=== PATIENT | female | born 1955 | race Caucasian/White ===

== ENCOUNTER 2024-08-12 15:11 | Inpatient (IN) | payer MEDICARE, SELFPAY ==
--- NOTE | ~2024-08-12 | CT_ITS ---
EXAMINATION: CT HEAD WITHOUT CONTRAST CLINICAL INFORMATION: confusion, low sodium COMPARISON: None available. TECHNIQUE: Contiguous axial imaging was performed from the skull base to vertex without intravenous administration of contrast. This CT examination was performed using dose optimization techniques as appropriate, variously including the following: *Automated exposure control *Adjustment of mA and/or kV according to patient size (this includes techniques or standardized protocols for targeted exams where dose is matched to indication/reason for exam; i.e. extremities or head) *Use of iterative reconstruction technique DLP: 700 mGy-cm FINDINGS: No acute intracranial hemorrhage, mass effect, midline shift, hydrocephalus or herniation. Ocampo-white matter differentiation is normal. Posterior cranial fossa contents demonstrated calcified plaque through the V4 segments of the vertebral arteries and to the distal basilar artery. Calcified plaques in the cavernous supraclinoid segments both ICA. Prominence of the extra-axial CSF spaces along the frontal convexities. Bony calvarium is intact. Skull base is intact. Tympanic cavities and mastoid air cells are aerated. No air-fluid levels, included paranasal sinuses. CT/CT head/brain wo IV con IMPRESSION: No acute intracranial hemorrhage. If patient's symptoms persist recommend non-IV contrast MRI brain. Electronically signed by: Sudhir Hicks MD 08/14/2024 02:38 PM EDT
--- NOTE | 2024-08-12 15:39 | MHC.RECOVRN ---
Met with pt in ED waiting room after receiving call from pts PCP at [facility] that pt was experiencing withdrawal from prescribed medications. Per PCP, pt had been prescribed lorazepam, Percocet, and most recently clonazepam and pt abruptly stopped all medications 6-8 days ago. Pt was encouraged to present to the ED due to risks involved with benzodiazepine withdrawal. Pt sitting in wheelchair, appears comfortable, does not appear restless, not tremulous. Upon introducing self, pt becomes tearful and states I'm in a bad way. Pt reports she had been taking lorazepam, 1 mg, 5 tabs daily, PO, x 15 years. Pt also reports Percocet, 10 mg TID, PO, x 15 years. Pt reports she last took medications 8 days ago. Pt states I just don't want to be on them anymore. Pt states I feel like I have the flu. Reports upset stomach, anxiety, diarrhea. Discussed possibility of inpatient treatment/ATS, pt states I don't want to go anywhere. Discussed risks involved with abruptly stopping medications, including risk of seizure. Pt verbalizes understanding. Discussed tapering medications under supervision of PCP. Pt verbalizes understanding. Pt encouraged to continue discussing with PCP and develop a plan to stop medications. Denies questions or concerns at this time.
[2024-08-12 15:53] VITALS: BP 131/83; PULSE 95; RESP 16; TEMP 36.1; O2SAT 94; BMI 43.5
--- NOTE | 2024-08-12 15:57 | ED.GENADULT ---
HPI - General Adult General Chief complaint: ETOH/Substance Use Stated complaint: Med withdrawals Time Seen by Provider: 08/12/24 19:33 History of Present Illness ED Provider: Alie LEE narrative: The patient is a 68-year-old female. She says that she has been on Percocet and lorazepam for approximately 15 years. She says that in recent months she started increasing her use of lorazepam. She says that she has been prescribed lorazepam to take it 3 times a day. However she started to experience a lot of palpitations during the night as well and she would take 2 additional lorazepam at night. She therefore ran out of her lorazepam ahead of schedule. I believe she spoke to her primary care doctor who told her that she was misusing her medications and therefore the PCP was going to stop prescribing the medication. According to the state website she last received a prescription for oxycodone on July 16. On that day she picked up 90 tablets of 10 mg oxycodone Percocet tablets. On July 17 she picked up a prescription for 45 tablets of 0.5 mg clonazepam (in previous months she has been prescribed 90 tablets of lorazepam per month). The patient says that she has not taken any Percocet or benzodiazepines in approximately 10 days. She has been feeling quite unwell in apparently went to [facility] last week twice because of symptoms related to stopping these medications. Today the patient came to this hospital because she has been feeling so uncomfortable with the what she believes her withdrawal symptoms. She feels restless and uncomfortable. No fevers. She says she feels terrible. Related Data Home Medications ?Medication ?Instructions ?Recorded ?Confirmed amlodipine 10 mg tablet 10 mg PO DAILY 08/13/24 08/13/24 aspirin 81 mg tablet,delayed 81 mg PO DAILY 08/13/24 08/13/24 release carvedilol 12.5 mg tablet 12.5 mg PO BID 08/13/24 08/13/24 clonazepam 0.5 mg tablet 0.5 mg PO TID 08/13/24 08/13/24 clotrimazole-betamethasone 1 1 appl topical BID 08/13/24 08/13/24 %-0.05 % topical cream escitalopram oxalate 5 mg tablet 5 mg PO DAILY 08/13/24 08/13/24 fluticasone furoate 100 1 inh inhalation DAILY 08/13/24 08/13/24 mcg/actuation blister powder for inhalation (Arnuity Ellipta) lorazepam 1 mg tablet 1 mg PO TID 08/13/24 08/13/24 rosuvastatin 10 mg tablet 10 mg PO BEDTIME 08/13/24 08/13/24 Allergies Allergy/AdvReac Type Severity Reaction Status Date / Time No Known Allergies Allergy Verified 08/12/24 15:58 Review of Systems Review of Systems: Yes all other systems are reviewed and are negative [facility] Social History Social History Smoked in Last 30 Days: No Substance Use Type: Prescription Drugs Advance Directives: No Advance Directives Information Provided: Yes Do you have a plan to hurt others: No Plan Physical Exam ED Vital Signs: Vital Signs - 24 hr 08/13/24 20:11 08/13/24 20:14 08/14/24 07:50 Temperature 98.7 F 97.4 F Pulse Rate 91 91 86 Respiratory Rate 18 15 Blood Pressure 167/97 H 167/97 H 144/87 H Pulse Oximetry 97 95 Oxygen Delivery Method Room Air Room Air 08/14/24 13:25 Temperature 98.5 F Pulse Rate 75 Respiratory Rate 13 Blood Pressure 134/82 Pulse Oximetry 94 Oxygen Delivery Method Room Air BMI result Body Mass Index 43.5 Const Other: The patient is a chronically ill-appearing 68-year-old female who seemed extremely anxious and uncomfortable. HENMT Other: Face is symmetrical. Mucous membranes moist. Eyes General: appearance normal, both eyes and all related structures Neck Neck: Yes supple Resp Effort & Inspection: normal respiratory effort Auscultation: clear to auscultation bilaterally Cardio Rate: regular rate Rhythm: regular rhythm Heart sounds: S1 normal heart sound present and S2 normal heart sound present GI Other: Abdomen is soft and nontender Skin Other: Skin is dry and unremarkable Neuro Other: The patient is awake and alert. She does not seem disoriented. She seems very anxious. Cranial nerves are grossly intact. She moves her extremities symmetrically and appropriately. She has a nonfocal exam. Extrem Other: No peripheral edema Course Course Course Narrative: This is a rapid medical exam performed by Ashtyn Lopez PA-C. The patient is a 68-year-old female, who is on chronic lorazepam and Percocet, who states she is experiencing withdrawal symptoms. Patient states she has not had either her lorazepam or her Percocet when asked if she has been taking too much of her medication, she initially indicates that she has, then retracts the statement. The patient states that her ?entire body hurts?. On exam, the patient is tearful, however when she began speaking about her medications, she is no longer upset. She is alert and oriented x3, there was no active tremor, she has no active GI symptoms. We will screen basic labs serum ethanol and a drug screen. She has never been to our facility, I sadly feel that she is exhibiting medication seeking behavior. She is stable and will return to the waiting room pending her full assessment. Reevaluation(s) Reevaluation #1: Physician observation continued. VS stable, no acute events overnight, re-eval this AM per notes magnesium ordered level 1.5 08/13 Reevaluation #2: 1506 08/13/24 -- Spoke with Carolyn Villalobos from addiction med. Plan for ad care in the morning. patient agreeable with plan. Reevaluation #3: Physician observation continued. VS stable, no acute events overnight, will discuss with addiction medicine about dispo today NAY 08/14/24 Additional Reevaluation(s): UA + today after stating she couldn't urinate started on ceftin 250mg BID PVF 71 patient seems more confused this AM, discussed with PA to re-evaulate patient 11am and PA felt patient was more confused, BMP ordered by sports psychologist [address] head/osm, urine studies, move to main. battery charger conveyor line aware she has repeatedly asked for anxiety medications. waiting to discuss with RN if this is SIADH. Na 132 on 08/12. per RN patient has been drinking water but unclear how much they do not think that she has been drinking from the sink in the bathroom. overnight the RN did tell oncoming day team that she seems to drink a lot of water overnight and drank a lot to make herself go pee. we have removed all water from her room at this time. 1pm 08/14/24 NAY plan to admit to ICU given low Na she is able to answer questions appropriately no seizures at this time will star on oral Na tabs and admit Dr. Roldan aware I do not see ICH on CT head Medications Administered Generic Name Dose Route Start Last Admin Trade Name Freq PRN Reason Stop Dose Admin Amlodipine Besylate 10 mg 08/13/24 09:00 08/14/24 08:45 Amlodipine Besylate 10 Mg Tablet PO 10 mg DAILY CECILE Administration Protocol Aspirin 81 mg 08/13/24 10:10 08/14/24 08:45 Aspirin 81 Mg Tab.Chew PO 81 mg DAILY CECILE Administration Atorvastatin Calcium 40 mg 08/13/24 21:00 08/13/24 20:14 Atorvastatin Calcium 40 Mg Tablet PO 40 mg BEDTIME CECILE Administration Buprenorphine/Naloxone 1 film 08/13/24 09:00 08/14/24 08:45 Buprenorphine/Naloxone 4/1 Mg Film SUBLINGUAL 1 film BID CECILE Administration Carvedilol 12.5 mg 08/13/24 09:00 08/14/24 08:45 Carvedilol 12.5 Mg Tablet PO 12.5 mg BID CECILE Administration Protocol Cefuroxime Axetil 250 mg 08/14/24 10:35 08/14/24 11:06 Cefuroxime Axetil 250 Mg Tablet PO 08/21/24 10:34 250 mg BID CECILE Administration Escitalopram Oxalate 5 mg 08/13/24 09:00 08/14/24 08:48 Escitalopram Oxalate 5 Mg Tablet PO Not Given DAILY CECILE Lorazepam 1 mg 08/13/24 09:00 08/14/24 08:45 Lorazepam 1 Mg Tablet PO 1 mg TID CECILE Administration Nystatin/Triamcinolone Acetonide 1 appl 08/13/24 09:00 08/14/24 10:03 Nystatin/Triamcinolone Cream 15 Gm Tube TOPICAL Not Given BID CECILE Discontinued Medications Generic Name Dose Route Start Last Admin Trade Name Macario PRN Reason Stop Dose Admin Acetaminophen 650 mg 08/13/24 12:54 08/13/24 12:57 Acetaminophen 325 Mg Tablet PO 08/13/24 12:55 650 mg ONCE ONE Administration Acetaminophen 650 mg 08/13/24 21:32 08/13/24 21:38 Acetaminophen 325 Mg Tablet PO 08/13/24 21:33 650 mg ONCE ONE Administration Acetaminophen 650 mg 08/14/24 10:03 08/14/24 10:06 Acetaminophen 325 Mg Tablet PO 08/14/24 10:04 650 mg ONCE ONE Administration Al Hydroxide/Mg Hydroxide 30 ml 08/14/24 02:43 08/14/24 02:47 Magnesium Hydrox/Alum Hydrox 30 Ml Oral.Susp PO 08/14/24 02:44 30 ml ONCE ONE Administration Buprenorphine/Naloxone 1 film 08/12/24 21:30 08/12/24 22:25 Buprenorphine/Naloxone 4/1 Mg Film SUBLINGUAL 08/12/24 21:31 1 film ONCE ONE Administration Diphenhydramine HCl 50 mg 08/13/24 03:28 08/13/24 03:35 Diphenhydramine Hcl 25 Mg Capsule PO 08/13/24 03:29 50 mg ONCE ONE Administration Diphenhydramine HCl 50 mg 08/14/24 02:20 08/14/24 05:35 Diphenhydramine Hcl 25 Mg Capsule PO 08/14/24 02:21 Not Given ONCE ONE Lorazepam 1 mg 08/12/24 19:49 08/12/24 19:54 Lorazepam 1 Mg Tablet PO 08/12/24 19:50 1 mg ONCE ONE Administration Lorazepam 1 mg 08/13/24 09:00 08/13/24 20:21 Lorazepam 1 Mg Tablet PO Not Given BID CECILE Lorazepam 2 mg 08/14/24 10:46 08/14/24 10:54 Lorazepam 1 Mg Tablet PO 08/14/24 10:47 2 mg ONCE ONE Administration Magnesium Oxide 800 mg 08/13/24 09:40 08/13/24 10:44 Magnesium Oxide 400 Mg Tablet PO 08/13/24 09:41 800 mg ONCE ONE Administration Ondansetron HCl 4 mg 08/14/24 09:00 08/14/24 09:08 Ondansetron Odt 4 Mg Tab.Rapdis TRANSLINGU 08/14/24 09:01 4 mg ONCE ONE Administration Medical Decision Making Medical Decision Making [facility] Narrative: The patient is a 68-year-old female who presents apparently in withdrawal from benzodiazepines and oxycodone. The patient's symptoms seem consistent with withdrawal symptoms. The patient has been seen by the addiction Medicine team in the waiting room with a plan for probable outpatient management with the patient's PCP involved in a tapering of medications, particularly the benzodiazepines. The patient was given 1 mg of oral lorazepam in the emergency department with miraculous improvement in her symptoms. It has been my intention to discharge the patient with a prescription for a small number of lorazepam and possibly also on Suboxone. Patient had implied that the patient's PCP would be willing to participate in prescribing a tapering course of benzodiazepines. However prior to being discharged the patient contacted a family member who was going to be her ride home. The family member was extremely upset of the prospect of the patient being discharged. I spoke to the family member with the patient's permission and with the the patient also involved in the call. The patient's family member says that the patient's house is a shambles and that the patient has not demonstrated anything to suggest that she will be capable of participating in an outpatient tapering. Additionally the family member implied that the patient's PCP would not be agreeable to prescribing any medications for a slower taper of benzodiazepines. Based on the input from the family member I think it might be reasonable to keep the patient in the emergency department for a re-evaluation by the addiction Medicine team in the morning. At that point the addiction Medicine team could also contact the patient's family to get a possibly better sense of how disorganized the patient's life has been recently and whether there really is any reasonable outpatient approach that could be determined. Additionally it would have to be known if the patient's PCP was willing to participate in any outpatient tapering of benzodiazepines. The patient ultimately relented to stay in the emergency department voluntarily. In addition to the 1 mg of lorazepam that she received I have also ordered a 4 mg dose of Suboxone given her significant oxycodone use recently. I have put in orders for ongoing lorazepam 1 mg b.i.d. and Suboxone 4 mg b.i.d.. The patient will be moved into the psychiatric pod for the night. A consult for addiction Medicine has been placed. The patient will be placed in physician observation. Lab Data 08/12/24 17:05 08/14/24 13:15 Labs: Lab Results 08/12/24 08/14/24 08/14/24 Range/Units 17:05 08:29 12:18 WBC 8.3 (4.8-10.8) X10*3/uL RBC 4.69 (4.20-5.50) X10*6/uL Hgb 15.7 (12.0-16.0) g/dl Hct 42.0 (37.0-47.0) % MCV 89.6 (80.0-98.0) fL MCH 33.5 H (27.0-33.0) pg MCHC 37.4 H (31.0-35.0) g/dl RDW 13.2 (11.0-16.0) % Plt Count 182 (160-400) X10*3/uL MPV 11.2 (9.4-12.3) fL Immature Gran % (Auto) 0.2 (0.0-0.4) % Neut % (Auto) 63.7 (45-73) % Lymph % (Auto) 26.7 (20-40) % Mckinley % (Auto) 8.1 (2-11) % Eos % (Auto) 1.2 (0-4) % Baso % (Auto) 0.1 (0-2) % Lymph # (Auto) 2.2 (1.2-4.9) X10*3/uL Mckinley # (Auto) 0.7 (0.1-1.2) X10*3/uL Eos # (Auto) 0.1 (0.0-0.4) X10*3/uL Baso # (Auto) 0.0 (0.0-0.2) X10*3/uL Abs Immat Gran (auto) 0.02 (0.00-0.03) X10*3/uL Absolute Neuts (auto) 5.3 (2.0-8.3) x10*3/uL Absolute Nucleated RBC 0.000 (0.0-0.012) X10*3/uL Nucleated RBC % (auto) 0.0 (0.0-0.2) /100WBC Sodium 132 L 117 L* (135-145) mmol/L Potassium 3.6 4.3 (3.3-5.1) mmol/L Chloride 98 85 L (96-108) mmol/L Carbon Dioxide 23 26 (22-29) mmol/L Anion Gap 15 10 L (12-20) BUN 8 L 11 (9-16) mg/dL Creatinine 0.72 0.69 (0.5-1.4) mg/dL Estim Creat Clear Calc 85.4 89.1 Estimated GFR > 60 > 60 Random Glucose 122 H 154 H (60-115) mg/dL Osmolality (281-305) mosm/kg Calcium 10.3 H 9.0 D (8.4-10.2) mg/dL Magnesium 1.5 L (1.6-2.6) mg/dL Total Bilirubin 0.7 0.7 (0.0-1.0) mg/dL AST 73 H 78 H (5-31) U/L ALT 113 H 129 H (0-31) U/L Alkaline Phosphatase 71 67 (39-117) U/L Total Protein 7.7 7.1 (6.5-8.0) g/dL Albumin 4.6 4.3 (3.5-5.0) g/dL Urine Color Yellow Yellow Urine Appearance Clear Clear Urine pH 6.0 6.5 (5.0-9.0) Ur Specific [place] <= 1.005 <= 1.005 (1.005-1.025) Urine Protein Negative Negative (Neg-Trace) mg/dL Urine Glucose (UA) Negative Negative (Negative) mg/dL Urine Ketones 15 Negative (Negative) mg/dL Urine Blood Large (3+) H Moderate (2+) H (Negative) Urine Nitrite Negative Negative (Negative) Ur Leukocyte Esterase Moderate (2+) H Large (3+) H (Negative) Urine RBC 3-5 H 3-5 H (0-2) /HPF Urine WBC 0-5 21-50 H (0-5) /HPF Ur Squamous Epith Cells 0-2 0-2 (0-2) /HPF Urine Bacteria Trace None Seen (None Seen) Hyaline Casts 0-2 0-2 (0-2) /LPF Urine Opiates Screen Not Detected (Not Detect) Ur Buprenorphine Scrn Not Detected (Not Detect) ng/mL Ur Oxycodone Screen Not Detected (Not Detect) ng/mL Urine Methadone Screen Not Detected (Not Detect) ng/mL Urine Fentanyl Screen Not Detected (Not Detect) Ur Barbiturates Screen Not Detected (Not Detect) Ur Phencyclidine Scrn Not Detected (Not Detect) Ur Amphetamines Screen Not Detected (Not Detect) U Benzodiazepines Scrn Not Detected (Not Detect) Urine Cocaine Screen Not Detected (Not Detect) U Marijuana (THC) Screen Not Detected (Not Detect) Ethyl Alcohol < 10 mg/dL 08/14/24 Range/Units 13:15 WBC (4.8-10.8) X10*3/uL RBC (4.20-5.50) X10*6/uL Hgb (12.0-16.0) g/dl Hct (37.0-47.0) % MCV (80.0-98.0) fL MCH (27.0-33.0) pg MCHC (31.0-35.0) g/dl RDW (11.0-16.0) % Plt Count (160-400) X10*3/uL MPV (9.4-12.3) fL Immature Gran % (Auto) (0.0-0.4) % Neut % (Auto) (45-73) % Lymph % (Auto) (20-40) % Mckinley % (Auto) (2-11) % Eos % (Auto) (0-4) % Baso % (Auto) (0-2) % Lymph # (Auto) (1.2-4.9) X10*3/uL Mckinley # (Auto) (0.1-1.2) X10*3/uL Eos # (Auto) (0.0-0.4) X10*3/uL Baso # (Auto) (0.0-0.2) X10*3/uL Abs Immat Gran (auto) (0.00-0.03) X10*3/uL Absolute Neuts (auto) (2.0-8.3) x10*3/uL Absolute Nucleated RBC (0.0-0.012) X10*3/uL Nucleated RBC % (auto) (0.0-0.2) /100WBC Sodium 117 L* (135-145) mmol/L Potassium 4.1 (3.3-5.1) mmol/L Chloride 85 L (96-108) mmol/L Carbon Dioxide 25 (22-29) mmol/L Anion Gap 11 L (12-20) BUN 11 (9-16) mg/dL Creatinine 0.66 (0.5-1.4) mg/dL Estim Creat Clear Calc 93.2 Estimated GFR > 60 Random Glucose 160 H (60-115) mg/dL Osmolality 252 L (281-305) mosm/kg Calcium 9.1 (8.4-10.2) mg/dL Magnesium (1.6-2.6) mg/dL Total Bilirubin (0.0-1.0) mg/dL AST (5-31) U/L ALT (0-31) U/L Alkaline Phosphatase (39-117) U/L Total Protein (6.5-8.0) g/dL Albumin (3.5-5.0) g/dL Urine Color Urine Appearance Urine pH (5.0-9.0) Ur Specific Nine[place] (1.005-1.025) Urine Protein (Neg-Trace) mg/dL Urine Glucose (UA) (Negative) mg/dL Urine Ketones (Negative) mg/dL Urine Blood (Negative) Urine Nitrite (Negative) Ur Leukocyte Esterase (Negative) Urine RBC (0-2) /HPF Urine WBC (0-5) /HPF Ur Squamous Epith Cells (0-2) /HPF Urine Bacteria (None Seen) Hyaline Casts (0-2) /LPF Urine Opiates Screen (Not Detect) Ur Buprenorphine Scrn (Not Detect) ng/mL Ur Oxycodone Screen (Not Detect) ng/mL Urine Methadone Screen (Not Detect) ng/mL Urine Fentanyl Screen (Not Detect) Ur Barbiturates Screen (Not Detect) Ur Phencyclidine Scrn (Not Detect) Ur Amphetamines Screen (Not Detect) U Benzodiazepines Scrn (Not Detect) Urine Cocaine Screen (Not Detect) U Marijuana (THC) Screen (Not Detect) Ethyl Alcohol mg/dL Critical Care Time Critical Care Time Critical Care Time: Yes Total Critical Care Time: 35 Attestation: repeat labs, CT scan, consult, admission I attest to this time spent taking care of the patient Discharge Plan Discharge Clinical Impression: Benzodiazepine withdrawal, Opioid withdrawal, Acute hyponatremia Patient Disposition: Admitted As Inpatient Prescriptions: No Action carvedilol 12.5 mg tablet 12.5 mg PO BID clonazepam 0.5 mg tablet 0.5 mg PO TID amlodipine 10 mg tablet 10 mg PO DAILY lorazepam 1 mg tablet 1 mg PO TID rosuvastatin 10 mg tablet 10 mg PO BEDTIME escitalopram oxalate 5 mg tablet 5 mg PO DAILY Arnuity Ellipta 100 mcg/actuation blister with device 1 inh inhalation DAILY clotrimazole-betamethasone 1-0.05 % cream 1 appl topical BID aspirin [Aspir-81] 81 mg Tablet,Delayed Release (Dr/Ec) 81 mg PO DAILY Print Language: Samoan
[2024-08-12 17:14] LABS: MANUAL DIFF FLAG NO
[2024-08-12 17:17] LABS: Appearance Urine Clear; Basophils Percent Auto 0.1 % (0-2); Color Urine Yellow; Eosinophils Absolute Auto 0.1 X10*3/uL (0.0-0.4); Eosinophils Percent Auto 1.2 % (0-4); Glucose Urine UA Negative (Negative); Hemoglobin 15.7 g/dl (12.0-16.0); Imm Gran Abs Auto 0.02 X10*3/uL (0.00-0.03); Imm Gran Pct Auto 0.2 % (0.0-0.4); Leukocyte Esterase Urine Moderate (2+) (Negative); Lymphocytes Absolute Auto 2.2 X10*3/uL (1.2-4.9); Lymphocytes Percent Auto 26.7 % (20-40); Mean Corpuscular HGB Conc 37.4 g/dl (31.0-35.0); Mean Corpuscular Hemoglobin 33.5 pg (27.0-33.0); Mean Corpuscular Volume 89.6 fL (80.0-98.0); Mean Platelet Volume 11.2 fL (9.4-12.3); Monocytes Absolute Auto 0.7 X10*3/uL (0.1-1.2); Monocytes Percent Auto 8.1 % (2-11); Neutrophils Absolute Auto 5.3 x10*3/uL (2.0-8.3); Neutrophils Percent Auto 63.7 % (45-73); Nitrite Urine Negative (Negative); Platelet Count 182 X10*3/uL (160-400); Red Blood Count 4.69 X10*6/uL (4.20-5.50); Red Cell Distribution Width 13.2 % (11.0-16.0); Specific Gravity - Urine <= 1.005 (1.005-1.025); UMIC TRIGGER UACC YES; Urine Blood Large (3+) (Negative); Urine Ketones 15 mg/dL (Negative); Urine Protein Negative (Neg-Trace); White Blood Count 8.3 X10*3/uL (4.8-10.8)
[2024-08-12 17:37] LABS: Alanine Aminotransferase 113 U/L (0-31); Albumin Level 4.6 g/dL (3.5-5.0); Alkaline Phosphatase 71 U/L (39-117); Anion Gap 15 (12-20); Aspartate Amino Transferase 73 U/L (5-31); Bilirubin Total 0.7 mg/dL (0.0-1.0); Blood Urea Nitrogen 8 mg/dL (9-16); Calcium 10.3 mg/dL (8.4-10.2); Carbon Dioxide 23 mmol/L (22-29); Chloride 98 mmol/L (96-108); Creatinine Clr Calc Pharmacy 85.4; Estimated Glomerular Filt Rate > 60; Ethanol < 10 mg/dL; Glucose Random 122 mg/dL (60-115); Magnesium 1.5 mg/dL (1.6-2.6); Potassium 3.6 mmol/L (3.3-5.1); Sodium 132 mmol/L (135-145); Total Protein 7.7 g/dL (6.5-8.0)
[2024-08-12 17:43] LABS: WBC Urine 0-5 /HPF (0-5)
[2024-08-12 17:44] LABS: Bacteria Urine Trace (None Seen); Hyaline Casts Urine 0-2 /LPF (0-2); Squamous Epithelial Cell Urine 0-2 /HPF (0-2)
[2024-08-12 18:42] LABS: Amphetamine Screen Urine Not Detected (Not Detect); Barbiturates, Urine Not Detected (Not Detect); Benzodiazepines Screen Urine Not Detected (Not Detect); Buprenorphine Scr Not Detected (Not Detect); Cannabinoid Screen Urine Not Detected (Not Detect); Cocaine Screen Urine Not Detected (Not Detect); Fentanyl, urine Not Detected (Not Detect); Methadone Screen, Urine Not Detected (Not Detect); Opiate Screen Urine Not Detected (Not Detect); Oxycodone Screen Urine Not Detected (Not Detect); Phencyclidine Screen Urine Not Detected (Not Detect)
[2024-08-12 19:16] VITALS: BP 161/86; PULSE 89; RESP 16; TEMP 36.7; O2SAT 96
[2024-08-12] MEDS: LORazepam 1 MG TABLET PO (19:54)
--- NOTE | 2024-08-12 20:16 | PC.NURSE ---
pt changed to hospital gown and placed on heart monitor. pt is axox4, calm/cooperative but becoming anxious at times. MD Alie martinez pt, pt medicated per dec. will reassess sx. pt denies si/hi. listening to music on phone as pt states that helps her anxiety. call albert within reach.
--- NOTE | 2024-08-12 21:43 | PC.NURSE ---
per MD pt to stay in ed overnight to re eval with recovery medication. per charger operator pt to pod, report given to singh rn. pt escorted by forepart reducer and security to be changed over in pod. pt aware of belongings needing to be secured and in agreement.
--- NOTE | 2024-08-12 21:55 | PC.NURSE ---
patient was changd over by this policy writer upon arrival to unit presents with no evidence of injury, ekg stickers removed, patient fully cooperative and no presence of cantrAband
[2024-08-12] MEDS: Buprenorphine/Naloxone 4/1 mg FILM 1 FILM SUBLINGUAL (22:25)
[2024-08-13] MEDS: diphenhydrAMINE HCL 25 MG CAPSULE 50 MG PO (03:35)
[2024-08-13 08:08] VITALS: BP 149/90; PULSE 98; RESP 16; TEMP 36.6; O2SAT 95
--- NOTE | 2024-08-13 08:30 | PHA.MEDREC ---
Pharmacy Consult ? Medication Reconciliation Pharmacy has reviewed the medication reconciliation.
[2024-08-13 08:45] VITALS: BP 140/90
[2024-08-13] MEDS: amLODIPine Besylate 10 MG TABLET PO (08:45)
[2024-08-13] MEDS: LORazepam 1 MG TABLET PO ×3 (08:46→20:16)
[2024-08-13 09:12] VITALS: BP 140/90; PULSE 98
[2024-08-13] MEDS: carvediloL 12.5 MG TABLET PO ×2 (09:12→20:14)
[2024-08-13] MEDS: Buprenorphine/Naloxone 4/1 mg FILM 1 FILM SUBLINGUAL ×2 (09:12→20:13)
[2024-08-13] MEDS: Nystatin/Triamcinolone Cream 15 GM TUBE 1 APPL TOPICAL ×2 (09:12→20:22)
[2024-08-13] MEDS: Escitalopram Oxalate 5 MG TABLET PO (09:12)
--- NOTE | 2024-08-13 10:15 | MHC.RECOVRN ---
Met with pt in [facility] to follow up after meeting pt yesterday. Pt awake, alert, easily engages in conversation. Pt tearful, scoring on CIWA and COWS. Pt had been initiated on Suboxone overnight, states it helped me relax. Discussed options with pt, including continuing Suboxone and outpatient taper of benzodiazepines (t/w confirmed PCP would prescribe) vs inpatient treatment. Pt reports if she does not complete inpatient treatment her family will no longer help her. Pt also reports she would like to take the safest route in order to no longer be on these medications. Upon further discussion, pt is interested in ATS. Pt denies other questions or concerns at this time. [facility] accepts pts insurance, pts referral will be completed.
[2024-08-13] MEDS: Magnesium Oxide 400 MG TABLET 800 MG PO (10:44)
[2024-08-13] MEDS: Aspirin 81 MG TAB.CHEW PO (10:44)
--- NOTE | 2024-08-13 12:11 | MHC.RECOVRN ---
Upon further investigation, pts insurance is NOT accepted at [facility], or [facility]. Awaiting to hear from [facility].
[2024-08-13] MEDS: Acetaminophen 325 MG TABLET 650 MG PO ×2 (12:57→21:38)
--- NOTE | 2024-08-13 12:57 | MHC.RECOVRN ---
[facility]. Awaiting phone call for intake.
--- NOTE | 2024-08-13 15:17 | MHC.RECOVRN ---
Pt accepted to [facility]. No available female beds at the moment, pt will get next available. There are discharges scheduled for tomorrow. Discussed with ED provider. Plan for pt to stay in ED overnight. Pts RN aware.
--- NOTE | 2024-08-13 16:16 | PC.NURSE ---
Addendum entered by Coco Mcduffie RN 08/13/24 16:22: Bladdered scanned for 54cc's. Original Note: Patient states she can't void will bladder scan to assess amount in bladder.
[2024-08-13 20:11] VITALS: BP 167/97; PULSE 91; RESP 18; TEMP 37.1; O2SAT 97
[2024-08-13 20:14] VITALS: BP 167/97; PULSE 91
[2024-08-13] MEDS: Atorvastatin Calcium 40 MG TABLET PO (20:14)
[2024-08-14] VITALS (10 sets, daily range): BP systolic 134–162; BP diastolic 76–87; PULSE 64–86; RESP 10–20; TEMP 36.2–36.9; O2SAT 93–96
--- NOTE | 2024-08-14 01:24 | PC.NURSE ---
patient mentions periodic urinary hesitancy which t/w had informed provider dt pt concerns. the symptoms had abated.
[2024-08-14] MEDS: Magnesium Hydrox/Alum Hydrox 30 ML ORAL.SUSP PO (02:47)
--- NOTE | 2024-08-14 07:46 | PC.NURSE ---
pt is reporting trouble urinating. she says she has had this problem before. She says I have to lift my belly and push . Bladder scan post void 71ml.
[2024-08-14] MEDS: Buprenorphine/Naloxone 4/1 mg FILM 1 FILM SUBLINGUAL ×2 (08:45→19:59)
[2024-08-14] MEDS: amLODIPine Besylate 10 MG TABLET PO (08:45)
[2024-08-14] MEDS: carvediloL 12.5 MG TABLET PO ×2 (08:45→19:58)
[2024-08-14] MEDS: Aspirin 81 MG TAB.CHEW PO (08:45)
[2024-08-14] MEDS: LORazepam 1 MG TABLET PO ×3 (08:45→20:00)
[2024-08-14 08:48] LABS: Appearance Urine Clear; Color Urine Yellow; Glucose Urine UA Negative (Negative); Leukocyte Esterase Urine Large (3+) (Negative); Nitrite Urine Negative (Negative); PH 6.5 (5.0-9.0); Specific Gravity - Urine <= 1.005 (1.005-1.025); UMIC TRIGGER UACC YES; Urine Blood Moderate (2+) (Negative); Urine Ketones Negative (Negative); Urine Protein Negative (Neg-Trace)
[2024-08-14 09:00] LABS: Bacteria Urine None Seen (None Seen); Hyaline Casts Urine 0-2 /LPF (0-2); Squamous Epithelial Cell Urine 0-2 /HPF (0-2); UACC Culture Trigger YES; WBC Urine 21-50 /HPF (0-5)
[2024-08-14] MEDS: Ondansetron ODT 4 MG TAB.RAPDIS TRANSLINGU (09:08)
[2024-08-14] MEDS: Acetaminophen 325 MG TABLET 650 MG PO (10:06)
--- NOTE | 2024-08-14 10:19 | MHC.RECOVRN ---
Spoke with Dameon RN, Meng, who reported he has discussed this case with medical team and case management. It was decided by the teams that pts insurance would not cover admission due to pt not having been on her meds for 8 days prior to presentation to [facility] [place]. Meng stated She already got through the dangerous part of detox on her own and even though she is in the hospital, this would be considered only a 1 day relapse. Meng reports [facility] is looking for 10-14 days of use. Informed Meng that pt had scored on COWS and CIWA upon presentation and has been medicated since being in the hospital, which has resulted in CIWA scores of 0. Meng reports that even though she had been scoring, simply the length of time that had passed since last use made her ineligible for ATS. Discussed with Kyung Hensley APRN.
--- NOTE | 2024-08-14 10:31 | ECG_ITS ---
Test Reason : CHEST PAIN Blood Pressure : / mmHG Vent. Rate : 076 BPM Atrial Rate : 076 BPM P-R Int : 180 ms QRS Dur : 084 ms QT Int : 382 ms P-R-T Axes : 036 019 025 degrees QTc Int : 429 ms Sinus rhythm with marked sinus arrhythmia Septal infarct , age undetermined Abnormal ECG No previous ECGs available Referred By: Henna Jean Electronically Signed By:Jimenez Connolly
--- NOTE | 2024-08-14 10:45 | PC.NURSE ---
pt is c/o of chest pain, nausea, headache, neck pain. She says this is the worst it has ever been, the anxiety is consuming me. She is moaning. EKG done. Pt says she is withdrawing. She had ativan 1mg per TID order this morning at 0845. Dr. Jean notified.
[2024-08-14] MEDS: LORazepam 1 MG TABLET 2 MG PO (10:54)
[2024-08-14] MEDS: cefuroxime axetiL 250 MG TABLET PO ×2 (11:06→20:00)
--- NOTE | 2024-08-14 11:26 | MHC.RECOVRN ---
Met with pt to follow up regarding conversation with [facility]. Pt awake, alert, crying, moaning. Informed pt of new information and option of outpatient plan- continue Suboxone and PCP prescribe bzo taper. Pt crying, moaning, states I can't go home. I can't take care of myself. Pt reporting chest pain, palpitations, I feel like my stomach has been ripped out. Discussed with Kyung Hensley APRN.
[2024-08-14 12:49] LABS: Alanine Aminotransferase 129 U/L (0-31); Albumin Level 4.3 g/dL (3.5-5.0); Alkaline Phosphatase 67 U/L (39-117); Anion Gap 10 (12-20); Aspartate Amino Transferase 78 U/L (5-31); Bilirubin Total 0.7 mg/dL (0.0-1.0); Blood Urea Nitrogen 11 mg/dL (9-16); Carbon Dioxide 26 mmol/L (22-29); Chloride 85 mmol/L (96-108); Creatinine Clr Calc Pharmacy 89.1; Estimated Glomerular Filt Rate > 60; Glucose Random 154 mg/dL (60-115); Potassium 4.3 mmol/L (3.3-5.1); Sodium 117 mmol/L (135-145); Total Protein 7.1 g/dL (6.5-8.0)
--- NOTE | 2024-08-14 13:37 | PC.NURSE ---
pt a&ox3, iv inserted, labs previously redrawn, alarm security or surveillance monitor applied nsr on monitor, vitals currently stable, pt aware she is not to have water at this time. 1:1 sitter at bedside, ekg previously performed, call albert within reach, will continue to monitor
[2024-08-14 13:53] LABS: Anion Gap 11 (12-20); Blood Urea Nitrogen 11 mg/dL (9-16); Calcium 9.1 mg/dL (8.4-10.2); Carbon Dioxide 25 mmol/L (22-29); Chloride 85 mmol/L (96-108); Creatinine Clr Calc Pharmacy 93.2; Estimated Glomerular Filt Rate > 60; Glucose Random 160 mg/dL (60-115); Potassium 4.1 mmol/L (3.3-5.1); Sodium 117 mmol/L (135-145)
[2024-08-14 13:55] LABS: Osmolality, Serum 252 mosm/kg (281-305)
--- NOTE | 2024-08-14 15:13 | P.HPCC_ITS ---
History of Present Illness Date of Service: 08/14/24 Chief Complaint: Acute hyponatremia, polydipsia 68-year-old lady with underlying history of hypertension, anxiety, depression, ?opioid dependence on Suboxone being observed in emergency department a several day secondary to withdrawal symptoms who developed acute hyponatremia overnight secondary to polydipsia with sodium level down to 117, but with no acute neurologic symptoms. Patient is alert and oriented in following all commands being admitted to intensive care unit for close monitoring. Review of Systems 2 Constitutional: Constitutional: Denies daytime sleepiness, Denies excessive sweating, Denies fatigue, Denies fever(s), Denies lethargy, Denies malaise, Denies night sweats, Denies snoring and Denies weight loss Eyes: Eyes: Denies blurry vision and Denies itchy eyes ENT: Denies nasal congestion, Denies post nasal drip, Denies sinus pain, Denies sinus pressure and Denies other ( Thrush) Cardiovascular: Cardiovascular: Denies chest pain, Denies pedal edema, Denies dyspnea, Denies orthopnea and Denies paroxysmal nocturnal dyspnea Respiratory: Respiratory: Denies cough, Denies hemoptysis, Denies excessive phlegm production, Denies dyspnea, Denies snoring and Denies wheezing Gastrointestinal: Gastrointestinal: Denies abdominal pain and Denies heartburn Musculoskeletal: Musculoskeletal: Denies myalgias, Denies arthralgias and Denies joint swelling Integumentary/Breasts: Skin/Breast: Denies rash Neurologic: Denies seizure-like activity Endocrine: Endocrine: Denies excessive sweating, Denies fatigue and Denies heat intolerance Hematologic/Lymphatic: Hematologic/Lymphatic: Denies easy bruising Allergic/Immunologic: Allergic/Immunologic: Denies itchy eyes, Denies seasonal rhinorrhea and Denies wheezing PMFSH Social History Social History Smoked in Last 30 Days: No Substance Use Type: Prescription Drugs Advance Directives: No Advance Directives Information Provided: Yes Do you have a plan to hurt others: No Plan Meds Allergies Allergy/AdvReac Type Severity Reaction Status Date / Time No Known Allergies Allergy Verified 08/12/24 15:58 Active Medications: Current Medications Amlodipine Besylate (Amlodipine Besylate 10 Mg Tablet) 10 mg PO DAILY [facility]; Protocol Last Admin: 08/14/24 08:45 Dose: 10 mg Aspirin (Aspirin 81 Mg Tab.Chew) 81 mg PO DAILY [facility] Last Admin: 08/14/24 08:45 Dose: 81 mg Atorvastatin Calcium (Atorvastatin Calcium 40 Mg Tablet) 40 mg PO BEDTIME [facility] Last Admin: 08/13/24 20:14 Dose: 40 mg Buprenorphine/Naloxone (Buprenorphine/Naloxone 4/1 Mg Film) 1 film SUBLINGUAL BID [facility] Last Admin: 08/14/24 08:45 Dose: 1 film Carvedilol (Carvedilol 12.5 Mg Tablet) 12.5 mg PO BID [facility]; Protocol Last Admin: 08/14/24 08:45 Dose: 12.5 mg Cefuroxime Axetil (Cefuroxime Axetil 250 Mg Tablet) 250 mg PO BID [facility] Stop: 08/21/24 10:34 Last Admin: 08/14/24 11:06 Dose: 250 mg Heparin Sodium (Porcine) (Heparin Sodium,Porcine 5,000 Unit/Ml Vial) 5,000 unit SUBCUT Q8H [facility] Lorazepam (Lorazepam 1 Mg Tablet) 1 mg PO TID PRN PRN Reason: anxiety Nystatin/Triamcinolone Acetonide (Nystatin/Triamcinolone Cream 15 Gm Tube) 1 appl TOPICAL BID [facility] Last Admin: 08/14/24 10:03 Dose: Not Given Sodium Chloride (Sodium Chloride Tab 1 Gm Tablet) 2 gm PO TID [facility] Home Medications ?Medication ?Instructions ?Recorded ?Confirmed ?Last Taken ?Type amlodipine 10 mg tablet 10 mg PO DAILY 08/13/24 08/13/24 Unknown History aspirin 81 mg tablet,delayed 81 mg PO DAILY 08/13/24 08/13/24 Unknown History release carvedilol 12.5 mg tablet 12.5 mg PO BID 08/13/24 08/13/24 Unknown History clonazepam 0.5 mg tablet 0.5 mg PO TID 08/13/24 08/13/24 Unknown History clotrimazole-betamethasone 1 1 appl topical BID 08/13/24 08/13/24 Unknown History %-0.05 % topical cream escitalopram oxalate 5 mg tablet 5 mg PO DAILY 08/13/24 08/13/24 Unknown History fluticasone furoate 100 1 inh inhalation DAILY 08/13/24 08/13/24 Unknown History mcg/actuation blister powder for inhalation (Arnuity Ellipta) lorazepam 1 mg tablet 1 mg PO TID 08/13/24 08/13/24 Unknown History rosuvastatin 10 mg tablet 10 mg PO BEDTIME 08/13/24 08/13/24 Unknown History Physical Exam 2 Vital Signs: Vital Signs: Last Vital Signs Temp 98.5 F 08/14/24 13:25 Pulse 75 08/14/24 13:25 Resp 13 08/14/24 13:25 BP 134/82 08/14/24 13:25 Pulse Ox 94 08/14/24 13:25 O2 Del Method Room Air 08/14/24 13:25 BMI result Body Mass Index 43.5 Const: General: no acute distress and alert Nutritional Appearance: obese Orientation/consciousness: Other orientation findings ( oriented) HEENT: Head: Yes atraumatic Eyes: General: appearance normal, both eyes and all related structures S clerae: sclerae normal EOM: EOMs intact bilaterally Neck: Neck: Yes supple Lymphatic: no lymphadenopathy noted Resp: Effort & Inspection: normal respiratory effort and no use of accessory muscles Auscultation: clear to auscultation bilaterally Cardio: Rate: regular rate Rhythm: regular rhythm Heart sounds: no gallops, no murmurs and no rubs Skin: General skin exam: other ( warm) Extrem: General: No clubbing, No cyanosis and No edema Results Labs 08/12/24 17:05 08/14/24 13:15 Labs: Laboratory Results - last 24 hr 08/14/24 08/14/24 08/14/24 08:29 12:18 13:15 Anion Gap 10 L 11 L Estim Creat Clear Calc 89.1 93.2 Estimated GFR > 60 > 60 Random Glucose 154 H 160 H Osmolality 252 L Calcium 9.0 D 9.1 Total Bilirubin 0.7 AST 78 H ALT 129 H Alkaline Phosphatase 67 Total Protein 7.1 Albumin 4.3 Urine Color Yellow Urine Appearance Clear Urine pH 6.5 Ur Specific [place] <= 1.005 Urine Protein Negative Urine Glucose (UA) Negative Urine Ketones Negative Urine Blood Moderate (2+) H Urine Nitrite Negative Ur Leukocyte Esterase Large (3+) H Urine RBC 3-5 H Urine WBC 21-50 H Ur Squamous Epith Cells 0-2 Urine Bacteria None Seen Hyaline Casts 0-2 Imaging Radiologist's Impressions: Impressions Head CT 08/14/24 12:57 IMPRESSION: No acute intracranial hemorrhage. If patient's symptoms persist recommend non-IV contrast MRI brain. Electronically signed by: Sudhir Hicks MD 08/14/2024 02:38 PM EDT RP Assessment and Plan (1) Psychogenic polydipsia: Status: Acute (2) Acute hyponatremia: Status: Acute (3) Opioid withdrawal: Status: Acute (4) Benzodiazepine withdrawal: Status: Acute (5) UTI (urinary tract infection): Status: Acute Plan Assessment: 68-year-old lady with acute hyponatremia likely secondary to psychogenic polydipsia being admitted for close monitoring Plan: Neuro: No acute issues. No neurologic symptoms. Cardiac: No acute issues. Pulmonary: No acute issues. Renal: Acute hyponatremia, likely secondary to psychogenic polydipsia. Osmolality studies are pending. Continue with fluid restriction and sodium tabs. Monitor urine output, renal indices, and electrolytes. Endo: No acute issues. GI: No acute issues. ID: UTI present on admission, continue with cefuroxime. Heme/Onc: No acute issues. Psych: No acute issues. Miscellaneous: No acute issues. Prophylaxis: Heparin Diet: Regular
[2024-08-14 15:18] LABS: Creatinine Urine 60.11 mg/dL; Sodium Urine Random < 20.0 mmol/L
[2024-08-14] MEDS: Heparin Sodium,Porcine 5,000 UNIT/ML VIAL 5000 UNIT SUBCUT (15:26)
--- NOTE | 2024-08-14 15:32 | PC.NURSE ---
called pharmacy for missing sodium chloride
[2024-08-14] MEDS: Sodium Chloride Tab 1 GM TABLET 2 GM PO ×2 (16:00→19:57)
--- NOTE | 2024-08-14 16:03 | PC.NURSE ---
pt a&ox3, vss, hotel office manager intact nsr with inverted twaves, pt currently denying pain/discomfort, medicated per order, report was called to ICU- they will call back when they have the sitter situation for the patient sorted out.
--- NOTE | 2024-08-14 16:23 | PC.NURSE ---
sitter is now available in ICU, pt can go to floor
--- NOTE | 2024-08-14 16:55 | PC.NURSE ---
unable to document the updated vitals as the pt was rolled to ICU and they no longer show. vitals upon dc to icu were as follows 97.8, p 82, 95% R/A, 18RR, 145/71 BP
[2024-08-14] MEDS: Atorvastatin Calcium 40 MG TABLET PO (19:57)
[2024-08-14 20:29] LABS: Anion Gap 12 (12-20); Blood Urea Nitrogen 9 mg/dL (9-16); Carbon Dioxide 25 mmol/L (22-29); Chloride 88 mmol/L (96-108); Creatinine Clr Calc Pharmacy 97.6; Estimated Glomerular Filt Rate > 60; Glucose Random 132 mg/dL (60-115); Potassium 3.7 mmol/L (3.3-5.1); Sodium 121 mmol/L (135-145)
[2024-08-15] VITALS (8 sets, daily range): BP systolic 118–157; BP diastolic 57–98; PULSE 62–82; RESP 12–16; TEMP 36.1–37.1; O2SAT 93–97; BMI 42.8
[2024-08-15 01:01] LABS: Anion Gap 11 (12-20); Blood Urea Nitrogen 9 mg/dL (9-16); Calcium 8.9 mg/dL (8.4-10.2); Carbon Dioxide 28 mmol/L (22-29); Chloride 88 mmol/L (96-108); Creatinine Clr Calc Pharmacy 90.4; Estimated Glomerular Filt Rate > 60; Glucose Random 143 mg/dL (60-115); Potassium 4.2 mmol/L (3.3-5.1); Sodium 123 mmol/L (135-145)
--- NOTE | 2024-08-15 02:22 | PC.NURSE ---
Addendum entered by Dannie Bueno RN 08/15/24 06:12: ALERT...ORIENTED THIS AM...SODIUM LEVEL 126 THIS AM...STARTED D5W 100 CC/HR PER ICU RADIATION / CHEMISTRY TECHNICIAN..RESTFUL..CALM AND CO-OPERATIVE Original Note: CARE ASSUMED 7PM..ALERT..ORIENTED X3...OOB AD JESSICA TO COMMODE WITH STEADY GAIT..REFUSED BED ALARM AND/OR OBSERVATION CAMERA...REFUSED HOURLY BP CUFF MAINTENANCE...VSS..PER ICU RADIATION / CHEMISTRY TECHNICIAN TO ASSESS VITAL SIGNS [id number]...PATIENT TEARFUL..STATED I DON'T FEEL GOOD..I'M IN WITHDRAWL AND I'M NAUSEOUS.. ...SCHEDULED SUBOXONE GIVEN AND PRN ATIVAN PO GIVEN EARLY PER RADIATION / CHEMISTRY TECHNICIAN...AFTER RECEIPT PATIENT REQUESTED AND ATE DINNER WITHOUT ISSUES....SERIAL SODIUM LEVELS INCREASED FROM 117 TO 121 TO 123...ICU RADIATION / CHEMISTRY TECHNICIAN ARTI PRYOR AWARE...NaCl PO TABLETS PLACED ON HOLD FOR OVERNIGHT...1200ml FLUID RESTRICTION MAINTAINED BUT PROVIDER STATED MAY HAVE XTRA GLASS OF H20 OVERNIGHT IF REQUESTED....PATIENT VAGUE AT 12AM AFTER RECEIPT OF ATIVAN..NAPPING...BED ALARMS PLACED FOR SAFETY..CURRENTLY DOZING AFTER OOB WITH STEADY GAIT TO COMMODENSR..NO ECTOPY
[2024-08-15 05:22] LABS: MANUAL DIFF FLAG NO
[2024-08-15 05:24] LABS: Basophils Percent Auto 0.2 % (0-2); Eosinophils Absolute Auto 0.2 X10*3/uL (0.0-0.4); Eosinophils Percent Auto 3.5 % (0-4); Hematocrit 35.7 % (37.0-47.0); Hemoglobin 13.2 g/dl (12.0-16.0); Imm Gran Abs Auto 0.01 X10*3/uL (0.00-0.03); Imm Gran Pct Auto 0.2 % (0.0-0.4); Lymphocytes Absolute Auto 1.9 X10*3/uL (1.2-4.9); Lymphocytes Percent Auto 36.6 % (20-40); Mean Corpuscular Hemoglobin 32.9 pg (27.0-33.0); Mean Platelet Volume 11.6 fL (9.4-12.3); Monocytes Absolute Auto 0.6 X10*3/uL (0.1-1.2); Neutrophils Absolute Auto 2.5 x10*3/uL (2.0-8.3); Neutrophils Percent Auto 48.5 % (45-73); Platelet Count 124 X10*3/uL (160-400); Red Blood Count 4.01 X10*6/uL (4.20-5.50); Red Cell Distribution Width 12.5 % (11.0-16.0); White Blood Count 5.1 X10*3/uL (4.8-10.8)
[2024-08-15 05:38] LABS: Albumin Level 4.1 g/dL (3.5-5.0); Anion Gap 12 (12-20); Blood Urea Nitrogen 10 mg/dL (9-16); Calcium 9.4 mg/dL (8.4-10.2); Carbon Dioxide 28 mmol/L (22-29); Chloride 91 mmol/L (96-108); Creatinine Clr Calc Pharmacy 79.1; Estimated Glomerular Filt Rate > 60; Glucose Random 169 mg/dL (60-115); Phosphorus 3.7 mg/dL (2.7-4.5); Potassium 4.9 mmol/L (3.3-5.1); Sodium 126 mmol/L (135-145)
[2024-08-15] MEDS: Dextrose 5 % 1,000 ML 100 ML IVCONT (06:10)
[2024-08-15] MEDS: Buprenorphine/Naloxone 4/1 mg FILM 1 FILM SUBLINGUAL ×2 (08:27→20:50)
[2024-08-15] MEDS: cefuroxime axetiL 250 MG TABLET PO ×2 (08:27→20:49)
[2024-08-15] MEDS: carvediloL 12.5 MG TABLET PO ×2 (08:27→20:50)
[2024-08-15] MEDS: Sodium Chloride Tab 1 GM TABLET PO ×2 (08:27→20:49)
[2024-08-15] MEDS: Aspirin 81 MG TAB.CHEW PO (08:27)
[2024-08-15] MEDS: amLODIPine Besylate 10 MG TABLET PO (08:27)
[2024-08-15] MEDS: LORazepam 1 MG TABLET PO ×3 (09:28→23:58)
[2024-08-15] MEDS: ondansetron HCL 4 MG/2 ML VIAL IVPUSH (10:34)
--- NOTE | 2024-08-15 10:47 | PM.CCPN ---
Subjective Subjective Date of Service: 08/15/24 Interval History: 68-year-old lady with underlying history of hypertension, anxiety, depression, ?opioid dependence on Suboxone being observed in emergency department a several day secondary to withdrawal symptoms who developed acute hyponatremia overnight secondary to polydipsia with sodium level down to 117, but with no acute neurologic symptoms. Admitted to the intensive care unit for close monitoring. No events overnight. Sodium improved to 126. Critical Care Time (minutes): 0 Physical Exam Vital Signs: Vital Signs: Last Vital Signs Temp 98.7 F 08/15/24 09:34 Pulse 69 08/15/24 09:34 Resp 12 08/15/24 09:34 BP 120/57 L 08/15/24 09:34 Pulse Ox 96 08/15/24 09:34 O2 Del Method Room Air 08/15/24 09:34 BMI result Body Mass Index 42.8 Const: General: no acute distress, alert and awake Eyes: Sclerae: sclerae normal EOM: EOMs intact bilaterally Neck: Neck: Yes no lymphadenopathy, Yes trachea midline and Yes supple Resp: Effort & Inspection: normal respiratory effort and no respiratory distress Auscultation: clear to auscultation bilaterally Cardio: Rate: regular rate Rhythm: regular rhythm Heart sounds: no gallops, no murmurs and no rubs GI: Palpation (GI): Soft to palpation and Other GI palpation findings present ( Nontender) Auscultation: normal bowel sounds Extrem: General: Yes no pedal edema, No clubbing and No cyanosis Objective Data Labs 08/15/24 05:08 08/15/24 05:08 Labs: Laboratory Results - last 24 hr 08/14/24 08/14/24 08/14/24 12:18 13:15 14:50 WBC RBC Hgb Hct MCV MCH MCHC RDW Plt Count MPV Immature Gran % (Auto) Neut % (Auto) Lymph % (Auto) [place] % (Auto) Eos % (Auto) Baso % (Auto) Lymph # (Auto) [place] # (Auto) Eos # (Auto) Baso # (Auto) Abs Immat Gran (auto) Absolute Neuts (auto) Absolute Nucleated RBC Nucleated RBC % (auto) Hold Purple Top Sodium 117 L* 117 L* Potassium 4.3 4.1 Chloride 85 L 85 L Carbon Dioxide 26 25 Anion Gap 10 L 11 L BUN 11 11 Creatinine 0.69 0.66 Estim Creat Clear Calc 89.1 93.2 Estimated GFR > 60 > 60 Random Glucose 154 H 160 H Osmolality 252 L Calcium 9.0 D 9.1 Phosphorus Magnesium Total Bilirubin 0.7 AST 78 H ALT 129 H Alkaline Phosphatase 67 Total Protein 7.1 Albumin 4.3 Ur Random Sodium < 20.0 Urine Creatinine 60.11 08/14/24 08/15/24 08/15/24 20:00 00:37 05:08 WBC 5.1 RBC 4.01 L Hgb 13.2 Hct 35.7 L MCV 89.0 MCH 32.9 MCHC 37.0 H RDW 12.5 Plt Count 124 L D MPV 11.6 Immature Gran % (Auto) 0.2 Neut % (Auto) 48.5 Lymph % (Auto) 36.6 [place] % (Auto) 11.0 Eos % (Auto) 3.5 Baso % (Auto) 0.2 Lymph # (Auto) 1.9 [place] # (Auto) 0.6 Eos # (Auto) 0.2 Baso # (Auto) 0.0 Abs Immat Gran (auto) 0.01 Absolute Neuts (auto) 2.5 Absolute Nucleated RBC 0.000 Nucleated RBC % (auto) 0.0 Hold Purple Top SEE NOTE Sodium 121 L 123 L 126 L Potassium 3.7 4.2 4.9 Chloride 88 L 88 L 91 L Carbon Dioxide 25 28 28 Anion Gap 12 11 L 12 BUN 9 9 10 Creatinine 0.63 0.68 0.77 Estim Creat Clear Calc 97.6 90.4 79.1 Estimated GFR > 60 > 60 > 60 Random Glucose 132 H 143 H 169 H Osmolality Calcium 9.0 8.9 9.4 Phosphorus 3.7 Magnesium 2.0 Total Bilirubin AST ALT Alkaline Phosphatase Total Protein Albumin 4.1 Ur Random Sodium Urine Creatinine Microbiology Microbiology Results: Microbiology 08/14/24 Unknown Urine clean catch - Clean Catch Midstream Urine Culture - Final Progress Note: A&P Assessment and plan (1) UTI (urinary tract infection): Status: Acute (2) Psychogenic polydipsia: Status: Acute (3) Acute hyponatremia: Status: Acute (4) Opioid withdrawal: Status: Acute (5) Benzodiazepine withdrawal: Status: Acute Plan Assessment: 68-year-old lady with acute hyponatremia likely secondary to psychogenic polydipsia being admitted for close monitoring Plan: Neuro: No acute issues. No neurologic symptoms. Cardiac: No acute issues. Pulmonary: No acute issues. Renal: Acute hyponatremia, likely secondary to psychogenic polydipsia. Improved. Continue with fluid restriction and sodium tabs. Monitor urine output, renal indices, and electrolytes. Endo: No acute issues. GI: No acute issues. ID: UTI present on admission, continue with cefuroxime. Heme/Onc: No acute issues. Psych: No acute issues. Miscellaneous: No acute issues. Prophylaxis: Heparin Diet: Regular Quality Stroke Does the patient have a stroke diagnosis?: No VTE Prior VTE?: No VTE Risk Level:: Medical - moderate - high VTE Device Contraindication: Treatment Not Indicated VTE Drug Contraindication: N/A - Med Ordered
--- NOTE | 2024-08-15 10:50 | MHC.CM.PN ---
Met with pt to review d/c planning needs - pt states she resides alone, has no services and uses a walker on occasion. Her sister in law assists w/transportation and house keeping. Pt interested in hiring her Sister in law as her [employer] T[employer]ING ENGINEER: explained process and instructed pt to contact her PCP. Pt states she will call Demi POLO) for transportation home. HCP copy requested, IMM in chart, Referred to [facility] for assistance w/med management as pt is weaning off of Ativan. No accepting agency at this time.
[2024-08-15 13:02] LABS: Anion Gap 10 (12-20); Blood Urea Nitrogen 8 mg/dL (9-16); Calcium 8.9 mg/dL (8.4-10.2); Carbon Dioxide 26 mmol/L (22-29); Chloride 96 mmol/L (96-108); Estimated Glomerular Filt Rate > 60; Glucose Random 155 mg/dL (60-115); Potassium 4.3 mmol/L (3.3-5.1); Sodium 128 mmol/L (135-145)
--- NOTE | 2024-08-15 14:00 | MHC.CM.PN ---
EMR REVIEWED, CM MET W/PT TO COMPLETE A HCP, PT NAMMED HER COUSIN JIM (PRIMARY CONTACT) HER [facility]CA AND NO ALTERNATE AT THIS TIME, PER RECOVERY NURSE PT WILL NEED CARE TEAM AND LIKELY A IPLOC STAY, [facility] WILL ACCEPT PT FOR MED MANAGEMENT, [facility] WILL ALSO FOLLOW PT., CM WILL CONT TO FOLLOW DC NEEDS.
[2024-08-15] MEDS: Heparin Sodium,Porcine 5,000 UNIT/ML VIAL 5000 UNIT SUBCUT ×2 (14:19→23:59)
[2024-08-15] MEDS: Atorvastatin Calcium 40 MG TABLET PO (20:50)
[2024-08-15] MEDS: Nystatin/Triamcinolone Cream 15 GM TUBE 1 APPL TOPICAL (23:59)
[2024-08-16] MEDS: Acetaminophen 325 MG TABLET 650 MG PO ×4 (00:26→20:48)
[2024-08-16 04:00] VITALS: BP 128/60; PULSE 66; RESP 16; TEMP 36.6; O2SAT 94
[2024-08-16 05:45] VITALS: BMI 43.2
[2024-08-16] MEDS: Heparin Sodium,Porcine 5,000 UNIT/ML VIAL 5000 UNIT SUBCUT ×3 (05:55→22:58)
[2024-08-16 06:30] LABS: Alanine Aminotransferase 88 U/L (0-31); Albumin Level 3.4 g/dL (3.5-5.0); Alkaline Phosphatase 64 U/L (39-117); Anion Gap 12 (12-20); Aspartate Amino Transferase 50 U/L (5-31); Bilirubin Total 0.3 mg/dL (0.0-1.0); Blood Urea Nitrogen 12 mg/dL (9-16); Calcium 8.7 mg/dL (8.4-10.2); Carbon Dioxide 24 mmol/L (22-29); Chloride 100 mmol/L (96-108); Creatinine Clr Calc Pharmacy 91.4; Estimated Glomerular Filt Rate > 60; Glucose Random 124 mg/dL (60-115); Potassium 4.2 mmol/L (3.3-5.1); Sodium 132 mmol/L (135-145); Total Protein 5.9 g/dL (6.5-8.0)
[2024-08-16 07:23] VITALS: BP 134/71; PULSE 69; RESP 18; TEMP 36.3; O2SAT 97
[2024-08-16] MEDS: amLODIPine Besylate 10 MG TABLET PO (08:17)
[2024-08-16] MEDS: carvediloL 12.5 MG TABLET PO ×2 (08:17→20:43)
[2024-08-16] MEDS: LORazepam 1 MG TABLET PO ×3 (08:17→22:58)
[2024-08-16] MEDS: Sodium Chloride Tab 1 GM TABLET PO ×2 (08:17→20:43)
[2024-08-16] MEDS: cefuroxime axetiL 250 MG TABLET PO ×2 (08:19→20:43)
[2024-08-16] MEDS: Aspirin 81 MG TAB.CHEW PO (08:54)
[2024-08-16] MEDS: Buprenorphine/Naloxone 4/1 mg FILM 1 FILM SUBLINGUAL ×2 (08:54→20:43)
--- NOTE | 2024-08-16 09:22 | P.PNIM_ITS ---
Subjective Subjective Date of Service: 08/16/24 Interval History: Follow up benzo withdrawal Feeling better but still labile emotions Physical Exam 2 Vital Signs: Vital Signs: Last Vital Signs Temp 97.4 F 08/16/24 07:23 Pulse 69 08/16/24 07:23 Resp 18 08/16/24 07:23 BP 134/71 08/16/24 07:23 Pulse Ox 97 08/16/24 07:23 O2 Del Method Room Air 08/16/24 07:23 BMI result Body Mass Index 43.2 Appearing in no acute distress lung sounds are clear to auscultation heart regular rate rhythm, clear S1, S2 positive bowel sounds, abdomen is soft, nontender neuro patient is alert x3, no focal deficits Objective Data Active Medications Acetaminophen (Acetaminophen 325 Mg Tablet) 650 mg PO Q4H PRN PRN Reason: Pain, Mild (Pain Scale 1-3) Last Admin: 08/16/24 05:54 Dose: 650 mg Documented By: KIESHA Amlodipine Besylate (Amlodipine Besylate 10 Mg Tablet) 10 mg PO DAILY [facility]; Protocol Last Admin: 08/16/24 08:17 Dose: 10 mg Documented By: DEANA Aspirin (Aspirin 81 Mg Tab.Chew) 81 mg PO DAILY [facility] Last Admin: 08/16/24 08:54 Dose: 81 mg Documented By: DEANA Atorvastatin Calcium (Atorvastatin Calcium 40 Mg Tablet) 40 mg PO BEDTIME [facility] Last Admin: 08/15/24 20:50 Dose: 40 mg Documented By: KIESHA Buprenorphine/Naloxone (Buprenorphine/Naloxone 4/1 Mg Film) 1 film SUBLINGUAL BID [facility] Last Admin: 08/16/24 08:54 Dose: 1 film Documented By: DEANA Carvedilol (Carvedilol 12.5 Mg Tablet) 12.5 mg PO BID [facility]; Protocol Last Admin: 08/16/24 08:17 Dose: 12.5 mg Documented By: DEANA Cefuroxime Axetil (Cefuroxime Axetil 250 Mg Tablet) 250 mg PO BID [facility] Stop: 08/21/24 10:34 Last Admin: 08/16/24 08:19 Dose: 250 mg Documented By: DEANA Heparin Sodium (Porcine) (Heparin Sodium,Porcine 5,000 Unit/Ml Vial) 5,000 unit SUBCUT Q8H [facility] Last Admin: 08/16/24 05:55 Dose: 5,000 unit Documented By: KIESHA Lorazepam (Lorazepam 1 Mg Tablet) 1 mg PO TID PRN PRN Reason: anxiety Last Admin: 08/16/24 08:17 Dose: 1 mg Documented By: DEANA Nystatin/Triamcinolone Acetonide (Nystatin/Triamcinolone Cream 15 Gm Tube) 1 appl TOPICAL BID [facility] Last Admin: 08/16/24 08:55 Dose: Not Given Documented By: DEANA Non-Admin Reason: Patient Refused Ondansetron HCl (Ondansetron Hcl 4 Mg/2 Ml Vial) 4 mg IVPUSH Q8H PRN PRN Reason: Nausea and Vomiting Last Admin: 08/15/24 10:34 Dose: 4 mg Documented By: PATRICA Sodium Chloride (Sodium Chloride Tab 1 Gm Tablet) 1 gm PO BID [facility] Last Admin: 08/16/24 08:17 Dose: 1 gm Documented By: DEANA Labs 08/15/24 05:08 08/16/24 05:52 Labs: Laboratory Results - last 24 hr 08/15/24 08/16/24 12:44 05:52 Anion Gap 10 L 12 Estim Creat Clear Calc 87.0 91.4 Estimated GFR > 60 > 60 Random Glucose 155 H 124 H Calcium 8.9 8.7 Total Bilirubin 0.3 AST 50 H ALT 88 H Alkaline Phosphatase 64 Total Protein 5.9 L Albumin 3.4 L Microbiology Microbiology Results: Microbiology 08/14/24 Unknown Urine Culture - Final Urine clean catch - Clean Catch Midstream Assessment and Plan (1) Psychogenic polydipsia: Status: Acute Plan 68 year old women admitted to ICU for hyponatremia and benzo withdrawal. Patient had been taking more medications that prescribed and ran out of medications before refill. Transferred from ICU today from medical floor Hyponatremia Likely secondary to psychogenic polydipsia Fluid restriction and sodium tabs Medication mismanagement over taking home benzo and percocet started on suboxone Hypertension stable VERITO continue amlodipine and carvedilol Hyperlipidemia Continue aspirin and statin DVT prophylaxis with heparin Full code Attending Dr. Lambert Quality Stroke Does the patient have a stroke diagnosis?: No VTE Prior VTE?: No VTE Risk Level:: Medical - moderate - high VTE Device Contraindication: Treatment Not Indicated VTE Drug Contraindication: N/A - Med Ordered
[2024-08-16 11:45] VITALS: BP 119/64; PULSE 67; RESP 18; TEMP 36.7; O2SAT 95
[2024-08-16 15:30] VITALS: BP 104/62; PULSE 62; RESP 16; TEMP 36.8; O2SAT 94
[2024-08-16 16:17] LABS: Estimated Average Glucose 146 mg/dL; Hemoglobin A1C 173.7372 umol/L; Hemoglobin A1c % 6.7 % (<6.0); Total Hemoglobin (HGBA1C) 3473.7968 umol/L
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
[2024-08-16 18:52] LABS: Osmolality Urine 621 mosm/kg (373-1093)
[2024-08-16] MEDS: clonazePAM 0.5 MG TABLET PO (19:23)
[2024-08-16 20:00] VITALS: BP 133/64; PULSE 73; RESP 20; TEMP 36.2; O2SAT 98
[2024-08-16] MEDS: clonazePAM 1 MG TABLET PO (20:43)
[2024-08-16] MEDS: Atorvastatin Calcium 40 MG TABLET PO (20:43)
[2024-08-17] VITALS: PULSE 75; RESP 18; TEMP 37.6; O2SAT 95
[2024-08-17 03:16] VITALS: BP 132/75; PULSE 69; RESP 18; TEMP 36.8; O2SAT 96
[2024-08-17] MEDS: Heparin Sodium,Porcine 5,000 UNIT/ML VIAL 5000 UNIT SUBCUT (06:00)
[2024-08-17 08:00] VITALS: BP 190/96; PULSE 81; RESP 18; TEMP 36.5; O2SAT 97
[2024-08-17] MEDS: cefuroxime axetiL 250 MG TABLET PO (08:13)
[2024-08-17] MEDS: Sodium Chloride Tab 1 GM TABLET PO (08:13)
[2024-08-17] MEDS: carvediloL 12.5 MG TABLET PO (08:14)
[2024-08-17] MEDS: amLODIPine Besylate 10 MG TABLET PO (08:14)
[2024-08-17] MEDS: Aspirin 81 MG TAB.CHEW PO (08:14)
[2024-08-17] MEDS: clonazePAM 1 MG TABLET PO (08:14)
[2024-08-17] MEDS: hydrOXYzine HCL 25 MG TABLET PO ×2 (08:44→12:36)
[2024-08-17] MEDS: Buprenorphine/Naloxone 4/1 mg FILM 1 FILM SUBLINGUAL (08:44)
[2024-08-17 09:16] VITALS: BP 138/75; PULSE 71; RESP 18
--- NOTE | 2024-08-17 09:53 | P.PNIM_ITS ---
Subjective Subjective Date of Service: 08/17/24 Interval History: Follow up benzo withdrawal Feeling better but still labile emotions Physical Exam 2 Vital Signs: Vital Signs: Last Vital Signs Temp 97.7 F 08/17/24 08:00 Pulse 71 08/17/24 09:16 Resp 18 08/17/24 09:16 BP 138/75 08/17/24 09:16 Pulse Ox 97 08/17/24 08:00 O2 Del Method Room Air 08/17/24 08:00 BMI result Body Mass Index 43.2 Appearing in no acute distress lung sounds are clear to auscultation heart regular rate rhythm, clear S1, S2 positive bowel sounds, abdomen is soft, nontender neuro patient is alert x3, no focal deficits Objective Data Active Medications Acetaminophen (Acetaminophen 325 Mg Tablet) 650 mg PO Q4H PRN PRN Reason: Pain, Mild (Pain Scale 1-3) Last Admin: 08/16/24 20:48 Dose: 650 mg Documented By: KIESHA Amlodipine Besylate (Amlodipine Besylate 10 Mg Tablet) 10 mg PO DAILY [facility]; Protocol Last Admin: 08/17/24 08:14 Dose: 10 mg Documented By: DEANA Aspirin (Aspirin 81 Mg Tab.Chew) 81 mg PO DAILY [facility] Last Admin: 08/17/24 08:14 Dose: 81 mg Documented By: DEANA Atorvastatin Calcium (Atorvastatin Calcium 40 Mg Tablet) 40 mg PO BEDTIME [facility] Last Admin: 08/16/24 20:43 Dose: 40 mg Documented By: KIESHA Buprenorphine/Naloxone (Buprenorphine/Naloxone 4/1 Mg Film) 1 film SUBLINGUAL BID [facility] Last Admin: 08/17/24 08:44 Dose: 1 film Documented By: DEANA Carvedilol (Carvedilol 12.5 Mg Tablet) 12.5 mg PO BID [facility]; Protocol Last Admin: 08/17/24 08:14 Dose: 12.5 mg Documented By: DEANA Cefuroxime Axetil (Cefuroxime Axetil 250 Mg Tablet) 250 mg PO BID [facility] Stop: 08/21/24 10:34 Last Admin: 08/17/24 08:13 Dose: 250 mg Documented By: DEANA Clonazepam (Clonazepam 1 Mg Tablet) 1 mg PO BID [facility] Last Admin: 08/17/24 08:14 Dose: 1 mg Documented By: DEANA Heparin Sodium (Porcine) (Heparin Sodium,Porcine 5,000 Unit/Ml Vial) 5,000 unit SUBCUT Q8H [facility] Last Admin: 08/17/24 06:00 Dose: 5,000 unit Documented By: KIESHA Metformin HCl (Metformin Hcl 500 Mg Tablet) 500 mg PO QAM [facility] Nystatin/Triamcinolone Acetonide (Nystatin/Triamcinolone Cream 15 Gm Tube) 1 appl TOPICAL BID [facility] Last Admin: 08/17/24 08:14 Dose: Not Given Documented By: DEANA Non-Admin Reason: Patient Refused Ondansetron HCl (Ondansetron Hcl 4 Mg/2 Ml Vial) 4 mg IVPUSH Q8H PRN PRN Reason: Nausea and Vomiting Last Admin: 08/15/24 10:34 Dose: 4 mg Documented By: PATRICA Sodium Chloride (Sodium Chloride Tab 1 Gm Tablet) 1 gm PO BID [facility] Last Admin: 08/17/24 08:13 Dose: 1 gm Documented By: DEANA Labs 08/15/24 05:08 08/16/24 05:52 Labs: Laboratory Results - last 24 hr 08/16/24 08/16/24 05:08 18:11 Estimat Average Glucose 146 Hemoglobin A1c % 6.7 H Urine Osmolality 621 Assessment and Plan (1) Psychogenic polydipsia: Status: Acute Plan 68 year old women admitted to ICU for hyponatremia and benzo withdrawal. Patient had been taking more medications that prescribed and ran out of medications before refill. Transferred from ICU today from medical floor Hyponatremia Likely secondary to psychogenic polydipsia Fluid restriction and sodium tabs Medication mismanagement over taking home benzo and percocet started on suboxone Hypertension stable BP continue amlodipine and carvedilol Anxiety Has been on lorazepam for many years prescribed by her PCP, no history of having a psychiatrist prescriber Seen and evaluated by psychiatric team, switch to Klonopin 1 mg b.i.d. Hyperlipidemia Continue aspirin and statin Chronic pain? hx of fibromyalgia, arthritis Has been on Percocet prescribed by her PCP DVT prophylaxis with heparin Full code Attending Dr. Lambert Quality Stroke Does the patient have a stroke diagnosis?: No VTE Prior VTE?: No VTE Risk Level:: Medical - moderate - high VTE Device Contraindication: Treatment Not Indicated VTE Drug Contraindication: N/A - Med Ordered
[2024-08-17] MEDS: metFORMIN HCl 500 MG TABLET PO (10:19)
[2024-08-17 10:35] LABS: Cortisol Random 10.3 ug/dL
[2024-08-17 10:36] LABS: TSH reflex Free T4 1.51 uIU/mL (0.32-4.0)
[2024-08-17 11:38] VITALS: BP 145/68; PULSE 68; RESP 18; TEMP 36.5; O2SAT 97
--- NOTE | 2024-08-17 12:45 | MHC.CM.PN ---
Patient medically cleared for xfer to psych [facility].
--- NOTE | 2024-08-17 12:52 | PM.DS ---
DS: Providers Provider Date of Service: 08/17/24 Date of admission: 08/14/24 14:28 Primary care physician: Sergey Hugo NP Consults: 08/12/24 22:06 Addiction Medicine Stat Consulting Provider: Addiction Covering Reason for consultation: Withdrawal from long-term benzodiazepine and oxycodone use Has provider been notified: No 08/14/24 11:29 Consult to Care Team Stat Comment: Reason for consultation: crisis evaluation please reach out to Kyung Ayden with questions 08/15/24 13:57 Consult to Care Team Routine Comment: Reason for consultation: medically clear for eval. 08/16/24 09:22 Consult to Psychiatry Routine Consulting Provider: Psych Covering Reason for consultation: anxiety, not taking medications as prescribed, benzo taper 08/17/24 10:15 Consult to Care Team Routine Comment: Reason for consultation: medically clear DS: Diagnosis Discharge Diagnosis (1) PTSD (post-traumatic stress disorder): Status: Acute DS: Summary Hospital Course Hospital Course: History and physical as per admitting provider. 68-year-old lady with underlying history of hypertension, anxiety, depression, ?opioid dependence on Suboxone being observed in emergency department a several day secondary to withdrawal symptoms who developed acute hyponatremia overnight secondary to polydipsia with sodium level down to 117, but with no acute neurologic symptoms. Patient is alert and oriented in following all commands being admitted to intensive care unit for close monitoring. 68-year-old woman treated for hyponatremia and medication mismanagement. Patient had initially come in because she ran out of her benzodiazepine and felt withdrawal symptoms. She agreed to stay in the pad overnight for monitoring but after labs were drawn she was noted to have hyponatremia. She was subsequently transferred to the ICU and was started on sodium tabs and fluid restriction. Patient's symptoms seem more like SIADH with urine sodium of less than 20 and urine osmolality of 621. She was currently on a 2 L fluid restriction daily and sodium tabs. Sodium has improved up to 132, no renal failure noted, euvolemic. If any further issues she should be seen by Nephrology. Terms of the medication mismanagement patient has been on lorazepam and Percocet at home for many years, 15 years according to the patient. She was had no psychiatric follow-up for benzodiazepine use and apparently had ran out of some of her medications, she was seen at [facility] and then presented to [facility] for withdrawal symptoms. Patient was seen evaluated by psychiatric team and thought that patient should be admitted to psychiatric unit for medication management and possible benzodiazepine taper. She was started on Suboxone for opiate discontinuation. She should be seen by addiction Medicine as necessary. At this time patient is alert and oriented, labile emotions and agreeable for psychiatric transfer. Hypertension. Continue amlodipine and carvedilol Hyperlipidemia. Continue aspirin and statin Diabetes mellitus type 2. Continue metformin 500 mg daily UTI. Complete treatment with Ceftin, to be completed on 08/20/2024 Time Attestation Discharge Coordination Time (in mins): 40 Quality: Safe Use of Opioids Does Pt have an Active Cancer Diagnosis on the Problem List?: No Quality: Stroke Does the patient have a stroke diagnosis?: No Physical Exam Vital Signs: Vital Signs: Last Vital Signs Temp 97.7 F 08/17/24 11:38 Pulse 68 08/17/24 11:38 Resp 18 08/17/24 11:38 BP 145/68 H 08/17/24 11:38 Pulse Ox 97 08/17/24 11:38 O2 Del Method Room Air 08/17/24 11:38 BMI result Body Mass Index 43.2 Appearing in no acute distress head is normocephalic atraumatic eyes pupils are PERRLA sclera is anicteric mouth throat mucous membranes are intact and moist neck is supple no lymphadenopathy, no JVD noted lung sounds are clear to auscultation heart regular rate rhythm, clear S1, S2 positive bowel sounds, abdomen is soft, nontender neuro patient is alert x3, no focal deficits DS: Data Data Completed and Pending Labs on day of discharge: Laboratory Results - last 24 hr 08/16/24 08/16/24 08/17/24 05:08 18:11 09:11 Estimat Average Glucose 146 Hemoglobin A1c % 6.7 H TSH 1.51 Random Cortisol 10.3 Urine Osmolality 621 Discharge Plan Discharge Anticipated Discharge Date/Time: 08/17/24 12:26 Patient Disposition: Xfer Psychiatric Hosp Discharge Diagnosis: Hyponatremia Anxiety Medication mismanagement Referrals: Sergey Hugo NP [Primary Care Provider] - 1 Week Discharge Medications: New cefuroxime axetil 250 mg Tablet 250 mg PO BID Qty: 6 0RF buprenorphine-naloxone [Suboxone] 4-1 mg Film 1 film sublingual BID Qty: 30 0RF metformin 500 mg Tablet 500 mg PO DAILY Qty: 30 0RF clonazepam 1 mg Tablet 1 mg PO BID Qty: 60 0RF hydroxyzine HCl 25 mg Tablet 25 mg PO Q8H PRN (Reason: Anxiety) Qty: 30 0RF sodium chloride 1,000 mg Tablet,Soluble 1,000 mg PO BID Qty: 10 0RF Continued carvedilol 12.5 mg tablet 12.5 mg PO BID amlodipine 10 mg tablet 10 mg PO DAILY rosuvastatin 10 mg tablet 10 mg PO BEDTIME escitalopram oxalate 5 mg tablet 5 mg PO DAILY Ar[facility] Ellipta 100 mcg/actuation blister with device 1 inh inhalation DAILY clotrimazole-betamethasone 1-0.05 % cream 1 appl topical BID aspirin 81 mg Tablet,Delayed Release (Dr/Ec) 81 mg PO DAILY Discontinued clonazepam 0.5 mg tablet 0.5 mg PO TID lorazepam 1 mg tablet 1 mg PO TID Discharge Orders: Discharge Order (Routine); Ordered 08/17/24 Ordered By: Demi Lopez Diet: Advance to usual diet Activity on Discharge: As tolerated Stand Alone Forms: Patient Portal Discharge page Print Language: Polish Care Plan Goals: Medication adjustments as per psychiatric team Health Concerns: Hyponatremia Anxiety Medication mismanagement Plan of Treatment: Transfer to [facility] for further psychiatric care and medication adjustment Assessment: See discharge summary
[2024-08-23 15:38] LABS: Adrenocorticotropic Hormone 9 pg/mL (6-50)
== END 2024-08-17 14:34 | DRG 641 ==
LOC: HO.ED 08-14 14:25 → HO.EDOVER 08-14 14:40 → HO.ICU 08-14 14:57 → HO.S3 08-15 08:26
PROVIDERS: Physician Assistant Medical; Registered Nurse Community Health; Social Worker; Admitting Provider Internal Medicine Pulmonary Disease; Emergency Provider Emergency Medicine; PCP Nurse Practitioner; Visit Provider Nurse Practitioner Acute Care
DX: E87.1 Hypo-osmolality and hyponatremia (principal); F11.23 Opioid dependence with withdrawal; N39.0 Urinary tract infection, site not specified; F13.939 Sedative, hypnotic or anxiolytic use, unspecified with withdrawal, unspecified; E11.9 Type 2 diabetes mellitus without complications; R63.1 Polydipsia; F43.10 Post-traumatic stress disorder, unspecified; E78.5 Hyperlipidemia, unspecified; F41.9 Anxiety disorder, unspecified; I10 Essential (primary) hypertension; Z79.82 Long term (current) use of aspirin; Z79.84 Long term (current) use of oral hypoglycemic drugs; Z79.899 Other long term (current) drug therapy
CPT/HCPCS: 36415; 70450; 80048; 80053; 80307; 81001; 82024; 82040; 82533; 82570; 83036; 83735; 83930; 83935; 84100; 84300; 84443; 85025; 87086; 93005; 97162; 99285; J1644; J2405; S9485

== ENCOUNTER → 2024-08-14 10:31 | Outpatient (BNV) | payer MEDICARE, SELFPAY | PROVIDERS: Admitting Provider Internal Medicine Pulmonary Disease; Emergency Provider Emergency Medicine; Visit Provider Internal Medicine Cardiovascular Disease | DX: R07.9 Chest pain, unspecified (principal) | CPT/HCPCS: 93010 ==

== ENCOUNTER → 2024-08-14 12:57 | Outpatient (BNV) | payer MEDICARE, SELFPAY | PROVIDERS: Admitting Provider Internal Medicine Pulmonary Disease; Emergency Provider Emergency Medicine; Visit Provider Radiology Diagnostic Radiology | DX: R41.0 Disorientation, unspecified (principal) | CPT/HCPCS: 70450 ==

== ENCOUNTER → 2024-08-14 14:28 | Outpatient (BNV) | payer MEDICARE, SELFPAY | PROVIDERS: Admitting Provider Internal Medicine Pulmonary Disease; Emergency Provider Emergency Medicine; PCP Nurse Practitioner; Visit Provider Nurse Practitioner Acute Care | DX: F43.10 Post-traumatic stress disorder, unspecified (principal); E87.1 Hypo-osmolality and hyponatremia | CPT/HCPCS: 99232; 99239 ==

== ENCOUNTER → 2024-08-14 14:28 | Outpatient (BNV) | payer MEDICARE, SELFPAY | PROVIDERS: Admitting Provider Internal Medicine Pulmonary Disease; Emergency Provider Emergency Medicine; Visit Provider Internal Medicine Pulmonary Disease | DX: N39.0 Urinary tract infection, site not specified (principal); R63.1 Polydipsia; F54 Psychological and behavioral factors associated with disorders or diseases classified elsewhere; E87.1 Hypo-osmolality and hyponatremia; F11.93 Opioid use, unspecified with withdrawal; F13.939 Sedative, hypnotic or anxiolytic use, unspecified with withdrawal, unspecified | CPT/HCPCS: 99223; 99232 ==

== ENCOUNTER → 2024-08-14 14:28 | Outpatient (BNV) | payer MEDICARE, SELFPAY | PROVIDERS: Admitting Provider Internal Medicine Pulmonary Disease; Emergency Provider Emergency Medicine; PCP Nurse Practitioner; Visit Provider Social Worker | DX: F43.11 Post-traumatic stress disorder, acute (principal) | CPT/HCPCS: 99232 ==

== ENCOUNTER 2024-08-17 14:34 | Inpatient (IN) | payer MEDICARE, SELFPAY ==
--- NOTE | ~2024-08-17 | XR_ITS ---
EXAMINATION: XR CHEST CLINICAL INFORMATION: Postsurgical changes COMPARISON: None available. TECHNIQUE: 2 views of the chest were obtained. FINDINGS: Lungs are clear without infiltrates nodules or pleural effusion. Cardiomediastinal silhouette is normal patient is status post aortic stenting. Patient is status post left shoulder arthroplasty. There are mild degenerative changes in lower thoracic spine. XR/XR chest 2V IMPRESSION: No active cardiopulmonary disease Electronically signed by: Brandon Atkins MD 08/21/2024 01:27 PM EDT
[2024-08-17 15:10] VITALS: BP 144/70; PULSE 85; RESP 17; TEMP 36.2; O2SAT 95
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
[2024-08-17 16:01] VITALS: BMI 43.1
[2024-08-17] MEDS: hydrOXYzine HCL 25 MG TABLET PO ×2 (16:23→21:59)
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
[2024-08-17 20:00] VITALS: BP 113/59; PULSE 78; RESP 16; TEMP 37; O2SAT 97
[2024-08-17] MEDS: Sodium Chloride Tab 1 GM TABLET PO (20:45)
[2024-08-17] MEDS: cefuroxime axetiL 250 MG TABLET PO (20:45)
[2024-08-17] MEDS: clonazePAM 1 MG TABLET PO (20:46)
[2024-08-17] MEDS: Buprenorphine/Naloxone 4/1 mg FILM 1 FILM SUBLINGUAL (20:46)
[2024-08-17] MEDS: Magnesium Hydrox/Alum Hydrox 30 ML ORAL.SUSP PO (22:00)
[2024-08-18] MEDS: Acetaminophen 325 MG TABLET 650 MG PO (00:36)
[2024-08-18] MEDS: Magnesium Hydrox/Alum Hydrox 30 ML ORAL.SUSP PO (03:59)
[2024-08-18] MEDS: hydrOXYzine HCL 25 MG TABLET PO ×4 (04:02→23:10)
[2024-08-18 08:15] VITALS: BP 152/68; PULSE 78; RESP 18; TEMP 36.7; O2SAT 96
[2024-08-18] MEDS: Buprenorphine/Naloxone 4/1 mg FILM 1 FILM SUBLINGUAL ×2 (08:22→20:11)
[2024-08-18] MEDS: clonazePAM 1 MG TABLET PO ×2 (08:22→20:13)
[2024-08-18] MEDS: cefuroxime axetiL 250 MG TABLET PO ×2 (08:22→20:11)
[2024-08-18] MEDS: Sodium Chloride Tab 1 GM TABLET PO ×2 (08:22→20:13)
[2024-08-18 08:42] LABS: Alanine Aminotransferase 63 U/L (0-31); Albumin Level 3.7 g/dL (3.5-5.0); Alkaline Phosphatase 80 U/L (39-117); Anion Gap 9 (12-20); Aspartate Amino Transferase 32 U/L (5-31); Bilirubin Total 0.3 mg/dL (0.0-1.0); Blood Urea Nitrogen 13 mg/dL (9-16); Calcium 9.1 mg/dL (8.4-10.2); Carbon Dioxide 31 mmol/L (22-29); Chloride 100 mmol/L (96-108); Cholesterol 132 mg/dL (<200); Creatinine Clr Calc Pharmacy 92.7; Estimated Glomerular Filt Rate > 60; Glucose Fasting 189 mg/dL (60-99); HDL Cholesterol 33 mg/dL (>40); LDL Cholesterol Calculated 45 mg/dL (<100); Potassium 4.5 mmol/L (3.3-5.1); Sodium 135 mmol/L (135-145); Total Protein 6.3 g/dL (6.5-8.0); Triglycerides 273 mg/dL (<150)
[2024-08-18 09:16] LABS: Vitamin B12 362 pg/mL (200-900)
[2024-08-18] MEDS: Milk of Magnesia 30 ML ORAL.SUSP PO (13:17)
[2024-08-18] MEDS: metFORMIN HCl 500 MG TABLET PO (17:18)
[2024-08-18 20:00] VITALS: BP 143/68; PULSE 83; RESP 18; TEMP 36.8; O2SAT 96
[2024-08-18] MEDS: QUEtiapine Fumarate 25 MG TABLET PO ×2 (20:11)
[2024-08-18 20:12] VITALS: BP 143/68; PULSE 83
[2024-08-18] MEDS: carvediloL 12.5 MG TABLET PO (20:12)
[2024-08-18 20:13] VITALS: BP 143/68
[2024-08-18] MEDS: cloNIDine HCL 0.1 MG TABLET 0.05 MG PO (20:13)
--- NOTE | 2024-08-18 20:23 | HO.PSYCHPN ---
Subjective Subjective Date of Service: 08/18/24 Reason For Visit: ptsd / benzo taper Subjective Notes: Conditional Voluntary Interim History: Pt slept about 3 hrs. difficulty sleeping, restless. She presents as dysphoric, not due to benzo withdrawal nor not tolerating current medications but instead due to underlying untreated ptsd, depression. She continues to denied SI/HI. She appears to have difficulty remembering information given to her and people she has seen. She has been visible on the unit. completely onboard to come off benzos, which explained will start once he start other medications for underlying anxious mood, depressed mood. Mental Status Exam Mental Status Exam Narrative: Appearance: wearing hospital gown, fair hygiene, NAD Behavior: cooperative Psychomotor: no agitation or retardation noted Speech: clear, normal rate/rhythm/volume, spontaneous Mood: anxious Affect: dysphoric at times, tearful SI: denies HI: denies VH/AH: none Delusions: none Insight/judgment: fair x 2. Memory/cog: alert, oriented x 4. Diagnostics Vital Signs (24Hr): Vital Signs - 24 hr 08/18/24 08:15 08/18/24 20:12 08/18/24 20:13 Temperature 98.1 F Pulse Rate 78 83 Respiratory Rate 18 Blood Pressure 152/68 H 143/68 H 143/68 H Pulse Oximetry 96 Oxygen Delivery Method Room Air BMI result Body Mass Index 43.1 Labs 08/19/24 07:56 Labs: Laboratory Results - last 48 hr 08/18/24 08/18/24 08:21 08:22 Sodium 135 Potassium 4.5 Chloride 100 Carbon Dioxide 31 H Anion Gap 9 L BUN 13 Creatinine 0.66 Estim Creat Clear Calc 92.7 Estimated GFR > 60 Fasting Glucose 189 H Calcium 9.1 Total Bilirubin 0.3 AST 32 H ALT 63 H Alkaline Phosphatase 80 Total Protein 6.3 L Albumin 3.7 Triglycerides 273 H Cholesterol 132 LDL Cholesterol, Calc 45 HDL Cholesterol 33 L Vitamin B12 362 Medications Medications Current Medications Acetaminophen (Acetaminophen 325 Mg Tablet) 650 mg PO Q6H PRN PRN Reason: Headache/Pain Mild Scale (1-3) Last Admin: 08/18/24 00:36 Dose: 650 mg Al Hydroxide/Mg Hydroxide (Magnesium Hydrox/Alum Hydrox 30 Ml Oral.Susp) 30 ml PO Q6H PRN PRN Reason: Heartburn/Nausea Last Admin: 08/18/24 03:59 Dose: 30 ml Amlodipine Besylate (Amlodipine Besylate 10 Mg Tablet) 10 mg PO DAILY [facility]; Protocol Aspirin (Aspirin Enteric Coated 81 Mg Tablet.Dr) 81 mg PO DAILY [facility] Buprenorphine/Naloxone (Buprenorphine/Naloxone 4/1 Mg Film) 1 film SUBLINGUAL BID [facility] Last Admin: 08/18/24 20:11 Dose: 1 film Carvedilol (Carvedilol 12.5 Mg Tablet) 12.5 mg PO BID [facility]; Protocol Last Admin: 08/18/24 20:12 Dose: 12.5 mg Cefuroxime Axetil (Cefuroxime Axetil 250 Mg Tablet) 250 mg PO BID [facility] Stop: 08/20/24 09:01 Last Admin: 08/18/24 20:11 Dose: 250 mg Clonazepam (Clonazepam 1 Mg Tablet) 1 mg PO BID [facility] Last Admin: 08/18/24 20:13 Dose: 1 mg Clonidine HCl (Clonidine Hcl 0.1 Mg Tablet) 0.05 mg PO TID [facility]; Protocol Last Admin: 08/18/24 20:13 Dose: 0.05 mg Fluticasone/Vilanterol (Fluticasone/Vilanterol 100/25 Blst.W.Dev) 1 puff INHALE RDAILY [facility] Last Admin: 08/18/24 18:37 Dose: Not Given Hydroxyzine HCl (Hydroxyzine Hcl 25 Mg Tablet) 25 mg PO Q6H PRN PRN Reason: Anxiety Last Admin: 08/18/24 17:17 Dose: 25 mg Magnesium Hydroxide (Milk Of Magnesia 30 Ml Oral.Susp) 30 ml PO DAILY PRN PRN Reason: Constipation Last Admin: 08/18/24 13:17 Dose: 30 ml Metformin HCl (Metformin Hcl 500 Mg Tablet) 500 mg PO DAILY [facility] Last Admin: 08/18/24 17:18 Dose: 500 mg Nicotine Polacrilex (Nicotine Polacrilex 2 Mg Gum) 2 mg BUCCAL Q2H PRN PRN Reason: Nicotine Cravings Quetiapine Fumarate (Quetiapine Fumarate 25 Mg Tablet) 25 mg PO TID [facility] Last Admin: 08/18/24 20:11 Dose: 25 mg Quetiapine Fumarate (Quetiapine Fumarate 25 Mg Tablet) 25 mg PO Q6H PRN PRN Reason: moderate anxiety Last Admin: 08/18/24 20:11 Dose: 25 mg Sodium Chloride (Sodium Chloride Tab 1 Gm Tablet) 1 gm PO BID [facility] Last Admin: 08/18/24 20:13 Dose: 1 gm Trazodone HCl (Trazodone Hcl 50 Mg Tablet) 50 mg PO BEDTIME MRX1 PRN PRN Reason: Insomnia Allergies Allergies Allergy/AdvReac Type Severity Reaction Status Date / Time No Known Allergies Allergy Verified 08/12/24 15:58 Assessment & Plan Assessment & Plan (1) PTSD (post-traumatic stress disorder): Status: Acute Code(s): F43.10 - Post-traumatic stress disorder, unspecified Plan Ms. Bowman is a 68 year-old woman who came initially to the ED with plan to step down to detox and taper off benzos she has been on for several years. She was admitted to the ICU for hyponatremia. euvolimic, hypotonic hyponatremia, urine osmolality is higher than 100. This is not psychogenic polydipsia. 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 May consider other causes of hyponatremia, including checking TSH, adrenal function. Pt was recently started on lexapro, although she does report not taking it for several weeks prior to coming to the ED. restarted while here in the ED. Not sure how much of a role antidepressant may have played in hyponatremia. In terms of psychiatric management- safer benzodiazepine taper will be inpatient. She does present with symptoms hypervigilance, anxious mood, depressed mood which suspect related to hx of trauma which can then be managed inpt given possibility of hypernatrmia with antidpressant and avoiding potential medical complications as she completely comes off benzos. PLAN 1. admit to S1, start clonidine 0.05mg po TID, seroquel 25mg po TID, continue clonazepam 1mg po BID- will start taper soon after less dysphoric mood. will hold starting antidepressant until sodium stable. still on fluid restriction and sodium tabs- will consult nephrology as to how to proceed assisted. will order sleep study to concern for TRICIA (waking up out of breath). will check with cardiology outpatient pt has echo scheduled his week, not sure if it can wait or not. Reason for continued inpatient stay Substantial Risk for: inability to function Time Spent With Patient Time: Total time managing care of this patient today ____ minutes.
[2024-08-19] MEDS: Magnesium Hydrox/Alum Hydrox 30 ML ORAL.SUSP PO ×2 (01:34→14:58)
[2024-08-19] MEDS: Acetaminophen 325 MG TABLET 650 MG PO (02:34)
[2024-08-19] MEDS: QUEtiapine Fumarate 25 MG TABLET PO ×4 (02:35→20:25)
[2024-08-19] MEDS: hydrOXYzine HCL 25 MG TABLET PO ×3 (05:40→23:59)
[2024-08-19 07:56] VITALS: BP 151/76; PULSE 89; RESP 18; TEMP 36.6; O2SAT 95
[2024-08-19] MEDS: Fluticasone/Vilanterol 100/25 BLST.W.DEV 1 PUFF INHALE (07:59)
[2024-08-19] MEDS: cloNIDine HCL 0.1 MG TABLET 0.05 MG PO ×3 (08:01→20:24)
[2024-08-19] MEDS: Sodium Chloride Tab 1 GM TABLET PO ×2 (08:02→20:25)
[2024-08-19] MEDS: metFORMIN HCl 500 MG TABLET PO (08:02)
[2024-08-19] MEDS: carvediloL 12.5 MG TABLET PO ×2 (08:02→20:25)
[2024-08-19] MEDS: cefuroxime axetiL 250 MG TABLET PO ×2 (08:03→20:24)
[2024-08-19] MEDS: clonazePAM 1 MG TABLET PO ×2 (08:04→20:25)
[2024-08-19] MEDS: amLODIPine Besylate 10 MG TABLET PO (08:04)
[2024-08-19] MEDS: Buprenorphine/Naloxone 4/1 mg FILM 1 FILM SUBLINGUAL ×2 (08:06→20:24)
[2024-08-19] MEDS: Aspirin Enteric Coated 81 MG TABLET.DR PO (08:18)
[2024-08-19 09:16] LABS: Alanine Aminotransferase 55 U/L (0-31); Albumin Level 3.6 g/dL (3.5-5.0); Alkaline Phosphatase 86 U/L (39-117); Anion Gap 13 (12-20); Aspartate Amino Transferase 33 U/L (5-31); Bilirubin Total 0.2 mg/dL (0.0-1.0); Blood Urea Nitrogen 14 mg/dL (9-16); Calcium 9.4 mg/dL (8.4-10.2); Carbon Dioxide 29 mmol/L (22-29); Chloride 102 mmol/L (96-108); Creatinine Clr Calc Pharmacy 87.4; Estimated Glomerular Filt Rate > 60; Glucose Random 137 mg/dL (60-115); Potassium 4.7 mmol/L (3.3-5.1); Sodium 139 mmol/L (135-145); Total Protein 6.4 g/dL (6.5-8.0)
[2024-08-19 14:30] VITALS: BP 138/59
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
[2024-08-19 18:28] LABS: Iron 49 mcg/dL (30-160); Percent Iron Saturation 24 % (15-50); Total Iron Binding Capacity 203 mcg/dL (228-428); Unsaturated Iron Binding 154 ug/dL
[2024-08-19 20:00] VITALS: BP 148/73; PULSE 88; RESP 18; TEMP 36.6; O2SAT 95
[2024-08-20] MEDS: hydrOXYzine HCL 25 MG TABLET PO ×3 (06:17→23:18)
[2024-08-20 08:00] VITALS: BP 129/84; PULSE 58; RESP 18; TEMP 36.6; O2SAT 96
[2024-08-20] MEDS: Fluticasone/Vilanterol 100/25 BLST.W.DEV 1 PUFF INHALE (09:00)
[2024-08-20] MEDS: carvediloL 12.5 MG TABLET PO ×2 (09:06→20:07)
[2024-08-20] MEDS: cefuroxime axetiL 250 MG TABLET PO (09:06)
[2024-08-20] MEDS: cloNIDine HCL 0.1 MG TABLET 0.05 MG PO ×3 (09:06→20:07)
[2024-08-20] MEDS: Buprenorphine/Naloxone 4/1 mg FILM 1 FILM SUBLINGUAL ×2 (09:06→20:06)
[2024-08-20] MEDS: Sodium Chloride Tab 1 GM TABLET PO (09:06)
[2024-08-20] MEDS: clonazePAM 1 MG TABLET PO (09:06)
[2024-08-20] MEDS: amLODIPine Besylate 10 MG TABLET PO (09:09)
[2024-08-20] MEDS: QUEtiapine Fumarate 25 MG TABLET PO ×4 (09:10→23:18)
[2024-08-20] MEDS: Aspirin Enteric Coated 81 MG TABLET.DR PO (09:10)
[2024-08-20] MEDS: metFORMIN HCl 500 MG TABLET PO (09:10)
[2024-08-20 14:19] VITALS: BP 118/64
--- NOTE | 2024-08-20 14:46 | P.EN_ITS ---
Event Note Date of Service: 08/20/24 Event Note: Patient is a 68-year-old female admitted to [facility] with hospitalist consult for bilateral lower leg edema. Prior to [facility] transfer, was admitted to the hospital to the medical floor on 08/14-08/17 for hyponatremia that was attributed to psychogenic polydipsia. 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 Was initially in the ICU then transferred to the medical floor where patient has been on fluid restriction and receiving Patient reports she has been drinking ?a lot? of [employer] 1L bottles lately, ?going through 24-pack through 24-pack for the past few months. When asked patient denies feeling more thirsty than normal, but reports ?someone on the phone? told her to drink more fluid. After further inquiry it appears patient was listening to a doctor on the radio or a podcast who was providing advice endorsing drinking more water. The patient complains of lower leg pain secondary to increasing swelling. States lower leg edema has occurred since she has been here. Patient is emotionally labile during interview and exam. Plan: Discontinue sodium cholride tabs Continue fluid restriction Will check labs in 2 days Encourage ambulation Will hold off on nephrology consultation for now Time Spent With Patient Time: Total time managing care of this patient today ____ minutes.
--- NOTE | 2024-08-20 15:04 | P.PNNP_ITS ---
Subjective Subjective Date of Service: 08/20/24 Interval history: 68 y/o female with a medical history of HTN, DMII, anxiety, depression, PTSD, opioid dependence on suboxone. Pt states today she also has a history of TAVR procedure, she states she is not aware of any other cardiac history and states she does not see a raw juice weigher. Denies other known medical history. Patient was initially admitted to the ICU for management of hyponatremia (Na 117), she came to the hospital as she ran out of her ativan per notes. She was then transferred to hospital medicine and now inpatient psychiatry. Nephrology consult placed for hyponatremia: resolved/unclear if 2/2 fluid restriction/sodium tabs 08/14 serum osmolality 252 08/17 cortisol normal 10.3 08/17 TSH 1.51 08/14 3-5RBCs in urine with 21-50 WBCs, urine culture contaminated. No protein on urine dip. 08/14 Urine Osmolality 621, Ur sodium <20, urine creatinine 60 Sodium has been trending up since 08/14, most recent sodium 139 on 08/19 Creatinine 0.70, GFR >60 Patient reports breathing is comfortable denies dizziness, chest pain reports LE swelling is new she states she drank 4-5 regular 16 ounce [employer] bottles for a few weeks prior to her admission after hearing on a talk show she should be drinking this much water states she is urinating regularly/comfortably, estimates x5 voids thus far today Physical Exam 2 Vital Signs: Vital Signs: Last Vital Signs Temp 97.9 F 08/20/24 08:00 Pulse 58 08/20/24 08:00 Resp 18 08/20/24 08:00 BP 118/64 08/20/24 14:19 Pulse Ox 96 08/20/24 08:00 O2 Del Method Room Air 08/20/24 08:00 BMI result Body Mass Index 43.1 Objective Data Labs 08/19/24 07:56 Labs: Laboratory Results - last 24 hr 08/19/24 17:57 Hold Purple Top SEE NOTE Iron 49 TIBC 203 L % Saturation 24 Unsat Iron Binding 154 Procedures Date of Service Date of Service: 08/20/24 Assessment & Plan Time Spent With Patient Time: Total time managing care of this patient today ____ minutes.
--- NOTE | 2024-08-20 15:24 | PM.CNNEP ---
History of Present Illness Reason for Consult Consult date: 08/20/24 Chief Complaint Chief complaint: ptsd / benzo taper History of Present Illness Narrative: 68 y/o female with a medical history of HTN, DMII, anxiety, depression, PTSD, opioid dependence on suboxone. Pt states today she also has a history of TAVR procedure, she states she is not aware of any other cardiac history and states she does not see a cell changer. Denies other known medical history. Patient was initially admitted to the ICU for management of hyponatremia (Na 117), she came to the hospital as she ran out of her ativan per notes. She was then transferred to hospital medicine and now inpatient psychiatry. Nephrology consult placed for hyponatremia: resolved/unclear if 2/2 fluid restriction/sodium tabs 08/14 serum osmolality 252 08/17 cortisol normal 10.3 08/17 TSH 1.51 08/14 3-5RBCs in urine with 21-50 WBCs, urine culture contaminated. No protein on urine dip. 08/14 Urine Osmolality 621, Ur sodium <20, urine creatinine 60 Sodium has been trending up since 08/14, most recent sodium 139 on 08/19 Creatinine 0.70, GFR >60 pt reports no SSRIs prior to hospitalization (was prescribed lexapro but reports stopped taking weeks ago) Patient reports breathing is comfortable denies dizziness, chest pain reports LE swelling is new she states she drank 4-5 regular 16 ounce [employer] bottles for a few weeks prior to her admission after hearing on a talk show she should be drinking this much water states she is urinating regularly/comfortably, estimates x5 voids thus far today Review of Systems Constitutional: Reports daytime sleepiness and Reports fatigue Denies dizziness Cardiovascular: Denies chest pain, Reports leg edema, Denies lightheadedness, Denies dyspnea and Denies orthopnea Respiratory: Denies cough and Denies dyspnea Gastrointestinal: Denies abdominal pain and Denies bloating Genitourinary: Denies hematuria, Denies difficulty voiding, Denies dysuria, Denies flank pain, Denies urinary hesitancy and Denies urinary urgency Musculoskeletal: Denies arthralgias and Denies muscle cramps Skin/Breast: Denies rash Denies dizziness Comments: reports nodding off easily during the day Psychiatric: Reports depression and Reports difficulty concentrating Endocrine: Reports fatigue PMFSH Social History Social History Household Members: None Household Members Other:: 2 dogs Housing: House Do you presently have visiting nurse or other home services: No Comment: ambulates with steady gait Patient Tobacco Use Status: Never used Tobacco Smoked in Last 30 Days: No e-Cigarette/Vaping Use: Never Used Patient Interested in Nicotine Replacement: No Patient Given Instructions on How to Stop Smoking: No Second Hand Smoke Exposure: No Use of substances other than those prescribed or required for medical reasons: No Substance Use Type: Prescription Drugs Currently Displaying Signs/Symptoms of Drug Intoxication Withdrawal: No Any prior treatment program specific to substance use: No Have you been hit, kicked, punched, or otherwise hurt by someone within the past year? If so, by whom?: No Do you feel safe in your current relationship?: Yes Is there a partner from a previous relationship who is making you feel unsafe now?: No Are you made to feel afraid or neglected: No [facility]: [facility] Advance Directives: No Advance Directives Information Provided: No Do you have thoughts of harming others: None Do you have a plan to hurt others: No Plan Recently lost weight without trying: Yes How much weight loss: 2-13 pounds Eating poorly because of decreased appetite: Yes Nutrition screen score: 4 Nutrition Risks: No Nutritional Risk Patient : No : No Poor oral hygiene: Yes service: No Sexual orientation: Straight/Heterosexual Meds Allergies Allergy/AdvReac Type Severity Reaction Status Date / Time No Known Allergies Allergy Verified 08/12/24 15:58 Active Medications: Current Medications Acetaminophen (Acetaminophen 325 Mg Tablet) 650 mg PO Q6H PRN PRN Reason: Headache/Pain Mild Scale (1-3) Last Admin: 08/19/24 02:34 Dose: 650 mg Al Hydroxide/Mg Hydroxide (Magnesium Hydrox/Alum Hydrox 30 Ml Oral.Susp) 30 ml PO Q6H PRN PRN Reason: Heartburn/Nausea Last Admin: 08/19/24 14:58 Dose: 30 ml Amlodipine Besylate (Amlodipine Besylate 10 Mg Tablet) 10 mg PO DAILY [facility]; Protocol Last Admin: 08/20/24 09:09 Dose: 10 mg Aspirin (Aspirin Enteric Coated 81 Mg Tablet.Dr) 81 mg PO DAILY [facility] Last Admin: 08/20/24 09:10 Dose: 81 mg Buprenorphine/Naloxone (Buprenorphine/Naloxone 4/1 Mg Film) 1 film SUBLINGUAL BID [facility] Last Admin: 08/20/24 09:06 Dose: 1 film Carvedilol (Carvedilol 12.5 Mg Tablet) 12.5 mg PO BID [facility]; Protocol Last Admin: 08/20/24 09:06 Dose: 12.5 mg Clonazepam (Clonazepam 0.5 Mg Tablet) 0.5 mg PO BID [facility] Clonidine HCl (Clonidine Hcl 0.1 Mg Tablet) 0.05 mg PO TID [facility]; Protocol Last Admin: 08/20/24 14:19 Dose: 0.05 mg Fluticasone/Vilanterol (Fluticasone/Vilanterol 100/25 Blst.W.Dev) 1 puff INHALE RDAILY [facility] Last Admin: 08/20/24 09:00 Dose: 1 puff Hydroxyzine HCl (Hydroxyzine Hcl 25 Mg Tablet) 25 mg PO Q6H PRN PRN Reason: Anxiety Last Admin: 08/20/24 14:19 Dose: 25 mg Magnesium Hydroxide (Milk Of Magnesia 30 Ml Oral.Susp) 30 ml PO DAILY PRN PRN Reason: Constipation Last Admin: 08/18/24 13:17 Dose: 30 ml Metformin HCl (Metformin Hcl 500 Mg Tablet) 500 mg PO DAILY [facility] Last Admin: 08/20/24 09:10 Dose: 500 mg Nicotine Polacrilex (Nicotine Polacrilex 2 Mg Gum) 2 mg BUCCAL Q2H PRN PRN Reason: Nicotine Cravings Quetiapine Fumarate (Quetiapine Fumarate 25 Mg Tablet) 25 mg PO TID [facility] Last Admin: 08/20/24 14:19 Dose: 25 mg Quetiapine Fumarate (Quetiapine Fumarate 25 Mg Tablet) 25 mg PO Q6H PRN PRN Reason: moderate anxiety Last Admin: 08/19/24 02:35 Dose: 25 mg Trazodone HCl (Trazodone Hcl 50 Mg Tablet) 50 mg PO BEDTIME MRX1 PRN PRN Reason: Insomnia Venlafaxine HCl (Venlafaxine Hcl Er 37.5 Mg Cap.Er.24h) 37.5 mg PO DAILY [facility] Home Medications ?Medication ?Instructions ?Recorded ?Confirmed ?Last Taken ?Type amlodipine 10 mg tablet 10 mg PO DAILY 08/13/24 08/13/24 Unknown History aspirin 81 mg tablet,delayed 81 mg PO DAILY 08/13/24 08/13/24 Unknown History release carvedilol 12.5 mg tablet 12.5 mg PO BID 08/13/24 08/13/24 Unknown History clotrimazole-betamethasone 1 1 appl topical BID 08/13/24 08/13/24 Unknown History %-0.05 % topical cream escitalopram oxalate 5 mg tablet 5 mg PO DAILY 08/13/24 08/13/24 Unknown History fluticasone furoate 100 1 inh inhalation DAILY 08/13/24 08/13/24 Unknown History mcg/actuation blister powder for inhalation (Arnuity Ellipta) rosuvastatin 10 mg tablet 10 mg PO BEDTIME 08/13/24 08/13/24 Unknown History Physical Exam Vital Signs: Last Vital Signs Temp 97.9 F 08/20/24 08:00 Pulse 58 08/20/24 08:00 Resp 18 08/20/24 08:00 BP 118/64 08/20/24 14:19 Pulse Ox 96 08/20/24 08:00 O2 Del Method Room Air 08/20/24 08:00 BMI result Body Mass Index 43.1 Const General: no acute distress, awake and lethargic Orientation/consciousness: lethargic Neck Neck: Yes no JVD Resp Effort & Inspection: normal respiratory effort and able to speak in complete sentences Auscultation: clear to auscultation bilaterally Cardio Jugular venous distension: no JVD Rate: regular rate Rhythm: regular rhythm Heart sounds: S1 normal heart sound present, S2 normal heart sound present and Murmur heart sound present (systolic) GI Palpation (GI): Soft to palpation and nontender General: Yes no CVA tenderness Back/Spine/Pelvis Back: no CVA tenderness Skin Rashes: no rashes Neuro Other: lethargic, conversant but nodding off during conversation periodically Extrem General: Yes edema (+2 BLE pitting edema) Results Lab Results 08/19/24 07:56 Lab results: Chemistry 08/18/24 08/19/24 08:21 07:56 Sodium 135 139 Potassium 4.5 4.7 Carbon Dioxide 31 H 29 BUN 13 14 Creatinine 0.66 0.70 Calcium 9.1 9.4 Assessment and Plan (1) Acute hyponatremia: Status: Acute Plan Euvolemic, hypotonic hyponatremia; most likely SIADH urine sodium 621 rules out prsychogenic polydyspsia recommend chest xray to rule out pulmonary causes of SAIDH; should also consider PTSD, anxiety and depression as possible trigger for SIADH amlodipine may be contributing to BLE swelling; would recommend 1x dose of furosemide 40mg PO, if swelling persists after diuretic would recommend trial of discontinuing amlodipine to see if swelling improves recommend continuing fluid restriction- recommend 1.5L daily Discussed with Dr Liu Procedures Date of Service Date of Service: 08/20/24
[2024-08-20] MEDS: Venlafaxine HCl ER 37.5 MG CAP.ER.24H PO (16:08)
[2024-08-20 20:00] VITALS: BP 131/64; PULSE 87; RESP 15; TEMP 35.9; O2SAT 93
[2024-08-20] MEDS: Magnesium Hydrox/Alum Hydrox 30 ML ORAL.SUSP PO (20:06)
[2024-08-20] MEDS: clonazePAM 0.5 MG TABLET PO (20:07)
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
[2024-08-20] MEDS: Acetaminophen 325 MG TABLET 650 MG PO (21:46)
[2024-08-21 07:00] VITALS: BMI 45.6
[2024-08-21 08:35] VITALS: BP 129/58; PULSE 83; RESP 16; TEMP 37.1; O2SAT 93
[2024-08-21] MEDS: Aspirin Enteric Coated 81 MG TABLET.DR PO (08:36)
[2024-08-21] MEDS: QUEtiapine Fumarate 25 MG TABLET PO ×3 (08:37→20:39)
[2024-08-21] MEDS: Furosemide 40 MG TABLET PO (08:37)
[2024-08-21] MEDS: carvediloL 12.5 MG TABLET PO ×2 (08:37→20:39)
[2024-08-21] MEDS: metFORMIN HCl 500 MG TABLET PO (08:37)
[2024-08-21] MEDS: Buprenorphine/Naloxone 4/1 mg FILM 1 FILM SUBLINGUAL ×2 (08:37→20:40)
[2024-08-21] MEDS: Venlafaxine HCl ER 37.5 MG CAP.ER.24H PO (08:37)
[2024-08-21] MEDS: clonazePAM 0.5 MG TABLET PO ×2 (08:37→20:40)
[2024-08-21] MEDS: cloNIDine HCL 0.1 MG TABLET 0.05 MG PO ×2 (08:37→20:39)
[2024-08-21] MEDS: Fluticasone/Vilanterol 100/25 BLST.W.DEV 1 PUFF INHALE (08:38)
[2024-08-21 09:31] LABS: Anion Gap 11 (12-20); Blood Urea Nitrogen 14 mg/dL (9-16); Calcium 9.4 mg/dL (8.4-10.2); Carbon Dioxide 30 mmol/L (22-29); Chloride 100 mmol/L (96-108); Creatinine Clr Calc Pharmacy 86.2; Estimated Glomerular Filt Rate > 60; Glucose Random 188 mg/dL (60-115); Sodium 136 mmol/L (135-145)
[2024-08-21] MEDS: Acetaminophen 325 MG TABLET 650 MG PO (10:53)
[2024-08-21] MEDS: Lidocaine 4 % Patch ADH..PATCH 1 PATCH TRANSDERMA (11:33)
[2024-08-21] MEDS: Magnesium Hydrox/Alum Hydrox 30 ML ORAL.SUSP PO (13:29)
[2024-08-21] MEDS: Milk of Magnesia 30 ML ORAL.SUSP PO (13:39)
--- NOTE | 2024-08-21 14:51 | P.PNPSI_ITS ---
Subjective Subjective Date of Service: 08/21/24 Reason For Visit: ptsd / benzo taper Interim History: The nursing staff reported the patient has been on fluid restriction 2000 cc a day. She had been crying labile at times guarded withdrawn. The patient was seen by Nephrology and we are following their advice. On interview the patient reports that she wants to continue treatment as an outpatient at this moment able to contract for safety. Mental Status Exam Mental Status Exam Patient Appearance: Well Grooomed and Appropriate Patient Orientation: Person and Situation Level of Consciousness: Awake and Appropriate Patient Behavior: Guarded and Passive Mood Description: Withdrawn Affect Description: Constricted Patient Cognition Impaired: Yes Ability to Follow Directions: Good Speech Pattern: Clear Hallucinations: None Delusions: Not Present Thought Process: Distracted and Slowed Thinking Thought Content: positive for [place] and positive for Poverty of Content Judgement: Fair Diagnostics Vital Signs (24Hr): Vital Signs - 24 hr 08/20/24 20:00 08/20/24 20:00 08/21/24 08:35 Temperature 96.7 F L 96.7 F L 98.7 F Pulse Rate 87 87 83 Respiratory Rate 15 15 16 Blood Pressure 131/64 131/64 129/58 L Pulse Oximetry 93 93 93 Oxygen Delivery Method Room Air Room Air Room Air BMI result Body Mass Index 43.1 Labs 08/21/24 08:45 Labs: Laboratory Results - last 48 hr 08/19/24 08/21/24 17:57 08:45 Hold Purple Top SEE NOTE Sodium 136 Potassium 5.0 Chloride 100 Carbon Dioxide 30 H Anion Gap 11 L BUN 14 Creatinine 0.71 Estim Creat Clear Calc 86.2 Estimated GFR > 60 Random Glucose 188 H Calcium 9.4 Iron 49 TIBC 203 L % Saturation 24 Unsat Iron Binding 154 Imaging Radiology Impressions: ITS Impressions Chest X-Ray 08/20/24 20:50 IMPRESSION: No active cardiopulmonary disease Electronically signed by: Brandon Atkins MD 08/21/2024 01:27 PM EDT Medications Medications Current Medications Acetaminophen (Acetaminophen 325 Mg Tablet) 650 mg PO Q6H PRN PRN Reason: Headache/Pain Mild Scale (1-3) Last Admin: 08/21/24 10:53 Dose: 650 mg Al Hydroxide/Mg Hydroxide (Magnesium Hydrox/Alum Hydrox 30 Ml Oral.Susp) 30 ml PO Q6H PRN PRN Reason: Heartburn/Nausea Last Admin: 08/21/24 13:29 Dose: 30 ml Aspirin (Aspirin Enteric Coated 81 Mg Tablet.Dr) 81 mg PO DAILY [facility] Last Admin: 08/21/24 08:36 Dose: 81 mg Buprenorphine/Naloxone (Buprenorphine/Naloxone 4/1 Mg Film) 1 film SUBLINGUAL BID [facility] Last Admin: 08/21/24 08:37 Dose: 1 film Carvedilol (Carvedilol 12.5 Mg Tablet) 12.5 mg PO BID [facility]; Protocol Last Admin: 08/21/24 08:37 Dose: 12.5 mg Clonazepam (Clonazepam 0.5 Mg Tablet) 0.5 mg PO BID [facility] Last Admin: 08/21/24 08:37 Dose: 0.5 mg Clonidine HCl (Clonidine Hcl 0.1 Mg Tablet) 0.05 mg PO TID [facility]; Protocol Last Admin: 08/21/24 08:37 Dose: 0.05 mg Fluticasone/Vilanterol (Fluticasone/Vilanterol 100/25 Blst.W.Dev) 1 puff INHALE RDAILY [facility] Last Admin: 08/21/24 08:38 Dose: 1 puff Hydroxyzine HCl (Hydroxyzine Hcl 25 Mg Tablet) 25 mg PO Q6H PRN PRN Reason: Anxiety Last Admin: 08/20/24 23:18 Dose: 25 mg Lidocaine (Lidocaine 4 % Patch Adh..Patch) 1 patch TRANSDERMA DAILY [facility]; Protocol Magnesium Hydroxide (Milk Of Magnesia 30 Ml Oral.Susp) 30 ml PO DAILY PRN PRN Reason: Constipation Last Admin: 08/21/24 13:39 Dose: 30 ml Metformin HCl (Metformin Hcl 500 Mg Tablet) 500 mg PO DAILY [facility] Last Admin: 08/21/24 08:37 Dose: 500 mg Nicotine Polacrilex (Nicotine Polacrilex 2 Mg Gum) 2 mg BUCCAL Q2H PRN PRN Reason: Nicotine Cravings Quetiapine Fumarate (Quetiapine Fumarate 25 Mg Tablet) 25 mg PO TID [facility] Last Admin: 08/21/24 08:37 Dose: 25 mg Quetiapine Fumarate (Quetiapine Fumarate 25 Mg Tablet) 25 mg PO Q6H PRN PRN Reason: moderate anxiety Last Admin: 08/20/24 23:18 Dose: 25 mg Trazodone HCl (Trazodone Hcl 50 Mg Tablet) 50 mg PO BEDTIME MRX1 PRN PRN Reason: Insomnia Venlafaxine HCl (Venlafaxine Hcl Er 37.5 Mg Cap.Er.24h) 37.5 mg PO DAILY [facility] Last Admin: 08/21/24 08:37 Dose: 37.5 mg Allergies Allergies Allergy/AdvReac Type Severity Reaction Status Date / Time No Known Allergies Allergy Verified 08/12/24 15:58 Assessment & Plan Assessment & Plan (1) PTSD (post-traumatic stress disorder): Status: Acute Code(s): F43.10 - Post-traumatic stress disorder, unspecified (2) Benzodiazepine dependence: Status: Acute Code(s): F13.20 - Sedative, hypnotic or anxiolytic dependence, uncomplicated Plan Ms. Bowman is a 68 year-old woman who came initially to the ED with plan to step down to detox and taper off benzos she has been on for several years. She was admitted to the ICU for hyponatremia. euvolimic, hypotonic hyponatremia, urine osmolality is higher than 100. This is not psychogenic polydipsia. 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 May consider other causes of hyponatremia, including checking TSH, adrenal function. Pt was recently started on lexapro, although she does report not taking it for several weeks prior to coming to the ED. restarted while here in the ED. Not sure how much of a role antidepressant may have played in hyponatremia. In terms of psychiatric management- safer benzodiazepine taper will be inpatient. She does present with symptoms hypervigilance, anxious mood, depressed mood which suspect related to hx of trauma which can then be managed inpt given possibility of hypernatrmia with antidpressant and avoiding potential medical complications as she completely comes off benzos. PLAN 1. admit to S1, CV, 15 minutes checks for safety 2. continue clonazepam 1mg po BID, will add clonidine for anxiety. given recent antidepressant use and hyponatremia, will hold now to start antidepressant, will do so once sodium normalized so we can monitor on the unit. 3. aftercare planning. Reason for continued inpatient stay Substantial Risk for: inability to function, rapid decompensation and med/psych decompensation Time Spent With Patient Time: Total time managing care of this patient today __20__ minutes.
[2024-08-21] MEDS: hydrOXYzine HCL 25 MG TABLET PO (18:50)
[2024-08-21 20:37] VITALS: BP 143/63; PULSE 72; RESP 19; TEMP 36.6; O2SAT 94
[2024-08-21 20:39] VITALS: BP 143/63; PULSE 72
[2024-08-21] MEDS: Albuterol Sulfate 90 MCG 8 GM INHALER 2 PUFF INHALE (20:40)
[2024-08-22] MEDS: Acetaminophen 325 MG TABLET 650 MG PO (03:36)
[2024-08-22 08:00] VITALS: BP 114/56; PULSE 75; RESP 17; TEMP 36.6; O2SAT 94
[2024-08-22 08:20] LABS: Anion Gap 14 (12-20); Blood Urea Nitrogen 13 mg/dL (9-16); Calcium 9.3 mg/dL (8.4-10.2); Carbon Dioxide 29 mmol/L (22-29); Chloride 99 mmol/L (96-108); Creatinine Clr Calc Pharmacy 97.4; Estimated Glomerular Filt Rate > 60; Glucose Random 136 mg/dL (60-115); Potassium 4.7 mmol/L (3.3-5.1); Sodium 137 mmol/L (135-145)
[2024-08-22 08:25] VITALS: BP 106/56; PULSE 72
[2024-08-22] MEDS: QUEtiapine Fumarate 25 MG TABLET PO ×4 (08:30→20:07)
[2024-08-22] MEDS: Aspirin Enteric Coated 81 MG TABLET.DR PO (08:30)
[2024-08-22] MEDS: Buprenorphine/Naloxone 4/1 mg FILM 1 FILM SUBLINGUAL ×2 (08:30→20:08)
[2024-08-22] MEDS: metFORMIN HCl 500 MG TABLET PO (08:30)
[2024-08-22] MEDS: Venlafaxine HCl ER 37.5 MG CAP.ER.24H PO (08:31)
[2024-08-22] MEDS: clonazePAM 0.5 MG TABLET PO ×2 (08:32→20:07)
[2024-08-22] MEDS: Lidocaine 4 % Patch ADH..PATCH 1 PATCH TRANSDERMA (08:36)
[2024-08-22] MEDS: Fluticasone/Vilanterol 100/25 BLST.W.DEV 1 PUFF INHALE (08:38)
[2024-08-22 09:26] VITALS: BP 106/56; PULSE 75
--- NOTE | 2024-08-22 10:20 | P.PNNP_ITS ---
Subjective Subjective Date of Service: 08/22/24 Interval history: 68 y/o female with a medical history of HTN, DMII, anxiety, depression, PTSD, opioid dependence on suboxone. Pt states today she also has a history of TAVR procedure, she states she is not aware of any other cardiac history and states she does not see a art glass setter (per psych, she is followed by [facility]). Denies other known medical history. Patient was initially admitted to the ICU for management of hyponatremia (Na 117), she came to the hospital as she ran out of her ativan per notes. She was then transferred to hospital medicine and now inpatient psychiatry. Nephrology consult placed for hyponatremia: resolved/unclear if 2/2 fluid restriction/sodium tabs 08/14 serum osmolality 252 08/17 cortisol normal 10.3 08/17 TSH 1.51 08/14 3-5RBCs in urine with 21-50 WBCs, urine culture contaminated. No protein on urine dip. 08/14 Urine Osmolality 621, Ur sodium <20, urine creatinine 60 Sodium has been trending up since 08/14, most recent sodium 137 on 08/22 Creatinine 0.70, GFR >60 pt reports no SSRIs prior to hospitalization (was prescribed lexapro but reports stopped taking weeks ago) Patient reports breathing is comfortable denies dizziness, chest pain reports LE swelling is new she states she drank 4-5 regular 16 ounce [employer] bottles for a few weeks prior to her admission after hearing on a talk show she should be drinking this much water states she is urinating regularly/comfortably, estimates x5 voids thus far today Physical Exam 2 Vital Signs: Vital Signs: Last Vital Signs Temp 98 F 08/22/24 08:00 Pulse 75 08/22/24 09:26 Resp 17 08/22/24 08:00 BP 106/56 L 08/22/24 09:26 Pulse Ox 94 08/22/24 08:00 O2 Del Method Room Air 08/22/24 08:00 BMI result Body Mass Index 45.6 Const: General: no acute distress, awake and lethargic O rientation/consciousness: lethargic Neck: Neck: Yes no JVD Resp: Effort & Inspection: normal respiratory effort and able to speak in complete sentences Auscultation: clear to auscultation bilaterally Cardio: Jugular venous distension: no JVD Rate: regular rate Rhythm: r egular rhythm Heart sounds: S1 normal heart sound present, S2 normal heart sound present and Murmur heart sound present (systolic) GI: Palpation (GI): Soft to palpation and nontender : General: Yes no CVA tenderness Back/Spine/Pelvis: Back: no CVA tenderness Skin: Rashes: no rashes Neuro: Other: lethargic, conversant but nodding off during conversation periodically Extrem: General: Yes edema (+1 BLE pitting edema) Objective Data Labs 08/22/24 07:46 Labs: Laboratory Results - last 24 hr 08/22/24 08/22/24 07:46 08:45 Hold Purple Top SEE NOTE Sodium 137 Potassium 4.7 Chloride 99 Carbon Dioxide 29 Anion Gap 14 BUN 13 Creatinine 0.65 Estim Creat Clear Calc 97.4 Estimated GFR > 60 Random Glucose 136 H Calcium 9.3 Procedures Date of Service Date of Service: 08/22/24 Assessment & Plan Assessment and plan (1) Acute hyponatremia: Status: Acute Plan Euvolemic, hypotonic hyponatremia; most likely SIADH urine sodium 621, prsychogenic polydyspsia unlikely in this context chest xray done to rule out pulmonary etiology of SAIDH was unremarkable PTSD, anxiety and depression are likely triggers for SIADH amlodipine may be contributing to BLE swelling pt given 1x dose of furosemide yesterday; swelling has improved though some mild LE swelling remains pt reportedly still getting 1gm sodium tablets daily; if still taking daily would recommend continuing until seen as outpatient with nephrology for follow up (per orders sodium tabs are discontinued- if not taking may continue without sodium tablets). recommend continuing fluid restriction- recommend 1.5L daily Will arrange for outpatient nephrology follow up. Will see as needed if concerns or new issues arise. Will sign off. Discussed with Dr Liu Time Spent With Patient Time: Total time managing care of this patient today ____ minutes.
--- NOTE | 2024-08-22 11:55 | HO.PSYCHPN ---
Subjective Subjective Date of Service: 08/22/24 Reason For Visit: ptsd / benzo taper Subjective Notes: Conditional Voluntary Interim History: The nursing staff reported the patient had been crying she slept 7 hours. She stated that she is missing her dogs. On interview the patient denies new symptoms she looks anxious. She asked about discharge planning. She is fully aware that she was dependent on benzodiazepines currently on Klonopin 0.5 p.o. b.i.d. with no withdrawal symptoms. Mental Status Exam Mental Status Exam Patient Appearance: Well Grooomed and Appropriate Patient Orientation: Person and Situation Level of Consciousness: Awake and Appropriate Patient Behavior: Guarded and Passive Mood Description: Calm Affect Description: Constricted Patient Cognition Impaired: Yes Ability to Follow Directions: Good Speech Pattern: Clear Hallucinations: None Delusions: Not Present Thought Process: Distracted and Slowed Thinking Thought Content: positive for [place] and positive for Poverty of Content Judgement: Fair Diagnostics Vital Signs (24Hr): Vital Signs - 24 hr 08/21/24 20:37 08/21/24 20:39 08/21/24 20:39 Temperature 97.9 F Pulse Rate 72 72 Respiratory Rate 19 Blood Pressure 143/63 H 143/63 H 143/63 H Pulse Oximetry 94 Oxygen Delivery Method Room Air 08/22/24 08:00 08/22/24 08:25 08/22/24 09:26 Temperature 98 F Pulse Rate 75 72 75 Respiratory Rate 17 Blood Pressure 114/56 L 106/56 L 106/56 L Pulse Oximetry 94 Oxygen Delivery Method Room Air 08/22/24 09:26 Temperature Pulse Rate Respiratory Rate Blood Pressure 106/56 L Pulse Oximetry Oxygen Delivery Method BMI result Body Mass Index 45.6 Labs 08/22/24 07:46 Labs: Laboratory Results - last 48 hr 08/21/24 08/22/24 08/22/24 08:45 07:46 08:45 Hold Purple Top SEE NOTE Sodium 136 137 Potassium 5.0 4.7 Chloride 100 99 Carbon Dioxide 30 H 29 Anion Gap 11 L 14 BUN 14 13 Creatinine 0.71 0.65 Estim Creat Clear Calc 86.2 97.4 Estimated GFR > 60 > 60 Random Glucose 188 H 136 H Calcium 9.4 9.3 Imaging Radiology Impressions: ITS Impressions Chest X-Ray 08/20/24 20:50 IMPRESSION: No active cardiopulmonary disease Electronically signed by: Brandon Atkins MD 08/21/2024 01:27 PM EDT RP Medications Medications Current Medications Acetaminophen (Acetaminophen 325 Mg Tablet) 650 mg PO Q6H PRN PRN Reason: Headache/Pain Mild Scale (1-3) Last Admin: 08/22/24 03:36 Dose: 650 mg Al Hydroxide/Mg Hydroxide (Magnesium Hydrox/Alum Hydrox 30 Ml Oral.Susp) 30 ml PO Q6H PRN PRN Reason: Heartburn/Nausea Last Admin: 08/21/24 13:29 Dose: 30 ml Albuterol Sulfate (Albuterol Sulfate 90 Mcg 8 Gm Inhaler) 2 puff INHALE RQ4H PRN PRN Reason: Wheezing Last Admin: 08/21/24 20:40 Dose: 2 puff Aspirin (Aspirin Enteric Coated 81 Mg Tablet.Dr) 81 mg PO DAILY [facility] Last Admin: 08/22/24 08:30 Dose: 81 mg Buprenorphine/Naloxone (Buprenorphine/Naloxone 4/1 Mg Film) 1 film SUBLINGUAL BID [facility] Last Admin: 08/22/24 08:30 Dose: 1 film Carvedilol (Carvedilol 12.5 Mg Tablet) 12.5 mg PO BID [facility]; Protocol Last Admin: 08/22/24 09:26 Dose: Not Given Clonazepam (Clonazepam 0.5 Mg Tablet) 0.5 mg PO BID [facility] Last Admin: 08/22/24 08:32 Dose: 0.5 mg Clonidine HCl (Clonidine Hcl 0.1 Mg Tablet) 0.05 mg PO TID [facility]; Protocol Last Admin: 08/22/24 09:26 Dose: Not Given Fluticasone/Vilanterol (Fluticasone/Vilanterol 100/25 Blst.W.Dev) 1 puff INHALE RDAILY [facility] Last Admin: 08/22/24 08:38 Dose: 1 puff Hydroxyzine HCl (Hydroxyzine Hcl 25 Mg Tablet) 25 mg PO Q6H PRN PRN Reason: Anxiety Last Admin: 08/21/24 18:50 Dose: 25 mg Lidocaine (Lidocaine 4 % Patch Adh..Patch) 1 patch TRANSDERMA DAILY [facility]; Protocol Last Admin: 08/22/24 08:36 Dose: 1 patch Magnesium Hydroxide (Milk Of Magnesia 30 Ml Oral.Susp) 30 ml PO DAILY PRN PRN Reason: Constipation Last Admin: 08/21/24 13:39 Dose: 30 ml Metformin HCl (Metformin Hcl 500 Mg Tablet) 500 mg PO DAILY [facility] Last Admin: 08/22/24 08:30 Dose: 500 mg Nicotine Polacrilex (Nicotine Polacrilex 2 Mg Gum) 2 mg BUCCAL Q2H PRN PRN Reason: Nicotine Cravings Quetiapine Fumarate (Quetiapine Fumarate 25 Mg Tablet) 25 mg PO TID [facility] Last Admin: 08/22/24 08:30 Dose: 25 mg Quetiapine Fumarate (Quetiapine Fumarate 25 Mg Tablet) 25 mg PO Q6H PRN PRN Reason: moderate anxiety Last Admin: 08/20/24 23:18 Dose: 25 mg Trazodone HCl (Trazodone Hcl 50 Mg Tablet) 50 mg PO BEDTIME MRX1 PRN PRN Reason: Insomnia Venlafaxine HCl (Venlafaxine Hcl Er 37.5 Mg Cap.Er.24h) 37.5 mg PO DAILY [facility] Last Admin: 08/22/24 08:31 Dose: 37.5 mg Allergies Allergies Allergy/AdvReac Type Severity Reaction Status Date / Time No Known Allergies Allergy Verified 08/12/24 15:58 Assessment & Plan Assessment & Plan (1) Acute hyponatremia: Status: Acute Code(s): E87.1 - Hypo-osmolality and hyponatremia (2) PTSD (post-traumatic stress disorder): Status: Acute Code(s): F43.10 - Post-traumatic stress disorder, unspecified (3) UTI (urinary tract infection): Status: Acute Code(s): N39.0 - Urinary tract infection, site not specified Plan Neprhology consult. Euvolemic, hypotonic hyponatremia; most likely SIADH urine sodium 621, prsychogenic polydyspsia unlikely in this context chest xray done to rule out pulmonary etiology of SAIDH was unremarkable PTSD, anxiety and depression are likely triggers for SIADH amlodipine may be contributing to BLE swelling pt given 1x dose of furosemide yesterday; swelling has improved though some mild LE swelling remains pt reportedly still getting 1gm sodium tablets daily; if still taking daily would recommend continuing until seen as outpatient with nephrology for follow up (per orders sodium tabs are discontinued- if not taking may continue without sodium tablets). recommend continuing fluid restriction- recommend 1.5L daily Will arrange for outpatient nephrology follow up. Will see as needed if concerns or new issues arise. Will sign off. Discussed with Dr Liu Plan 1. Continue Klonopin 0.5 p.o. b.i.d.. 2. Continue with antidepressants. 3. Start working on discharge planning. Reason for continued inpatient stay Substantial Risk for: inability to function, rapid decompensation and med/psych decompensation Time Spent With Patient Time: Total time managing care of this patient today __20__ minutes.
[2024-08-22] MEDS: hydrOXYzine HCL 25 MG TABLET PO (14:43)
[2024-08-22 15:12] VITALS: BP 139/65
[2024-08-22] MEDS: cloNIDine HCL 0.1 MG TABLET 0.05 MG PO ×2 (15:12→20:07)
[2024-08-22 20:06] VITALS: BP 141/67; PULSE 92; RESP 16; TEMP 36.3; O2SAT 95
[2024-08-22 20:07] VITALS: BP 141/67; PULSE 92
[2024-08-22] MEDS: carvediloL 12.5 MG TABLET PO (20:07)
[2024-08-23 08:00] VITALS: BP 130/68; PULSE 80; RESP 18; TEMP 37.2; O2SAT 92
--- NOTE | 2024-08-23 08:31 | HO.PSYCHPN ---
Subjective Subjective Date of Service: 08/23/24 Reason For Visit: ptsd / benzo taper Interim History: Anxious. Using coping skills and some groups. Leg swelling- noted nephrology. Lasix in the past. Fluid restrcition in place- current 2000ml per day. On suboxone 4mg bid and klonopin 0.5mg bid. Sleep ok. No SI. Anxious ref dispo and med planning. Medication Compliance: Yes Side effects from medications: No Attending Groups: Intermittent Review of Systems Acute medical concerns: No Review of Systems: Nephrology Note 08/22/24: Euvolemic, hypotonic hyponatremia; most likely SIADH urine sodium 621, prsychogenic polydyspsia unlikely in this context chest xray done to rule out pulmonary etiology of SAIDH was unremarkable PTSD, anxiety and depression are likely triggers for SIADH amlodipine may be contributing to BLE swelling pt given 1x dose of furosemide yesterday; swelling has improved though some mild LE swelling remains pt reportedly still getting 1gm sodium tablets daily; if still taking daily would recommend continuing until seen as outpatient with nephrology for follow up (per orders sodium tabs are discontinued- if not taking may continue without sodium tablets). recommend continuing fluid restriction- recommend 1.5L daily Will arrange for outpatient nephrology follow up. Will see as needed if concerns or new issues arise. Will sign off. Mental Status Exam Mental Status Exam Patient Appearance: Well Grooomed and Appropriate Patient Orientation: Person and Situation Level of Consciousness: Awake and Appropriate Patient Behavior: Appropriate and Passive Mood Description: Anxious Affect Description: Constricted and Anxious Patient Cognition Impaired: Yes Ability to Follow Directions: Good Speech Pattern: Clear Hallucinations: None Delusions: Not Present Thought Process: Distracted and Slowed Thinking Thought Content: positive for Lane and positive for Poverty of Content Judgement: Fair Diagnostics Vital Signs (24Hr): Vital Signs - 24 hr 08/22/24 09:26 08/22/24 09:26 08/22/24 15:12 Temperature Pulse Rate 75 Respiratory Rate Blood Pressure 106/56 L 106/56 L 139/65 Pulse Oximetry Oxygen Delivery Method 08/22/24 20:06 08/22/24 20:07 08/22/24 20:07 Temperature 97.3 F Pulse Rate 92 92 Respiratory Rate 16 Blood Pressure 141/67 H 141/67 H 141/67 H Pulse Oximetry 95 Oxygen Delivery Method Nasal Cannula BMI result Body Mass Index 45.6 Labs 08/22/24 07:46 Labs: Laboratory Results - last 48 hr 08/21/24 08/22/24 08/22/24 08:45 07:46 08:45 Hold Purple Top SEE NOTE Sodium 136 137 Potassium 5.0 4.7 Chloride 100 99 Carbon Dioxide 30 H 29 Anion Gap 11 L 14 BUN 14 13 Creatinine 0.71 0.65 Estim Creat Clear Calc 86.2 97.4 Estimated GFR > 60 > 60 Random Glucose 188 H 136 H Calcium 9.4 9.3 Imaging Radiology Impressions: ITS Impressions Chest X-Ray 08/20/24 20:50 IMPRESSION: No active cardiopulmonary disease Electronically signed by: Brandon Atkins MD 08/21/2024 01:27 PM EDT RP Medications Medications Current Medications Acetaminophen (Acetaminophen 325 Mg Tablet) 650 mg PO Q6H PRN PRN Reason: Headache/Pain Mild Scale (1-3) Last Admin: 08/22/24 03:36 Dose: 650 mg Al Hydroxide/Mg Hydroxide (Magnesium Hydrox/Alum Hydrox 30 Ml Oral.Susp) 30 ml PO Q6H PRN PRN Reason: Heartburn/Nausea Last Admin: 08/21/24 13:29 Dose: 30 ml Albuterol Sulfate (Albuterol Sulfate 90 Mcg 8 Gm Inhaler) 2 puff INHALE RQ4H PRN PRN Reason: Wheezing Last Admin: 08/21/24 20:40 Dose: 2 puff Aspirin (Aspirin Enteric Coated 81 Mg Tablet.Dr) 81 mg PO DAILY [facility] Last Admin: 08/22/24 08:30 Dose: 81 mg Buprenorphine/Naloxone (Buprenorphine/Naloxone 4/1 Mg Film) 1 film SUBLINGUAL BID [facility] Last Admin: 08/22/24 20:08 Dose: 1 film Carvedilol (Carvedilol 12.5 Mg Tablet) 12.5 mg PO BID [facility]; Protocol Last Admin: 08/22/24 20:07 Dose: 12.5 mg Clonazepam (Clonazepam 0.5 Mg Tablet) 0.5 mg PO BID [facility] Last Admin: 08/22/24 20:07 Dose: 0.5 mg Clonidine HCl (Clonidine Hcl 0.1 Mg Tablet) 0.05 mg PO TID [facility]; Protocol Last Admin: 08/22/24 20:07 Dose: 0.05 mg Fluticasone/Vilanterol (Fluticasone/Vilanterol 100/25 Blst.W.Dev) 1 puff INHALE RDAILY [facility] Last Admin: 08/22/24 08:38 Dose: 1 puff Hydroxyzine HCl (Hydroxyzine Hcl 25 Mg Tablet) 25 mg PO Q6H PRN PRN Reason: Anxiety Last Admin: 08/22/24 14:43 Dose: 25 mg Lidocaine (Lidocaine 4 % Patch Adh..Patch) 1 patch TRANSDERMA DAILY [facility]; Protocol Last Admin: 08/22/24 08:36 Dose: 1 patch Magnesium Hydroxide (Milk Of Magnesia 30 Ml Oral.Susp) 30 ml PO DAILY PRN PRN Reason: Constipation Last Admin: 08/21/24 13:39 Dose: 30 ml Metformin HCl (Metformin Hcl 500 Mg Tablet) 500 mg PO DAILY [facility] Last Admin: 08/22/24 08:30 Dose: 500 mg Nicotine Polacrilex (Nicotine Polacrilex 2 Mg Gum) 2 mg BUCCAL Q2H PRN PRN Reason: Nicotine Cravings Nystatin (Nystatin Powder 15 Gm Bottle) 1 appl TOPICAL BID [facility]; Protocol Last Admin: 08/22/24 20:11 Dose: Not Given Quetiapine Fumarate (Quetiapine Fumarate 25 Mg Tablet) 25 mg PO TID [facility] Last Admin: 08/22/24 20:07 Dose: 25 mg Quetiapine Fumarate (Quetiapine Fumarate 25 Mg Tablet) 25 mg PO Q6H PRN PRN Reason: moderate anxiety Last Admin: 08/22/24 16:05 Dose: 25 mg Trazodone HCl (Trazodone Hcl 50 Mg Tablet) 50 mg PO BEDTIME MRX1 PRN PRN Reason: Insomnia Venlafaxine HCl (Venlafaxine Hcl Er 37.5 Mg Cap.Er.24h) 37.5 mg PO DAILY [facility] Last Admin: 08/22/24 08:31 Dose: 37.5 mg Allergies Allergies Allergy/AdvReac Type Severity Reaction Status Date / Time No Known Allergies Allergy Verified 08/12/24 15:58 Assessment & Plan Assessment & Plan (1) Acute hyponatremia: Status: Acute Code(s): E87.1 - Hypo-osmolality and hyponatremia Assessment and Plan: Nephrology Note 08/22/24: Euvolemic, hypotonic hyponatremia; most likely SIADH urine sodium 621, prsychogenic polydyspsia unlikely in this context chest xray done to rule out pulmonary etiology of SAIDH was unremarkable PTSD, anxiety and depression are likely triggers for SIADH amlodipine may be contributing to BLE swelling pt given 1x dose of furosemide yesterday; swelling has improved though some mild LE swelling remains pt reportedly still getting 1gm sodium tablets daily; if still taking daily would recommend continuing until seen as outpatient with nephrology for follow up (per orders sodium tabs are discontinued- if not taking may continue without sodium tablets). recommend continuing fluid restriction- recommend 1.5L daily Will arrange for outpatient nephrology follow up. Will see as needed if concerns or new issues arise. Will sign off. (2) PTSD (post-traumatic stress disorder): Status: Acute Code(s): F43.10 - Post-traumatic stress disorder, unspecified (3) UTI (urinary tract infection): Status: Acute Code(s): N39.0 - Urinary tract infection, site not specified Plan Neprhology consult. Euvolemic, hypotonic hyponatremia; most likely SIADH urine sodium 621, prsychogenic polydyspsia unlikely in this context chest xray done to rule out pulmonary etiology of SAIDH was unremarkable PTSD, anxiety and depression are likely triggers for SIADH amlodipine may be contributing to BLE swelling pt given 1x dose of furosemide yesterday; swelling has improved though some mild LE swelling remains pt reportedly still getting 1gm sodium tablets daily; if still taking daily would recommend continuing until seen as outpatient with nephrology for follow up (per orders sodium tabs are discontinued- if not taking may continue without sodium tablets). recommend continuing fluid restriction- recommend 1.5L daily Will arrange for outpatient nephrology follow up. Will see as needed if concerns or new issues arise. Will sign off. Discussed with Dr Liu 08/23/24: 1. Continue Klonopin 0.5 p.o. b.i.d.. 2. Continue with antidepressants. 3. Start working on discharge planning. - frusemide 40mg one time dose. Lower norvasc. - fluid restrict 1500 as per nephrology Reason for continued inpatient stay Substantial Risk for: rapid decompensation Time Spent With Patient Time: Total time managing care of this patient today ____ minutes.
[2024-08-23] MEDS: clonazePAM 0.5 MG TABLET PO ×2 (08:37→19:43)
[2024-08-23] MEDS: cloNIDine HCL 0.1 MG TABLET 0.05 MG PO ×3 (08:37→19:43)
[2024-08-23] MEDS: Venlafaxine HCl ER 37.5 MG CAP.ER.24H PO (08:37)
[2024-08-23] MEDS: carvediloL 12.5 MG TABLET PO ×2 (08:37→19:42)
[2024-08-23] MEDS: Fluticasone/Vilanterol 100/25 BLST.W.DEV 1 PUFF INHALE (08:42)
[2024-08-23] MEDS: metFORMIN HCl 500 MG TABLET PO (08:43)
[2024-08-23] MEDS: Buprenorphine/Naloxone 4/1 mg FILM 1 FILM SUBLINGUAL ×2 (08:43→19:42)
[2024-08-23] MEDS: Aspirin Enteric Coated 81 MG TABLET.DR PO (08:43)
[2024-08-23] MEDS: QUEtiapine Fumarate 25 MG TABLET PO ×3 (08:43→19:43)
[2024-08-23] MEDS: hydrOXYzine HCL 25 MG TABLET PO (12:07)
[2024-08-23] MEDS: Nystatin Powder 15 GM BOTTLE 1 APPL TOPICAL (13:33)
[2024-08-23] MEDS: Acetaminophen 325 MG TABLET 650 MG PO ×2 (14:07→20:44)
[2024-08-23 14:13] VITALS: BP 132/71
[2024-08-23] MEDS: Furosemide 40 MG TABLET PO (14:14)
[2024-08-23 16:38] LABS: Vitamin D 25-OH, D2 5 ng/mL; Vitamin D 25-OH, D3 26 ng/mL; Vitamin D 25-OH, Total 31 ng/mL (30-100)
[2024-08-23 19:38] VITALS: BP 109/60; PULSE 78; RESP 18; TEMP 37.2; O2SAT 94
[2024-08-23 19:42] VITALS: BP 109/60; PULSE 78
[2024-08-23 19:43] VITALS: BP 109/60
[2024-08-24] MEDS: hydrOXYzine HCL 25 MG TABLET PO (03:00)
[2024-08-24] MEDS: QUEtiapine Fumarate 25 MG TABLET PO ×4 (03:00→20:45)
[2024-08-24] MEDS: Acetaminophen 325 MG TABLET 650 MG PO (03:00)
[2024-08-24] MEDS: Albuterol Sulfate 90 MCG 8 GM INHALER 2 PUFF INHALE (03:44)
[2024-08-24 08:47] VITALS: BP 133/60; PULSE 74; RESP 18; TEMP 36.8; O2SAT 96
[2024-08-24] MEDS: Venlafaxine HCl ER 37.5 MG CAP.ER.24H PO (08:50)
[2024-08-24] MEDS: metFORMIN HCl 500 MG TABLET PO (08:50)
[2024-08-24] MEDS: Aspirin Enteric Coated 81 MG TABLET.DR PO (08:50)
[2024-08-24] MEDS: cloNIDine HCL 0.1 MG TABLET 0.05 MG PO ×3 (08:50→20:47)
[2024-08-24] MEDS: clonazePAM 0.5 MG TABLET PO ×2 (08:51→20:46)
[2024-08-24] MEDS: carvediloL 12.5 MG TABLET PO ×2 (08:52→20:46)
[2024-08-24] MEDS: Buprenorphine/Naloxone 4/1 mg FILM 1 FILM SUBLINGUAL ×2 (08:52→20:45)
--- NOTE | 2024-08-24 10:22 | HO.PSYCHPN ---
Subjective Subjective Date of Service: 08/24/24 Reason For Visit: ptsd / benzo taper Interim History: Less anxious today. Wants meds lowered so less tired/sedate- agreed to DC AM klonopin dose. Sleep fair. Anxious ref dispo planning but eager for discharge soon. Still concerned ref leg swelling- noted nephrology. Lasix in the past. Ordered one time dose and BMP in AM +/- scheduled dosing. Medication Compliance: Yes Side effects from medications: No Attending Groups: Yes Review of Systems Acute medical concerns: No Review of Systems Review of Systems unremarkable- chronic leg oedema Mental Status Exam Mental Status Exam Patient Appearance: Well Grooomed and Appropriate Patient Orientation: Person and Situation Level of Consciousness: Awake and Appropriate Patient Behavior: Appropriate and Passive Mood Description: Anxious Affect Description: Anxious Patient Cognition Impaired: Yes Ability to Follow Directions: Good Speech Pattern: Clear Diagnostics Vital Signs (24Hr): Vital Signs - 24 hr 08/23/24 14:13 08/23/24 19:38 08/23/24 19:42 Temperature 98.9 F Pulse Rate 78 78 Respiratory Rate 18 Blood Pressure 132/71 109/60 109/60 Pulse Oximetry 94 Oxygen Delivery Method Room Air 08/23/24 19:43 08/24/24 08:47 Temperature 98.2 F Pulse Rate 74 Respiratory Rate 18 Blood Pressure 109/60 133/60 Pulse Oximetry 96 Oxygen Delivery Method Room Air BMI result Body Mass Index 45.6 Labs 08/22/24 07:46 Labs: Laboratory Results - last 48 hr 08/19/24 17:57 25-OH Vitamin D Total 31 25-Hydroxy Vitamin D2 5 25-Hydroxy Vitamin D3 26 Imaging Radiology Impressions: ITS Impressions Chest X-Ray 08/20/24 20:50 IMPRESSION: No active cardiopulmonary disease Electronically signed by: Brandon Atkins MD 08/21/2024 01:27 PM EDT RP Medications Medications Current Medications Acetaminophen (Acetaminophen 325 Mg Tablet) 650 mg PO Q6H PRN PRN Reason: Headache/Pain Mild Scale (1-3) Last Admin: 08/24/24 03:00 Dose: 650 mg Al Hydroxide/Mg Hydroxide (Magnesium Hydrox/Alum Hydrox 30 Ml Oral.Susp) 30 ml PO Q6H PRN PRN Reason: Heartburn/Nausea Last Admin: 08/21/24 13:29 Dose: 30 ml Albuterol Sulfate (Albuterol Sulfate 90 Mcg 8 Gm Inhaler) 2 puff INHALE RQ4H PRN PRN Reason: Wheezing Last Admin: 08/24/24 03:44 Dose: 2 puff Aspirin (Aspirin Enteric Coated 81 Mg Tablet.Dr) 81 mg PO DAILY [facility] Last Admin: 08/24/24 08:50 Dose: 81 mg Buprenorphine/Naloxone (Buprenorphine/Naloxone 4/1 Mg Film) 1 film SUBLINGUAL BID [facility] Last Admin: 08/24/24 08:52 Dose: 1 film Carvedilol (Carvedilol 12.5 Mg Tablet) 12.5 mg PO BID [facility]; Protocol Last Admin: 08/24/24 08:52 Dose: 12.5 mg Clonazepam (Clonazepam 0.5 Mg Tablet) 0.5 mg PO BID [facility] Last Admin: 08/24/24 08:51 Dose: 0.5 mg Clonidine HCl (Clonidine Hcl 0.1 Mg Tablet) 0.05 mg PO TID [facility]; Protocol Last Admin: 08/24/24 08:50 Dose: 0.05 mg Fluticasone/Vilanterol (Fluticasone/Vilanterol 100/25 Blst.W.Dev) 1 puff INHALE RDAILY [facility] Last Admin: 08/23/24 08:42 Dose: 1 puff Hydroxyzine HCl (Hydroxyzine Hcl 25 Mg Tablet) 25 mg PO Q6H PRN PRN Reason: Anxiety Last Admin: 08/24/24 03:00 Dose: 25 mg Lidocaine (Lidocaine 4 % Patch Adh..Patch) 1 patch TRANSDERMA DAILY [facility]; Protocol Last Admin: 08/24/24 08:53 Dose: Not Given Magnesium Hydroxide (Milk Of Magnesia 30 Ml Oral.Susp) 30 ml PO DAILY PRN PRN Reason: Constipation Last Admin: 08/21/24 13:39 Dose: 30 ml Metformin HCl (Metformin Hcl 500 Mg Tablet) 500 mg PO DAILY [facility] Last Admin: 08/24/24 08:50 Dose: 500 mg Nicotine Polacrilex (Nicotine Polacrilex 2 Mg Gum) 2 mg BUCCAL Q2H PRN PRN Reason: Nicotine Cravings Nystatin (Nystatin Powder 15 Gm Bottle) 1 appl TOPICAL BID [facility]; Protocol Last Admin: 08/23/24 19:47 Dose: Not Given Quetiapine Fumarate (Quetiapine Fumarate 25 Mg Tablet) 25 mg PO TID [facility] Last Admin: 08/24/24 08:52 Dose: 25 mg Quetiapine Fumarate (Quetiapine Fumarate 25 Mg Tablet) 25 mg PO Q6H PRN PRN Reason: moderate anxiety Last Admin: 08/22/24 16:05 Dose: 25 mg Trazodone HCl (Trazodone Hcl 50 Mg Tablet) 50 mg PO BEDTIME MRX1 PRN PRN Reason: Insomnia Venlafaxine HCl (Venlafaxine Hcl Er 37.5 Mg Cap.Er.24h) 37.5 mg PO DAILY [facility] Last Admin: 08/24/24 08:50 Dose: 37.5 mg Allergies Allergies Allergy/AdvReac Type Severity Reaction Status Date / Time No Known Allergies Allergy Verified 08/12/24 15:58 Assessment & Plan Assessment & Plan (1) Acute hyponatremia: Status: Acute Code(s): E87.1 - Hypo-osmolality and hyponatremia Assessment and Plan: Nephrology Note 08/22/24: Euvolemic, hypotonic hyponatremia; most likely SIADH urine sodium 621, prsychogenic polydyspsia unlikely in this context chest xray done to rule out pulmonary etiology of SAIDH was unremarkable PTSD, anxiety and depression are likely triggers for SIADH amlodipine may be contributing to BLE swelling pt given 1x dose of furosemide yesterday; swelling has improved though some mild LE swelling remains pt reportedly still getting 1gm sodium tablets daily; if still taking daily would recommend continuing until seen as outpatient with nephrology for follow up (per orders sodium tabs are discontinued- if not taking may continue without sodium tablets). recommend continuing fluid restriction- recommend 1.5L daily Will arrange for outpatient nephrology follow up. Will see as needed if concerns or new issues arise. Will sign off. (2) PTSD (post-traumatic stress disorder): Status: Acute Code(s): F43.10 - Post-traumatic stress disorder, unspecified (3) UTI (urinary tract infection): Status: Acute Code(s): N39.0 - Urinary tract infection, site not specified Plan Neprhology consult. Euvolemic, hypotonic hyponatremia; most likely SIADH urine sodium 621, prsychogenic polydyspsia unlikely in this context chest xray done to rule out pulmonary etiology of SAIDH was unremarkable PTSD, anxiety and depression are likely triggers for SIADH amlodipine may be contributing to BLE swelling pt given 1x dose of furosemide yesterday; swelling has improved though some mild LE swelling remains pt reportedly still getting 1gm sodium tablets daily; if still taking daily would recommend continuing until seen as outpatient with nephrology for follow up (per orders sodium tabs are discontinued- if not taking may continue without sodium tablets). recommend continuing fluid restriction- recommend 1.5L daily Will arrange for outpatient nephrology follow up. Will see as needed if concerns or new issues arise. Will sign off. Discussed with Dr Liu 08/23/24: 1. Continue Klonopin 0.5 p.o. b.i.d.. 2. Continue with antidepressants. 3. Start working on discharge planning. - frusemide 40mg one time dose. Lower norvasc. - fluid restrict 1500 as per nephrology 08/24/24: Wants meds lowered so less tired/sedate- agreed to DC AM klonopin dose. Reason for continued inpatient stay Substantial Risk for: rapid decompensation Time Spent With Patient Time: Total time managing care of this patient today ____ minutes.
[2024-08-24] MEDS: Fluticasone/Vilanterol 100/25 BLST.W.DEV 1 PUFF INHALE (12:27)
[2024-08-24] MEDS: Nystatin Powder 15 GM BOTTLE 1 APPL TOPICAL ×2 (12:27→20:49)
[2024-08-24 13:42] VITALS: BP 119/57
[2024-08-24] MEDS: Furosemide 40 MG TABLET PO (13:42)
[2024-08-24 20:00] VITALS: BP 156/74; PULSE 88; RESP 20; TEMP 36.2; O2SAT 96
[2024-08-24 20:46] VITALS: BP 156/74; PULSE 88
[2024-08-24 20:47] VITALS: BP 156/74
[2024-08-25] VITALS (7 sets, daily range): BP systolic 100–137; BP diastolic 56–75; PULSE 67–87; RESP 17–18; TEMP 36.5–36.6; O2SAT 94–97
[2024-08-25] MEDS: Aspirin Enteric Coated 81 MG TABLET.DR PO (08:47)
[2024-08-25] MEDS: metFORMIN HCl 500 MG TABLET PO (08:47)
[2024-08-25] MEDS: QUEtiapine Fumarate 25 MG TABLET PO ×3 (08:48→21:06)
[2024-08-25] MEDS: Venlafaxine HCl ER 37.5 MG CAP.ER.24H PO (08:48)
[2024-08-25] MEDS: carvediloL 12.5 MG TABLET PO ×2 (08:48→21:03)
[2024-08-25] MEDS: cloNIDine HCL 0.1 MG TABLET 0.05 MG PO ×3 (08:49→21:05)
[2024-08-25] MEDS: Buprenorphine/Naloxone 4/1 mg FILM 1 FILM SUBLINGUAL ×2 (08:51→21:03)
[2024-08-25 08:53] LABS: Anion Gap 14 (12-20); Blood Urea Nitrogen 14 mg/dL (9-16); Carbon Dioxide 27 mmol/L (22-29); Chloride 101 mmol/L (96-108); Estimated Glomerular Filt Rate > 60; Glucose Random 159 mg/dL (60-115); Potassium 4.1 mmol/L (3.3-5.1); Sodium 138 mmol/L (135-145)
[2024-08-25] MEDS: hydrOXYzine HCL 25 MG TABLET PO ×2 (10:00→21:04)
[2024-08-25] MEDS: Fluticasone/Vilanterol 100/25 BLST.W.DEV 1 PUFF INHALE (10:04)
[2024-08-25] MEDS: Lidocaine 4 % Patch ADH..PATCH 1 PATCH TRANSDERMA (10:05)
--- NOTE | 2024-08-25 10:21 | P.EN_ITS ---
Event Note Date of Service: 08/25/24 Event Note: pt is a 68 yo female on [employer] with hospitalist consult again for bilateral LE edema. 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 Consult on 08/20/2024 bilateral extremity edema. Labs consistent with SIADH and Nephrology was consulted, dx: euvolemic hypotonic hyponatremia, most likely SIADH. They felt PTSD, anxiety and depression are likely triggers or SIADH. They also suggested amlodipine may be contributing to bilateral lower extremity edema. She did have improvement with furosemide at that time however yesterday she received 40 mg of furosemide and reports minimal urine output and persistent edema. She is also receiving 1 g of sodium tablets daily, sodium today 138. They recommended fluid restriction of 1.5 L daily. PE: const: A+Ox3, NAD, anxious cardio: RRR, +murmur s/p valve replacement resp: CTA bilaterally extremities: bilateral 1+pitting edema, no erythema or warmth plan: Spoke with Nephrology, Samra George NP, regarding patient's case as they were previously involved. She discussed case with Dr. Liu. It is reassuring that her renal function was normal this morning and she has not had any proteinuria. Suggested to monitor I's and O's. Start furosemide 20 mg daily. Push fluids with salt and avoid free water. Lack of urination not concerning given normal renal function studies. bilateral LE edema - bladder scan now - received lasix 40mg yesterday, minimal urine output - start furosemide 20mg QD - monitor Is and Os - push fluids with salt and avoid free water Thank you for allowing me to participate in the pt's care. Please contact the medical team if any questions or concerns. Time Spent With Patient Time: Total time managing care of this patient today 15 minutes.
[2024-08-25] MEDS: Acetaminophen 325 MG TABLET 650 MG PO (10:55)
[2024-08-25] MEDS: Furosemide 20 MG TABLET PO (11:36)
--- NOTE | 2024-08-25 15:27 | P.PNPSI_ITS ---
Subjective Subjective Date of Service: 08/25/24 Reason For Visit: ptsd / benzo taper Subjective Notes: Conditional Voluntary Interim History: The nursing staff reported that the patient had been visible in the unit med compliant slept 6 hours. Today in the morning she was labile very anxious. Today I explained her about her diagnosis and I asked for a hospitalist consult. She complains of edema. Very anxious and attention seeking. Mental Status Exam Mental Status Exam Patient Appearance: Appropriate Patient Orientation: Person and Situation Level of Consciousness: Awake and Appropriate Patient Behavior: Guarded and Passive Mood Description: Anxious Affect Description: Constricted Patient Cognition Impaired: Yes Ability to Follow Directions: Good Speech Pattern: Clear Hallucinations: None Delusions: Not Present Thought Process: Distracted and Slowed Thinking Thought Content: positive for [place] and positive for Poverty of Content Judgement: Fair Diagnostics Vital Signs (24Hr): Vital Signs - 24 hr 08/24/24 20:00 08/24/24 20:46 08/24/24 20:47 Temperature 97.2 F Pulse Rate 88 88 Respiratory Rate 20 Blood Pressure 156/74 H 156/74 H 156/74 H Pulse Oximetry 96 Oxygen Delivery Method Room Air 08/25/24 08:00 08/25/24 08:48 08/25/24 11:36 Temperature 98 F Pulse Rate 87 87 Respiratory Rate 17 Blood Pressure 137/75 137/75 100/59 L Pulse Oximetry 94 Oxygen Delivery Method Room Air BMI result Body Mass Index 45.6 Labs 08/25/24 08:21 Labs: Laboratory Results - last 48 hr 08/19/24 08/25/24 17:57 08:21 Sodium 138 Potassium 4.1 Chloride 101 Carbon Dioxide 27 Anion Gap 14 BUN 14 Creatinine 0.72 Estim Creat Clear Calc 88.0 Estimated GFR > 60 Random Glucose 159 H Calcium 9.0 25-OH Vitamin D Total 31 25-Hydroxy Vitamin D2 5 25-Hydroxy Vitamin D3 26 Imaging Radiology Impressions: ITS Impressions Chest X-Ray 08/20/24 20:50 IMPRESSION: No active cardiopulmonary disease Electronically signed by: Brandon Atkins MD 08/21/2024 01:27 PM EDT RP Medications Medications Current Medications Acetaminophen (Acetaminophen 325 Mg Tablet) 650 mg PO Q6H PRN PRN Reason: Headache/Pain Mild Scale (1-3) Last Admin: 08/25/24 10:55 Dose: 650 mg Al Hydroxide/Mg Hydroxide (Magnesium Hydrox/Alum Hydrox 30 Ml Oral.Susp) 30 ml PO Q6H PRN PRN Reason: Heartburn/Nausea Last Admin: 08/21/24 13:29 Dose: 30 ml Albuterol Sulfate (Albuterol Sulfate 90 Mcg 8 Gm Inhaler) 2 puff INHALE RQ4H PRN PRN Reason: Wheezing Last Admin: 08/24/24 03:44 Dose: 2 puff Aspirin (Aspirin Enteric Coated 81 Mg Tablet.Dr) 81 mg PO DAILY [facility] Last Admin: 08/25/24 08:47 Dose: 81 mg Buprenorphine/Naloxone (Buprenorphine/Naloxone 4/1 Mg Film) 1 film SUBLINGUAL BID [facility] Last Admin: 08/25/24 08:51 Dose: 1 film Carvedilol (Carvedilol 12.5 Mg Tablet) 12.5 mg PO BID [facility]; Protocol Last Admin: 08/25/24 08:48 Dose: 12.5 mg Clonazepam (Clonazepam 0.5 Mg Tablet) 0.5 mg PO BEDTIME [facility] Last Admin: 08/24/24 20:46 Dose: 0.5 mg Clonidine HCl (Clonidine Hcl 0.1 Mg Tablet) 0.05 mg PO TID [facility]; Protocol Last Admin: 08/25/24 08:49 Dose: 0.05 mg Fluticasone/Vilanterol (Fluticasone/Vilanterol 100/25 Blst.W.Dev) 1 puff INHALE RDAILY [facility] Last Admin: 08/25/24 10:04 Dose: 1 puff Furosemide (Furosemide 20 Mg Tablet) 20 mg PO DAILY [facility]; Protocol Last Admin: 08/25/24 11:36 Dose: 20 mg Hydroxyzine HCl (Hydroxyzine Hcl 25 Mg Tablet) 25 mg PO Q6H PRN PRN Reason: Anxiety Last Admin: 08/25/24 10:00 Dose: 25 mg Lidocaine (Lidocaine 4 % Patch Adh..Patch) 1 patch TRANSDERMA DAILY [facility]; Protocol Last Admin: 08/25/24 10:05 Dose: 1 patch Magnesium Hydroxide (Milk Of Magnesia 30 Ml Oral.Susp) 30 ml PO DAILY PRN PRN Reason: Constipation Last Admin: 08/21/24 13:39 Dose: 30 ml Metformin HCl (Metformin Hcl 500 Mg Tablet) 500 mg PO DAILY [facility] Last Admin: 08/25/24 08:47 Dose: 500 mg Nicotine Polacrilex (Nicotine Polacrilex 2 Mg Gum) 2 mg BUCCAL Q2H PRN PRN Reason: Nicotine Cravings Nystatin (Nystatin Powder 15 Gm Bottle) 1 appl TOPICAL BID [facility]; Protocol Last Admin: 08/25/24 11:47 Dose: Not Given Quetiapine Fumarate (Quetiapine Fumarate 25 Mg Tablet) 25 mg PO TID [facility] Last Admin: 08/25/24 08:48 Dose: 25 mg Quetiapine Fumarate (Quetiapine Fumarate 25 Mg Tablet) 25 mg PO Q6H PRN PRN Reason: moderate anxiety Last Admin: 08/22/24 16:05 Dose: 25 mg Trazodone HCl (Trazodone Hcl 50 Mg Tablet) 50 mg PO BEDTIME MRX1 PRN PRN Reason: Insomnia Venlafaxine HCl (Venlafaxine Hcl Er 37.5 Mg Cap.Er.24h) 37.5 mg PO DAILY [facility] Last Admin: 08/25/24 08:48 Dose: 37.5 mg Allergies Allergies Allergy/AdvReac Type Severity Reaction Status Date / Time No Known Allergies Allergy Verified 08/12/24 15:58 Assessment & Plan Assessment & Plan (1) Acute hyponatremia: Status: Inactive Code(s): E87.1 - Hypo-osmolality and hyponatremia Assessment and Plan: Nephrology Note 08/22/24: Euvolemic, hypotonic hyponatremia; most likely SIADH urine sodium 621, prsychogenic polydyspsia unlikely in this context chest xray done to rule out pulmonary etiology of SAIDH was unremarkable PTSD, anxiety and depression are likely triggers for SIADH amlodipine may be contributing to BLE swelling pt given 1x dose of furosemide yesterday; swelling has improved though some mild LE swelling remains pt reportedly still getting 1gm sodium tablets daily; if still taking daily would recommend continuing until seen as outpatient with nephrology for follow up (per orders sodium tabs are discontinued- if not taking may continue without sodium tablets). recommend continuing fluid restriction- recommend 1.5L daily Will arrange for outpatient nephrology follow up. Will see as needed if concerns or new issues arise. Will sign off. (2) PTSD (post-traumatic stress disorder): Status: Inactive Code(s): F43.10 - Post-traumatic stress disorder, unspecified (3) UTI (urinary tract infection): Status: Acute Code(s): N39.0 - Urinary tract infection, site not specified Plan Neprhology consult. Euvolemic, hypotonic hyponatremia; most likely SIADH urine sodium 621, prsychogenic polydyspsia unlikely in this context chest xray done to rule out pulmonary etiology of SAIDH was unremarkable PTSD, anxiety and depression are likely triggers for SIADH amlodipine may be contributing to BLE swelling pt given 1x dose of furosemide yesterday; swelling has improved though some mild LE swelling remains pt reportedly still getting 1gm sodium tablets daily; if still taking daily would recommend continuing until seen as outpatient with nephrology for follow up (per orders sodium tabs are discontinued- if not taking may continue without sodium tablets). recommend continuing fluid restriction- recommend 1.5L daily Will arrange for outpatient nephrology follow up. Will see as needed if concerns or new issues arise. Will sign off. Discussed with Dr Liu 08/23/24: 1. Continue Klonopin 0.5 p.o. b.i.d.. 2. Continue with antidepressants. 3. Start working on discharge planning. 4. Working on discharge planning Reason for continued inpatient stay Substantial Risk for: inability to function, rapid decompensation and med/psych decompensation Time Spent With Patient Time: Total time managing care of this patient today __20__ minutes.
[2024-08-25] MEDS: clonazePAM 0.5 MG TABLET PO (21:05)
[2024-08-25] MEDS: Nystatin Powder 15 GM BOTTLE 1 APPL TOPICAL (21:06)
[2024-08-26] MEDS: QUEtiapine Fumarate 25 MG TABLET PO ×4 (02:54→16:32)
[2024-08-26] MEDS: Acetaminophen 325 MG TABLET 650 MG PO ×2 (02:55→22:38)
[2024-08-26] MEDS: hydrOXYzine HCL 25 MG TABLET PO ×2 (02:55→13:18)
[2024-08-26] MEDS: traZODone HCL 50 MG TABLET PO (02:55)
[2024-08-26 08:22] VITALS: BP 132/60; PULSE 88; RESP 15; TEMP 38.1; O2SAT 95
[2024-08-26] MEDS: Aspirin Enteric Coated 81 MG TABLET.DR PO (08:25)
[2024-08-26] MEDS: Furosemide 20 MG TABLET PO (08:25)
[2024-08-26] MEDS: Buprenorphine/Naloxone 4/1 mg FILM 1 FILM SUBLINGUAL ×2 (08:25→20:32)
[2024-08-26] MEDS: carvediloL 12.5 MG TABLET PO ×2 (08:26→20:35)
[2024-08-26] MEDS: metFORMIN HCl 500 MG TABLET PO (08:26)
[2024-08-26] MEDS: Venlafaxine HCl ER 37.5 MG CAP.ER.24H PO (08:26)
[2024-08-26] MEDS: cloNIDine HCL 0.1 MG TABLET 0.05 MG PO ×3 (08:26→20:33)
[2024-08-26] MEDS: Fluticasone/Vilanterol 100/25 BLST.W.DEV 1 PUFF INHALE (08:27)
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
[2024-08-26] MEDS: QUEtiapine Fumarate 50 MG TABLET PO ×2 (14:55→20:34)
[2024-08-26 14:56] VITALS: BP 115/60
[2024-08-26 20:00] VITALS: BP 126/60; PULSE 81; RESP 18; TEMP 36.9; O2SAT 94
[2024-08-26] MEDS: Nystatin Powder 15 GM BOTTLE 1 APPL TOPICAL (20:32)
[2024-08-26 20:33] VITALS: BP 112/58
[2024-08-26] MEDS: clonazePAM 0.5 MG TABLET PO (20:33)
[2024-08-26 20:35] VITALS: BP 126/60; PULSE 81
[2024-08-27] MEDS: hydrOXYzine HCL 25 MG TABLET PO ×3 (03:51→20:44)
[2024-08-27] MEDS: QUEtiapine Fumarate 25 MG TABLET PO (03:51)
[2024-08-27 07:55] VITALS: BP 132/68; PULSE 75; RESP 18; TEMP 36.8; O2SAT 95
[2024-08-27] MEDS: QUEtiapine Fumarate 50 MG TABLET PO ×3 (08:04→20:34)
[2024-08-27] MEDS: cloNIDine HCL 0.1 MG TABLET 0.05 MG PO ×3 (08:04→20:33)
[2024-08-27] MEDS: Aspirin Enteric Coated 81 MG TABLET.DR PO (08:04)
[2024-08-27] MEDS: carvediloL 12.5 MG TABLET PO ×2 (08:05→20:32)
[2024-08-27] MEDS: metFORMIN HCl 500 MG TABLET PO (08:05)
[2024-08-27] MEDS: Venlafaxine HCl ER 37.5 MG CAP.ER.24H PO (08:05)
[2024-08-27] MEDS: Furosemide 20 MG TABLET PO (08:05)
[2024-08-27] MEDS: Buprenorphine/Naloxone 4/1 mg FILM 1 FILM SUBLINGUAL ×2 (08:05→20:32)
[2024-08-27] MEDS: Fluticasone/Vilanterol 100/25 BLST.W.DEV 1 PUFF INHALE (08:10)
[2024-08-27] MEDS: Acetaminophen 325 MG TABLET 650 MG PO ×2 (12:08→20:38)
--- NOTE | 2024-08-27 13:09 | P.PNPSI_ITS ---
Subjective Subjective Date of Service: 08/27/24 Reason For Visit: ptsd / benzo taper Subjective Notes: Conditional Voluntary Interim History: The nursing staff reported the patient had been superficially, somatically preoccupied but compliant with treatment. She had been compliant with the fluid restriction she slept 4 hours. The social work program coordinator reported that her home recently floated and her family is working to fix it. Most likely we will be able to discharge her early next week or at the end of this week. On interview the patient denies over-sedation with increase of Seroquel to 50 p.o. b.i.d. we will wait 24 hours and probably challenge on Sunday to increase it up to 100 t.i.d. to target anxiety and mood lability. Mental Status Exam Mental Status Exam Patient Appearance: Appropriate Patient Orientation: Person and Situation Level of Consciousness: Awake and Appropriate Patient Behavior: Guarded and Passive Mood Description: Withdrawn Affect Description: Constricted Patient Cognition Impaired: Yes Ability to Follow Directions: Good Speech Pattern: Clear Hallucinations: None Delusions: Not Present Thought Process: Distracted Thought Content: positive for [place] and positive for Poverty of Content Judgement: Fair Diagnostics Vital Signs (24Hr): Vital Signs - 24 hr 08/26/24 14:56 08/26/24 20:00 08/26/24 20:33 Temperature 98.5 F Pulse Rate 81 Respiratory Rate 18 Blood Pressure 115/60 126/60 112/58 L Pulse Oximetry 94 Oxygen Delivery Method Room Air 08/26/24 20:35 08/27/24 07:55 Temperature 98.2 F Pulse Rate 81 75 Respiratory Rate 18 Blood Pressure 126/60 132/68 Pulse Oximetry 95 Oxygen Delivery Method Room Air BMI result Body Mass Index 45.6 Labs 08/25/24 08:21 Imaging Radiology Impressions: ITS Impressions Chest X-Ray 08/20/24 20:50 IMPRESSION: No active cardiopulmonary disease Electronically signed by: Brandon Atkins MD 08/21/2024 01:27 PM EDT Medications Medications Current Medications Acetaminophen (Acetaminophen 325 Mg Tablet) 650 mg PO Q6H PRN PRN Reason: Headache/Pain Mild Scale (1-3) Last Admin: 08/27/24 12:08 Dose: 650 mg Al Hydroxide/Mg Hydroxide (Magnesium Hydrox/Alum Hydrox 30 Ml Oral.Susp) 30 ml PO Q6H PRN PRN Reason: Heartburn/Nausea Last Admin: 08/21/24 13:29 Dose: 30 ml Albuterol Sulfate (Albuterol Sulfate 90 Mcg 8 Gm Inhaler) 2 puff INHALE RQ4H PRN PRN Reason: Wheezing Last Admin: 08/24/24 03:44 Dose: 2 puff Aspirin (Aspirin Enteric Coated 81 Mg Tablet.Dr) 81 mg PO DAILY [facility] Last Admin: 08/27/24 08:04 Dose: 81 mg Buprenorphine/Naloxone (Buprenorphine/Naloxone 4/1 Mg Film) 1 film SUBLINGUAL BID [facility] Last Admin: 08/27/24 08:05 Dose: 1 film Carvedilol (Carvedilol 12.5 Mg Tablet) 12.5 mg PO BID [facility]; Protocol Last Admin: 08/27/24 08:05 Dose: 12.5 mg Clonazepam (Clonazepam 0.5 Mg Tablet) 0.5 mg PO BEDTIME [facility] Last Admin: 08/26/24 20:33 Dose: 0.5 mg Clonidine HCl (Clonidine Hcl 0.1 Mg Tablet) 0.05 mg PO TID [facility]; Protocol Last Admin: 08/27/24 08:04 Dose: 0.05 mg Fluticasone/Vilanterol (Fluticasone/Vilanterol 100/25 Blst.W.Dev) 1 puff INHALE RDAILY [facility] Last Admin: 08/27/24 08:10 Dose: 1 puff Furosemide (Furosemide 20 Mg Tablet) 20 mg PO DAILY [facility]; Protocol Last Admin: 08/27/24 08:05 Dose: 20 mg Hydroxyzine HCl (Hydroxyzine Hcl 25 Mg Tablet) 25 mg PO Q6H PRN PRN Reason: Anxiety Last Admin: 08/27/24 12:08 Dose: 25 mg Lidocaine (Lidocaine 4 % Patch Adh..Patch) 1 patch TRANSDERMA DAILY [facility]; Protocol Last Admin: 08/27/24 08:06 Dose: Not Given Magnesium Hydroxide (Milk Of Magnesia 30 Ml Oral.Susp) 30 ml PO DAILY PRN PRN Reason: Constipation Last Admin: 08/21/24 13:39 Dose: 30 ml Metformin HCl (Metformin Hcl 500 Mg Tablet) 500 mg PO DAILY [facility] Last Admin: 08/27/24 08:05 Dose: 500 mg Nicotine Polacrilex (Nicotine Polacrilex 2 Mg Gum) 2 mg BUCCAL Q2H PRN PRN Reason: Nicotine Cravings Nystatin (Nystatin Powder 15 Gm Bottle) 1 appl TOPICAL BID [facility]; Protocol Last Admin: 08/27/24 08:11 Dose: Not Given Quetiapine Fumarate (Quetiapine Fumarate 25 Mg Tablet) 25 mg PO Q6H PRN PRN Reason: moderate anxiety Last Admin: 08/27/24 03:51 Dose: 25 mg Quetiapine Fumarate (Quetiapine Fumarate 50 Mg Tablet) 50 mg PO TID [facility] Last Admin: 08/27/24 08:04 Dose: 50 mg Trazodone HCl (Trazodone Hcl 50 Mg Tablet) 50 mg PO BEDTIME MRX1 PRN PRN Reason: Insomnia Last Admin: 08/26/24 02:55 Dose: 50 mg Venlafaxine HCl (Venlafaxine Hcl Er 37.5 Mg Cap.Er.24h) 37.5 mg PO DAILY [facility] Last Admin: 08/27/24 08:05 Dose: 37.5 mg Allergies Allergies Allergy/AdvReac Type Severity Reaction Status Date / Time No Known Allergies Allergy Verified 08/12/24 15:58 Assessment & Plan Assessment & Plan (1) Acute hyponatremia: Status: Inactive Code(s): E87.1 - Hypo-osmolality and hyponatremia Assessment and Plan: Nephrology Note 08/22/24: Euvolemic, hypotonic hyponatremia; most likely SIADH urine sodium 621, prsychogenic polydyspsia unlikely in this context chest xray done to rule out pulmonary etiology of SAIDH was unremarkable PTSD, anxiety and depression are likely triggers for SIADH amlodipine may be contributing to BLE swelling pt given 1x dose of furosemide yesterday; swelling has improved though some mild LE swelling remains pt reportedly still getting 1gm sodium tablets daily; if still taking daily would recommend continuing until seen as outpatient with nephrology for follow up (per orders sodium tabs are discontinued- if not taking may continue without sodium tablets). recommend continuing fluid restriction- recommend 1.5L daily Will arrange for outpatient nephrology follow up. Will see as needed if concerns or new issues arise. Will sign off. (2) PTSD (post-traumatic stress disorder): Status: Inactive Code(s): F43.10 - Post-traumatic stress disorder, unspecified (3) UTI (urinary tract infection): Status: Acute Code(s): N39.0 - Urinary tract infection, site not specified Plan Neprhology consult. Euvolemic, hypotonic hyponatremia; most likely SIADH urine sodium 621, prsychogenic polydyspsia unlikely in this context chest xray done to rule out pulmonary etiology of SAIDH was unremarkable PTSD, anxiety and depression are likely triggers for SIADH amlodipine may be contributing to BLE swelling pt given 1x dose of furosemide yesterday; swelling has improved though some mild LE swelling remains pt reportedly still getting 1gm sodium tablets daily; if still taking daily would recommend continuing until seen as outpatient with nephrology for follow up (per orders sodium tabs are discontinued- if not taking may continue without sodium tablets). recommend continuing fluid restriction- recommend 1.5L daily Will arrange for outpatient nephrology follow up. Will see as needed if concerns or new issues arise. Will sign off. Discussed with Dr Liu Plan 1. Continue Klonopin 0.5 p.o. b.i.d.. It has been tapered only 2 Klonopin 0.5 p.o. q.h.s. over last weekend. 2. Continue with antidepressants. She is on Effexor 37.5 with some improvement 3. Start working on discharge planning. 4. Increase Seroquel up to 50 mg p.o. b.i.d. on August 26. Reason for continued inpatient stay Substantial Risk for: inability to function, rapid decompensation and med/psych decompensation Time Spent With Patient Time: Total time managing care of this patient today __20__ minutes.
[2024-08-27 15:31] VITALS: BP 152/65
[2024-08-27 20:00] VITALS: BP 146/66; PULSE 76; RESP 18; TEMP 36.5; O2SAT 93
[2024-08-27] MEDS: Nystatin Powder 15 GM BOTTLE 1 APPL TOPICAL (20:34)
[2024-08-27] MEDS: clonazePAM 0.5 MG TABLET PO (20:35)
[2024-08-28] MEDS: Acetaminophen 325 MG TABLET 650 MG PO ×2 (03:00→20:17)
[2024-08-28] MEDS: QUEtiapine Fumarate 25 MG TABLET PO ×2 (03:06→17:46)
[2024-08-28 07:55] VITALS: BP 118/65; PULSE 72; RESP 18; TEMP 36.6; O2SAT 95
[2024-08-28] MEDS: metFORMIN HCl 500 MG TABLET PO (08:02)
[2024-08-28] MEDS: Aspirin Enteric Coated 81 MG TABLET.DR PO (08:02)
[2024-08-28] MEDS: QUEtiapine Fumarate 50 MG TABLET PO (08:02)
[2024-08-28] MEDS: Furosemide 20 MG TABLET PO (08:02)
[2024-08-28] MEDS: carvediloL 12.5 MG TABLET PO ×2 (08:02→20:17)
[2024-08-28] MEDS: cloNIDine HCL 0.1 MG TABLET 0.05 MG PO ×3 (08:02→20:19)
[2024-08-28] MEDS: Venlafaxine HCl ER 37.5 MG CAP.ER.24H PO (08:02)
[2024-08-28] MEDS: Buprenorphine/Naloxone 4/1 mg FILM 1 FILM SUBLINGUAL ×2 (08:03→20:20)
[2024-08-28] MEDS: Nystatin Powder 15 GM BOTTLE 1 APPL TOPICAL (08:03)
[2024-08-28] MEDS: Fluticasone/Vilanterol 100/25 BLST.W.DEV 1 PUFF INHALE (08:03)
[2024-08-28] MEDS: QUEtiapine Fumarate 100 MG TABLET PO ×3 (09:39→20:18)
--- NOTE | 2024-08-28 12:26 | HO.PSYCHPN ---
Subjective Subjective Date of Service: 08/28/24 Reason For Visit: ptsd / benzo taper Subjective Notes: Conditional Voluntary Interim History: The nursing staff reported the patient remains anxious at times but redirectable. On interview the patient denies over-sedation with Seroquel so we are increasing up to 100 mg p.o. b.i.d.. On interview she was pleasant and cooperative but very needy as usual. Mental Status Exam Mental Status Exam Patient Appearance: Appropriate Patient Orientation: Person and Situation Level of Consciousness: Awake and Appropriate Patient Behavior: Guarded and Passive Mood Description: Withdrawn Affect Description: Constricted Patient Cognition Impaired: Yes Ability to Follow Directions: Good Speech Pattern: Clear Hallucinations: None Delusions: Not Present Thought Process: Distracted and Slowed Thinking Thought Content: positive for [place] and positive for Poverty of Content Judgement: Fair Diagnostics Vital Signs (24Hr): Vital Signs - 24 hr 08/27/24 15:31 08/27/24 20:00 08/28/24 07:55 Temperature 97.7 F 97.9 F Pulse Rate 76 72 Respiratory Rate 18 18 Blood Pressure 152/65 H 146/66 H 118/65 Pulse Oximetry 93 95 Oxygen Delivery Method Room Air Room Air BMI result Body Mass Index 45.6 Labs 08/25/24 08:21 Imaging Radiology Impressions: ITS Impressions Chest X-Ray 08/20/24 20:50 IMPRESSION: No active cardiopulmonary disease Electronically signed by: Brandon Atkins MD 08/21/2024 01:27 PM EDT RP Medications Medications Current Medications Acetaminophen (Acetaminophen 325 Mg Tablet) 650 mg PO Q6H PRN PRN Reason: Headache/Pain Mild Scale (1-3) Last Admin: 08/28/24 03:00 Dose: 650 mg Al Hydroxide/Mg Hydroxide (Magnesium Hydrox/Alum Hydrox 30 Ml Oral.Susp) 30 ml PO Q6H PRN PRN Reason: Heartburn/Nausea Last Admin: 08/21/24 13:29 Dose: 30 ml Albuterol Sulfate (Albuterol Sulfate 90 Mcg 8 Gm Inhaler) 2 puff INHALE RQ4H PRN PRN Reason: Wheezing Last Admin: 08/24/24 03:44 Dose: 2 puff Aspirin (Aspirin Enteric Coated 81 Mg Tablet.) 81 mg PO DAILY [facility] Last Admin: 08/28/24 08:02 Dose: 81 mg Buprenorphine/Naloxone (Buprenorphine/Naloxone 4/1 Mg Film) 1 film SUBLINGUAL BID [facility] Last Admin: 08/28/24 08:03 Dose: 1 film Carvedilol (Carvedilol 12.5 Mg Tablet) 12.5 mg PO BID [facility]; Protocol Last Admin: 08/28/24 08:02 Dose: 12.5 mg Clonazepam (Clonazepam 0.5 Mg Tablet) 0.5 mg PO BEDTIME [facility] Last Admin: 08/27/24 20:35 Dose: 0.5 mg Clonidine HCl (Clonidine Hcl 0.1 Mg Tablet) 0.05 mg PO TID [facility]; Protocol Last Admin: 08/28/24 08:02 Dose: 0.05 mg Fluticasone/Vilanterol (Fluticasone/Vilanterol 100/25 Blst.W.Dev) 1 puff INHALE RDAILY [facility] Last Admin: 08/28/24 08:03 Dose: 1 puff Furosemide (Furosemide 20 Mg Tablet) 20 mg PO DAILY [facility]; Protocol Last Admin: 08/28/24 08:02 Dose: 20 mg Hydroxyzine HCl (Hydroxyzine Hcl 25 Mg Tablet) 25 mg PO Q6H PRN PRN Reason: Anxiety Last Admin: 08/27/24 20:44 Dose: 25 mg Lidocaine (Lidocaine 4 % Patch Adh..Patch) 1 patch TRANSDERMA DAILY [facility]; Protocol Last Admin: 08/28/24 08:03 Dose: Not Given Magnesium Hydroxide (Milk Of Magnesia 30 Ml Oral.Susp) 30 ml PO DAILY PRN PRN Reason: Constipation Last Admin: 08/21/24 13:39 Dose: 30 ml Metformin HCl (Metformin Hcl 500 Mg Tablet) 500 mg PO DAILY [facility] Last Admin: 08/28/24 08:02 Dose: 500 mg Nicotine Polacrilex (Nicotine Polacrilex 2 Mg Gum) 2 mg BUCCAL Q2H PRN PRN Reason: Nicotine Cravings Nystatin (Nystatin Powder 15 Gm Bottle) 1 appl TOPICAL BID [facility]; Protocol Last Admin: 08/28/24 08:03 Dose: 1 appl Quetiapine Fumarate (Quetiapine Fumarate 25 Mg Tablet) 25 mg PO Q6H PRN PRN Reason: moderate anxiety Last Admin: 08/28/24 03:06 Dose: 25 mg Quetiapine Fumarate (Quetiapine Fumarate 100 Mg Tablet) 100 mg PO TID [facility] Last Admin: 08/28/24 09:39 Dose: 100 mg Trazodone HCl (Trazodone Hcl 50 Mg Tablet) 50 mg PO BEDTIME MRX1 PRN PRN Reason: Insomnia Last Admin: 08/26/24 02:55 Dose: 50 mg Venlafaxine HCl (Venlafaxine Hcl Er 37.5 Mg Cap.Er.24h) 37.5 mg PO DAILY [facility] Last Admin: 08/28/24 08:02 Dose: 37.5 mg Allergies Allergies Allergy/AdvReac Type Severity Reaction Status Date / Time No Known Allergies Allergy Verified 08/12/24 15:58 Assessment & Plan Assessment & Plan (1) Acute hyponatremia: Status: Inactive Code(s): E87.1 - Hypo-osmolality and hyponatremia Assessment and Plan: Nephrology Note 08/22/24: Euvolemic, hypotonic hyponatremia; most likely SIADH urine sodium 621, prsychogenic polydyspsia unlikely in this context chest xray done to rule out pulmonary etiology of SAIDH was unremarkable PTSD, anxiety and depression are likely triggers for SIADH amlodipine may be contributing to BLE swelling pt given 1x dose of furosemide yesterday; swelling has improved though some mild LE swelling remains pt reportedly still getting 1gm sodium tablets daily; if still taking daily would recommend continuing until seen as outpatient with nephrology for follow up (per orders sodium tabs are discontinued- if not taking may continue without sodium tablets). recommend continuing fluid restriction- recommend 1.5L daily Will arrange for outpatient nephrology follow up. Will see as needed if concerns or new issues arise. Will sign off. (2) PTSD (post-traumatic stress disorder): Status: Inactive Code(s): F43.10 - Post-traumatic stress disorder, unspecified (3) UTI (urinary tract infection): Status: Acute Code(s): N39.0 - Urinary tract infection, site not specified Plan Neprhology consult. Euvolemic, hypotonic hyponatremia; most likely SIADH urine sodium 621, prsychogenic polydyspsia unlikely in this context chest xray done to rule out pulmonary etiology of SAIDH was unremarkable PTSD, anxiety and depression are likely triggers for SIADH amlodipine may be contributing to BLE swelling pt given 1x dose of furosemide yesterday; swelling has improved though some mild LE swelling remains pt reportedly still getting 1gm sodium tablets daily; if still taking daily would recommend continuing until seen as outpatient with nephrology for follow up (per orders sodium tabs are discontinued- if not taking may continue without sodium tablets). recommend continuing fluid restriction- recommend 1.5L daily Will arrange for outpatient nephrology follow up. Will see as needed if concerns or new issues arise. Will sign off. Discussed with Dr Noe Becker 1. Continue Klonopin 0.5 p.o. b.i.d.. It has been tapered only 2 Klonopin 0.5 p.o. q.h.s. over last weekend. 2. Continue with antidepressants. She is on Effexor 37.5 with some improvement 3. Start working on discharge planning. 4. Increase Seroquel up to 50 mg p.o. b.i.d. on August 26. On August 28 we increase it up to 100 mg p.o. t.i.d. Reason for continued inpatient stay Substantial Risk for: inability to function, rapid decompensation and med/psych decompensation Time Spent With Patient Time: Total time managing care of this patient today ___20_ minutes.
[2024-08-28 13:33] VITALS: BMI 45.8
[2024-08-28 14:53] VITALS: BP 120/64
[2024-08-28] MEDS: hydrOXYzine HCL 25 MG TABLET PO (17:46)
[2024-08-28 20:00] VITALS: BP 125/63; PULSE 80; RESP 16; TEMP 36.7; O2SAT 97
[2024-08-28 20:17] VITALS: BP 125/63; PULSE 80
[2024-08-28] MEDS: clonazePAM 0.5 MG TABLET PO (20:18)
[2024-08-28 20:19] VITALS: BP 125/63
[2024-08-29] MEDS: hydrOXYzine HCL 25 MG TABLET PO ×3 (06:40→20:35)
[2024-08-29] MEDS: Acetaminophen 325 MG TABLET 650 MG PO ×2 (06:40→17:47)
[2024-08-29] MEDS: QUEtiapine Fumarate 25 MG TABLET PO ×3 (06:51→17:47)
[2024-08-29 08:00] VITALS: BP 140/64; PULSE 78; RESP 18; TEMP 36.6; O2SAT 95
[2024-08-29] MEDS: Aspirin Enteric Coated 81 MG TABLET.DR PO (09:06)
[2024-08-29] MEDS: carvediloL 12.5 MG TABLET PO ×2 (09:06→20:36)
[2024-08-29] MEDS: cloNIDine HCL 0.1 MG TABLET 0.05 MG PO ×3 (09:07→20:37)
[2024-08-29] MEDS: metFORMIN HCl 500 MG TABLET PO (09:07)
[2024-08-29] MEDS: Furosemide 20 MG TABLET PO (09:07)
[2024-08-29] MEDS: QUEtiapine Fumarate 100 MG TABLET PO ×3 (09:07→20:36)
[2024-08-29] MEDS: Buprenorphine/Naloxone 4/1 mg FILM 1 FILM SUBLINGUAL ×2 (09:08→20:35)
[2024-08-29] MEDS: Venlafaxine HCl ER 37.5 MG CAP.ER.24H PO (09:08)
[2024-08-29] MEDS: Lidocaine 4 % Patch ADH..PATCH 1 PATCH TRANSDERMA (09:17)
[2024-08-29] MEDS: Nystatin Powder 15 GM BOTTLE 1 APPL TOPICAL ×2 (10:06→20:41)
--- NOTE | 2024-08-29 10:37 | P.PNPSI_ITS ---
Subjective Subjective Date of Service: 08/29/24 Reason For Visit: ptsd / benzo taper Subjective Notes: Conditional Voluntary Interim History: The nursing staff reported that she had been edema in her legs, she took Seroquel with no over-sedation. She had a sleep study but there is no evidence of obstructive sleep apnea. Even though she desaturates and she will be followed as an outpatient. On interview the patient denies new symptoms waiting for placement. She complained of edema son calling the hospitalist. Mental Status Exam Mental Status Exam Patient Appearance: Appropriate Patient Orientation: Person and Situation Level of Consciousness: Awake Patient Behavior: Guarded and Passive Mood Description: Calm Affect Description: Constricted Patient Cognition Impaired: Yes Ability to Follow Directions: Good Speech Pattern: Clear Hallucinations: None Delusions: Not Present Thought Process: Distracted and Slowed Thinking Thought Content: positive for [place] and positive for Poverty of Content Judgement: Poor Diagnostics Vital Signs (24Hr): Vital Signs - 24 hr 08/28/24 14:53 08/28/24 20:00 08/28/24 20:17 Temperature 98.1 F Pulse Rate 80 80 Respiratory Rate 16 Blood Pressure 120/64 125/63 125/63 Pulse Oximetry 97 Oxygen Delivery Method Room Air 08/28/24 20:19 08/29/24 08:00 Temperature 97.8 F Pulse Rate 78 Respiratory Rate 18 Blood Pressure 125/63 140/64 H Pulse Oximetry 95 Oxygen Delivery Method Room Air BMI result Body Mass Index 45.8 Labs 08/25/24 08:21 Imaging Radiology Impressions: ITS Impressions Chest X-Ray 08/20/24 20:50 IMPRESSION: No active cardiopulmonary disease Electronically signed by: Brandon Atkins MD 08/21/2024 01:27 PM EDT Medications Medications Current Medications Acetaminophen (Acetaminophen 325 Mg Tablet) 650 mg PO Q6H PRN PRN Reason: Headache/Pain Mild Scale (1-3) Last Admin: 08/29/24 06:40 Dose: 650 mg Al Hydroxide/Mg Hydroxide (Magnesium Hydrox/Alum Hydrox 30 Ml Oral.Susp) 30 ml PO Q6H PRN PRN Reason: Heartburn/Nausea Last Admin: 08/21/24 13:29 Dose: 30 ml Albuterol Sulfate (Albuterol Sulfate 90 Mcg 8 Gm Inhaler) 2 puff INHALE RQ4H PRN PRN Reason: Wheezing Last Admin: 08/24/24 03:44 Dose: 2 puff Aspirin (Aspirin Enteric Coated 81 Mg Tablet.Dr) 81 mg PO DAILY [facility] Last Admin: 08/29/24 09:06 Dose: 81 mg Buprenorphine/Naloxone (Buprenorphine/Naloxone 4/1 Mg Film) 1 film SUBLINGUAL BID [facility] Last Admin: 08/29/24 09:08 Dose: 1 film Carvedilol (Carvedilol 12.5 Mg Tablet) 12.5 mg PO BID [facility]; Protocol Last Admin: 08/29/24 09:06 Dose: 12.5 mg Clonazepam (Clonazepam 0.5 Mg Tablet) 0.5 mg PO BEDTIME [facility] Last Admin: 08/28/24 20:18 Dose: 0.5 mg Clonidine HCl (Clonidine Hcl 0.1 Mg Tablet) 0.05 mg PO TID [facility]; Protocol Last Admin: 08/29/24 09:07 Dose: 0.05 mg Fluticasone/Vilanterol (Fluticasone/Vilanterol 100/25 Blst.W.Dev) 1 puff INHALE RDAILY [facility] Last Admin: 08/28/24 08:03 Dose: 1 puff Furosemide (Furosemide 20 Mg Tablet) 20 mg PO DAILY [facility]; Protocol Last Admin: 08/29/24 09:07 Dose: 20 mg Hydroxyzine HCl (Hydroxyzine Hcl 25 Mg Tablet) 25 mg PO Q6H PRN PRN Reason: Anxiety Last Admin: 08/29/24 06:40 Dose: 25 mg Lidocaine (Lidocaine 4 % Patch Adh..Patch) 1 patch TRANSDERMA DAILY [facility]; Protocol Last Admin: 08/29/24 09:17 Dose: 1 patch Magnesium Hydroxide (Milk Of Magnesia 30 Ml Oral.Susp) 30 ml PO DAILY PRN PRN Reason: Constipation Last Admin: 08/21/24 13:39 Dose: 30 ml Metformin HCl (Metformin Hcl 500 Mg Tablet) 500 mg PO DAILY [facility] Last Admin: 08/29/24 09:07 Dose: 500 mg Nicotine Polacrilex (Nicotine Polacrilex 2 Mg Gum) 2 mg BUCCAL Q2H PRN PRN Reason: Nicotine Cravings Nystatin (Nystatin Powder 15 Gm Bottle) 1 appl TOPICAL BID [facility]; Protocol Last Admin: 08/29/24 10:06 Dose: 1 appl Quetiapine Fumarate (Quetiapine Fumarate 25 Mg Tablet) 25 mg PO Q6H PRN PRN Reason: moderate anxiety Last Admin: 08/29/24 06:51 Dose: 25 mg Quetiapine Fumarate (Quetiapine Fumarate 100 Mg Tablet) 100 mg PO TID [facility] Last Admin: 08/29/24 09:07 Dose: 100 mg Trazodone HCl (Trazodone Hcl 50 Mg Tablet) 50 mg PO BEDTIME MRX1 PRN PRN Reason: Insomnia Last Admin: 08/26/24 02:55 Dose: 50 mg Venlafaxine HCl (Venlafaxine Hcl Er 37.5 Mg Cap.Er.24h) 37.5 mg PO DAILY [facility] Last Admin: 08/29/24 09:08 Dose: 37.5 mg Allergies Allergies Allergy/AdvReac Type Severity Reaction Status Date / Time No Known Allergies Allergy Verified 08/12/24 15:58 Assessment & Plan Assessment & Plan (1) Acute hyponatremia: Status: Inactive Code(s): E87.1 - Hypo-osmolality and hyponatremia Assessment and Plan: Nephrology Note 08/22/24: Euvolemic, hypotonic hyponatremia; most likely SIADH urine sodium 621, prsychogenic polydyspsia unlikely in this context chest xray done to rule out pulmonary etiology of SAIDH was unremarkable PTSD, anxiety and depression are likely triggers for SIADH amlodipine may be contributing to BLE swelling pt given 1x dose of furosemide yesterday; swelling has improved though some mild LE swelling remains pt reportedly still getting 1gm sodium tablets daily; if still taking daily would recommend continuing until seen as outpatient with nephrology for follow up (per orders sodium tabs are discontinued- if not taking may continue without sodium tablets). recommend continuing fluid restriction- recommend 1.5L daily Will arrange for outpatient nephrology follow up. Will see as needed if concerns or new issues arise. Will sign off. (2) PTSD (post-traumatic stress disorder): Status: Inactive Code(s): F43.10 - Post-traumatic stress disorder, unspecified (3) UTI (urinary tract infection): Status: Acute Code(s): N39.0 - Urinary tract infection, site not specified Plan Neprhology consult. Euvolemic, hypotonic hyponatremia; most likely SIADH urine sodium 621, prsychogenic polydyspsia unlikely in this context chest xray done to rule out pulmonary etiology of SAIDH was unremarkable PTSD, anxiety and depression are likely triggers for SIADH amlodipine may be contributing to BLE swelling pt given 1x dose of furosemide yesterday; swelling has improved though some mild LE swelling remains pt reportedly still getting 1gm sodium tablets daily; if still taking daily would recommend continuing until seen as outpatient with nephrology for follow up (per orders sodium tabs are discontinued- if not taking may continue without sodium tablets). recommend continuing fluid restriction- recommend 1.5L daily Will arrange for outpatient nephrology follow up. Will see as needed if concerns or new issues arise. Will sign off. Discussed with Dr Noe Becker 1. Continue Klonopin 0.5 p.o. b.i.d.. It has been tapered only 2 Klonopin 0.5 p.o. q.h.s. over last weekend. 2. Continue with antidepressants. She is on Effexor 37.5 with some improvement 3. Start working on discharge planning. 4. Increase Seroquel up to 50 mg p.o. b.i.d. on August 26. On August 28 we increase it up to 100 mg p.o. t.i.d. Reason for continued inpatient stay Substantial Risk for: inability to function, rapid decompensation and med/psych decompensation Time Spent With Patient Time: Total time managing care of this patient today __20__ minutes.
[2024-08-29] MEDS: Fluticasone/Vilanterol 100/25 BLST.W.DEV 1 PUFF INHALE (12:52)
[2024-08-29 20:00] VITALS: BP 128/66; PULSE 78; RESP 16; TEMP 36.9; O2SAT 95
[2024-08-29 20:36] VITALS: BP 128/66; PULSE 78
[2024-08-29 20:37] VITALS: BP 128/66
[2024-08-29] MEDS: clonazePAM 0.5 MG TABLET PO (20:37)
[2024-08-29] MEDS: Albuterol Sulfate 90 MCG 8 GM INHALER 2 PUFF INHALE (20:39)
[2024-08-30] MEDS: Acetaminophen 325 MG TABLET 650 MG PO ×3 (00:07→20:41)
[2024-08-30] MEDS: QUEtiapine Fumarate 25 MG TABLET PO ×2 (00:07→06:47)
[2024-08-30] MEDS: hydrOXYzine HCL 25 MG TABLET PO ×2 (03:57→14:33)
[2024-08-30 08:05] VITALS: BP 110/60; PULSE 78; RESP 18; TEMP 36.7; O2SAT 98
[2024-08-30] MEDS: Venlafaxine HCl ER 37.5 MG CAP.ER.24H PO (08:43)
[2024-08-30] MEDS: cloNIDine HCL 0.1 MG TABLET 0.05 MG PO ×3 (08:43→20:44)
[2024-08-30] MEDS: Furosemide 20 MG TABLET PO (08:44)
[2024-08-30] MEDS: QUEtiapine Fumarate 100 MG TABLET PO ×3 (08:44→20:48)
[2024-08-30] MEDS: carvediloL 12.5 MG TABLET PO ×2 (08:44→20:50)
[2024-08-30] MEDS: metFORMIN HCl 500 MG TABLET PO (08:44)
[2024-08-30] MEDS: Aspirin Enteric Coated 81 MG TABLET.DR PO (08:44)
[2024-08-30] MEDS: Nystatin Powder 15 GM BOTTLE 1 APPL TOPICAL ×2 (08:45→20:45)
[2024-08-30] MEDS: Lidocaine 4 % Patch ADH..PATCH 1 PATCH TRANSDERMA (08:45)
--- NOTE | 2024-08-30 08:48 | HO.PSYCHPN ---
Subjective Subjective Date of Service: 08/30/24 Reason For Visit: ptsd / benzo taper Subjective Notes: Conditional Voluntary Interim History: Pt slept through the night. Discussed with Dr. Roldan results of sleep study, outpaient work up and follow up with pulmonology but he does recommend pt leaves with o2 2L at bedtime. respiratory therapy consulted and will set it up on Sunday. Ordered for nightly o2 2L Pt slightly less dysphoric, still overly overwhelmed and needs reassurance bu quickly passes. No SI/HI. She is now off clonazepam. Diagnostics Vital Signs (24Hr): Vital Signs - 24 hr 08/29/24 20:00 08/29/24 20:36 08/29/24 20:37 Temperature 98.4 F Pulse Rate 78 78 Respiratory Rate 16 Blood Pressure 128/66 128/66 128/66 Pulse Oximetry 95 Oxygen Delivery Method Room Air BMI result Body Mass Index 45.8 Labs 08/25/24 08:21 Imaging Radiology Impressions: ITS Impressions Chest X-Ray 08/20/24 20:50 IMPRESSION: No active cardiopulmonary disease Electronically signed by: Brandon Atkins MD 08/21/2024 01:27 PM EDT RP Medications Medications Current Medications Acetaminophen (Acetaminophen 325 Mg Tablet) 650 mg PO Q6H PRN PRN Reason: Headache/Pain Mild Scale (1-3) Last Admin: 08/30/24 00:07 Dose: 650 mg Al Hydroxide/Mg Hydroxide (Magnesium Hydrox/Alum Hydrox 30 Ml Oral.Susp) 30 ml PO Q6H PRN PRN Reason: Heartburn/Nausea Last Admin: 08/21/24 13:29 Dose: 30 ml Albuterol Sulfate (Albuterol Sulfate 90 Mcg 8 Gm Inhaler) 2 puff INHALE RQ4H PRN PRN Reason: Wheezing Last Admin: 08/29/24 20:39 Dose: 2 puff Aspirin (Aspirin Enteric Coated 81 Mg Tablet.) 81 mg PO DAILY [facility] Last Admin: 08/30/24 08:44 Dose: 81 mg Buprenorphine/Naloxone (Buprenorphine/Naloxone 4/1 Mg Film) 1 film SUBLINGUAL BID [facility] Last Admin: 08/29/24 20:35 Dose: 1 film Carvedilol (Carvedilol 12.5 Mg Tablet) 12.5 mg PO BID [facility]; Protocol Last Admin: 08/30/24 08:44 Dose: 12.5 mg Clonazepam (Clonazepam 0.5 Mg Tablet) 0.5 mg PO BEDTIME [facility] Last Admin: 08/29/24 20:37 Dose: 0.5 mg Clonidine HCl (Clonidine Hcl 0.1 Mg Tablet) 0.05 mg PO TID [facility]; Protocol Last Admin: 08/30/24 08:43 Dose: 0.05 mg Fluticasone/Vilanterol (Fluticasone/Vilanterol 100/25 Blst.W.Dev) 1 puff INHALE RDAILY [facility] Last Admin: 08/29/24 12:52 Dose: 1 puff Furosemide (Furosemide 20 Mg Tablet) 20 mg PO DAILY [facility]; Protocol Last Admin: 08/30/24 08:44 Dose: 20 mg Hydroxyzine HCl (Hydroxyzine Hcl 25 Mg Tablet) 25 mg PO Q6H PRN PRN Reason: Anxiety Last Admin: 08/30/24 03:57 Dose: 25 mg Lidocaine (Lidocaine 4 % Patch Adh..Patch) 1 patch TRANSDERMA DAILY [facility]; Protocol Last Admin: 08/30/24 08:45 Dose: 1 patch Magnesium Hydroxide (Milk Of Magnesia 30 Ml Oral.Susp) 30 ml PO DAILY PRN PRN Reason: Constipation Last Admin: 08/21/24 13:39 Dose: 30 ml Metformin HCl (Metformin Hcl 500 Mg Tablet) 500 mg PO DAILY [facility] Last Admin: 08/30/24 08:44 Dose: 500 mg Nicotine Polacrilex (Nicotine Polacrilex 2 Mg Gum) 2 mg BUCCAL Q2H PRN PRN Reason: Nicotine Cravings Nystatin (Nystatin Powder 15 Gm Bottle) 1 appl TOPICAL BID [facility]; Protocol Last Admin: 08/30/24 08:45 Dose: 1 appl Quetiapine Fumarate (Quetiapine Fumarate 25 Mg Tablet) 25 mg PO Q6H PRN PRN Reason: moderate anxiety Last Admin: 08/30/24 06:47 Dose: 25 mg Quetiapine Fumarate (Quetiapine Fumarate 100 Mg Tablet) 100 mg PO TID [facility] Last Admin: 08/30/24 08:44 Dose: 100 mg Trazodone HCl (Trazodone Hcl 50 Mg Tablet) 50 mg PO BEDTIME MRX1 PRN PRN Reason: Insomnia Last Admin: 08/26/24 02:55 Dose: 50 mg Venlafaxine HCl (Venlafaxine Hcl Er 37.5 Mg Cap.Er.24h) 37.5 mg PO DAILY [facility] Last Admin: 08/30/24 08:43 Dose: 37.5 mg Allergies Allergies Allergy/AdvReac Type Severity Reaction Status Date / Time No Known Allergies Allergy Verified 08/12/24 15:58 Assessment & Plan Assessment & Plan (1) MDD (major depressive disorder), recurrent episode, moderate: Status: Acute Code(s): F33.1 - Major depressive disorder, recurrent, moderate (2) Acute hyponatremia: Status: Inactive Code(s): E87.1 - Hypo-osmolality and hyponatremia Assessment and Plan: Nephrology Note 08/22/24: Euvolemic, hypotonic hyponatremia; most likely SIADH urine sodium 621, prsychogenic polydyspsia unlikely in this context chest xray done to rule out pulmonary etiology of SAIDH was unremarkable PTSD, anxiety and depression are likely triggers for SIADH amlodipine may be contributing to BLE swelling pt given 1x dose of furosemide yesterday; swelling has improved though some mild LE swelling remains pt reportedly still getting 1gm sodium tablets daily; if still taking daily would recommend continuing until seen as outpatient with nephrology for follow up (per orders sodium tabs are discontinued- if not taking may continue without sodium tablets). recommend continuing fluid restriction- recommend 1.5L daily Will arrange for outpatient nephrology follow up. Will see as needed if concerns or new issues arise. Will sign off. (3) PTSD (post-traumatic stress disorder): Status: Acute Code(s): F43.10 - Post-traumatic stress disorder, unspecified Plan Plan 08/30 d/c clonazepam 0.5mg po qhs. respiratory therapy setting up o2 2L at bedtime. Reason for continued inpatient stay Substantial Risk for: inability to function Time Spent With Patient Time: Total time managing care of this patient today ____ minutes.
[2024-08-30] MEDS: Buprenorphine/Naloxone 4/1 mg FILM 1 FILM SUBLINGUAL ×2 (09:00→20:44)
[2024-08-30] MEDS: Fluticasone/Vilanterol 100/25 BLST.W.DEV 1 PUFF INHALE (09:11)
[2024-08-30 10:29] VITALS: PULSE 102; PULSE 90; O2SAT 93; O2SAT 95
[2024-08-30] MEDS: QUEtiapine Fumarate 50 MG TABLET PO ×2 (10:30→22:30)
[2024-08-30 15:36] VITALS: BP 153/72
[2024-08-30 20:00] VITALS: BP 129/67; PULSE 81; RESP 16; TEMP 37.1; O2SAT 95
[2024-08-30] MEDS: Albuterol Sulfate 90 MCG 8 GM INHALER 2 PUFF INHALE (20:43)
[2024-08-30 20:44] VITALS: BP 129/64
[2024-08-30 20:50] VITALS: BP 129/64; PULSE 81
[2024-08-31] MEDS: hydrOXYzine HCL 25 MG TABLET PO ×2 (04:12→20:58)
[2024-08-31] MEDS: Magnesium Hydrox/Alum Hydrox 30 ML ORAL.SUSP PO (04:12)
[2024-08-31] MEDS: Acetaminophen 325 MG TABLET 650 MG PO ×3 (04:17→20:58)
[2024-08-31 08:00] VITALS: BP 142/69; PULSE 76; RESP 18; TEMP 36.8; O2SAT 98
[2024-08-31] MEDS: Lidocaine 4 % Patch ADH..PATCH 1 PATCH TRANSDERMA (08:17)
[2024-08-31] MEDS: metFORMIN HCl 500 MG TABLET PO (08:19)
[2024-08-31] MEDS: Fluticasone/Vilanterol 100/25 BLST.W.DEV 1 PUFF INHALE (08:19)
[2024-08-31] MEDS: cloNIDine HCL 0.1 MG TABLET 0.05 MG PO ×3 (08:19→19:53)
[2024-08-31] MEDS: Nystatin Powder 15 GM BOTTLE 1 APPL TOPICAL ×2 (08:19→21:00)
[2024-08-31] MEDS: Furosemide 20 MG TABLET PO (08:20)
[2024-08-31] MEDS: Venlafaxine HCl ER 37.5 MG CAP.ER.24H PO (08:20)
[2024-08-31] MEDS: Buprenorphine/Naloxone 4/1 mg FILM 1 FILM SUBLINGUAL ×2 (08:20→19:52)
[2024-08-31] MEDS: Aspirin Enteric Coated 81 MG TABLET.DR PO (08:20)
[2024-08-31] MEDS: QUEtiapine Fumarate 100 MG TABLET PO ×3 (08:21→19:52)
[2024-08-31] MEDS: carvediloL 12.5 MG TABLET PO ×2 (08:21→19:52)
[2024-08-31 14:32] VITALS: BP 134/68
[2024-08-31 19:52] VITALS: BP 134/65; PULSE 71
[2024-08-31 19:53] VITALS: BP 134/65
--- NOTE | 2024-08-31 19:57 | P.PNPSI_ITS ---
Subjective Subjective Date of Service: 08/31/24 Reason For Visit: ptsd / benzo taper Interim History: Pt slept through the night. Discussed with Dr. Roldan results of sleep study, outpaient work up and follow up with pulmonology but he does recommend pt leaves with o2 2L at bedtime. respiratory therapy consulted and will set it up on Sunday. Ordered for nightly o2 2L Pt slightly less dysphoric, still overly overwhelmed and needs reassurance bu quickly passes. No SI/HI. She is now off clonazepam. Review of Systems Review of Systems unremarkable- chronic leg oedema Constitutional: Reports daytime sleepiness and Reports fatigue Denies dizziness Cardiovascular: Denies chest pain, Reports leg edema, Denies lightheadedness, Denies dyspnea and Denies orthopnea Respiratory: Denies cough and Denies dyspnea Gastrointestinal: Denies abdominal pain and Denies bloating Musculoskeletal: Denies arthralgias and Denies muscle cramps Skin/Breast: Denies rash Denies dizziness Psychiatric: Reports depression and Reports difficulty concentrating Endocrine: Reports fatigue Mental Status Exam Mental Status Exam Narrative: Appearance: wearing hospital gown, fair hygiene, NAD Behavior: cooperative Psychomotor: no agitation or retardation noted Speech: clear, normal rate/rhythm/volume, spontaneous Mood: anxious Affect: dysphoric at times, tearful SI: denies HI: denies VH/AH: none Delusions: none Insight/judgment: fair x 2. Memory/cog: alert, oriented x 4. Diagnostics Vital Signs (24Hr): Vital Signs - 24 hr 08/30/24 20:00 08/30/24 20:44 08/30/24 20:50 Temperature 98.8 F Pulse Rate 81 81 Respiratory Rate 16 Blood Pressure 129/67 129/64 129/64 Pulse Oximetry 95 Oxygen Delivery Method Room Air 08/31/24 08:00 08/31/24 14:32 08/31/24 19:52 Temperature 98.2 F Pulse Rate 76 71 Respiratory Rate 18 Blood Pressure 142/69 H 134/68 134/65 Pulse Oximetry 98 Oxygen Delivery Method Room Air 08/31/24 19:53 Temperature Pulse Rate Respiratory Rate Blood Pressure 134/65 Pulse Oximetry Oxygen Delivery Method BMI result Body Mass Index 45.8 Labs 08/25/24 08:21 Imaging Radiology Impressions: ITS Impressions Chest X-Ray 08/20/24 20:50 IMPRESSION: No active cardiopulmonary disease Electronically signed by: Brandon Atkins MD 08/21/2024 01:27 PM EDT RP Medications Medications Current Medications Acetaminophen (Acetaminophen 325 Mg Tablet) 650 mg PO Q6H PRN PRN Reason: Headache/Pain Mild Scale (1-3) Last Admin: 08/31/24 13:13 Dose: 650 mg Al Hydroxide/Mg Hydroxide (Magnesium Hydrox/Alum Hydrox 30 Ml Oral.Susp) 30 ml PO Q6H PRN PRN Reason: Heartburn/Nausea Last Admin: 08/31/24 04:12 Dose: 30 ml Albuterol Sulfate (Albuterol Sulfate 90 Mcg 8 Gm Inhaler) 2 puff INHALE RQ4H PRN PRN Reason: Wheezing Last Admin: 08/30/24 20:43 Dose: 2 puff Aspirin (Aspirin Enteric Coated 81 Mg Tablet.Dr) 81 mg PO DAILY [facility] Last Admin: 08/31/24 08:20 Dose: 81 mg Buprenorphine/Naloxone (Buprenorphine/Naloxone 4/1 Mg Film) 1 film SUBLINGUAL BID [facility] Last Admin: 08/31/24 19:52 Dose: 1 film Carvedilol (Carvedilol 12.5 Mg Tablet) 12.5 mg PO BID [facility]; Protocol Last Admin: 08/31/24 19:52 Dose: 12.5 mg Clonidine HCl (Clonidine Hcl 0.1 Mg Tablet) 0.05 mg PO TID [facility]; Protocol Last Admin: 08/31/24 19:53 Dose: 0.05 mg Fluticasone/Vilanterol (Fluticasone/Vilanterol 100/25 Blst.W.Dev) 1 puff INHALE RDAILY [facility] Last Admin: 08/31/24 08:19 Dose: 1 puff Furosemide (Furosemide 20 Mg Tablet) 20 mg PO DAILY [facility]; Protocol Last Admin: 08/31/24 08:20 Dose: 20 mg Hydroxyzine HCl (Hydroxyzine Hcl 25 Mg Tablet) 25 mg PO Q6H PRN PRN Reason: Anxiety Last Admin: 08/31/24 04:12 Dose: 25 mg Lidocaine (Lidocaine 4 % Patch Adh..Patch) 1 patch TRANSDERMA DAILY [facility]; Protocol Last Admin: 08/31/24 08:17 Dose: 1 patch Magnesium Hydroxide (Milk Of Magnesia 30 Ml Oral.Susp) 30 ml PO DAILY PRN PRN Reason: Constipation Last Admin: 08/21/24 13:39 Dose: 30 ml Metformin HCl (Metformin Hcl 500 Mg Tablet) 500 mg PO DAILY [facility] Last Admin: 08/31/24 08:19 Dose: 500 mg Nicotine Polacrilex (Nicotine Polacrilex 2 Mg Gum) 2 mg BUCCAL Q2H PRN PRN Reason: Nicotine Cravings Nystatin (Nystatin Powder 15 Gm Bottle) 1 appl TOPICAL BID [facility]; Protocol Last Admin: 08/31/24 08:19 Dose: 1 appl Quetiapine Fumarate (Quetiapine Fumarate 100 Mg Tablet) 100 mg PO TID [facility] Last Admin: 08/31/24 19:52 Dose: 100 mg Quetiapine Fumarate (Quetiapine Fumarate 50 Mg Tablet) 50 mg PO Q6H PRN PRN Reason: moderate anxiety Last Admin: 08/30/24 22:30 Dose: 50 mg Trazodone HCl (Trazodone Hcl 50 Mg Tablet) 50 mg PO BEDTIME MRX1 PRN PRN Reason: Insomnia Last Admin: 08/26/24 02:55 Dose: 50 mg Venlafaxine HCl (Venlafaxine Hcl Er 37.5 Mg Cap.Er.24h) 37.5 mg PO DAILY [facility] Last Admin: 08/31/24 08:20 Dose: 37.5 mg Allergies Allergies Allergy/AdvReac Type Severity Reaction Status Date / Time No Known Allergies Allergy Verified 08/12/24 15:58 Assessment & Plan Assessment & Plan (1) PTSD (post-traumatic stress disorder): Status: Acute Code(s): F43.10 - Post-traumatic stress disorder, unspecified (2) UTI (urinary tract infection): Status: Acute Code(s): N39.0 - Urinary tract infection, site not specified Plan Neprhology consult. Euvolemic, hypotonic hyponatremia; most likely SIADH urine sodium 621, prsychogenic polydyspsia unlikely in this context chest xray done to rule out pulmonary etiology of SAIDH was unremarkable PTSD, anxiety and depression are likely triggers for SIADH amlodipine may be contributing to BLE swelling pt given 1x dose of furosemide yesterday; swelling has improved though some mild LE swelling remains pt reportedly still getting 1gm sodium tablets daily; if still taking daily would recommend continuing until seen as outpatient with nephrology for follow up (per orders sodium tabs are discontinued- if not taking may continue without sodium tablets). recommend continuing fluid restriction- recommend 1.5L daily Will arrange for outpatient nephrology follow up. Will see as needed if concerns or new issues arise. Will sign off. Discussed with Dr Noe Becker 08/31 o2 2L at night per recommendation of alley worker, given results of sleep study, OP follow up with pulmonology and nephrology. Reason for continued inpatient stay Substantial Risk for: inability to function Time Spent With Patient Time: Total time managing care of this patient today ____ minutes.
[2024-08-31 21:05] VITALS: BP 134/65; PULSE 78; RESP 18; TEMP 37.1; O2SAT 94
[2024-09-01] MEDS: QUEtiapine Fumarate 50 MG TABLET PO (06:15)
[2024-09-01] MEDS: Acetaminophen 325 MG TABLET 650 MG PO ×2 (06:16→21:26)
[2024-09-01 08:00] VITALS: BP 143/64; PULSE 75; RESP 16; TEMP 37.1; O2SAT 93
[2024-09-01 08:22] VITALS: BP 143/64; PULSE 82
[2024-09-01] MEDS: carvediloL 12.5 MG TABLET PO ×2 (08:22→21:08)
[2024-09-01] MEDS: hydrOXYzine HCL 25 MG TABLET PO (08:24)
[2024-09-01 08:25] VITALS: BP 143/64
[2024-09-01] MEDS: cloNIDine HCL 0.1 MG TABLET 0.05 MG PO ×3 (08:25→21:08)
[2024-09-01] MEDS: Venlafaxine HCl ER 37.5 MG CAP.ER.24H PO (08:27)
[2024-09-01] MEDS: Aspirin Enteric Coated 81 MG TABLET.DR PO (08:27)
[2024-09-01] MEDS: QUEtiapine Fumarate 100 MG TABLET PO ×3 (08:27→21:08)
[2024-09-01 08:28] VITALS: BP 143/64
[2024-09-01] MEDS: metFORMIN HCl 500 MG TABLET PO (08:28)
[2024-09-01] MEDS: Furosemide 20 MG TABLET PO (08:28)
[2024-09-01] MEDS: Buprenorphine/Naloxone 4/1 mg FILM 1 FILM SUBLINGUAL ×2 (08:29→21:08)
[2024-09-01] MEDS: Fluticasone/Vilanterol 100/25 BLST.W.DEV 1 PUFF INHALE (08:38)
[2024-09-01] MEDS: Lidocaine 4 % Patch ADH..PATCH 1 PATCH TRANSDERMA (08:40)
[2024-09-01] MEDS: Nystatin Powder 15 GM BOTTLE 1 APPL TOPICAL ×2 (09:00→21:12)
[2024-09-01 10:27] LABS: Creatinine Clr Calc Pharmacy 89.3; Estimated Glomerular Filt Rate > 60
--- NOTE | 2024-09-01 13:49 | P.PNPSI_ITS ---
Subjective Subjective Date of Service: 09/01/24 Reason For Visit: ptsd / benzo taper Subjective Notes: Conditional Voluntary Interim History: The nursing staff reported the patient had been eating well slept 6 hours. The respiratory therapist recommended 2 L of oxygen at night. On interview the patient remains anxious as usual no changes in her mental status. Discharge will be most likely next Sunday. Mental Status Exam Mental Status Exam Patient Appearance: Appropriate Patient Orientation: Person and Situation Level of Consciousness: Awake and Appropriate Patient Behavior: Guarded and Passive Mood Description: Withdrawn Affect Description: Constricted Patient Cognition Impaired: Yes Ability to Follow Directions: Good Speech Pattern: Clear Hallucinations: None Delusions: Not Present Thought Process: Linear Thought Content: positive for [employer] and positive for Poverty of Content Judgement: Fair Diagnostics Vital Signs (24Hr): Vital Signs - 24 hr 08/31/24 14:32 08/31/24 19:52 08/31/24 19:53 Temperature Pulse Rate 71 Respiratory Rate Blood Pressure 134/68 134/65 134/65 Pulse Oximetry Oxygen Delivery Method 08/31/24 21:05 09/01/24 08:00 09/01/24 08:22 Temperature 98.8 F 98.8 F Pulse Rate 78 75 82 Respiratory Rate 18 16 Blood Pressure 134/65 143/64 H 143/64 H Pulse Oximetry 94 93 Oxygen Delivery Method Room Air Room Air 09/01/24 08:25 09/01/24 08:28 Temperature Pulse Rate Respiratory Rate Blood Pressure 143/64 H 143/64 H Pulse Oximetry Oxygen Delivery Method BMI result Body Mass Index 45.8 Labs 09/01/24 09:16 Labs: Laboratory Results - last 48 hr 09/01/24 09:16 Creatinine 0.71 Estim Creat Clear Calc 89.3 Estimated GFR > 60 Imaging Radiology Impressions: ITS Impressions Chest X-Ray 08/20/24 20:50 IMPRESSION: No active cardiopulmonary disease Electronically signed by: Brandon Atkins MD 08/21/2024 01:27 PM EDT RP Medications Medications Current Medications Acetaminophen (Acetaminophen 325 Mg Tablet) 650 mg PO Q6H PRN PRN Reason: Headache/Pain Mild Scale (1-3) Last Admin: 09/01/24 06:16 Dose: 650 mg Al Hydroxide/Mg Hydroxide (Magnesium Hydrox/Alum Hydrox 30 Ml Oral.Susp) 30 ml PO Q6H PRN PRN Reason: Heartburn/Nausea Last Admin: 08/31/24 04:12 Dose: 30 ml Albuterol Sulfate (Albuterol Sulfate 90 Mcg 8 Gm Inhaler) 2 puff INHALE RQ4H PRN PRN Reason: Wheezing Last Admin: 08/30/24 20:43 Dose: 2 puff Aspirin (Aspirin Enteric Coated 81 Mg Tablet.Dr) 81 mg PO DAILY [facility] Last Admin: 09/01/24 08:27 Dose: 81 mg Buprenorphine/Naloxone (Buprenorphine/Naloxone 4/1 Mg Film) 1 film SUBLINGUAL BID [facility] Last Admin: 09/01/24 08:29 Dose: 1 film Carvedilol (Carvedilol 12.5 Mg Tablet) 12.5 mg PO BID [facility]; Protocol Last Admin: 09/01/24 08:22 Dose: 12.5 mg Clonidine HCl (Clonidine Hcl 0.1 Mg Tablet) 0.05 mg PO TID [facility]; Protocol Last Admin: 09/01/24 08:25 Dose: 0.05 mg Fluticasone/Vilanterol (Fluticasone/Vilanterol 100/25 Blst.W.Dev) 1 puff INHALE RDAILY [facility] Last Admin: 09/01/24 08:38 Dose: 1 puff Furosemide (Furosemide 20 Mg Tablet) 20 mg PO DAILY [facility]; Protocol Last Admin: 09/01/24 08:28 Dose: 20 mg Hydroxyzine HCl (Hydroxyzine Hcl 25 Mg Tablet) 25 mg PO Q6H PRN PRN Reason: Anxiety Last Admin: 09/01/24 08:24 Dose: 25 mg Lidocaine (Lidocaine 4 % Patch Adh..Patch) 1 patch TRANSDERMA DAILY [facility]; Protocol Last Admin: 09/01/24 08:40 Dose: 1 patch Magnesium Hydroxide (Milk Of Magnesia 30 Ml Oral.Susp) 30 ml PO DAILY PRN PRN Reason: Constipation Last Admin: 08/21/24 13:39 Dose: 30 ml Metformin HCl (Metformin Hcl 500 Mg Tablet) 500 mg PO DAILY [facility] Last Admin: 09/01/24 08:28 Dose: 500 mg Nicotine Polacrilex (Nicotine Polacrilex 2 Mg Gum) 2 mg BUCCAL Q2H PRN PRN Reason: Nicotine Cravings Nystatin (Nystatin Powder 15 Gm Bottle) 1 appl TOPICAL BID [facility]; Protocol Last Admin: 08/31/24 21:00 Dose: 1 appl Quetiapine Fumarate (Quetiapine Fumarate 100 Mg Tablet) 100 mg PO TID [facility] Last Admin: 09/01/24 08:27 Dose: 100 mg Quetiapine Fumarate (Quetiapine Fumarate 50 Mg Tablet) 50 mg PO Q6H PRN PRN Reason: moderate anxiety Last Admin: 09/01/24 06:15 Dose: 50 mg Trazodone HCl (Trazodone Hcl 50 Mg Tablet) 50 mg PO BEDTIME MRX1 PRN PRN Reason: Insomnia Last Admin: 08/26/24 02:55 Dose: 50 mg Venlafaxine HCl (Venlafaxine Hcl Er 37.5 Mg Cap.Er.24h) 37.5 mg PO DAILY [facility] Last Admin: 09/01/24 08:27 Dose: 37.5 mg Allergies Allergies Allergy/AdvReac Type Severity Reaction Status Date / Time No Known Allergies Allergy Verified 08/12/24 15:58 Assessment & Plan Assessment & Plan (1) PTSD (post-traumatic stress disorder): Status: Acute Code(s): F43.10 - Post-traumatic stress disorder, unspecified (2) UTI (urinary tract infection): Status: Acute Code(s): N39.0 - Urinary tract infection, site not specified Plan Neprhology consult. Euvolemic, hypotonic hyponatremia; most likely SIADH urine sodium 621, prsychogenic polydyspsia unlikely in this context chest xray done to rule out pulmonary etiology of SAIDH was unremarkable PTSD, anxiety and depression are likely triggers for SIADH amlodipine may be contributing to BLE swelling pt given 1x dose of furosemide yesterday; swelling has improved though some mild LE swelling remains pt reportedly still getting 1gm sodium tablets daily; if still taking daily would recommend continuing until seen as outpatient with nephrology for follow up (per orders sodium tabs are discontinued- if not taking may continue without sodium tablets). recommend continuing fluid restriction- recommend 1.5L daily Will arrange for outpatient nephrology follow up. Will see as needed if concerns or new issues arise. Will sign off. Discussed with Dr Noe Becker 08/31 o2 2L at night per recommendation of clinical project coordinator, given results of sleep study, OP follow up with pulmonology and nephrology. Reason for continued inpatient stay Substantial Risk for: inability to function, rapid decompensation and med/psych decompensation Time Spent With Patient Time: Total time managing care of this patient today __20__ minutes.
[2024-09-01 14:47] VITALS: BP 118/58
--- NOTE | 2024-09-01 16:01 | PC.RT ---
met with patient today. She will be going home and using oxygen at 2 liters when she is sleeping or taking a nap. She is aware what the plan is. The DME company will be [employer]. I am waiting for Tri to tell me which apartment number she is moving to. She said she would get this info tomorrow from her cousin Jami.
[2024-09-01] MEDS: Milk of Magnesia 30 ML ORAL.SUSP PO (18:55)
[2024-09-01] MEDS: Magnesium Hydrox/Alum Hydrox 30 ML ORAL.SUSP PO (18:55)
[2024-09-01 20:00] VITALS: BP 114/60; PULSE 76; RESP 18; TEMP 37.1; O2SAT 95
[2024-09-01] MEDS: traZODone HCL 50 MG TABLET PO (21:08)
[2024-09-01] MEDS: Albuterol Sulfate 90 MCG 8 GM INHALER 2 PUFF INHALE (21:26)
[2024-09-02] MEDS: hydrOXYzine HCL 25 MG TABLET PO ×3 (01:37→20:13)
[2024-09-02] MEDS: QUEtiapine Fumarate 50 MG TABLET PO ×3 (01:37→18:13)
[2024-09-02] MEDS: Magnesium Hydrox/Alum Hydrox 30 ML ORAL.SUSP PO (01:37)
[2024-09-02 08:00] VITALS: BP 143/70; PULSE 77; RESP 18; TEMP 36.7; O2SAT 95
[2024-09-02] MEDS: Venlafaxine HCl ER 37.5 MG CAP.ER.24H PO (08:45)
[2024-09-02] MEDS: Fluticasone/Vilanterol 100/25 BLST.W.DEV 1 PUFF INHALE (08:45)
[2024-09-02] MEDS: cloNIDine HCL 0.1 MG TABLET 0.05 MG PO ×3 (08:45→20:14)
[2024-09-02] MEDS: Buprenorphine/Naloxone 4/1 mg FILM 1 FILM SUBLINGUAL ×2 (08:45→20:13)
[2024-09-02] MEDS: metFORMIN HCl 500 MG TABLET PO (08:45)
[2024-09-02] MEDS: QUEtiapine Fumarate 100 MG TABLET PO ×3 (08:45→20:14)
[2024-09-02] MEDS: carvediloL 12.5 MG TABLET PO ×2 (08:45→20:13)
[2024-09-02] MEDS: Furosemide 20 MG TABLET PO (08:45)
[2024-09-02] MEDS: Aspirin Enteric Coated 81 MG TABLET.DR PO (08:46)
[2024-09-02] MEDS: Lidocaine 4 % Patch ADH..PATCH 1 PATCH TRANSDERMA (08:50)
[2024-09-02] MEDS: Nystatin Powder 15 GM BOTTLE 1 APPL TOPICAL ×2 (08:54→20:14)
--- NOTE | 2024-09-02 13:47 | HO.PSYCHPN ---
Subjective Subjective Date of Service: 09/02/24 Reason For Visit: ptsd / benzo taper Subjective Notes: Conditional Voluntary Interim History: The nursing staff reported the patient had been attention seeking, somatically focused. The social media sr strategy manager reported that she can be discharged tomorrow. On interview the patient denies new symptoms waiting for placement. Mental Status Exam Mental Status Exam Patient Appearance: Appropriate Patient Orientation: Person and Situation Level of Consciousness: Awake and Appropriate Patient Behavior: Guarded and Passive Mood Description: Withdrawn Affect Description: Constricted Patient Cognition Impaired: Yes Ability to Follow Directions: Good Speech Pattern: Clear Hallucinations: None Delusions: Not Present Thought Process: Distracted and Slowed Thinking Thought Content: positive for [place] and positive for Poverty of Content Judgement: Fair Diagnostics Vital Signs (24Hr): Vital Signs - 24 hr 09/01/24 14:47 09/01/24 20:00 09/02/24 08:00 Temperature 98.8 F 98.1 F Pulse Rate 76 77 Respiratory Rate 18 18 Blood Pressure 118/58 L 114/60 143/70 H Pulse Oximetry 95 95 Oxygen Delivery Method Room Air Room Air BMI result Body Mass Index 45.8 Labs 09/01/24 09:16 Labs: Laboratory Results - last 48 hr 09/01/24 09:16 Creatinine 0.71 Estim Creat Clear Calc 89.3 Estimated GFR > 60 Imaging Radiology Impressions: ITS Impressions Chest X-Ray 08/20/24 20:50 IMPRESSION: No active cardiopulmonary disease Electronically signed by: Brandon Atkins MD 08/21/2024 01:27 PM EDT RP Medications Medications Current Medications Acetaminophen (Acetaminophen 325 Mg Tablet) 650 mg PO Q6H PRN PRN Reason: Headache/Pain Mild Scale (1-3) Last Admin: 09/01/24 21:26 Dose: 650 mg Al Hydroxide/Mg Hydroxide (Magnesium Hydrox/Alum Hydrox 30 Ml Oral.Susp) 30 ml PO Q6H PRN PRN Reason: Heartburn/Nausea Last Admin: 09/02/24 01:37 Dose: 30 ml Albuterol Sulfate (Albuterol Sulfate 90 Mcg 8 Gm Inhaler) 2 puff INHALE RQ4H PRN PRN Reason: Wheezing Last Admin: 09/01/24 21:26 Dose: 2 puff Aspirin (Aspirin Enteric Coated 81 Mg Tablet.Dr) 81 mg PO DAILY [facility] Last Admin: 09/02/24 08:46 Dose: 81 mg Buprenorphine/Naloxone (Buprenorphine/Naloxone 4/1 Mg Film) 1 film SUBLINGUAL BID [facility] Last Admin: 09/02/24 08:45 Dose: 1 film Carvedilol (Carvedilol 12.5 Mg Tablet) 12.5 mg PO BID [facility]; Protocol Last Admin: 09/02/24 08:45 Dose: 12.5 mg Clonidine HCl (Clonidine Hcl 0.1 Mg Tablet) 0.05 mg PO TID [facility]; Protocol Last Admin: 09/02/24 08:45 Dose: 0.05 mg Fluticasone/Vilanterol (Fluticasone/Vilanterol 100/25 Blst.W.Dev) 1 puff INHALE RDAILY [facility] Last Admin: 09/02/24 08:45 Dose: 1 puff Furosemide (Furosemide 20 Mg Tablet) 20 mg PO DAILY [facility]; Protocol Last Admin: 09/02/24 08:45 Dose: 20 mg Hydroxyzine HCl (Hydroxyzine Hcl 25 Mg Tablet) 25 mg PO Q6H PRN PRN Reason: Anxiety Last Admin: 09/02/24 08:45 Dose: 25 mg Lidocaine (Lidocaine 4 % Patch Adh..Patch) 1 patch TRANSDERMA DAILY [facility]; Protocol Last Admin: 09/02/24 08:50 Dose: 1 patch Magnesium Hydroxide (Milk Of Magnesia 30 Ml Oral.Susp) 30 ml PO DAILY PRN PRN Reason: Constipation Last Admin: 09/01/24 18:55 Dose: 30 ml Metformin HCl (Metformin Hcl 500 Mg Tablet) 500 mg PO DAILY [facility] Last Admin: 09/02/24 08:45 Dose: 500 mg Nicotine Polacrilex (Nicotine Polacrilex 2 Mg Gum) 2 mg BUCCAL Q2H PRN PRN Reason: Nicotine Cravings Nystatin (Nystatin Powder 15 Gm Bottle) 1 appl TOPICAL BID [facility]; Protocol Last Admin: 09/02/24 08:54 Dose: 1 appl Quetiapine Fumarate (Quetiapine Fumarate 100 Mg Tablet) 100 mg PO TID [facility] Last Admin: 09/02/24 08:45 Dose: 100 mg Quetiapine Fumarate (Quetiapine Fumarate 50 Mg Tablet) 50 mg PO Q6H PRN PRN Reason: moderate anxiety Last Admin: 09/02/24 10:30 Dose: 50 mg Trazodone HCl (Trazodone Hcl 50 Mg Tablet) 50 mg PO BEDTIME MRX1 PRN PRN Reason: Insomnia Last Admin: 09/01/24 21:08 Dose: 50 mg Venlafaxine HCl (Venlafaxine Hcl Er 37.5 Mg Cap.Er.24h) 37.5 mg PO DAILY [facility] Last Admin: 09/02/24 08:45 Dose: 37.5 mg Allergies Allergies Allergy/AdvReac Type Severity Reaction Status Date / Time No Known Allergies Allergy Verified 08/12/24 15:58 Assessment & Plan Assessment & Plan (1) PTSD (post-traumatic stress disorder): Status: Acute Code(s): F43.10 - Post-traumatic stress disorder, unspecified (2) UTI (urinary tract infection): Status: Acute Code(s): N39.0 - Urinary tract infection, site not specified Plan Neprhology consult. Euvolemic, hypotonic hyponatremia; most likely SIADH urine sodium 621, prsychogenic polydyspsia unlikely in this context chest xray done to rule out pulmonary etiology of SAIDH was unremarkable PTSD, anxiety and depression are likely triggers for SIADH amlodipine may be contributing to BLE swelling pt given 1x dose of furosemide yesterday; swelling has improved though some mild LE swelling remains pt reportedly still getting 1gm sodium tablets daily; if still taking daily would recommend continuing until seen as outpatient with nephrology for follow up (per orders sodium tabs are discontinued- if not taking may continue without sodium tablets). recommend continuing fluid restriction- recommend 1.5L daily Will arrange for outpatient nephrology follow up. Will see as needed if concerns or new issues arise. Will sign off. Discussed with Dr Liu Plan 1. Continue with same treatment. 2. Discharge for tomorrow Reason for continued inpatient stay Substantial Risk for: inability to function, rapid decompensation and med/psych decompensation Time Spent With Patient Time: Total time managing care of this patient today __20__ minutes.
[2024-09-02 15:10] VITALS: BP 137/67; PULSE 77; RESP 18
[2024-09-02 20:00] VITALS: BP 130/60; PULSE 80; RESP 18; TEMP 36.1; O2SAT 96
[2024-09-02] MEDS: Acetaminophen 325 MG TABLET 650 MG PO (20:13)
[2024-09-02] MEDS: Albuterol Sulfate 90 MCG 8 GM INHALER 2 PUFF INHALE (20:14)
[2024-09-02] MEDS: traZODone HCL 50 MG TABLET PO (20:14)
[2024-09-03] MEDS: QUEtiapine Fumarate 50 MG TABLET PO ×2 (03:27→09:57)
[2024-09-03] MEDS: hydrOXYzine HCL 25 MG TABLET PO ×2 (03:27→09:57)
[2024-09-03 08:00] VITALS: BP 143/65; PULSE 77; RESP 18; TEMP 36.9; O2SAT 95
[2024-09-03] MEDS: Nystatin Powder 15 GM BOTTLE 1 APPL TOPICAL (08:18)
[2024-09-03] MEDS: Fluticasone/Vilanterol 100/25 BLST.W.DEV 1 PUFF INHALE (08:18)
[2024-09-03] MEDS: Lidocaine 4 % Patch ADH..PATCH 1 PATCH TRANSDERMA (08:18)
[2024-09-03] MEDS: QUEtiapine Fumarate 100 MG TABLET PO (08:19)
[2024-09-03] MEDS: Venlafaxine HCl ER 37.5 MG CAP.ER.24H PO (08:19)
[2024-09-03] MEDS: Aspirin Enteric Coated 81 MG TABLET.DR PO (08:19)
[2024-09-03] MEDS: Furosemide 20 MG TABLET PO (08:19)
[2024-09-03] MEDS: metFORMIN HCl 500 MG TABLET PO (08:19)
[2024-09-03] MEDS: Buprenorphine/Naloxone 4/1 mg FILM 1 FILM SUBLINGUAL (08:19)
[2024-09-03] MEDS: carvediloL 12.5 MG TABLET PO (08:19)
[2024-09-03] MEDS: cloNIDine HCL 0.1 MG TABLET 0.05 MG PO (08:19)
--- NOTE | 2024-09-03 08:30 | PM.PSYDC ---
DS: Providers Provider Date of Service: 09/03/24 Date of admission: 08/17/24 14:34 Date of discharge: 09/03/24 Primary care physician: Unknown Physician Consults: 08/20/24 13:47 Consult to Nephrology Routine Consulting Provider: [facility] Reason for consultation: hypotonic hyponatremia, resolved/unclear if n about fluid restric/sodium ta Has provider been notified: Yes 08/20/24 13:50 Consult to Hospitalist Routine Comment: Consulting Provider: Hospitalist Reason For Exam: bilat LE edema 08/25/24 11:00 Consult to Hospitalist Routine Comment: Consulting Provider: Hospitalist Reason For Exam: worsening edema DS: Diagnosis Discharge Diagnosis (1) PTSD (post-traumatic stress disorder): Status: Acute (2) UTI (urinary tract infection): Status: Acute DS: Medications Discharge Medications Home Medications: Home Medications ?Medication ?Instructions ?Recorded ?Confirmed amlodipine 10 mg tablet 10 mg PO DAILY 08/13/24 08/13/24 aspirin 81 mg tablet,delayed 81 mg PO DAILY 08/13/24 08/13/24 release carvedilol 12.5 mg tablet 12.5 mg PO BID 08/13/24 08/13/24 clotrimazole-betamethasone 1 1 appl topical BID 08/13/24 08/13/24 %-0.05 % topical cream escitalopram oxalate 5 mg tablet 5 mg PO DAILY 08/13/24 08/13/24 Previous Rx's ?Medication ?Instructions ?Recorded buprenorphine 4 mg-naloxone 1 mg 1 film sublingual BID #30 ea 08/17/24 sublingual film (Suboxone) cefuroxime axetil 250 mg tablet 250 mg PO BID #6 tabs 08/17/24 clonazepam 1 mg tablet 1 mg PO BID #60 tabs 08/17/24 hydroxyzine HCl 25 mg tablet 25 mg PO Q8H PRN Anxiety #30 tabs 08/17/24 metformin 500 mg tablet 500 mg PO DAILY #30 tabs 08/17/24 sodium chloride 1,000 mg soluble 1,000 mg PO BID #10 tabs 08/17/24 tablet albuterol sulfate 90 mcg/actuation 2 puff inhalation RQ4H PRN 09/03/24 aerosol inhaler (Ventolin HFA) Wheezing 30 days #1 inhaler aspirin 81 mg tablet,delayed 81 mg PO DAILY #30 tabs 09/03/24 release buprenorphine 4 mg-naloxone 1 mg 1 film sublingual BID #30 ea 09/03/24 sublingual film (Suboxone) carvedilol 12.5 mg tablet 12.5 mg PO BID 30 days #60 tabs 09/03/24 clonidine HCl 0.1 mg tablet 0.05 mg PO TID 30 days #45 tabs 09/03/24 fluticasone furoate 100 1 inh inhalation DAILY #30 ea 09/03/24 mcg/actuation blister powder for inhalation (Arnuity Ellipta) furosemide 20 mg tablet 20 mg PO DAILY 30 days #30 tabs 09/03/24 hydroxyzine HCl 25 mg tablet 25 mg PO Q6H PRN Anxiety 30 days 09/03/24 #90 tabs lidocaine 4 % topical patch 1 patch transdermal DAILY #30 ea 09/03/24 (Lidocaine Pain Relief) metformin 500 mg tablet 500 mg PO DAILY 30 days #30 tabs 09/03/24 nystatin 100,000 unit/gram topical 1 appl topical BID 30 days #5 grams 09/03/24 powder quetiapine 100 mg tablet 100 mg PO TID 30 days #90 tabs 09/03/24 quetiapine 50 mg tablet 50 mg PO Q6H PRN moderate anxiety 09/03/24 30 days #30 tabs rosuvastatin 10 mg tablet 10 mg PO BEDTIME 30 days #30 tabs 09/03/24 trazodone 50 mg tablet 50 mg PO BEDTIME MRX1 PRN Insomnia 09/03/24 30 days #30 tabs venlafaxine 37.5 mg 37.5 mg PO DAILY 30 days #30 caps 09/03/24 capsule,extended release 24 hr Mental Status Exam Mental Status Exam Patient Appearance: Well Grooomed and Appropriate Patient Orientation: Person, Place and Situation Level of Consciousness: Awake and Appropriate Patient Behavior: Guarded and Passive Mood Description: Calm Affect Description: Constricted Patient Cognition Impaired: No Ability to Follow Directions: Good Speech Pattern: Clear Hallucinations: None Delusions: Not Present Thought Process: Distracted and Slowed Thinking Thought Content: positive for Jean and positive for Poverty of Content Judgement: Fair Data Data Completed and Pending Completed studies during hospitalization [Text1]: 09/01/24 09:16 Creatinine 0.71 Estim Creat Clear Calc 89.3 Estimated GFR > 60 Imaging Diagnostic Imaging Impressions Chest X-Ray 08/20/24 20:50 IMPRESSION: No active cardiopulmonary disease Electronically signed by: Brandon Atkins MD 08/21/2024 01:27 PM EDT RP DS: Summary Hospital Course Hospital Course: The patient is a 68-year-old male with a past history of major depressive disorder, PTSD, yet her headache opiate dependence and yet her headache benzodiazepine dependence who was initially admitted into the facility for exacerbation of depression, anxiety and suicidal ideation. The patient was assessed by crisis and transferring to this facility for psychiatric stabilization. On admission the patient was severely anxious, she understood that she had iatrogenic benzodiazepine dependence and she was in agreement of start a slow taper. We review her list of medications and she was initially on Lexapro that was not working so we started on Effexor XR 37.5 with for tolerability. We started slow tapering of Klonopin that finish without any problems or withdrawal symptoms. The patient was very anxious and we decided to start Seroquel titrated up to 100 mg p.o. t.i.d. to target anxiety, dysphoria and augmentation for depression with for tolerability and no evidence of over-sedation. The patient was future oriented, she was seen attending to groups and adamantly denied suicidal ideation. Since there were no safety concerns discharge planning was discussed. Time spent discussing smoking cessation with patient: 3 to 10 minutes Status at Discharge Cognitive/behavioral status at discharge: At baseline Functional status at discharge: independent ambulation Overall status at discharge: patient is back to baseline Time Spent with Patient Time attestation: Total time managing care of this patient today __30__ minutes. 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 Your behavioral health case manager is Natalia.) [facility] [Other] - 09/05/24 10:30 am (You are scheduled for follow up Suboxone management appointment with [facility] for 09/05/24 at 10:30) [facility] [Other] - 09/04/24 (You have been referred for fci with [facility]. Your services will start on 09/04/24. ) Sergey Irvin [facility] [Other] - 09/09/24 12:30 pm (Your next PCP appointment is scheduled for 09/09/24 at 12:30pm.) [facility] [Other] - 1 Week (You have been referred to [facility] for oxygen supplies. Please call when you get home to have them deliver for 2 liters of oxygen at bedtime. ) [facility] [Other] - 09/22/24 3:00 pm (Your first telehealth psychiatrist appointment is scheduled for 09/22/24 at 3pm. They will email you forms prior to appointment to complete.) Discharge Medications: New clonidine HCl 0.1 mg Tablet 0.05 mg PO TID 30 Days Qty: 45 0RF Protocol: Hold for SBP< HOLD for SBP < : 90 carvedilol 12.5 mg Tablet 12.5 mg PO BID 30 Days Qty: 60 0RF Protocol: Hold for SBP/HR < HOLD for SBP < : 90 HOLD for HR < : 60 aspirin 81 mg Tablet,Delayed Release (Dr/Ec) 81 mg PO DAILY Qty: 30 0RF albuterol sulfate [Ventolin HFA] 90 mcg/actuation Hfa Aerosol Inhaler 2 puff inhalation RQ4H PRN (Reason: Wheezing) 30 Days Qty: 1 0RF buprenorphine-naloxone [Suboxone] 4-1 mg Film 1 film sublingual BID Qty: 30 0RF venlafaxine 37.5 mg Capsule,Extended Release 24hr 37.5 mg PO DAILY 30 Days Qty: 30 0RF trazodone 50 mg Tablet 50 mg PO BEDTIME MRX1 PRN (Reason: Insomnia) 30 Days Qty: 30 0RF quetiapine 100 mg Tablet 100 mg PO TID 30 Days Qty: 90 0RF hydroxyzine HCl 25 mg Tablet 25 mg PO Q6H PRN (Reason: Anxiety) 30 Days Qty: 90 0RF furosemide 20 mg Tablet 20 mg PO DAILY 30 Days Qty: 30 0RF Protocol: Hold for SBP< HOLD for SBP < : 90 quetiapine 50 mg Tablet 50 mg PO Q6H PRN (Reason: moderate anxiety) 30 Days Qty: 30 0RF metformin 500 mg Tablet 500 mg PO DAILY 30 Days Qty: 30 0RF lidocaine [Lidocaine Pain Relief] 4 % Adhesive Patch,Medicated 1 patch transdermal DAILY Qty: 30 0RF Protocol: Apply to: Apply to: back nystatin 100,000 unit/gram Powder 1 appl topical BID 30 Days Qty: 5 0RF Protocol: Apply to: Apply to: abdominal fold naloxone 4 mg/actuation spray,non-aerosol 4 mg intranasal Q3M PRN (Reason: opioid overdose) Qty: 2 0RF Rx Instructions: spray 1 dose into ONE nostril; alternate nostrils w each dose until help arrives Continued rosuvastatin 10 mg tablet 10 mg PO BEDTIME 30 Days Qty: 30 0RF Arnuity Ellipta 100 mcg/actuation blister with device 1 inh inhalation DAILY Qty: 30 0RF Discontinued carvedilol 12.5 mg tablet 12.5 mg PO BID amlodipine 10 mg tablet 10 mg PO DAILY escitalopram oxalate 5 mg tablet 5 mg PO DAILY clotrimazole-betamethasone 1-0.05 % cream 1 appl topical BID aspirin 81 mg Tablet,Delayed Release (Dr/Ec) 81 mg PO DAILY cefuroxime axetil 250 mg Tablet 250 mg PO BID Qty: 6 0RF buprenorphine-naloxone [Suboxone] 4-1 mg Film 1 film sublingual BID Qty: 30 0RF metformin 500 mg Tablet 500 mg PO DAILY Qty: 30 0RF clonazepam 1 mg Tablet 1 mg PO BID Qty: 60 0RF hydroxyzine HCl 25 mg Tablet 25 mg PO Q8H PRN (Reason: Anxiety) Qty: 30 0RF sodium chloride 1,000 mg Tablet,Soluble 1,000 mg PO BID Qty: 10 0RF Discharge Orders: Discharge Order (Routine); Ordered 09/03/24 Ordered By: Smooth Price Diet: Advance to usual diet Activity on Discharge: As tolerated Stand Alone Forms: Patient Portal Discharge page Print Language: Japanese Care Plan Goals: Care plan goals achieved in this admission. Health Concerns: Continue treatment with primary care physician and other outpatient providers. Plan of Treatment: Continue treatment as an outpatient. Referral to [facility] Assessment: THE PATIENT IS A MIDDLE-AGED FEMALE WITH A PAST HISTORY OF MAJOR DEPRESSIVE DISORDER, PTSD, OPIATE DEPENDENCE AND BENZODIAZEPINE DEPENDENCE WHO WAS SUCCESSFULLY TAPERED OFF BENZODIAZEPINES WITH THE ADDITION OF SEROQUEL THAT WAS TARGET FOR DEPRESSION AND ANXIETY AND AUGMENTATION OF DEPRESSION WITH FOR TOLERABILITY. AT THIS MOMENT THE PATIENT IS SAFE TO BE DISCHARGED TO THE COMMUNITY.
== END 2024-09-03 10:48 | disposition home or self-care (01) | DRG 885 ==
PROVIDERS: Nurse Practitioner Family; Psychiatry & Neurology Psychiatry; Student in an Organized Health Care Education/Training Program; Admitting Provider Social Worker; Visit Provider Social Worker
DX: F33.2 Major depressive disorder, recurrent severe without psychotic features (principal); F11.20 Opioid dependence, uncomplicated; F13.20 Sedative, hypnotic or anxiolytic dependence, uncomplicated; E22.2 Syndrome of inappropriate secretion of antidiuretic hormone; I10 Essential (primary) hypertension; E11.9 Type 2 diabetes mellitus without complications; F43.10 Post-traumatic stress disorder, unspecified; Z79.51 Long term (current) use of inhaled steroids; Z79.84 Long term (current) use of oral hypoglycemic drugs; Z95.2 Presence of prosthetic heart valve
CPT/HCPCS: 36415; 71046; 80048; 80053; 80061; 82306; 82565; 82607; 83540

== ENCOUNTER → 2024-08-17 14:34 | Outpatient (BNV) | payer MEDICARE, SELFPAY | PROVIDERS: Admitting Provider Social Worker; Visit Provider Social Worker | DX: F43.11 Post-traumatic stress disorder, acute (principal); N39.0 Urinary tract infection, site not specified | CPT/HCPCS: 90792; 99231; 99232; 99238 ==

== ENCOUNTER → 2024-08-17 14:34 | Outpatient (BNV) | payer MEDICARE, SELFPAY | PROVIDERS: Admitting Provider Social Worker; Visit Provider Nurse Practitioner Family | DX: E87.1 Hypo-osmolality and hyponatremia (principal) | CPT/HCPCS: 99222; 99231 ==

== ENCOUNTER 2024-09-05 10:41 | Outpatient (AMB) | payer MEDICARE, SELFPAY ==
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
== END 2024-09-05 11:29 | disposition home or self-care (01) ==
PROVIDERS: Visit Provider Nurse Practitioner Psychiatric/Mental Health
DX: F11.20 Opioid dependence, uncomplicated (principal)
CPT/HCPCS: 99204

== ENCOUNTER → 2024-09-05 10:41 | Outpatient (BNVA) | payer MEDICARE, SELFPAY | PROVIDERS: Visit Provider Nurse Practitioner Psychiatric/Mental Health | DX: F11.20 Opioid dependence, uncomplicated (principal) | CPT/HCPCS: 99202 ==

== ENCOUNTER 2024-09-17 09:25 | Outpatient (AMB) | payer MEDICARE, SELFPAY ==
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
== END 2024-09-17 10:01 | disposition home or self-care (01) ==
PROVIDERS: Visit Provider Nurse Practitioner Psychiatric/Mental Health
DX: F11.20 Opioid dependence, uncomplicated (principal)
CPT/HCPCS: G2252

== ENCOUNTER → 2024-09-17 09:25 | Outpatient (BNVA) | payer MEDICARE, SELFPAY | PROVIDERS: Visit Provider Nurse Practitioner Psychiatric/Mental Health | DX: E87.1 Hypo-osmolality and hyponatremia (principal); F11.20 Opioid dependence, uncomplicated | CPT/HCPCS: 99212 ==

== ENCOUNTER 2024-09-17 14:29 | Outpatient (AMB) | payer MEDICARE, SELFPAY ==
--- NOTE | 2024-09-17 14:32 | HO.NEPHOV ---
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: No Accompanied by: Self / Same As Patient Allergies No Known Allergies Allergy (Verified 09/17/24 14:37) Medication List - Last Reconciled 09/17/24 by Devyn Brunson MD albuterol sulfate 90 mcg/actuation (Ventolin HFA) 2 puffs inhalation RQ4H PRN 30 days aspirin 81 mg PO DAILY buprenorphine-naloxone 4-1 mg (Suboxone) 1 film sublingual BID carvedilol 12.5 mg See Protocol PO BID 30 days clonidine HCl 0.05 mg See Protocol PO TID 30 days docusate sodium 100 mg PO DAILY PRN fluticasone furoate 100 mcg/actuation (Arnuity Ellipta) 1 inh inhalation DAILY furosemide 20 mg See Protocol PO DAILY 30 days hydroxyzine HCl 25 mg PO Q6H PRN 30 days metformin ER 500 mg PO DAILY nystatin 1 appl See Protocol topical BID 30 days quetiapine 50 mg PO TID PRN rosuvastatin 10 mg PO BEDTIME 30 days venlafaxine ER 37.5 mg PO DAILY 30 days HPI Comments Details: 68 y/o female with a medical history of HTN, DMII, anxiety, depression, PTSD, opioid dependence on suboxone. she also has a history of TAVR procedure, Patient was initially admitted to the ICU for management of hyponatremia (Na 117), she came to the hospital as she ran out of her ativan per notes. She was then transferred to hospital medicine and now inpatient psychiatry. Sodium was gradually corrected. Here for follow up On 1500 cc restriction [facility] Medical History (Updated 09/17/24 @ 16:13 by Devyn Brunson MD) Acute hyponatremia PTSD (post-traumatic stress disorder) Psychogenic polydipsia Social History Household Members: None Household Members Other:: 2 dogs Housing: House Do you presently have visiting nurse or other home services: No Comment: ambulates with steady gait Patient Tobacco Use Status: Never used Tobacco e-Cigarette/Vaping Use: Never Used Second Hand Smoke Exposure: No Substance Use Type: Prescription Drugs service: No Sexual orientation: Straight/Heterosexual Physical Exam Vital Signs: Last Vital Signs Pulse 84 09/17/24 14:33 BP 144/80 H 09/17/24 14:33 Pulse Ox 94 09/17/24 14:33 Oxygen Delivery Method Room Air 09/17/24 14:33 BMI result Body Mass Index 41.8 Comfortable Neck supple no JVD. Lungs entry equal no rales. Heart S1-S2 heard no gallop or rub. Abdomen soft nontender. Neuro alert awake oriented. No asterixis. Extremities no edema. Results Reviewed Nephrology Results: Hgb 13.2 g/dl (12.0-16.0) 08/15/24 WBC 5.1 X10*3/uL (4.8-10.8) 08/15/24 Plt Count 124 X10*3/uL (160-400) L 08/15/24 Sodium 138 mmol/L (135-145) 08/25/24 Potassium 4.1 mmol/L (3.3-5.1) 08/25/24 Chloride 101 mmol/L (96-108) 08/25/24 Carbon Dioxide 27 mmol/L (22-29) 08/25/24 BUN 14 mg/dL (9-16) 08/25/24 Creatinine 0.71 mg/dL (0.5-1.4) 09/01/24 Calcium 9.0 mg/dL (8.4-10.2) 08/25/24 Phosphorus 3.7 mg/dL (2.7-4.5) 08/15/24 Urine Protein Negative mg/dL (Neg-Trace) 08/14/24 Urine Creatinine 60.11 mg/dL 08/14/24 Assessment & Plan Assessment & Plan (1) Acute hyponatremia: Code(s): E87.1 - Hypo-osmolality and hyponatremia Category: Medical Plan Hyponatremia due to non osmotic ADH release. Hyponatremia stance corrected. Restrict oral free water intake to 1.2 L per 24 hours. Continue with low-dose of Lasix in view of the edema. Lasix should increase free water clearance and thereby correct hyponatremia. Renal function is normal at this time. No changes were made Orders: Orders Blood Urea Nitrogen 6 Months Devyn Brunson MD N18.4 - Chronic kidney disease, stage 4 (severe) Medications: Changed From quetiapine 50 mg PO Q6H 30 days PRN 30 tabs 0RF moderate anxiety To quetiapine 50 mg PO TID PRN moderate anxiety Smooth Price MD Coding Level of Care Code Est Pt Level 4 (31289) Diagnoses Acute hyponatremia E87.1
[2024-09-17 14:33] VITALS: BP 144/80; PULSE 84; O2SAT 94; BMI 41.8
== END 2024-09-17 15:06 | disposition home or self-care (01) ==
PROVIDERS: Visit Provider Internal Medicine Hypertension Specialist
DX: E87.1 Hypo-osmolality and hyponatremia (principal)
CPT/HCPCS: 99214

== ENCOUNTER 2024-10-08 09:01 | Outpatient (AMB) | payer MEDICARE, SELFPAY ==
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
--- OUTSIDE RECORDS SUMMARY | 2024-10-08 09:09 | XMS_ITS | Continuity of Care Document ---
Author Organization [facility] Address [address] [place] [address] Phone [phone] Social History Type Date Description Comments Sex Unknown Medical Devices Description No Information Available Encounters Description No Information Available Assessments Description No Information Available Plan of Treatment No Information Available Functional Status Description No Information Available Mental Status Description No Information Available Referrals Description No Information Available
--- OUTSIDE RECORDS SUMMARY | 2024-10-08 09:09 | XMS_ITS | Clinical Summary ---
Author Organization Unknown Care Team Providers Care Lab Director Name Role Phone EVELYNE GRULLON, SUBHASH Unavailable Unavailable YUNI CA, VASHTI Unavailable Unavailable Payers Payer Name Policy Type Policy Number Effective Date Expira tion Date [facility] AD[facility] [id number] MEDICARE - [place] - PDGM [id number] Problems Condition Name Condition Details Condition Category Status Onset Date Resolution Date Last Treatment Date Treating Clinician Comments OPIOID DEPENDENCE WITH WITHDRAWAL Active 2023-10 00:00: 00 TYPE 2 DIABETES MELLITUS WITHOUT COMPLICATION S Active 2023-10 00:00: 00 Allergies, Adverse Reactions, Alerts Allergy Name Allergy Type Status Severity Reaction(s) Onset Date Inactive Date Treating Clinician Comments NKA Propensity to adverse reactions Active 2024-08 09:17:2 3 Medications Ordered Medication Name Filled Medication Name Start Date Stop Date Current Medication? Ordering Clinician Indication Dosage Frequency Signature (SIG) Comments Components Arnuity Ellipta 100 mcg/actuati on powder for inhalation 2023-10 00:00: 00 Yes [id number] 1 inhalat ion EVERY AM 1 inhalation EVERY AM (route: inhalation ) Med Classific ation: Respirato ry Therapy Agents rosuvastati n 10 mg tablet 2023-10 0-15 00:00: 00 Yes [id number] 1 tablet BEDTIME 1 tablet BEDTIME (route: oral) Med Classific ation: Cardiovas cular Therapy Agents escitalopra m 5 mg tablet 30 00:00: 00 Yes [id number] 1 tablet EVERY AM 1 tablet EVERY AM (route: oral) Med Classific ation: Central Nervous System Agents albuterol sulfate HFA 90 mcg/actuati on aerosol inhaler 2023-10 00:00: 00 Yes [id number] FOR WHEEZING 2 puff EVERY 4 HOURS 2 puff EVERY 4 HOURS (route: inhalation ) Med Classific ation: Respirato ry Therapy Agents carvedilol 12.5 mg tablet 2023-10 00:00: 00 Yes [id number] HOLD FOR SBP <90 1 tablet 2 TIMES DAILY 1 tablet 2 TIMES DAILY (route: oral) Med Classific ation: Cardiovas cular Therapy Agents cefuroxime axetil 250 mg tablet 2023-10 00:00: 00 Yes [id number] 1 tablet 2 TIMES DAILY 1 tablet 2 TIMES DAILY (route: oral) Med Classific ation: Anti-Infe ctive Agents clonazepam 1 mg tablet 2023-10 00:00: 00 Yes [id number] 1 tablet 2 TIMES DAILY 1 tablet 2 TIMES DAILY (route: oral) Med Classific ation: Central Nervous System Agents Clotrimazol e AF 1 % topical cream 2023-10 00:00: 00 Yes [id number] 1 inch 2 TIMES DAILY 1 inch 2 TIMES DAILY (route: topical) Med Classific ation: Dermatolo gical hydroxyzine HCl 25 mg tablet 2023-10 00:00: 00 Yes [id number] ANXIETY 1 tablet EVERY 6 HOURS 1 tablet EVERY 6 HOURS (route: oral) Med Classific ation: Central Nervous System Agents Lidocaine Pain Relief 4 % topical patch 2023-10 00:00: 00 Yes [id number] APPLY TO BACK 1 adhesiv e patch, medicat ed EVERY AM 1 adhesive patch, medicated EVERY AM (route: topical) Med Classific ation: Dermatolo gical metformin 500 mg tablet 2023-10 00:00: 00 Yes [id number] 1 tablet EVERY AM 1 tablet EVERY AM (route: oral) Med Classific ation: Endocrine naloxone 4 mg/actuatio n nasal spray 2023-10 00:00: 00 Yes [id number] OPIOD OVERDOSE Per instruc tions NEEDED Per instructio ns NEEDED (route: nasal) Med Classific ation: Antidotes and other Reversal Agents nystatin 100,000 unit/gram topical cream 2023-10 00:00: 00 Yes [id number] TO ABDOMINAL FOLD 1 inch 2 TIMES DAILY 1 inch 2 TIMES DAILY (route: topical) Med Classific ation: Dermatolo gical quetiapine 100 mg tablet 2023-10 00:00: 00 09-23 23:59 :00 No [id number] 1 tablet 3 TIMES DAILY 1 tablet 3 TIMES DAILY (route: oral) Med Classific ation: Central Nervous System Agents quetiapine 50 mg tablet 2023-10 00:00: 00 09-23 23:59 :00 No [id number] MODERATE ANXIETY 1 tablet EVERY 6 HOURS 1 tablet EVERY 6 HOURS (route: oral) Med Classific ation: Central Nervous System Agents sodium chloride 1,000 mg soluble tablet 2023-10 00:00: 00 Yes [id number] 1 tablet 2 TIMES DAILY 1 tablet 2 TIMES DAILY (route: miscellane ous) Med Classific ation: Electroly te Balance-N utritiona l Products trazodone 50 mg tablet 2023-10 00:00: 00 09-08 23:59 :00 No [id number] 1 tablet BEDTIME 1 tablet BEDTIME (route: oral) Med Classific ation: Central Nervous System Agents venlafaxine 37.5 mg tablet 2023-10 00:00: 00 Yes [id number] 1 tablet EVERY AM 1 tablet EVERY AM (route: oral) Med Classific ation: Central Nervous System Agents buprenorphi ne 4 mg-naloxone 1 mg sublingual film 2023-10 00:00: 00 Yes [id number] 1 film 2 TIMES DAILY 1 film 2 TIMES DAILY (route: sublingual ) Med Classific ation: Chemical Dependenc y, Agents to Treat furosemide 20 mg tablet 2023-10 00:00: 00 Yes [id number] 1 tablet EVERY AM 1 tablet EVERY AM (route: oral) Med Classific ation: Cardiovas cular Therapy Agents OXYGEN 2023-10 00:00: 00 Yes [id number] 2 Liter BEDTIME 2 Liter BEDTIME (route: Oxygen) Med Classific ation: Medical Oxygen Adult Low Dose Aspirin 81 mg tablet,marisol yed release 2023-10 00:00: 00 Yes [id number] 1 tablet EVERY AM 1 tablet EVERY AM (route: oral) Med Classific ation: Hematolog ical Agents clonidine HCl 0.1 mg tablet 2023-10 00:00: 00 Yes [id number] HOLD FOR SBP <90 .5 tablet 3 TIMES DAILY .5 tablet 3 TIMES DAILY (route: oral) Med Classific ation: Cardiovas cular Therapy Agents Colace 100 mg capsule 2023-10 00:00: 00 Yes [id number] 1 capsule DAILY 1 capsule DAILY (route: oral) Med Classific ation: Gastroint estinal Therapy Agents Vital Signs Vital Name Observation Time Observation Value Commen ts Temperature 2024-09-29 10:16:00.000 98.1 [degF] Temperature 2024-09-29 09:54:00.000 97.8 [degF] Temperature 2024-09-26 09:42:00.000 98.7 [degF] Temperature 2024-09-24 10:50:00.000 97.8 [degF] Temperature 2024-09-22 09:49:00.000 98 [degF] Temperature 2024-09-19 14:38:00.000 98.1 [degF] Temperature 2024-09-17 09:19:00.000 97.3 [degF] Temperature 2024-09-15 09:54:00.000 98.2 [degF] Temperature 2024-09-12 09:44:00.000 98 [degF] Temperature 2024-09-10 10:04:00.000 97.8 [degF] Temperature 2024-09-09 08:52:00.000 97.8 [degF] Temperature 2024-09-06 09:39:00.000 98.6 [degF] BMI (%) 2024-09-06 08:44:06.000 45 kg/m2 Height 2024-09-06 08:43:59.000 61 [in_us] Pulse 2024-09-29 10:16:00.000 66 /min Pulse 2024-09-29 09:54:00.000 78 /min Pulse 2024-09-26 09:42:00.000 61 /min Pulse 2024-09-24 10:50:00.000 71 /min Pulse 2024-09-22 09:49:00.000 78 /min Pulse 2024-09-19 14:40:00.000 73 /min Pulse 2024-09-17 09:19:00.000 70 /min Pulse 2024-09-15 09:54:00.000 75 /min Pulse 2024-09-12 09:44:00.000 74 /min Pulse 2024-09-10 10:04:00.000 88 /min Pulse 2024-09-09 08:52:00.000 70 /min Pulse 2024-09-06 09:39:00.000 71 /min O2 Saturation (%) 2024-09-06 09:40:00.000 98 % Respirations 2024-09-29 10:16:00.000 16 /min Respirations 2024-09-29 09:54:00.000 16 /min Respirations 2024-09-26 09:42:00.000 16 /min Respirations 2024-09-24 10:50:00.000 16 /min Respirations 2024-09-22 09:49:00.000 14 /min Respirations 2024-09-19 14:40:00.000 16 /min Respirations 2024-09-17 09:19:00.000 16 /min Respirations 2024-09-15 09:54:00.000 16 /min Respirations 2024-09-12 09:44:00.000 16 /min Respirations 2024-09-10 10:04:00.000 16 /min Respirations 2024-09-09 08:52:00.000 16 /min Respirations 2024-09-06 09:39:00.000 18 /min Weight (lbs) 2024-09-06 08:44:06.000 240 [lb_av] Systolic Blood Pressure 2024-09-29 10:16:00.000 150 mm [Hg] Systolic Blood Pressure 2024-09-29 09:54:00.000 127 mm [Hg] Systolic Blood Pressure 2024-09-26 09:42:00.000 158 mm [Hg] Systolic Blood Pressure 2024-09-24 10:50:00.000 151 mm [Hg] Systolic Blood Pressure 2024-09-22 09:49:00.000 126 mm [Hg] Systolic Blood Pressure 2024-09-19 14:38:00.000 115 mm [Hg] Systolic Blood Pressure 2024-09-17 09:19:00.000 153 mm [Hg] Systolic Blood Pressure 2024-09-15 09:54:00.000 117 mm [Hg] Systolic Blood Pressure 2024-09-12 09:44:00.000 156 mm [Hg] Systolic Blood Pressure 2024-09-10 10:04:00.000 119 mm [Hg] Systolic Blood Pressure 2024-09-09 08:52:00.000 119 mm [Hg] Systolic Blood Pressure 2024-09-06 09:39:00.000 130 mm [Hg] Diastolic Blood Pressure 2024-09-29 10:16:00.000 82 mm [Hg] Diastolic Blood Pressure 2024-09-29 09:54:00.000 86 mm [Hg] Diastolic Blood Pressure 2024-09-26 09:42:00.000 85 mm [Hg] Diastolic Blood Pressure 2024-09-24 10:50:00.000 79 mm [Hg] Diastolic Blood Pressure 2024-09-22 09:49:00.000 75 mm [Hg] Diastolic Blood Pressure 2024-09-19 14:38:00.000 65 mm [Hg] Diastolic Blood Pressure 2024-09-17 09:19:00.000 80 mm [Hg] Diastolic Blood Pressure 2024-09-15 09:54:00.000 78 mm [Hg] Diastolic Blood Pressure 2024-09-12 09:44:00.000 89 mm [Hg] Diastolic Blood Pressure 2024-09-10 10:04:00.000 79 mm [Hg] Diastolic Blood Pressure 2024-09-09 08:52:00.000 70 mm [Hg] Diastolic Blood Pressure 2024-09-06 09:39:00.000 70 mm [Hg] Plan of Treatment Planned Activity Planned Date Details Comments Future Scheduled Test SKILLED NU RSE TO EVALUATE PATIENT, IDENTIFY PRIMARY AND CO-MORBID CONDITIONS CODED PER CODING GUIDELINES, AND DEVELOP PATIENT SPECIFIC PLAN OF CARE THAT INCLUDES PATIENT GOAL FOR HOME HEALTH. [code = SKILLED NURSE TO EVALUATE PATIENT, IDENTIFY PRIMARY AND CO-MORBID CONDITIONS CODED PER CODING GUIDELINES, AND DEVELOP PATIENT SPECIFIC PLAN OF CARE THAT INCLUDES PATIENT GOAL FOR HOME HEALTH.] Future Scheduled Test SKILLED NU RSE TO PRE-POUR MEDICATION PER MEDICATION LIST [code = SKILLED NURSE TO PRE-POUR MEDICATION PER MEDICATION LIST] Future Scheduled Test PATIENT MA Y HAVE ONE SET OF EMERGENCY MEDICATION NOT TO BE PRE-POURED ANY SOONER THAN 24 HOURS BEFORE SEVERE INCLEMENT WEATHER OR EMERGENT EVENT AND FOLLOWING SKILLED NURSE EVALUATION OF PATIENT SAFETY. [code = PATIENT MAY HAVE ONE SET OF EMERGENCY MEDICATION NOT TO BE PRE-POURED ANY SOONER THAN 24 HOURS BEFORE SEVERE INCLEMENT WEATHER OR EMERGENT EVENT AND FOLLOWING SKILLED NURSE EVALUATION OF PATIENT SAFETY.] Future Scheduled Test SKILLED NU RSE TO O/A OF PATIENTS MENTAL/BEHAVIORAL STATUS, ASSESS VITAL SIGNS 3WK8 ALLOW 2 PRNS FOR MEDICATION MANAGEMENT. [code = SKILLED NURSE TO O/A OF PATIENTS MENTAL/BEHAVIORAL STATUS, ASSESS VITAL SIGNS 3WK8 ALLOW 2 PRNS FOR MEDICATION MANAGEMENT.] Future Scheduled Test SKILLED NU RSE FOR O/A OF PATIENT'S RISK FOR VIOLENCE AND TO PROVIDE INTERVENTION TECHNIQUES TO PROMOTE SAFETY TO PATIENT AND OTHERS [code = SKILLED NURSE FOR O/A OF PATIENT'S RISK FOR VIOLENCE AND TO PROVIDE INTERVENTION TECHNIQUES TO PROMOTE SAFETY TO PATIENT AND OTHERS] Future Scheduled Test SKILLED NU RSE MAY PICKUP AND TRANSPORT MEDICATIONS [code = SKILLED NURSE MAY PICKUP AND TRANSPORT MEDICATIONS] Future Scheduled Test SKILLED NU RSE FOR O/A OF GENERAL HEALTH STATUS OF PAIN, CARDIAC, RESPIRATORY, GASTROINTESTINAL, GENITOURINARY, SKIN, NEUROLOGIC, ENDOCRINE SYSTEMS TO IDENTIFY CHANGES ASSOCIATED WITH EXACERBATION FOR EARLY INTERVENTION OF COMPLICATIONSWEEKLY. [code = SKILLED NURSE FOR O/A OF GENERAL HEALTH STATUS OF PAIN, CARDIAC, RESPIRATORY, GASTROINTESTINAL, GENITOURINARY, SKIN, NEUROLOGIC, ENDOCRINE SYSTEMS TO IDENTIFY CHANGES ASSOCIATED WITH EXACERBATION FOR EARLY INTERVENTION OF COMPLICATIONSWEEKLY.] Future Scheduled Test SKILLED NU RSE FOR O/A AND SKILLED TEACHING OF COPING SKILLS TO MANAGE ANXIETY AND MAINTAIN SAFETY. [code = SKILLED NURSE FOR O/A AND SKILLED TEACHING OF COPING SKILLS TO MANAGE ANXIETY AND MAINTAIN SAFETY.] Future Scheduled Test SKILLED NU RSE FOR O/A AND SKILLED TEACHING RELATED TO MANAGEMENT OF DEPRESSIVE SYMPTOMS AND/OR DEPRESSION. SN TO REPORT SIGNIFICANT CHANGE IN DEPRESSIVE SYMPTOMS TO CLINICAL PROVIDER FOR EARLY INTERVENTION. [code = SKILLED NURSE FOR O/A AND SKILLED TEACHING RELATED TO MANAGEMENT OF DEPRESSIVE SYMPTOMS AND/OR DEPRESSION. SN TO REPORT SIGNIFICANT CHANGE IN DEPRESSIVE SYMPTOMS TO CLINICAL PROVIDER FOR EARLY INTERVENTION.] Future Scheduled Test SKILLED NU RSE FOR O/A OF SIGNS AND SYMPTOMS OF SUBSTANCE USE INCLUDING PARTICIPATION IN [facility] SPECIALTY PROGRAM. NURSE TO COLLABORATE WITH PATIENT AND COMMUNITY PROVIDERS IN THE DEVELOPMENT AND IMPLEMENTATION OF A TARGETED RECOVERY PLAN. [code = SKILLED NURSE FOR O/A OF SIGNS AND SYMPTOMS OF SUBSTANCE USE INCLUDING PARTICIPATION IN [facility] SPECIALTY PROGRAM. NURSE TO COLLABORATE WITH PATIENT AND COMMUNITY PROVIDERS IN THE DEVELOPMENT AND IMPLEMENTATION OF A TARGETED RECOVERY PLAN.] Future Scheduled Test SKILLED NU RSE FOR O/A AND TEACHING OF ENDOCRINE SYSTEM TO IDENTIFY CHANGES ASSOCIATED WITH EXACERBATION OF T2DM FOR EARLY INTERVENTION OF COMPLICATIONS. [code = SKILLED NURSE FOR O/A AND TEACHING OF ENDOCRINE SYSTEM TO IDENTIFY CHANGES ASSOCIATED WITH EXACERBATION OF T2DM FOR EARLY INTERVENTION OF COMPLICATIONS.] Future Scheduled Test SKILLED NU RSE FOR O/A AND TEACHING OF DIABETIC MANAGEMENT INCLUDING BLOOD SUGAR MONITORING/USE OF GLUCOMETER, DIABETIC DIET, LOWER EXTREMITY SKIN INSPECTION, PROPER SKIN/FOOT CARE, AND SIGNS AND SYMPTOMS HYPO/HYPERGLYCEMIA TO REPORT. [code = SKILLED NURSE FOR O/A AND TEACHING OF DIABETIC MANAGEMENT INCLUDING BLOOD SUGAR MONITORING/USE OF GLUCOMETER, DIABETIC DIET, LOWER EXTREMITY SKIN INSPECTION, PROPER SKIN/FOOT CARE, AND SIGNS AND SYMPTOMS HYPO/HYPERGLYCEMIA TO REPORT.] Future Scheduled Test SKILLED NU RSE TO PROVIDE TEACHING ON SIGNS AND SYMPTOMS AND MANAGEMENT OF HYPERTENSION. [code = SKILLED NURSE TO PROVIDE TEACHING ON SIGNS AND SYMPTOMS AND MANAGEMENT OF HYPERTENSION.] Future Scheduled Test SKILLED NU RSE TO PERFORM HOME SAFETY AND FALL ASSESSMENT AND PROVIDE INSTRUCTION TO IMPLEMENT HOME SAFETY AND FALL PREVENTION STRATEGIES. [code = SKILLED NURSE TO PERFORM HOME SAFETY AND FALL ASSESSMENT AND PROVIDE INSTRUCTION TO IMPLEMENT HOME SAFETY AND FALL PREVENTION STRATEGIES.] Future Scheduled Test SKILLED NU RSE FOR OBSERVATION AND ASSESSMENT OF PATIENTS PAIN LEVEL AND EFFECTIVENESS OF PAIN MANAGEMENT REGIMEN. SKILLED NURSE TO INSTRUCT PATIENT/CAREGIVER REGARDING PHARMACOLOGIC AND NON-PHARMACOLOGIC PAIN CONTROL MEASURES. SKILLED NURSE TO REPORT TO PHYSICIAN IF PAIN IS UNCONTROLLED WITH CURRENT PAIN MANAGEMENT REGIMEN. [code = SKILLED NURSE FOR OBSERVATION AND ASSESSMENT OF PATIENTS PAIN LEVEL AND EFFECTIVENESS OF PAIN MANAGEMENT REGIMEN. SKILLED NURSE TO INSTRUCT PATIENT/CAREGIVER REGARDING PHARMACOLOGIC AND NON-PHARMACOLOGIC PAIN CONTROL MEASURES. SKILLED NURSE TO REPORT TO PHYSICIAN IF PAIN IS UNCONTROLLED WITH CURRENT PAIN MANAGEMENT REGIMEN.] Future Scheduled Test SKILLED NU RSE FOR O/A OF RESPIRATORY SYSTEM TO IDENTIFY CHANGES ASSOCIATED WITH EXACERBATION AND TO PROVIDE SKILLED TEACHING ON MANAGEMENT OF HYPOXIA RESPIRATORY DISEASE PROCESS. [code = SKILLED NURSE FOR O/A OF RESPIRATORY SYSTEM TO IDENTIFY CHANGES ASSOCIATED WITH EXACERBATION AND TO PROVIDE SKILLED TEACHING ON MANAGEMENT OF HYPOXIA RESPIRATORY DISEASE PROCESS.] Future Scheduled Test PHYSICAL T HERAPIST TO EVALUATE PATIENT FOR PT EVALUATION [code = PHYSICAL THERAPIST TO EVALUATE PATIENT FOR PT EVALUATION ] Future Scheduled Test OCCUPATION AL THERAPIST TO EVALUATE PATIENT FOR OT EVALUATION [code = OCCUPATIONAL THERAPIST TO EVALUATE PATIENT FOR OT EVALUATION ] Future Scheduled Test SKILLED NU RSE FOR O/A, TEACHING AND MANAGEMENT OF INCONTINENCE FOR EARLY IDENTIFICATION OF EXACERBATION OF DISEASE PROCESS [code = SKILLED NURSE FOR O/A, TEACHING AND MANAGEMENT OF INCONTINENCE FOR EARLY IDENTIFICATION OF EXACERBATION OF DISEASE PROCESS] Future Scheduled Test SKILLED NU RSE TO PROVIDE TEACHING/REINFORCEMENT RELATED TO URINARY INCONTINENCE. [code = SKILLED NURSE TO PROVIDE TEACHING/REINFORCEMENT RELATED TO URINARY INCONTINENCE.] Future Scheduled Test PATIENT SEYMOUR S A RISK OF HOSPITALIZATION AND ED USE. SKILLED NURSE TO ESTABLISH SUPPORT MEASURES TO MINIMIZE RISK OF HOSPITALIZATION AND ED USE, AND INSTRUCT PATIENT/CAREGIVER ON METHODS TO REDUCE AVOIDABLE HOSPITALIZATION AND ED USE. [code = PATIENT HAS A RISK OF HOSPITALIZATION AND ED USE. SKILLED NURSE TO ESTABLISH SUPPORT MEASURES TO MINIMIZE RISK OF HOSPITALIZATION AND ED USE, AND INSTRUCT PATIENT/CAREGIVER ON METHODS TO REDUCE AVOIDABLE HOSPITALIZATION AND ED USE.] Future Scheduled Test SKILLED NU RSE TO REVIEW PATIENT MEDICATIONS. INSTRUCT PATIENT/CAREGIVER ON MONITORING OF EFFECTIVENESS, ADVERSE DRUG REACTIONS, SIDE EFFECTS OF ALL MEDICATIONS (PRESCRIPTION/-OTC), AND HOW AND WHEN TO REPORT PROBLEMS. [code = SKILLED NURSE TO REVIEW PATIENT MEDICATIONS. INSTRUCT PATIENT/CAREGIVER ON MONITORING OF EFFECTIVENESS, ADVERSE DRUG REACTIONS, SIDE EFFECTS OF ALL MEDICATIONS (PRESCRIPTION/-OTC), AND HOW AND WHEN TO REPORT PROBLEMS.] Future Scheduled Test SKILLED NU RSE FOR O/A OF CLIENT'S SOCIAL ISOLATION AND PROVIDE ASSISTANCE TO CLIENT IN DEVELOPMENT OF PLANNED ACTIVITIES [code = SKILLED NURSE FOR O/A OF CLIENT'S SOCIAL ISOLATION AND PROVIDE ASSISTANCE TO CLIENT IN DEVELOPMENT OF PLANNED ACTIVITIES] Future Scheduled Test SKILLED NU RSE FOR O/A OF CLIENT'S CURRENT DEGREE OF HOPELESSNESS AND PROVIDE THERAPEUTIC INTERVENTIONS AND TEACHING DESIGNED TO ENHANCE THE CLIENT'S WELL BEING. [code = SKILLED NURSE FOR O/A OF CLIENT'S CURRENT DEGREE OF HOPELESSNESS AND PROVIDE THERAPEUTIC INTERVENTIONS AND TEACHING DESIGNED TO ENHANCE THE CLIENT'S WELL BEING.] Future Scheduled Test SKILLED NU RSE TO ASSESS PATIENTS PSYCHOSOCIAL STATUS TO IDENTIFY POTENTIAL ISSUES THAT MAY COMPLICATE THE PROVISION OF THE PLAN OF CARE INCLUDING THE PATIENTS ABILITY TO ACCESS COMMUNITY RESOURCES AND PSYCHOSOCIAL SUPPORT SERVICES. [code = SKILLED NURSE TO ASSESS PATIENTS PSYCHOSOCIAL STATUS TO IDENTIFY POTENTIAL ISSUES THAT MAY COMPLICATE THE PROVISION OF THE PLAN OF CARE INCLUDING THE PATIENTS ABILITY TO ACCESS COMMUNITY RESOURCES AND PSYCHOSOCIAL SUPPORT SERVICES.] Future Scheduled Test SKILLED NU RSE WILL MAINTAIN SITUATIONAL AWARENESS FOR SAFETY AND WILL NOTIFY CLINICAL SORT OPERATIONS SUPERVISOR AND PHYSICIAN/PROVIDER WITH ANY CHANGE IN CONDITION. [code = SKILLED NURSE WILL MAINTAIN SITUATIONAL AWARENESS FOR SAFETY AND WILL NOTIFY CLINICAL SORT OPERATIONS SUPERVISOR AND PHYSICIAN/PROVIDER WITH ANY CHANGE IN CONDITION.] Future Scheduled Test SKILLED NU RSE TO PROVIDE INSTRUCTION TO PATIENT/CAREGIVER RELATED TO DISCHARGE PLANNING. [code = SKILLED NURSE TO PROVIDE INSTRUCTION TO PATIENT/CAREGIVER RELATED TO DISCHARGE PLANNING.] Future Scheduled Test OXYGEN VIA NASAL CANNULA @ 2 LITERS @ HSSKILLED NURSE FOR O/A AND SKILLED TEACHING OF SAFE OXYGEN USE IN THE HOME. [code = OXYGEN VIA NASAL CANNULA @ 2 LITERS @ HSSKILLED NURSE FOR O/A AND SKILLED TEACHING OF SAFE OXYGEN USE IN THE HOME.] Goal Patient Goal - P ATIENT VERBALIZED GOAL OF GETTING STRONGER AND GET OFF OF THESE MEDICATIONS Goal Provider Goal - A PLAN OF CARE WILL BE ESTABLISHED THAT MEETS PATIENT'S ASSISTED NEEDS AND INCLUDES PATIENT GOAL FOR HOME HEALTH. Goal Provider Goal - PATIENT WILL COMPLY WITH MEDICATION WHEN SKILLED NURSE PRE-POURS MEDICATION THROUGHOUT CERTIFICATION PERIOD. Goal Provider Goal - MEDICATION WILL BE AVAILABLE DURING INCLEMENT WEATHER OR EMERGENT EVENT THROUGHOUT CERTIFICATION PERIOD. Goal Provider Goal - ALTERED MENTAL/BEHAVIORAL STATUS WILL BE IDENTIFIED PROMPTLY AND INTERVENTION INITIATED QUICKLY TO MINIMIZE ASSOCIATED RISKS THROUGHOUT CERTIFICATION PERIOD. Goal Provider Goal - PATIENT WILL REMAIN SAFE IN COMMUNITY WITHOUT EVIDENCE OF INJURY/HARM TO SELF OR OTHERS THROUGHOUT CERTIFICATION PERIOD. Goal Provider Goal - SKILLED NURSE PICKED UP AND TRANSPORTED MEDICATIONS FOR SAFETY. Goal Provider Goal - CHANGE IN GENERAL HEALTH STATUS WILL BE IDENTIFIED AND REPORTED TO PHYSICIAN FOR PROMPT INTERVENTION TO MINIMIZE ASSOCIATED RISKS THROUGHOUT CERTIFICATION PERIOD. Goal Provider Goal - PATIENT WILL BE ABLE TO PERFORM DAILY FUNCTIONS AND HAVE OPTIMAL IMPROVEMENT IN LEVEL OF ANXIETY THROUGHOUT CERTIFICATION PERIOD. Goal Provider Goal - PATIENT WILL REMAIN SAFE WITHOUT DECOMPENSATION IN DEPRESSIVE CONDITION, WHILE MAINTAINING OPTIMAL LEVEL OF MENTAL HEALTH AND WELL BEING THROUGHOUT CERTIFICATION PERIOD. Goal Provider Goal - PATIENT WILL ACTIVELY PARTICIPATE IN AN ONGOING TARGETED RECOVERY PLAN THROUGHOUT CERTIFICATION PERIOD. Goal Provider Goal - PATIENT/CAREGIVER WILL VERBALIZE SIGNS AND SYMPTOMS OF EXACERBATION OF T2DM TO REPORT TO NURSE/PHYSICIAN THROUGHOUT THE CERTIFICATION PERIOD. Goal Provider Goal - PATIENT/CAREGIVER WILL VERBALIZE/DEMONSTRATE KNOWLEDGE OF DIABETIC MANAGEMENT. CHANGES IN DIABETIC STATUS WILL BE IDENTIFIED AND REPORTED TO PHYSICIAN FOR PROMPT INTERVENTION THROUGHOUT THE CERTIFICATION PERIOD. Goal Provider Goal - PATIENT/CAREGIVER WILL VERBALIZE SIGNS AND SYMPTOMS OF HYPERTENSION AND WILL BE ABLE TO DEMONSTRATE ABILITY TO MANAGE EXACERBATION BY END OF THE EPISODE. Goal Provider Goal - PATIENT/CAREGIVER WILL VERBALIZE/DEMONSTRATE EFFECTIVE HOME SAFETY AND FALL PREVENTION STRATEGIES THROUGHOUT CERTIFICATION PERIOD. Goal Provider Goal - PATIENT/CAREGIVER WILL DEMONSTRATE UNDERSTANDING OF PHARMACOLOGIC AND NONPHARMACOLOGIC PAIN CONTROL MEASURES AND PATIENT WILL HAVE IMPROVEMENT IN PAIN INTERFERING WITH ACTIVITY EVIDENCED BY PAIN CONTROLLED AT LEVEL OF 1 OR LESS BY END OF CERTIFICATION PERIOD. Goal Provider Goal - PATIENT/CAREGIVER WILL VERBALIZE/DEMONSTRATE MANAGEMENT OF HYPOXIA RESPIRATORY DISEASE PROCESS. CHANGES IN RESPIRATORY STATUS WILL BE IDENTIFIED AND REPORTED TO PHYSICIAN FOR PROMPT INTERVENTION THROUGHOUT THE CERTIFICATION PERIOD. Goal Provider Goal - A PHYSICAL THERAPY EVALUATION TO BE COMPLETED WITH RECOMMENDATIONS AND/OR WRITTEN PLAN OF TREATMENT ESTABLISHED FOR PHYSICIANS SIGNATURE. Goal Provider Goal - OCCUPATIONAL THERAPY EVALUATION TO BE COMPLETED WITH RECOMMENDATIONS AND WRITTEN PLAN OF TREATMENT ESTABLISHED FOR THE PHYSICIANS SIGNATURE. Goal Provider Goal - PATIENT/CAREGIVER WILL VERBALIZE UNDERSTANDING OF INCONTINENCE GENITOURINARY DISEASE PROCESS, AND EXACERBATIONS OF GENITOURINARY DISEASE WILL BE PROMPTLY IDENTIFIED FOR EARLY INTERVENTION THROUGHOUT THE CERTIFICATION PERIOD. Goal Provider Goal - PATIENT / CAREGIVER WILL VERBALIZE UNDERSTANDING OF EFFECTS OF URINARY INCONTINENCE BY THE END OF THE CERTIFICATION PERIOD. Goal Provider Goal - PATIENT WILL HAVE SUPPORT MEASURES ESTABLISHED TO PREVENT HOSPITALIZATION AND ED USE AND PATIENT/CAREGIVER WILL VERBALIZE/DEMONSTRATE METHODS TO REDUCE AVOIDABLE HOSPITALIZATION AND ED USE BY END OF EPISODE. Goal Provider Goal - PATIENT/CAREGIVER WILL VERBALIZE UNDERSTANDING OF EDUCATION PROVIDED ON MEDICATIONS BY THE END OF THE CERTIFICATION PERIOD. Goal Provider Goal - PATIENT WILL DEMONSTRATE AN INCREASED INTEREST IN SOCIALIZATION AND ACTIVITIES BY THE END OF THE CERTIFICATION PERIOD. Goal Provider Goal - PATIENT WILL VERBALIZE OWN ASSOCIATION OF FEELINGS OF HOPELESSNESS, AND 3 THERAPEUTIC TECHNIQUES TO DECREASE THESE FEELINGS BY THE END OF THIS CERTIFICATION. Goal Provider Goal - PSYCHOSOCIAL NEEDS WILL BE IDENTIFIED AND PLAN IMPLEMENTED TO MINIMIZE RISK THROUGHOUT CERTIFICATION PERIOD. Goal Provider Goal - PATIENT WILL REMAIN SAFE IN THE COMMUNITY AND WILL BE FREE OF DANGER TO SELF AND OTHERS THROUGHOUT THE CERTIFICATION PERIOD. Goal Provider Goal - PATIENT/CAREGIVER WILL VERBALIZE UNDERSTANDING OF DISCHARGE PLANNING INSTRUCTIONS BY DATE OF DISCHARGE. Goal Provider Goal - PATIENT/CAREGIVER WILL VERBALIZE/DEMONSTRATE UNDERSTANDING OF SAFE OXYGEN USE IN THE HOME THROUGHOUT THE EPISODE. Progress Notes Progress Notes <paragraph>[Visit Date: 2023 by VASHTI MORRISSEY RN]:</paragraph><paragraph>NO CURRENT CONCERN AT THIS TIME</paragraph> Encounters Start Date/Time End Date/Time Encounter Type Admission Type Attending [facility] Care Department Encounter ID Discharge Date Discharge Status Discharge Condition Discharge Reason Percent Goals Met 2024-09-06 00:00:00 2024-11-04 00:00:00 Outpatient NEW ADMISSION VASHTI MORRISSEY [facility] [id number] [id number]
== END 2024-10-08 10:02 | disposition home or self-care (01) ==
PROVIDERS: Visit Provider Nurse Practitioner Psychiatric/Mental Health
DX: F11.20 Opioid dependence, uncomplicated (principal)
CPT/HCPCS: 98967

== ENCOUNTER → 2024-10-08 09:01 | Outpatient (BNVA) | payer MEDICARE, SELFPAY | PROVIDERS: Visit Provider Nurse Practitioner Psychiatric/Mental Health ==

== ENCOUNTER 2024-10-09 14:18 | Outpatient (AMB) | payer MEDICARE, SELFPAY ==
[2024-10-09 14:19] VITALS: BP 128/64; PULSE 73; O2SAT 96; BMI 41.2
--- NOTE | 2024-10-09 14:19 | A.OFFVIS_ITS ---
Vital Signs 10/09/24 14:19 Height 5 ft 1 in Weight 218 lb 4.122 oz BMI 41.2 BP 128/64 Blood Pressure Location Lt brachial Position Sitting Pulse 73 Pulse Source Doppler Pulse Oximetry (%) 96 Oxygen Delivery Method Room Air Intake Visit Reasons: nocturnal hypoxemia Allergies No Known Allergies Allergy (Verified 10/09/24 14:24) HPI HPI nocturnal hypoxemia: Details: 69-year-old lady, nonsmoker, with underlying history of asthma agonist with Arnuity and albuterol MDI and recent admission to [facility] for hyponatremia where patient was noted to have nocturnal hypoxemia. Patient denies her prior sleep studies. She also denies having pulmonary function tests. She does not have any other pulmonary related concerns at this time. She denies prior personal or family history of lung disease. [facility] Medical History (Updated 10/09/24 @ 14:37 by Clyde Roldan MD) Acute hyponatremia PTSD (post-traumatic stress disorder) Psychogenic polydipsia Social History Household Members: None Household Members Other:: 2 dogs Housing: House Do you presently have visiting nurse or other home services: No Comment: ambulates with steady gait Patient Tobacco Use Status: Never used Tobacco e-Cigarette/Vaping Use: Never Used Second Hand Smoke Exposure: No Substance Use Type: Prescription Drugs service: No Sexual orientation: Straight/Heterosexual Review of Systems Const Denies daytime sleepiness, Denies excessive sweating, Denies fatigue, Denies fever(s), Denies lethargy, Denies malaise, Denies night sweats, Denies snoring and Denies weight loss Eyes Denies blurry vision and Denies itchy eyes ENT Denies nasal congestion, Denies post nasal drip, Denies sinus pain, Denies sinus pressure and Denies other ( Thrush) Card Denies chest pain, Denies pedal edema, Denies dyspnea, Denies orthopnea and Denies paroxysmal nocturnal dyspnea Resp Denies cough, Denies hemoptysis, Denies excessive phlegm production, Denies dyspnea, Denies snoring and Denies wheezing GI Denies abdominal pain and Denies heartburn Musc Denies myalgias, Denies arthralgias and Denies joint swelling Skin/Breast Denies rash Neuro Denies memory loss and Denies seizure-like activity Psych Denies abnormal sleep pattern, Denies anxiety and Denies memory loss Endo Denies excessive sweating, Denies fatigue and Denies heat intolerance Prateek/Lymph Denies easy bruising Aller/Immun Denies itchy eyes, Denies seasonal rhinorrhea and Denies wheezing Physical Exam Vital Signs: Last Vital Signs Pulse 73 10/09/24 14:19 BP 128/64 10/09/24 14:19 Pulse Ox 96 10/09/24 14:19 Oxygen Delivery Method Room Air 10/09/24 14:19 BMI result Body Mass Index 41.2 Const General: no acute distress and alert Nutritional Appearance: obese Orientation/consciousness: Other orientation findings ( oriented) HEENT Head: Yes atraumatic Eyes General: appearance normal, both eyes and all related structures Sclerae: sclerae normal EOM: EOMs intact bilaterally Neck Neck: Yes supple Lymphatic: no lymphadenopathy noted Resp Effort & Inspection: normal respiratory effort and no use of accessory muscles Auscultation: clear to auscultation bilaterally Cardio Rate: regular rate Rhythm: regular rhythm Heart sounds: no gallops, no murmurs and no rubs Skin General skin exam: other ( warm) Extrem General: No clubbing, No cyanosis and No edema Assessment & Plan Assessment & Plan (1) Asthma: Code(s): J45.909 - Unspecified asthma, uncomplicated Category: Medical Plan: Likely underlying asthma of unclear severity. Will obtain full PFT. Continue current regimen of Arnuity and albuterol MDI. (2) TRICIA (obstructive sleep apnea): Code(s): G47.33 - Obstructive sleep apnea (adult) (pediatric) Category: Medical Plan: Likely underlying TRICIA. Unrestful sleep, daytime sleepiness, previously nocturnal hypoxemia. Will obtain home sleep study. Van Sleepiness Scale score of 18. (3) Nocturnal hypoxemia: Code(s): G47.34 - Idiopathic sleep related nonobstructive alveolar hypoventilation Category: Medical Plan: Likely related to underlying obstructive sleep apnea, if sleep apnea test is negative, will consider overnight oximetry. Orders: Orders RT home sleep study Today G47.33 - Obstructive sleep apnea (adult) (pediatric) PFT pulmonary function test Today J45.909 - Unspecified asthma, uncomplicated Coding Level of Care Code New Pt Level 4 (66604) Diagnoses Asthma J45.909 TRICIA (obstructive sleep apnea) G47.33 Nocturnal hypoxemia G47.34
--- OUTSIDE RECORDS SUMMARY | 2024-10-09 14:20 | XMS_ITS | Clinical Summary ---
Author Organization Unknown Care Team Providers Care Abstract Clerk Name Role Phone EVELYNE GRULLON, SUBHASH Unavailable Unavailable YUNI CA, VASHTI Unavailable Unavailable Payers Payer Name Policy Type Policy Number Effective Date Expira tion Date [facility] ADV [id number] MEDICARE - [place] PDGM [id number] Problems Condition Name Condition Details Condition Category [...] powder for inhalation 2023-10 00:00: 00 Yes [id number] 1 inhalat ion EVERY AM 1 inhalation EVERY AM (route: inhalation ) Med Classific ation: Respirato ry Therapy Agents rosuvastati n 10 mg tablet 2023-10 0-15 00:00: 00 Yes [id number] 1 tablet BEDTIME 1 tablet BEDTIME (route: oral) Med Classific ation: Cardiovas cular Therapy Agents escitalopra m 5 mg tablet 30 00:00: 00 Yes [id number] 1 tablet EVERY AM 1 tablet EVERY AM (route: oral) Med Classific ation: Central Nervous System Agents albuterol sulfate HFA 90 mcg/actuati on aerosol inhaler 2023-10 00:00: 00 Yes [id number] FOR WHEEZING 2 puff EVERY 4 HOURS 2 puff EVERY 4 HOURS (route: inhalation ) Med Classific ation: Respirato ry Therapy Agents carvedilol 12.5 mg tablet 2023-10 00:00: 00 Yes [id number] HOLD FOR SBP <90 1 tablet 2 TIMES DAILY 1 tablet 2 TIMES DAILY (route: oral) Med Classific ation: Cardiovas cular Therapy Agents cefuroxime axetil 250 mg tablet 2023-10 00:00: 00 Yes [id number] 1 tablet 2 TIMES DAILY 1 tablet 2 TIMES DAILY (route: oral) Med Classific ation: Anti-Infe ctive Agents clonazepam 1 mg tablet 2023-10 00:00: 00 Yes [id number] 1 tablet 2 TIMES DAILY 1 tablet 2 TIMES DAILY (route: oral) Med Classific ation: Central Nervous System Agents Clotrimazol e AF 1 % topical cream 2023-10 00:00: 00 Yes [id number] 1 inch 2 TIMES DAILY 1 inch 2 TIMES DAILY (route: topical) Med Classific ation: Dermatolo gical hydroxyzine HCl 25 mg tablet 2023-10 00:00: 00 Yes [id number] ANXIETY 1 tablet EVERY 6 HOURS 1 tablet EVERY 6 HOURS (route: oral) Med Classific ation: Central Nervous System Agents Lidocaine Pain Relief 4 % topical patch 2023-10 00:00: 00 Yes [id number] APPLY TO BACK 1 adhesiv e patch, medicat ed EVERY AM 1 adhesive patch, medicated EVERY AM (route: topical) Med Classific ation: Dermatolo gical metformin 500 mg tablet 2023-10 00:00: 00 Yes [id number] 1 tablet EVERY AM 1 tablet EVERY AM (route: oral) Med Classific ation: Endocrine naloxone 4 mg/actuatio n nasal spray 2023-10 00:00: 00 Yes [id number] OPIOD OVERDOSE Per instruc tions NEEDED Per instructio ns NEEDED (route: nasal) Med Classific ation: Antidotes and other Reversal Agents nystatin 100,000 unit/gram topical cream 2023-10 00:00: 00 Yes [id number] TO ABDOMINAL FOLD 1 inch 2 TIMES DAILY 1 inch 2 TIMES DAILY (route: topical) Med Classific ation: Dermatolo gical quetiapine 100 mg tablet 2023-10 00:00: 00 09-23 23:59 :00 No [id number] 1 tablet 3 TIMES DAILY 1 tablet 3 TIMES DAILY (route: oral) Med Classific ation: Central Nervous System Agents quetiapine 50 mg tablet 2023-10 00:00: 00 09-23 23:59 :00 No [id number] MODERATE ANXIETY 1 tablet EVERY 6 HOURS 1 tablet EVERY 6 HOURS (route: oral) Med Classific ation: Central Nervous System Agents sodium chloride 1,000 mg soluble tablet 2023-10 00:00: 00 Yes [id number] 1 tablet 2 TIMES DAILY 1 tablet 2 TIMES DAILY (route: miscellane ous) Med Classific ation: Electroly te Balance-N utritiona l Products trazodone 50 mg tablet 2023-10 00:00: 00 09-08 23:59 :00 No [id number] 1 tablet BEDTIME 1 tablet BEDTIME (route: oral) Med Classific ation: Central Nervous System Agents venlafaxine 37.5 mg tablet 2023-10 00:00: 00 Yes [id number] 1 tablet EVERY AM 1 tablet EVERY AM (route: oral) Med Classific ation: Central Nervous System Agents buprenorphi ne 4 mg-naloxone 1 mg sublingual film 2023-10 00:00: 00 Yes [id number] 1 film 2 TIMES DAILY 1 film 2 TIMES DAILY (route: sublingual ) Med Classific ation: Chemical Dependenc y, Agents to Treat furosemide 20 mg tablet 2023-10 00:00: 00 Yes [id number] 1 tablet EVERY AM 1 tablet EVERY AM (route: oral) Med Classific ation: Cardiovas cular Therapy Agents OXYGEN 2023-10 00:00: 00 Yes [id number] 2 Liter BEDTIME 2 Liter BEDTIME (route: Oxygen) Med Classific ation: Medical Oxygen Adult Low Dose Aspirin 81 mg tablet,marisol yed release 2023-10 00:00: 00 Yes [id number] 1 tablet EVERY AM 1 tablet EVERY AM (route: oral) Med Classific ation: Hematolog ical Agents clonidine HCl 0.1 mg tablet 2023-10 00:00: 00 Yes [id number] HOLD FOR SBP <90 .5 tablet 3 TIMES DAILY .5 tablet 3 TIMES DAILY (route: oral) Med Classific ation: Cardiovas cular Therapy Agents Colace 100 mg capsule 2023-10 00:00: 00 Yes [id number] 1 capsule DAILY 1 capsule DAILY (route: oral) Med Classific ation: Gastroint estinal Therapy Agents Vital Signs Vital Name Observation Time Observation Value Commen ts Temperature 2024-10-06 10:16:00.000 97.1 [degF] Temperature 2024-09-29 10:16:00.000 98.1 [degF] Temperature 2024-09-29 [...] kg/m2 Height 2024-09-06 08:43:59.000 61 [in_us] Pulse 2024-10-06 10:16:00.000 68 /min Pulse 2024-09-29 10:16:00.000 66 /min Pulse 2024-09-29 [...] Saturation (%) 2024-09-06 09:40:00.000 98 % Respirations 2024-10-06 10:16:00.000 16 /min Respirations 2024-09-29 10:16:00.000 16 /min Respirations 2024-09-29 [...] 2024-09-06 08:44:06.000 240 [lb_av] Systolic Blood Pressure 2024-10-06 10:16:00.000 117 mm [Hg] Systolic Blood Pressure 2024-09-29 10:16:00.000 150 mm [...] 09:39:00.000 130 mm [Hg] Diastolic Blood Pressure 2024-10-06 10:16:00.000 68 mm [Hg] Diastolic Blood Pressure 2024-09-29 10:16:00.000 [...] SYMPTOMS OF SUBSTANCE USE INCLUDING PARTICIPATION IN [facility] SPECIALTY PROGRAM. NURSE TO COLLABORATE WITH PATIENT AND COMMUNITY PROVIDERS IN THE DEVELOPMENT AND IMPLEMENTATION OF A TARGETED RECOVERY PLAN. [code = SKILLED NURSE FOR O/A OF SIGNS AND SYMPTOMS OF SUBSTANCE USE INCLUDING PARTICIPATION IN [facility] SPECIALTY PROGRAM. NURSE TO COLLABORATE WITH PATIENT [...] AWARENESS FOR SAFETY AND WILL NOTIFY CLINICAL STRUCTURAL METAL FABRICATOR APPRENTICE AND PHYSICIAN/PROVIDER WITH ANY CHANGE IN CONDITION. [code = SKILLED NURSE WILL MAINTAIN SITUATIONAL AWARENESS FOR SAFETY AND WILL NOTIFY CLINICAL STRUCTURAL METAL FABRICATOR APPRENTICE AND PHYSICIAN/PROVIDER WITH ANY CHANGE IN CONDITION.] [...] CARE WILL BE ESTABLISHED THAT MEETS PATIENT'S LONG-TERM NEEDS AND INCLUDES PATIENT GOAL FOR HOME [...] End Date/Time Encounter Type Admission Type Attending [facility] Care Department Encounter ID Discharge Date Discharge Status Discharge Condition Discharge Reason Percent Goals Met 2024-09-06 00:00:00 2024-11-04 00:00:00 Outpatient NEW ADMISSION VASHTI MORRISSEY [facility] [id number] 44.29
--- OUTSIDE RECORDS SUMMARY | 2024-10-09 14:20 | XMS_ITS | Clinical Summary ---
Author Organization Unknown Care Team Providers Care Value Stream Coach Name Role Phone EVELYNE GRULLON, SUBHASH Unavailable Unavailable YUNI CA, VASHTI Unavailable Unavailable Payers Payer Name Policy Type Policy Number Effective Date Expira tion Date [facility] ADV [id number] MEDICARE - [place] PDGM [id number] Problems Condition Name Condition Details Condition Category [...] powder for inhalation 2023-10 00:00: 00 Yes [id number] 1 inhalat ion EVERY AM 1 inhalation EVERY AM (route: inhalation ) Med Classific ation: Respirato ry Therapy Agents rosuvastati n 10 mg tablet 2023-10 0-15 00:00: 00 Yes [id number] 1 tablet BEDTIME 1 tablet BEDTIME (route: oral) Med Classific ation: Cardiovas cular Therapy Agents escitalopra m 5 mg tablet 30 00:00: 00 Yes [id number] 1 tablet EVERY AM 1 tablet EVERY AM (route: oral) Med Classific ation: Central Nervous System Agents albuterol sulfate HFA 90 mcg/actuati on aerosol inhaler 2023-10 00:00: 00 Yes [id number] FOR WHEEZING 2 puff EVERY 4 HOURS 2 puff EVERY 4 HOURS (route: inhalation ) Med Classific ation: Respirato ry Therapy Agents carvedilol 12.5 mg tablet 2023-10 00:00: 00 Yes [id number] HOLD FOR SBP <90 1 tablet 2 TIMES DAILY 1 tablet 2 TIMES DAILY (route: oral) Med Classific ation: Cardiovas cular Therapy Agents cefuroxime axetil 250 mg tablet 2023-10 00:00: 00 Yes [id number] 1 tablet 2 TIMES DAILY 1 tablet 2 TIMES DAILY (route: oral) Med Classific ation: Anti-Infe ctive Agents clonazepam 1 mg tablet 2023-10 00:00: 00 Yes [id number] 1 tablet 2 TIMES DAILY 1 tablet 2 TIMES DAILY (route: oral) Med Classific ation: Central Nervous System Agents Clotrimazol e AF 1 % topical cream 2023-10 00:00: 00 Yes [id number] 1 inch 2 TIMES DAILY 1 inch 2 TIMES DAILY (route: topical) Med Classific ation: Dermatolo gical hydroxyzine HCl 25 mg tablet 2023-10 00:00: 00 Yes [id number] ANXIETY 1 tablet EVERY 6 HOURS 1 tablet EVERY 6 HOURS (route: oral) Med Classific ation: Central Nervous System Agents Lidocaine Pain Relief 4 % topical patch 2023-10 00:00: 00 Yes [id number] APPLY TO BACK 1 adhesiv e patch, medicat ed EVERY AM 1 adhesive patch, medicated EVERY AM (route: topical) Med Classific ation: Dermatolo gical metformin 500 mg tablet 2023-10 00:00: 00 Yes [id number] 1 tablet EVERY AM 1 tablet EVERY AM (route: oral) Med Classific ation: Endocrine naloxone 4 mg/actuatio n nasal spray 2023-10 00:00: 00 Yes [id number] OPIOD OVERDOSE Per instruc tions NEEDED Per instructio ns NEEDED (route: nasal) Med Classific ation: Antidotes and other Reversal Agents nystatin 100,000 unit/gram topical cream 2023-10 00:00: 00 Yes [id number] TO ABDOMINAL FOLD 1 inch 2 TIMES DAILY 1 inch 2 TIMES DAILY (route: topical) Med Classific ation: Dermatolo gical quetiapine 100 mg tablet 2023-10 00:00: 00 09-23 23:59 :00 No [id number] 1 tablet 3 TIMES DAILY 1 tablet 3 TIMES DAILY (route: oral) Med Classific ation: Central Nervous System Agents quetiapine 50 mg tablet 2023-10 00:00: 00 09-23 23:59 :00 No [id number] MODERATE ANXIETY 1 tablet EVERY 6 HOURS 1 tablet EVERY 6 HOURS (route: oral) Med Classific ation: Central Nervous System Agents sodium chloride 1,000 mg soluble tablet 2023-10 00:00: 00 Yes [id number] 1 tablet 2 TIMES DAILY 1 tablet 2 TIMES DAILY (route: miscellane ous) Med Classific ation: Electroly te Balance-N utritiona l Products trazodone 50 mg tablet 2023-10 00:00: 00 09-08 23:59 :00 No [id number] 1 tablet BEDTIME 1 tablet BEDTIME (route: oral) Med Classific ation: Central Nervous System Agents venlafaxine 37.5 mg tablet 2023-10 00:00: 00 Yes [id number] 1 tablet EVERY AM 1 tablet EVERY AM (route: oral) Med Classific ation: Central Nervous System Agents buprenorphi ne 4 mg-naloxone 1 mg sublingual film 2023-10 00:00: 00 Yes [id number] 1 film 2 TIMES DAILY 1 film 2 TIMES DAILY (route: sublingual ) Med Classific ation: Chemical Dependenc y, Agents to Treat furosemide 20 mg tablet 2023-10 00:00: 00 Yes [id number] 1 tablet EVERY AM 1 tablet EVERY AM (route: oral) Med Classific ation: Cardiovas cular Therapy Agents OXYGEN 2023-10 00:00: 00 Yes [id number] 2 Liter BEDTIME 2 Liter BEDTIME (route: Oxygen) Med Classific ation: Medical Oxygen Adult Low Dose Aspirin 81 mg tablet,marisol yed release 2023-10 00:00: 00 Yes [id number] 1 tablet EVERY AM 1 tablet EVERY AM (route: oral) Med Classific ation: Hematolog ical Agents clonidine HCl 0.1 mg tablet 2023-10 00:00: 00 Yes [id number] HOLD FOR SBP <90 .5 tablet 3 TIMES DAILY .5 tablet 3 TIMES DAILY (route: oral) Med Classific ation: Cardiovas cular Therapy Agents Colace 100 mg capsule 2023-10 00:00: 00 Yes [id number] 1 capsule DAILY 1 capsule DAILY (route: [...] SYMPTOMS OF SUBSTANCE USE INCLUDING PARTICIPATION IN [facility] SPECIALTY PROGRAM. NURSE TO COLLABORATE WITH PATIENT AND COMMUNITY PROVIDERS IN THE DEVELOPMENT AND IMPLEMENTATION OF A TARGETED RECOVERY PLAN. [code = SKILLED NURSE FOR O/A OF SIGNS AND SYMPTOMS OF SUBSTANCE USE INCLUDING PARTICIPATION IN [facility] SPECIALTY PROGRAM. NURSE TO COLLABORATE WITH PATIENT [...] AWARENESS FOR SAFETY AND WILL NOTIFY CLINICAL SWITCHER AND PHYSICIAN/PROVIDER WITH ANY CHANGE IN CONDITION. [code = SKILLED NURSE WILL MAINTAIN SITUATIONAL AWARENESS FOR SAFETY AND WILL NOTIFY CLINICAL SWITCHER AND PHYSICIAN/PROVIDER WITH ANY CHANGE IN CONDITION.] [...] CARE WILL BE ESTABLISHED THAT MEETS PATIENT'S RETIREMENT NEEDS AND INCLUDES PATIENT GOAL FOR HOME [...] End Date/Time Encounter Type Admission Type Attending [facility] Care Department Encounter ID Discharge Date Discharge Status Discharge Condition Discharge Reason Percent Goals Met 2024-09-06 00:00:00 2024-11-04 00:00:00 Outpatient NEW ADMISSION VASHTI MORRISSEY [facility] [id number] 44.29
--- OUTSIDE RECORDS SUMMARY | 2024-10-09 14:20 | XMS_ITS | Continuity of Care Document ---
Author Organization [facility] Address [address] [place] [address] Phone [phone] Social History Type Date Description Comments Sex Unknown Medical Devices Description No Information Available Encounters Description No Information Available Assessments Description No Information Available Plan of Treatment No Information Available Functional Status Description No Information Available Mental Status Description No Information Available Referrals Description No Information Available
== END 2024-10-09 14:34 | disposition home or self-care (01) ==
PROVIDERS: Visit Provider Internal Medicine Pulmonary Disease
DX: J45.909 Unspecified asthma, uncomplicated (principal); G47.33 Obstructive sleep apnea (adult) (pediatric); G47.34 Idiopathic sleep related nonobstructive alveolar hypoventilation
CPT/HCPCS: 99214

== ENCOUNTER → 2024-10-09 14:18 | Outpatient (BNVA) | payer MEDICARE, SELFPAY | PROVIDERS: Visit Provider Internal Medicine Pulmonary Disease | DX: G47.34 Idiopathic sleep related nonobstructive alveolar hypoventilation (principal); J45.909 Unspecified asthma, uncomplicated; G47.33 Obstructive sleep apnea (adult) (pediatric) | CPT/HCPCS: 99212 ==

== ENCOUNTER 2024-11-14 09:01 | Outpatient (AMB) | payer MEDICARE, SELFPAY ==
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
== END 2024-11-14 09:39 | disposition home or self-care (01) ==
PROVIDERS: PCP Internal Medicine; Visit Provider Nurse Practitioner Psychiatric/Mental Health
DX: F11.20 Opioid dependence, uncomplicated (principal)
CPT/HCPCS: 99214

== ENCOUNTER → 2024-11-14 09:01 | Outpatient (BNVA) | payer MEDICARE, SELFPAY | PROVIDERS: PCP Internal Medicine; Visit Provider Nurse Practitioner Psychiatric/Mental Health ==

== ENCOUNTER 2024-11-19 13:05 | Outpatient (REF) | payer MEDICARE, SELFPAY ==
--- NOTE | 2024-11-19 13:08 | PFT_ITS ---
Flows: FEV1: 94 % of predicted at 1.95 L FVC: 107 % of predicted at 2.83 L FEV1/FVC: 69 % Bronchodilator response: Absent Volumes: Total lung capacity: 93 % of predicted at 4.21 L Residual volume: 86 % of predicted at 1.47 L Slow vital capacity: 97 % of predicted at 2.75 L Expiratory reserve volume: 45 % of predicted at 0.29 L Diffusion capacity: Normal Impression: Borderline obstructive ventilatory defect with no bronchodilator response. Decreased expiratory reserve volume suggests extrathoracic restriction likely secondary to abdominal obesity. MTDD
--- OUTSIDE RECORDS SUMMARY | 2024-11-19 15:12 | XMS_ITS | Clinical Summary ---
Author Organization Unknown Care Team Providers Care Manager Deli Name Role Phone EVELYNE GRULLON, SUBHASH Unavailable Unavailable YUNI CA, VASHTI Unavailable Unavailable Payers Payer Name Policy Type Policy Number Effective Date Expira tion Date [facility] ADV [id number] MEDICARE - [place] PDGM [id number] Problems Condition Name Condition Details Condition Category [...] powder for inhalation 2023-10 00:00: 00 Yes [id number] 1 inhalat ion EVERY AM 1 inhalation EVERY AM (route: inhalation ) Med Classific ation: Respirato ry Therapy Agents rosuvastati n 10 mg tablet 2023-10 0-15 00:00: 00 Yes [id number] 1 tablet BEDTIME 1 tablet BEDTIME (route: oral) Med Classific ation: Cardiovas cular Therapy Agents escitalopra m 5 mg tablet 30 00:00: 00 Yes [id number] 1 tablet EVERY AM 1 tablet EVERY AM (route: oral) Med Classific ation: Central Nervous System Agents albuterol sulfate HFA 90 mcg/actuati on aerosol inhaler 2023-10 00:00: 00 Yes [id number] FOR WHEEZING 2 puff EVERY 4 HOURS 2 puff EVERY 4 HOURS (route: inhalation ) Med Classific ation: Respirato ry Therapy Agents carvedilol 12.5 mg tablet 2023-10 00:00: 00 Yes [id number] HOLD FOR SBP <90 1 tablet 2 TIMES DAILY 1 tablet 2 TIMES DAILY (route: oral) Med Classific ation: Cardiovas cular Therapy Agents cefuroxime axetil 250 mg tablet 2023-10 00:00: 00 Yes [id number] 1 tablet 2 TIMES DAILY 1 tablet 2 TIMES DAILY (route: oral) Med Classific ation: Anti-Infe ctive Agents clonazepam 1 mg tablet 2023-10 00:00: 00 Yes [id number] 1 tablet 2 TIMES DAILY 1 tablet 2 TIMES DAILY (route: oral) Med Classific ation: Central Nervous System Agents Clotrimazol e AF 1 % topical cream 2023-10 00:00: 00 Yes [id number] 1 inch 2 TIMES DAILY 1 inch 2 TIMES DAILY (route: topical) Med Classific ation: Dermatolo gical hydroxyzine HCl 25 mg tablet 2023-10 00:00: 00 10-27 23:59 :00 No [id number] ANXIETY 1 tablet EVERY 6 HOURS 1 tablet EVERY 6 HOURS (route: oral) Med Classific ation: Central Nervous System Agents Lidocaine Pain Relief 4 % topical patch 2023-10 00:00: 00 Yes [id number] APPLY TO BACK 1 adhesiv e patch, medicat ed EVERY AM 1 adhesive patch, medicated EVERY AM (route: topical) Med Classific ation: Dermatolo gical metformin 500 mg tablet 2023-10 00:00: 00 Yes [id number] 1 tablet EVERY AM 1 tablet EVERY AM (route: oral) Med Classific ation: Endocrine naloxone 4 mg/actuatio n nasal spray 2023-10 00:00: 00 Yes [id number] OPIOD OVERDOSE Per instruc tions NEEDED Per instructio ns NEEDED (route: nasal) Med Classific ation: Antidotes and other Reversal Agents nystatin 100,000 unit/gram topical cream 2023-10 00:00: 00 Yes [id number] TO ABDOMINAL FOLD 1 inch 2 TIMES DAILY 1 inch 2 TIMES DAILY (route: topical) Med Classific ation: Dermatolo gical quetiapine 100 mg tablet 2023-10 00:00: 00 09-23 23:59 :00 No [id number] 1 tablet 3 TIMES DAILY 1 tablet 3 TIMES DAILY (route: oral) Med Classific ation: Central Nervous System Agents quetiapine 50 mg tablet 2023-10 00:00: 00 09-23 23:59 :00 No [id number] MODERATE ANXIETY 1 tablet EVERY 6 HOURS 1 tablet EVERY 6 HOURS (route: oral) Med Classific ation: Central Nervous System Agents sodium chloride 1,000 mg soluble tablet 2023-10 00:00: 00 Yes [id number] 1 tablet 2 TIMES DAILY 1 tablet 2 TIMES DAILY (route: miscellane ous) Med Classific ation: Electroly te Balance-N utritiona l Products trazodone 50 mg tablet 2023-10 00:00: 00 09-08 23:59 :00 No [id number] 1 tablet BEDTIME 1 tablet BEDTIME (route: oral) Med Classific ation: Central Nervous System Agents venlafaxine 37.5 mg tablet 2023-10 00:00: 00 10-27 23:59 :00 No [id number] 1 tablet EVERY AM 1 tablet EVERY AM (route: oral) Med Classific ation: Central Nervous System Agents buprenorphi ne 4 mg-naloxone 1 mg sublingual film 2023-10 00:00: 00 Yes [id number] 1 film 2 TIMES DAILY 1 film 2 TIMES DAILY (route: sublingual ) Med Classific ation: Chemical Dependenc y, Agents to Treat furosemide 20 mg tablet 2023-10 00:00: 00 Yes [id number] 1 tablet EVERY AM 1 tablet EVERY AM (route: oral) Med Classific ation: Cardiovas cular Therapy Agents OXYGEN 2023-10 00:00: 00 Yes [id number] 2 Liter BEDTIME 2 Liter BEDTIME (route: Oxygen) Med Classific ation: Medical Oxygen Adult Low Dose Aspirin 81 mg tablet,marisol yed release 2023-10 00:00: 00 Yes [id number] 1 tablet EVERY AM 1 tablet EVERY AM (route: oral) Med Classific ation: Hematolog ical Agents clonidine HCl 0.1 mg tablet 2023-10 00:00: 00 10-29 23:59 :00 No [id number] HOLD FOR SBP <90 .5 tablet 3 TIMES DAILY .5 tablet 3 TIMES DAILY (route: oral) Med Classific ation: Cardiovas cular Therapy Agents Colace 100 mg capsule 2023-10 00:00: 00 Yes [id number] 1 capsule DAILY 1 capsule DAILY (route: oral) Med Classific ation: Gastroint estinal Therapy Agents clonidine HCl 0.1 mg tablet 10-27 00:00: 00 Yes [id number] 1 tablet 3 TIMES DAILY 1 tablet 3 TIMES DAILY (route: oral) Med Classific ation: Cardiovas cular Therapy Agents hydroxyzine HCl 50 mg tablet 10-27 00:00: 00 Yes [id number] 1 tablet 4 TIMES DAILY 1 tablet 4 TIMES DAILY (route: oral) Med Classific ation: Central Nervous System Agents Plan of Treatment Planned Activity Planned Date [...] STRATEGIES.] Future Scheduled Test SKILLED NU RSE TO O/A OF PATIENTS MENTAL/BEHAVIORAL STATUS, ASSESS VITAL SIGNS WEEKLY, ALLOW 2 PRNS FOR MEDICATION MANAGEMENT. [code = SKILLED NURSE TO O/A OF PATIENTS MENTAL/BEHAVIORAL STATUS, ASSESS VITAL SIGNS WEEKLY, ALLOW 2 PRNS FOR MEDICATION MANAGEMENT.] Future Scheduled Test SKILLED NU RSE WILL MAINTAIN SITUATIONAL AWARENESS FOR SAFETY AND WILL NOTIFY CLINICAL SED MIDDLE SCHOOL TEACHER AND PHYSICIAN/PROVIDER WITH ANY CHANGE IN CONDITION. [code = SKILLED NURSE WILL MAINTAIN SITUATIONAL AWARENESS FOR SAFETY AND WILL NOTIFY CLINICAL SED MIDDLE SCHOOL TEACHER AND PHYSICIAN/PROVIDER WITH ANY CHANGE IN CONDITION.] Future Scheduled Test SKILLED NU RSE FOR [...] ASSOCIATED WITH EXACERBATION FOR EARLY INTERVENTION OF COMPLICATIONS WEEKLY [code = SKILLED NURSE FOR O/A OF GENERAL HEALTH STATUS OF PAIN, CARDIAC, RESPIRATORY, GASTROINTESTINAL, GENITOURINARY, SKIN, NEUROLOGIC, ENDOCRINE SYSTEMS TO IDENTIFY CHANGES ASSOCIATED WITH EXACERBATION FOR EARLY INTERVENTION OF COMPLICATIONS WEEKLY ] Future Scheduled Test SKILLED NU RSE TO PRE-POUR MEDICATION PER MEDICATION LIST WEEKLY. [code = SKILLED NURSE TO PRE-POUR MEDICATION PER MEDICATION LIST WEEKLY.] Future Scheduled Test SKILLED NU RSE FOR [...] SERVICES.] Future Scheduled Test SKILLED NU RSE FOR [...] SYMPTOMS HYPO/HYPERGLYCEMIA TO REPORT.] Future Scheduled Test OXYGEN VIA NASAL CANNULA @ 2 LITERS PRN AT BEDTIME. SKILLED NURSE FOR O/A AND SKILLED TEACHING OF SAFE OXYGEN USE IN THE HOME. [code = OXYGEN VIA NASAL CANNULA @ 2 LITERS PRN AT BEDTIME. SKILLED NURSE FOR O/A AND SKILLED TEACHING OF SAFE OXYGEN USE IN THE HOME.] Future Scheduled Test SKILLED NU RSE TO PROVIDE TEACHING ON SIGNS AND SYMPTOMS AND MANAGEMENT OF HYPERTENSION. [code = SKILLED NURSE TO PROVIDE TEACHING ON SIGNS AND SYMPTOMS AND MANAGEMENT OF HYPERTENSION.] Future Scheduled Test SKILLED NU RSE TO PROVIDE TEACHING/REINFORCEMENT RELATED TO URINARY INCONTINENCE. [code = SKILLED NURSE TO PROVIDE TEACHING/REINFORCEMENT RELATED TO URINARY INCONTINENCE.] Goal Patient Goal - P ATIENT VERBALIZED GOAL OF GETTING STRONGER AND GET OFF OF THESE MEDICATIONS Goal 2024-10-31 Patient Goal - P ATIENT VERBALIZED GOAL OF GETTING STRONGER AND GET OFF OF THESE MEDICATIONS Goal Provider Goal - A PLAN OF CARE WILL BE ESTABLISHED THAT MEETS PATIENT'S SENIOR LIVING NEEDS AND INCLUDES PATIENT GOAL FOR HOME HEALTH. Goal Provider Goal - PATIENT/CAREGIVER WILL VERBALIZE/DEMONSTRATE [...] EVIDENCED BY PAIN CONTROLLED AT LEVEL OF 3 OUT OF 10 OR LESS BY END OF CERTIFICATION PERIOD. Goal Provider Goal - CHANGE IN GENERAL HEALTH STATUS WILL BE IDENTIFIED AND REPORTED TO PHYSICIAN FOR PROMPT INTERVENTION TO MINIMIZE ASSOCIATED RISKS THROUGHOUT CERTIFICATION PERIOD. Goal Provider Goal - PATIENT WILL COMPLY [...] THROUGHOUT CERTIFICATION PERIOD. Goal Provider Goal - PSYCHOSOCIAL NEEDS WILL [...] USE IN THE HOME THROUGHOUT THE EPISODE. Goal Provider Goal - PATIENT/CAREGIVER WILL VERBALIZE SIGNS AND SYMPTOMS OF HYPERTENSION AND WILL BE ABLE TO DEMONSTRATE ABILITY TO MANAGE EXACERBATION BY END OF THE EPISODE. Goal Provider Goal - PATIENT / CAREGIVER WILL VERBALIZE UNDERSTANDING OF EFFECTS OF URINARY INCONTINENCE BY THE END OF THE CERTIFICATION PERIOD. Progress Notes Progress Notes <paragraph>[Visit Date: 2024 by VASHTI MORRISSEY RN]:</paragraph><paragraph>IRIS IS ALERT ORIENTED X3, 8 OUT OF 10 NECK PAIN WHICH IS MEDICATED WITH LIDOCAINE PATCH. IRIS NEED EDUCATION ON USE OF NEEDED MEDICATION FOR ANXIETY. IRIS HAS INCREASED ANXIETY OF 7 OUT OF 10. IRIS PRN MEDICATION HAS BEEN CHANGED AND NEED TO BE CONFIRMED WITH PSYCH PROVIDER.</paragraph> <paragraph>[Visit Date: 2024 by VASHTI MORRISSEY RN]:</paragraph><paragraph>IRIS IS ALERT ORIENTED X3, C/O 10 OUT OF 10 PAIN IN THE RIGHT NECK AND SHOULDER. MEDICATED WITH TYLENOL NO RELIEF. IRIS REPORTS HAVING BODY SPASM WHILE SLEEPING CAUSED THE PAIN. JOSEPH IS UNABLE TO HAVE FULL RANGE OF MOTION IN HER NECK AND RIGHT SHOULDER. PCP AT [facility] WAS CONTACTED. AWAIT FOR CALL BACK.</paragraph> Encounters Start Date/Time End Date/Time Encounter Type Admission Type Attending Clinicians Care Facility Care Department Encounter ID Discharge Date Discharge Status Discharge Condition Discharge Reason Percent Goals Met 2024-09-06 00:00:00 2025-01-03 00:00:00 Outpatient RECERTIFIC VASHTI BERRY [facility] [id number] 30.00
--- OUTSIDE RECORDS SUMMARY | 2024-11-19 15:12 | XMS_ITS | Clinical Summary ---
Author Organization Unknown Care Team Providers Care Nurse Aide Evaluator Name Role Phone EVELYNE GRULLON, SUBHASH Unavailable Unavailable YUNI CA, VASHTI Unavailable Unavailable Payers Payer Name Policy Type Policy Number Effective Date Expira tion Date [facility] ADV [id number] MEDICARE - [place] PDGM [id number] Problems Condition Name Condition Details Condition Category [...] powder for inhalation 2023-10 00:00: 00 Yes [id number] 1 inhalat ion EVERY AM 1 inhalation EVERY AM (route: inhalation ) Med Classific ation: Respirato ry Therapy Agents rosuvastati n 10 mg tablet 2023-10 0-15 00:00: 00 Yes [id number] 1 tablet BEDTIME 1 tablet BEDTIME (route: oral) Med Classific ation: Cardiovas cular Therapy Agents escitalopra m 5 mg tablet 30 00:00: 00 Yes [id number] 1 tablet EVERY AM 1 tablet EVERY AM (route: oral) Med Classific ation: Central Nervous System Agents albuterol sulfate HFA 90 mcg/actuati on aerosol inhaler 2023-10 00:00: 00 Yes [id number] FOR WHEEZING 2 puff EVERY 4 HOURS 2 puff EVERY 4 HOURS (route: inhalation ) Med Classific ation: Respirato ry Therapy Agents carvedilol 12.5 mg tablet 2023-10 00:00: 00 Yes [id number] HOLD FOR SBP <90 1 tablet 2 TIMES DAILY 1 tablet 2 TIMES DAILY (route: oral) Med Classific ation: Cardiovas cular Therapy Agents cefuroxime axetil 250 mg tablet 2023-10 00:00: 00 Yes [id number] 1 tablet 2 TIMES DAILY 1 tablet 2 TIMES DAILY (route: oral) Med Classific ation: Anti-Infe ctive Agents clonazepam 1 mg tablet 2023-10 00:00: 00 Yes [id number] 1 tablet 2 TIMES DAILY 1 tablet 2 TIMES DAILY (route: oral) Med Classific ation: Central Nervous System Agents Clotrimazol e AF 1 % topical cream 2023-10 00:00: 00 Yes [id number] 1 inch 2 TIMES DAILY 1 inch 2 TIMES DAILY (route: topical) Med Classific ation: Dermatolo gical hydroxyzine HCl 25 mg tablet 2023-10 00:00: 00 10-27 23:59 :00 No [id number] ANXIETY 1 tablet EVERY 6 HOURS 1 tablet EVERY 6 HOURS (route: oral) Med Classific ation: Central Nervous System Agents Lidocaine Pain Relief 4 % topical patch 2023-10 00:00: 00 Yes [id number] APPLY TO BACK 1 adhesiv e patch, medicat ed EVERY AM 1 adhesive patch, medicated EVERY AM (route: topical) Med Classific ation: Dermatolo gical metformin 500 mg tablet 2023-10 00:00: 00 Yes [id number] 1 tablet EVERY AM 1 tablet EVERY AM (route: oral) Med Classific ation: Endocrine naloxone 4 mg/actuatio n nasal spray 2023-10 00:00: 00 Yes [id number] OPIOD OVERDOSE Per instruc tions NEEDED Per instructio ns NEEDED (route: nasal) Med Classific ation: Antidotes and other Reversal Agents nystatin 100,000 unit/gram topical cream 2023-10 00:00: 00 Yes [id number] TO ABDOMINAL FOLD 1 inch 2 TIMES DAILY 1 inch 2 TIMES DAILY (route: topical) Med Classific ation: Dermatolo gical quetiapine 100 mg tablet 2023-10 00:00: 00 09-23 23:59 :00 No [id number] 1 tablet 3 TIMES DAILY 1 tablet 3 TIMES DAILY (route: oral) Med Classific ation: Central Nervous System Agents quetiapine 50 mg tablet 2023-10 00:00: 00 09-23 23:59 :00 No [id number] MODERATE ANXIETY 1 tablet EVERY 6 HOURS 1 tablet EVERY 6 HOURS (route: oral) Med Classific ation: Central Nervous System Agents sodium chloride 1,000 mg soluble tablet 2023-10 00:00: 00 Yes [id number] 1 tablet 2 TIMES DAILY 1 tablet 2 TIMES DAILY (route: miscellane ous) Med Classific ation: Electroly te Balance-N utritiona l Products trazodone 50 mg tablet 2023-10 00:00: 00 09-08 23:59 :00 No [id number] 1 tablet BEDTIME 1 tablet BEDTIME (route: oral) Med Classific ation: Central Nervous System Agents venlafaxine 37.5 mg tablet 2023-10 00:00: 00 10-27 23:59 :00 No [id number] 1 tablet EVERY AM 1 tablet EVERY AM (route: oral) Med Classific ation: Central Nervous System Agents buprenorphi ne 4 mg-naloxone 1 mg sublingual film 2023-10 00:00: 00 Yes [id number] 1 film 2 TIMES DAILY 1 film 2 TIMES DAILY (route: sublingual ) Med Classific ation: Chemical Dependenc y, Agents to Treat furosemide 20 mg tablet 2023-10 00:00: 00 Yes [id number] 1 tablet EVERY AM 1 tablet EVERY AM (route: oral) Med Classific ation: Cardiovas cular Therapy Agents OXYGEN 2023-10 00:00: 00 Yes [id number] 2 Liter BEDTIME 2 Liter BEDTIME (route: Oxygen) Med Classific ation: Medical Oxygen Adult Low Dose Aspirin 81 mg tablet,marisol yed release 2023-10 00:00: 00 Yes [id number] 1 tablet EVERY AM 1 tablet EVERY AM (route: oral) Med Classific ation: Hematolog ical Agents clonidine HCl 0.1 mg tablet 2023-10 00:00: 00 10-29 23:59 :00 No [id number] HOLD FOR SBP <90 .5 tablet 3 TIMES DAILY .5 tablet 3 TIMES DAILY (route: oral) Med Classific ation: Cardiovas cular Therapy Agents Colace 100 mg capsule 2023-10 00:00: 00 Yes [id number] 1 capsule DAILY 1 capsule DAILY (route: oral) Med Classific ation: Gastroint estinal Therapy Agents clonidine HCl 0.1 mg tablet 10-27 00:00: 00 Yes [id number] 1 tablet 3 TIMES DAILY 1 tablet 3 TIMES DAILY (route: oral) Med Classific ation: Cardiovas cular Therapy Agents hydroxyzine HCl 50 mg tablet 10-27 00:00: 00 Yes [id number] 1 tablet 4 TIMES DAILY 1 tablet [...] AWARENESS FOR SAFETY AND WILL NOTIFY CLINICAL FRAME HAND AND PHYSICIAN/PROVIDER WITH ANY CHANGE IN CONDITION. [code = SKILLED NURSE WILL MAINTAIN SITUATIONAL AWARENESS FOR SAFETY AND WILL NOTIFY CLINICAL FRAME HAND AND PHYSICIAN/PROVIDER WITH ANY CHANGE IN CONDITION.] [...] CARE WILL BE ESTABLISHED THAT MEETS PATIENT'S SHELTER NEEDS AND INCLUDES PATIENT GOAL FOR HOME [...] HER NECK AND RIGHT SHOULDER. PCP AT [facility] WAS CONTACTED. AWAIT FOR CALL BACK.</paragraph> Encounters Start Date/Time End Date/Time Encounter Type Admission Type Attending Clinicians Care Facility Care Department Encounter ID Discharge Date Discharge Status Discharge Condition Discharge Reason Percent Goals Met 2024-09-06 00:00:00 2025-01-03 00:00:00 Outpatient RECERTIFIC VASHTI BERRY [facility] [id number] 30.00
--- OUTSIDE RECORDS SUMMARY | 2024-11-19 15:12 | XMS_ITS | Clinical Summary ---
Author Organization [facility] Address [address] [place] [address] Phone Care Team Providers Care Clinical Pharmacy Specialist Name Role Phone Asad Alvarado MD Primary Care Provider [phone] Allergies Active Allergy Reactions Criticality Noted Date Comments Lisinopril 09/06/2022 coughing Medications Medication Sig Dispensed Refills Start Date End Date Status amLODIPine (NORVASC) 10 mg tablet Take 1 tablet (10 mg total) by mouth 1 (one) time each day. 90 tablet 1 09/26/2024 Active albuterol HFA (PROAIR HFA ; PROVENTIL HFA ; VENTOLIN HFA) 90 mcg/actuation inhaler Inhale 2 Puffs into the lungs every 4 hours as needed. Active aspirin 81 mg chewable tablet Take 1 Tablet by mouth every other day. Active carvediloL (COREG) 12.5 mg tablet TAKE 1 TABLET BY MOUTH TWICE DAILY WITH MEALS 05/14/2024 Active coenzyme Q-10 200 mg capsule Take by mouth. Active empagliflozin (Jardiance) 25 mg tablet Take 25 mg by mouth daily. Active fluticasone HFA (FLOVENT HFA) 110 mcg/actuation inhaler Inhale 1 Puff into the lungs 2 times daily. Active furosemide (LASIX) 20 mg tablet Take 2 Tablets by mouth every other day. Active LORazepam (ATIVAN) 1 mg tablet Take 1 Tablet by mouth 3 times daily. Active metformin HCl (METFORMIN ORAL) Take by mouth. Acti ve oxyCODONE-acetaminoph en (PERCOCET) 7.5-325 mg per tablet Take 1 Tablet by mouth every 12 hours as needed. Active rosuvastatin (CRESTOR) 10 mg tablet Take 1 Tablet by mouth daily. 11/15/2022 Active ergocalciferol (VITAMIN D-2) 1,250 mcg (50,000 unit) capsule Take by mouth every 7 days. Active Active Problems Problem Noted Date Diagnosed Date Hyperlipidemia 10/12/2023 Precordial pain 06/06/2023 Primary hypertension 06/06/2023 Palpitation 09/08/2022 Overview (09/30/2024): Last Assessment & Plan: Intermittent palpitation every other day. We will arrange Holter monitor when her new insurance starts to work. At the meantime, she will use her apple watch to monitor. HLD (hyperlipidemia) 09/06/2022 Overview (09/30/2024): Last Assessment & Plan: Just restarted low-dose statin. We will need to repeat lipid panel. HTN (hypertension) 09/06/2022 Overview (09/30/2024): Last Assessment & Plan: Adding Imdur as discussed below due to patient's chest discomfort and hypertension Severe aortic stenosis 09/06/2022 Overview (09/30/2024): Last Assessment & Plan: Patient is currently relatively euvolemic upon exam with slight lower extremity edema. Will complete echocardiogram to reassess patient's aortic stenosis in the context of ongoing shortness of breath and chest discomfort SOB (shortness of breath) 09/06/2022 Overview (09/30/2024): Last Assessment & Plan: Patient reports ongoing shortness of breath and chest discomfort. Discussed with Dr. Ledezma who saw patient as well. We will plan for cardiac catheterization to rule out ischemic cause due to patient's mildly abnormal stress test. Will add Imdur due to hypertension as well as patient's chest discomfort. We discussed side effect profile. Added labs for cardiac catheterization. Also complete echocardiogram to reassess patient's aortic stenosis Encounters Date Type Department Care Team Description 09/26/2024 Telephone [facility] Cardiology [facility] [address] [place] [address] Paluy Diaz MD Med Refill (Amlodipine) from Last 3 Months Surgical History Surgery Date Site/Laterality Comments COLONOSCOPY PROCEDURE: HISTORICAL COLONOSCOPY OTHER SURGICAL HISTORY PROCEDURE: DIAGNOSTIC MAMMOGRAM Medical History Medical History Date Comments Asthma DX:Asthma Back pain DX:Back pain Edema DX:Edema Esophageal reflux DX:Esophageal reflux Fibromyalgia DX:Fibromyalgia Hepatic steatosis DX:Hepatic kassy atosis Knee pain DX:Knee pain Leukocytosis, unspecified type D X:Leukocytosis, unspecified type Migraine DX:Migraine Obesity DX:Obesity Stress incontinence, female DX:S tress incontinence, female Vertigo 01/31/2017 DX:Vertigo Social History Tobacco Use Types Packs/Day Years Used Date Smoking Tobacco: Former Smokeless Tobacco: Never Alcohol Use Standard Drinks/Week Comments Never 0 (1 standard drink = 0.6 oz pur e alcohol) Sex and Gender Information Value Date Recorded Sex Assigned at Not on file Gender Identity Not on file Sexual Orientation Not on file Job Start Date Occupation Industry Not on file Not on file Not on file Obstetrics History Last Filed Vital Signs Vital Sign Reading Time Taken Comments Blood Pressure 127/72 07/29/2024 12:32 PM EDT Si tting L Arm Pulse 68 07/29/2024 12:32 PM EDT Temperature - - Respiratory Rate - - Oxygen Saturation - - Inhaled Oxygen Concentration - - Weight 104 kg (230 lb) 07/29/2024 12:32 PM EDT Height 154.9 cm (5' 1 ) 07/29/2024 12:32 PM EDT Body Mass Index 43.46 07/29/2024 12:32 PM EDT Plan of Treatment Upcoming Encounters Date Type Department Care Team (Late st Contact Info) Description 01/09/2025 10:20 AM EDT Office Visit [facility] Cardiology [facility] [address] [place] [address] Pauly Diaz MD [address] [place] [address] [address] [place] [address] Health Maintenance Due Date Last Done Comments Breast Cancer Screening 1955 DTaP,Tdap,and Td Vaccines (1 - Tdap) 1976 Zoster Vaccines (1 of 2) 2007 RSV Immunization Patients 60 + Years Old (1 - Risk 60-74 years 1-dose series) 2017 Pneumococcal Vaccine: 65+ Ye ars (1 of 1 - PCV) 2022 Cholesterol Screening (Lipid Panel) 09/23/2022 Colorectal Cancer Screening: Colonoscopy 09/23/2022 Depression Screening 09/23/2022 Falls Risk Assessment 09/23/2022 Hepatitis C Screening 09/23/2022 Medicare Annual Wellness Visit 09/23/2022 Osteoporosis Screening (Bone Density Screening) 09/23/2022 Social Influencers of Health Screening 09/23/2022 Hypertension/CHF/CAD Annual BMP Blood Test 10/07/2022 COVID-19 Vaccine ( - 2023-2 5 season) 2024 Influenza Vaccine (#1) 2024 HIB Vaccines Aged Out No longer eligi ble based on patient's age to complete this topic HPV Vaccines Aged Out No longer eligi ble based on patient's age to complete this topic Hepatitis A Vaccines Aged Out No long er eligible based on patient's age to complete this topic Hepatitis B Vaccines Aged Out No long er eligible based on patient's age to complete this topic IPV Vaccines Aged Out No longer eligi ble based on patient's age to complete this topic MMR Vaccines Aged Out No longer eligi ble based on patient's age to complete this topic Meningococcal ACWY Vaccine Aged Out N o longer eligible based on patient's age to complete this topic RSV Immunization Patients Un jasiel 20 months Aged Out No longer eligible b ased on patient's age to complete this topic Varicella Vaccines Aged Out No longer eligible based on patient's age to complete this topic Care Teams Clinical Pharmacy Specialist Relationship Specialty Start Date End Date Asad Alvarado MD [address] [facility] [address] [place], [place] PCP - General Internal Medicine 06/16/22
--- OUTSIDE RECORDS SUMMARY | 2024-11-19 15:12 | XMS_ITS | Encounter Summary ---
Author Organization [facility] Address [address] [place] [address] Care Team Providers Care Windows Server Support Technician Name Role Phone Asad Alvarado MD Primary Care Provider [phone] [phone] Reason for Visit * Reason Onset Date Comments Med Refill 09/26/2024 Amlodipine Encounter Details Date Type Department Care Team (Late st Contact Info) Description 09/26/2024 Telephone [facility] [address] [place] [address] [place] [id number] Pauly Diaz MD [address] [place] [address] [address] [place] [address] Med Refill (Amlodipine) Social History Tobacco Use Types Packs/Day Years [...] file Not on file Not on file documented as of this encounter Ordered Prescriptions Prescription Sig Dispensed Refills Start Date End Da te amLODIPine (NORVASC) 10 mg tablet Take 1 tablet (10 mg total) by mouth 1 (one) time each day. 90 tablet 1 09/26/2024 documented in this encounter Progress Notes * Rosa Jenkins RN - 09/26/2024 11:25 AM EST SHARATH 04/10/24 Amlodipine refills sent * Angelique Gambino - 09/26/2024 11:16 AM EST Patient called requesting a refill for Amlodipine 10 mg, 1 tablet daily, 90 day supply, pharmacy confirmed. documented in this encounter Plan of Treatment Upcoming Encounters Date Type Department Care Team (Late st Contact Info) Description 01/09/2025 10:20 AM EDT Office Visit [facility] [address] [place] [address] Dr [address] [place] [address] Pauly Diaz MD [address] [place] [address] Dr [address] [place] [address] documented as of this encounter Visit Diagnoses Not on filedocumented in this encounter Discontinued Medications Medication Sig Discontinue Reason Start Date End Da te amLODIPine (NORVASC) 10 mg tablet Take 1 tablet (10 mg total) by mouth 1 (one) time each day. Reorder 09/26/2024 documented as of this encounter Historical Medications * This list may reflect changes made after this encounter. Medication Sig Dispensed Refills Start Date End Date amLODIPine (NORVASC) 10 mg tablet Take 1 tablet (10 mg total) by mouth 1 (one) time each day. 09/26/2024 added in this encounter Care Teams Windows Server Support Technician Relationship Specialty Start Date End Date Asad Alvarado MD [address] [place], [place] PCP - General Internal Medicine 06/16/22 documented as of this encounter
== END 2024-11-19 13:06 | disposition home or self-care (01) ==
LOC: HO.RESP 13:05
PROVIDERS: PCP Internal Medicine; Visit Provider Internal Medicine Pulmonary Disease
DX: J45.909 Unspecified asthma, uncomplicated (principal); G47.33 Obstructive sleep apnea (adult) (pediatric); R06.83 Snoring
CPT/HCPCS: 95806

== ENCOUNTER → 2024-11-19 13:08 | Outpatient (BNV) | payer MEDICARE, SELFPAY | PROVIDERS: PCP Internal Medicine; Visit Provider Internal Medicine Pulmonary Disease | DX: J45.909 Unspecified asthma, uncomplicated (principal) | CPT/HCPCS: 94060; 94727; 94729 ==

== ENCOUNTER 2024-11-26 12:25 | Inpatient (IN) | payer MEDICARE, SELFPAY ==
--- NOTE | ~2024-11-26 | MR_ITS ---
EXAMINATION: MR BRAIN WITHOUT CONTRAST, NEUROQUANTITATIVE CLINICAL INFORMATION: Disequilibrium, myoclonic jerks, AVH, cognitive decline. COMPARISON: No prior available. Correlation made with CT dated 08/14/2024. TECHNIQUE: MRI of the brain was performed using standard sequences without IV contrast. Neuro-quantitative evaluation was included in this examination based on 3-D volumetric MP RAGE sequences. Examination performed on a Siemens 1.5 Cherrie high-field magnet. FINDINGS: Please refer to dedicated the 3-D lab generated report for neuro-quantitative evaluation. There is mild motion degradation on multiple sequences, mildly limiting sensitivity of the exam. There is no diffusion restriction. There is no intracranial hemorrhage, acute infarction, mass effect, or edema. Mildly asymmetrically prominent frontal sulci. There are prominent extra-axial spaces overlying the frontal and anterior parietal convexities. Ventricles, sulci, and cisterns are otherwise normal in size and configuration for patient age. Mild prominence left temporal horn, uncertain significance. No shift of midline. No abnormal hemosiderin deposition is identified. No abnormal hemosiderin staining of the deep nuclei. There are a few tiny scattered punctate foci of white matter T2 hyperintensity in the periventricular, subcortical, and hemispheric deep white matter, nonspecific. Midline structures appear normally formed. Partial empty sella. Pituitary otherwise normal.. Posterior fossa structures appear normal. Cerebellar tonsils are appropriately located. Major flow voids are preserved within the skull base. Basilar artery is tortuous. The globes and orbital contents demonstrate no abnormalities. Small air-fluid level left maxillary sinus, which is mildly hypoplastic congenitally. Paranasal sinuses are otherwise clear bilaterally. Nasal septum is midline without spur. The mastoids and tympanic cavities are normally aerated. Extracranial soft tissues demonstrate no abnormalities. Bone marrow is diffusely hypointense on T1 weighted imaging. No suspicious focal bone marrow changes are evident. Atlantoaxial joint demonstrates mild degenerative arthritis. MR/MR brain wo con w neuroquant IMPRESSION: -Mild motion degradation is present. 1. No evidence of acute infarction, intracranial hemorrhage, mass effect, or edema. 2. Prominent bilateral frontal sulci. Prominent extra-axial spaces overlying the frontal and anterior parietal convexities, uncertain significance. Refer to the neuro-quantitative report. 3. Minimal small vessel ischemic changes. 4. Small air-fluid level left maxillary sinus. Correlate for signs and symptoms of acute sinusitis. 5. Bone marrow is diffusely hypointense on T1 weighted imaging, nonspecific but can be seen associated with hematopoietic bone marrow and in smokers. 6. See the body the report for further details. Electronically signed by: Layton Up MD 12/01/2024 09:07 AM [facility]
[2024-11-26 12:36] VITALS: PULSE 83; O2SAT 97
[2024-11-26 12:42] VITALS: BP 127/76; PULSE 85; RESP 18; TEMP 36.9; O2SAT 97; BMI 43.5
--- NOTE | 2024-11-26 13:01 | ECG_ITS ---
Test Reason : medical clearance Blood Pressure : */* mmHG Vent. Rate : 75 BPM Atrial Rate : 75 BPM P-R Int : 154 ms QRS Dur : 88 ms QT Int : 412 ms P-R-T Axes : 32 29 38 degrees QTcB Int : 460 ms Normal sinus rhythm with sinus arrhythmia Nonspecific T wave abnormality Abnormal ECG When compared with ECG of 14-Aug-2024 10:29, Criteria for Septal infarct are no longer Present Nonspecific T wave abnormality, worse in Inferior leads Nonspecific T wave abnormality now evident in Lateral leads Referred By: Generic ED Physician Electronically Signed By: Jimenez Connolly
[2024-11-26 13:13] LABS: Appearance Urine Clear; Color Urine Yellow; Glucose Urine UA Negative (Negative); Leukocyte Esterase Urine Trace (Negative); Nitrite Urine Negative (Negative); PH 5.5 (5.0-9.0); Specific Gravity - Urine 1.015 (1.005-1.025); UMIC TRIGGER UACC YES; Urine Blood Negative (Negative); Urine Ketones 15 mg/dL (Negative); Urine Protein Negative (Neg-Trace)
[2024-11-26 13:20] LABS: Bacteria Urine None Seen (None Seen); RBC Urine 0-2 /HPF (0-2); Squamous Epithelial Cell Urine 0-2 /HPF (0-2); WBC Urine 0-5 /HPF (0-5)
[2024-11-26 13:30] LABS: Amphetamine Screen Urine Not Detected (Not Detect); Barbiturates, Urine Not Detected (Not Detect); Benzodiazepines Screen Urine Not Detected (Not Detect); Buprenorphine Scr Positive (Not Detect); Cannabinoid Screen Urine Not Detected (Not Detect); Cocaine Screen Urine Not Detected (Not Detect); Fentanyl, urine Not Detected (Not Detect); Methadone Screen, Urine Not Detected (Not Detect); Opiate Screen Urine Not Detected (Not Detect); Oxycodone Screen Urine Not Detected (Not Detect); Phencyclidine Screen Urine Not Detected (Not Detect)
[2024-11-26 14:00] VITALS: RESP 16
[2024-11-26 14:19] LABS: MANUAL DIFF FLAG NO
[2024-11-26 14:24] LABS: Basophils Percent Auto 0.2 % (0-2); Eosinophils Absolute Auto 0.2 X10*3/uL (0.0-0.4); Eosinophils Percent Auto 1.6 % (0-4); Hematocrit 30.2 % (37.0-47.0); Hemoglobin 10.2 g/dl (12.0-16.0); Imm Gran Abs Auto 0.04 X10*3/uL (0.00-0.03); Imm Gran Pct Auto 0.4 % (0.0-0.4); Mean Corpuscular HGB Conc 33.8 g/dl (31.0-35.0); Mean Corpuscular Hemoglobin 30.4 pg (27.0-33.0); Mean Corpuscular Volume 90.1 fL (80.0-98.0); Mean Platelet Volume 9.7 fL (9.4-12.3); Monocytes Absolute Auto 0.5 X10*3/uL (0.1-1.2); Monocytes Percent Auto 5.3 % (2-11); Neutrophils Absolute Auto 6.4 x10*3/uL (2.0-8.3); Neutrophils Percent Auto 70.5 % (45-73); Platelet Count 170 X10*3/uL (160-400); Red Blood Count 3.35 X10*6/uL (4.20-5.50); Red Cell Distribution Width 13.2 % (11.0-16.0); White Blood Count 9.1 X10*3/uL (4.8-10.8)
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
[2024-11-26 14:43] LABS: Alanine Aminotransferase 67 U/L (0-31); Albumin Level 4.2 g/dL (3.5-5.0); Alkaline Phosphatase 95 U/L (39-117); Anion Gap 10 (12-20); Aspartate Amino Transferase 118 U/L (5-31); Bilirubin Total 0.4 mg/dL (0.0-1.0); Blood Urea Nitrogen 11 mg/dL (9-16); Calcium 8.9 mg/dL (8.4-10.2); Carbon Dioxide 29 mmol/L (22-29); Chloride 103 mmol/L (96-108); Creatinine Clr Calc Pharmacy 78.8; Estimated Glomerular Filt Rate > 60; Glucose Random 191 mg/dL (60-115); Potassium 3.6 mmol/L (3.3-5.1); Sodium 138 mmol/L (135-145); Total Protein 7.9 g/dL (6.5-8.0)
--- OUTSIDE RECORDS SUMMARY | 2024-11-26 14:46 | XMS_ITS | Encounter Summary ---
Author Organization [facility] Address [address] [place] [address] Care Team Providers Care Thread Pulling Machine Attendant Name Role Phone Asad Alvarado MD Primary Care Provider [phone] Reason for Visit * Reason Onset Date Comments Med Refill 09/26/2024 Amlodipine Encounter Details Date Type Department Care Team (Late st Contact Info) Description 09/26/2024 Telephone [facility] [address] [place] [address] [place] [phone] Pauly Diaz MD [address] [place] [address] Dr [address] [place] [address] Med Refill (Amlodipine) Social History Tobacco Use [...] Description 01/09/2025 10:20 AM EDT Office Visit [facility] Cardiology [facility] [address] [place] [address] Dr [address] [place] [address] Pauly Diaz MD [address] [place] [address] Dr [address] [place] [address] documented as of this encounter Visit Diagnoses [...] 09/26/2024 added in this encounter Care Teams Thread Pulling Machine Attendant Relationship Specialty Start Date End Date Asad Alvarado MD [address] [place], [place] PCP - General Internal Medicine 06/16/22 documented as of this encounter
--- OUTSIDE RECORDS SUMMARY | 2024-11-26 14:46 | XMS_ITS | Clinical Summary ---
Author Organization [facility] Address [address] [place] [address] Phone Care Team Providers Care Automotive Parts Specialist Name Role Phone Asad Alvarado MD Primary Care Provider [phone] [phone] Allergies Active Allergy Reactions Criticality Noted Date [...] Type Department Care Team Description 09/26/2024 Telephone [facility] Cardiology [facility] [address] [place] [address] Pauly Diaz MD Med Refill (Amlodipine) from Last [...] Description 01/09/2025 10:20 AM EDT Office Visit [facility] Cardiology [facility] [address] [place] [address] Pauly Diaz MD [address] [place] [address] Dr [address] [place] [address] Health Maintenance Due Date Last Done Comments [...] age to complete this topic Care Teams Automotive Parts Specialist Relationship Specialty Start Date End Date Asad Alvarado MD [address] [facility] [address] [place], [place] PCP - General Internal Medicine 06/16/22
[2024-11-26 14:56] LABS: Influenza A PCR NEGATIVE (Negative); Influenza B PCR NEGATIVE (Negative); Resp Syncy Virus RNA Qual PCR NEGATIVE (Negative); SARS COV2 PCR INHOUSE NEGATIVE (Negative)
[2024-11-26] MEDS: Acetaminophen 325 MG TABLET 650 MG PO (15:42)
[2024-11-26] MEDS: hydrOXYzine HCL 25 MG TABLET PO (18:03)
--- NOTE | 2024-11-26 19:58 | PC.NURSE ---
patient appears to remain at rest present respirations are even and unlabored patient advised me shes on 02 at night... reviewing med list patient maintains safe behavior presently.
[2024-11-26] MEDS: Ibuprofen 600 MG TABLET PO (20:23)
[2024-11-26 20:27] VITALS: BP 147/83; PULSE 80; RESP 20; TEMP 36.6; O2SAT 95
--- NOTE | 2024-11-26 22:26 | PC.NURSE ---
Patient moved to main ED per oxygen needs at night. Patient placed on 2L NC.
--- NOTE | 2024-11-26 22:27 | PC.NURSE ---
late entry- patient had reported to me she is using 02 at night while sleeping, then shortly after falling asleep jelena reported feeling sob, reported to charge nurse so she may be moved to main ed/
[2024-11-26 23:39] VITALS: BP 146/68; PULSE 85; RESP 20; O2SAT 97
[2024-11-26 23:40] VITALS: BP 146/68; PULSE 85
[2024-11-26] MEDS: carvediloL 12.5 MG TABLET PO (23:40)
[2024-11-26] MEDS: hydrOXYzine HCL 50 MG TABLET 100 MG PO (23:40)
[2024-11-26] MEDS: Buprenorphine/Naloxone 2/0.5mg FILM 1 FILM SUBLINGUAL (23:40)
[2024-11-27 06:07] VITALS: BP 166/87; PULSE 83; RESP 18; TEMP 36.2; O2SAT 96
[2024-11-27] MEDS: hydrOXYzine HCL 25 MG TABLET PO (07:07)
[2024-11-27] MEDS: Acetaminophen 325 MG TABLET 975 MG PO (07:13)
--- NOTE | 2024-11-27 07:16 | PC.NURSE ---
pt presents to the nurses station requesting medication for anxiety. pt verbalizing current visual hallucinations. stating, whenever i go to the bathroom and i look down onto the floor, i can see people working in a factory right under the linoleum and i see people floating around all over my room. especially the luciano with the long bushy hair. pt denies any harmful thoughts, auditory hallucinations, SI/HI. pt medicated w/ prn medication. pt additionally requesting medication for pain in the left side of her neck from sleeping - one time dose of tylenol ordered/administered. pt also requesting bandaid for right thumb. small healed cut noted to right thumb. no signs of infection noted. bandaid applied. pt otherwise calm/cooperative. respirations even/unlabored.
[2024-11-27] MEDS: carvediloL 12.5 MG TABLET PO ×2 (08:29→21:08)
[2024-11-27] MEDS: ARIPiprazole 5 MG TABLET PO (08:29)
[2024-11-27] MEDS: OLANZapine 5 MG TABLET PO (08:29)
[2024-11-27] MEDS: metFORMIN HCl ER 500 MG TAB.ER.24H PO (08:29)
[2024-11-27] MEDS: hydrOXYzine HCL 50 MG TABLET 100 MG PO ×2 (08:29→21:08)
[2024-11-27] MEDS: Buprenorphine/Naloxone 2/0.5mg FILM 1 FILM SUBLINGUAL ×3 (08:29→21:09)
[2024-11-27] MEDS: amLODIPine Besylate 10 MG TABLET PO (08:29)
[2024-11-27] MEDS: Nystatin Powder 15 GM BOTTLE 1 APPL TOPICAL (08:29)
[2024-11-27 08:34] VITALS: BP 126/52; PULSE 78; RESP 14; TEMP 36.6; O2SAT 94
--- NOTE | 2024-11-27 08:34 | PC.NURSE ---
medication administered per provider order. heat pack applied to left side of neck per pt request. pt otherwise remains calm/cooperative. resting comfortably w/ lights dimmed/watching tv. plan of care ongoing.
[2024-11-27] MEDS: Aspirin Enteric Coated 81 MG TABLET.DR PO (11:12)
[2024-11-27] MEDS: Albuterol Sulfate 90 MCG 8 GM INHALER 2 PUFF INHALE (11:12)
--- NOTE | 2024-11-27 12:11 | PC.NURSE ---
patient's cousin (joseluis) came through security to obtain patient's house dickson/car dickson to take it home. belongings list updated by [employer].
--- NOTE | 2024-11-27 13:45 | PC.NURSE ---
report given to ROBY Valencia on M3 at this time.
[2024-11-27 14:05] VITALS: BP 153/71; PULSE 80; RESP 16; TEMP 36.4; O2SAT 96
[2024-11-27] MEDS: Acetaminophen 325 MG TABLET 650 MG PO ×2 (15:00→21:06)
[2024-11-27 15:18] VITALS: BMI 41.5
[2024-11-27] MEDS: Ibuprofen 600 MG TABLET PO (15:19)
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
[2024-11-27 15:34] LABS: Alanine Aminotransferase 65 U/L (0-31); Albumin Level 4.1 g/dL (3.5-5.0); Anion Gap 13 (12-20); Aspartate Amino Transferase 110 U/L (5-31); Bilirubin Total 0.2 mg/dL (0.0-1.0); Blood Urea Nitrogen 15 mg/dL (9-16); Calcium 9.7 mg/dL (8.4-10.2); Carbon Dioxide 28 mmol/L (22-29); Chloride 104 mmol/L (96-108); Creatinine Clr Calc Pharmacy 76.6; Estimated Glomerular Filt Rate > 60; Glucose Random 151 mg/dL (60-115); Potassium 4.4 mmol/L (3.3-5.1); Sodium 141 mmol/L (135-145)
--- NOTE | 2024-11-27 16:01 | PC.NURSE ---
Pt declined flu vaccine, already immunized this season
[2024-11-27 16:24] LABS: Alkaline Phosphatase 93 U/L (39-117)
[2024-11-27] MEDS: Cyclobenzaprine HCl 5 MG TABLET PO (18:58)
[2024-11-27 20:21] VITALS: BP 164/76; PULSE 83; RESP 18; TEMP 36.4; O2SAT 96
[2024-11-27 21:08] VITALS: BP 164/76; PULSE 83
[2024-11-28] MEDS: Ibuprofen 600 MG TABLET PO ×3 (00:48→20:53)
[2024-11-28] MEDS: Cyclobenzaprine HCl 5 MG TABLET PO ×2 (00:48→10:31)
[2024-11-28] MEDS: chlorproMAZINE HCl 25 MG TABLET PO (01:32)
[2024-11-28] MEDS: Albuterol Sulfate 90 MCG 8 GM INHALER 2 PUFF INHALE (06:49)
[2024-11-28 07:51] VITALS: BP 164/68; PULSE 87; RESP 14; TEMP 36.3; O2SAT 93
[2024-11-28] MEDS: ARIPiprazole 5 MG TABLET PO (08:28)
[2024-11-28] MEDS: amLODIPine Besylate 10 MG TABLET PO (08:29)
[2024-11-28] MEDS: Aspirin Enteric Coated 81 MG TABLET.DR PO (08:29)
[2024-11-28] MEDS: OLANZapine 5 MG TABLET PO (08:29)
[2024-11-28] MEDS: metFORMIN HCl ER 500 MG TAB.ER.24H PO (08:29)
[2024-11-28] MEDS: carvediloL 12.5 MG TABLET PO ×2 (08:30→20:53)
[2024-11-28] MEDS: hydrOXYzine HCL 50 MG TABLET 100 MG PO (08:31)
[2024-11-28] MEDS: Buprenorphine/Naloxone 2/0.5mg FILM 1 FILM SUBLINGUAL ×3 (08:32→20:42)
[2024-11-28] MEDS: Lidocaine 4 % Patch ADH..PATCH 1 PATCH TRANSDERMA (10:33)
[2024-11-28] MEDS: Docusate Sodium 100 MG CAPSULE PO ×2 (10:33→20:53)
[2024-11-28 11:45] LABS: Glucose, Whole Blood 201 mg/dL (60-115)
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
--- NOTE | 2024-11-28 13:58 | MHC.SL.SWA ---
Speech Pathologist Impression: Mild Oral Phase Dysphagia secondary to lack of dentition Dysphasia Diet Status: No Change Liquid Consistency and Strategies for Safe Swallow: Liquid Intake Recommendation: Thin Solid Food Consistency: Dietary Recommendations: Regular Additional Modifications to Solid Foods: Discussed options for softer diets for ease of mastication, patient opted to continue on regular texture diet, stating, No I won't eat that. Patient did demonstrate insight to her swallow ability. She says she avoids foods which are overly tough and is otherwise able to chew well without her dentures. INDUSTRIAL ELECTRICAL TECHNICIAN reviewed strategies for feeding: take small bites, chew food well, alternate with sips of liquid, clear oral cavity before taking next bite, ensure upright position while eating, take small individual sips. Patient was able to repeat back strategies. Oral Medication Intake: Whole with Liquid Please contact the pharmacy regarding appropriate crushable or liquid drug formulations that are available whenever modified delivery is recommended. Compensatory Strategies and Precautions to be Taken for Safe Swallow: Sitting Upright (90 deg) Small Bites and Sips Alternate Liquids/Solids Rate of Ingestion Change Avoid Specific Foods Supervision While Eating and Drinking for Safe Swallow: Total Supervision (1:1) Foods to Avoid: [place] hard or tough to chew solids Swallowing Recommended Treatments: Compens. Strategy Educat. Recommendation for Speech: Inpatient Speech Therapy Comment: INDUSTRIAL ELECTRICAL TECHNICIAN to f/u 1x to monitor tolerance Frequency/Duration: Date Range for Service Req: Timeline to reassess: Blood Bank Attendant Clinican/Clinical Fellow: No Supervisory Statement: I have reviewed and agree with the student/clinical fellow's documentation: N/A Speech Language Pathologist: Rosalba Vivas M.A., CCC-INDUSTRIAL ELECTRICAL TECHNICIAN
[2024-11-28] MEDS: Acetaminophen 325 MG TABLET 650 MG PO (14:36)
[2024-11-28 20:44] VITALS: BP 158/86; PULSE 89; RESP 18; TEMP 36.1; O2SAT 96
[2024-11-28] MEDS: Mirtazapine 15 MG TABLET PO (20:55)
[2024-11-28] MEDS: Nystatin Powder 15 GM BOTTLE 1 APPL TOPICAL (21:23)
[2024-11-29] MEDS: Acetaminophen 325 MG TABLET 650 MG PO ×2 (00:40→10:25)
[2024-11-29] MEDS: Mirtazapine 15 MG TABLET PO ×2 (00:41→20:51)
[2024-11-29 08:14] LABS: Glucose, Whole Blood 169 mg/dL (60-115)
--- NOTE | 2024-11-29 08:35 | HO.PSYCHPN ---
Subjective Subjective Date of Service: 11/29/24 Reason For Visit: crisis Subjective Notes: Conditional Voluntary Healthcare Proxy: No Guardianship: No Medical Problems Affecting Mental Status: Yes (? delerium for antianxiety meds) Interim History: 69 yo with ongoing visual hallucinations but some improvement- She sees trash can coming out of wall- hearing toilet flushing , cymbals clanging at night- no one else hears Seems to have gotten better since dc benzos and antihistamines- will continue to monitor- Though remeron written for 2 doses which ? if could make worse given antihistamine so will leave at 1 qhs Medication Compliance: Yes Side effects from medications: Yes (recently ? of ) Attending Groups: Yes Review of Systems Acute medical concerns: Yes bilateral edema- hx heart valve issues also ? of antihistamines or anxiety meds causing vh Medical Review of Systems: unchanged (mild improvement) Review of Systems Review of Systems reports feels disc in neck is off- and cracking neck feeling- Mental Status Exam Mental Status Exam Patient Appearance: Disheveled and Unkempt Patient Orientation: Person, Place, Time and Situation Level of Consciousness: Awake and Appropriate Patient Behavior: Appropriate, Cooperative and Good Eye Contact Mood Description: Anxious Affect Description: Appropriate Patient Cognition Impaired: No Ability to Follow Directions: Fair Speech Pattern: Clear Hallucinations: Auditory and Visual Delusions: Not Present Thought Process: Intact and Distracted Thought Content: positive for Intact Depressive Symptoms: Increased Anxiety and Difficulty Sleeping Judgement: Fair Diagnostics Vital Signs (24Hr): Vital Signs - 24 hr 11/28/24 20:44 Temperature 97.0 F Pulse Rate 89 Respiratory Rate 18 Blood Pressure 158/86 H Pulse Oximetry 96 Oxygen Delivery Method Room Air BMI result Body Mass Index 41.5 Labs 11/26/24 14:13 11/27/24 15:03 Labs: Laboratory Results - last 48 hr 11/27/24 11/28/24 11/29/24 15:03 11:42 08:09 Sodium 141 Potassium 4.4 D Chloride 104 Carbon Dioxide 28 Anion Gap 13 BUN 15 Creatinine 0.77 Estim Creat Clear Calc 76.6 Estimated GFR > 60 POC Glucose 201 H 169 H Random Glucose 151 H Calcium 9.7 D Total Bilirubin 0.2 AST 110 H ALT 65 H Alkaline Phosphatase 93 Total Protein 8.0 Albumin 4.1 Medications Medications Current Medications Acetaminophen (Acetaminophen 325 Mg Tablet) 650 mg PO Q6H PRN PRN Reason: Headache/Pain Mild Scale (1-3) Last Admin: 11/29/24 00:40 Dose: 650 mg Al Hydroxide/Mg Hydroxide (Magnesium Hydrox/Alum Hydrox 30 Ml Oral.Susp) 30 ml PO Q6H PRN PRN Reason: Heartburn/Nausea Albuterol Sulfate (Albuterol Sulfate 90 Mcg 8 Gm Inhaler) 2 puff INHALE RQ4H PRN PRN Reason: Wheezing Last Admin: 11/28/24 06:49 Dose: 2 puff Amlodipine Besylate (Amlodipine Besylate 10 Mg Tablet) 10 mg PO DAILY [facility]; Protocol Last Admin: 11/28/24 08:29 Dose: 10 mg Aripiprazole (Aripiprazole 5 Mg Tablet) 5 mg PO DAILY [facility] Last Admin: 11/28/24 08:28 Dose: 5 mg Aspirin (Aspirin Enteric Coated 81 Mg Tablet.Dr) 81 mg PO DAILY [facility] Last Admin: 11/28/24 08:29 Dose: 81 mg Buprenorphine/Naloxone (Buprenorphine/Naloxone 2/0.5mg Film) 1 film SUBLINGUAL TID [facility] Last Admin: 11/28/24 20:42 Dose: 1 film Carvedilol (Carvedilol 12.5 Mg Tablet) 12.5 mg PO BID [facility]; Protocol Last Admin: 11/28/24 20:53 Dose: 12.5 mg Docusate Sodium (Docusate Sodium 100 Mg Capsule) 100 mg PO BID [facility] Last Admin: 11/28/24 20:53 Dose: 100 mg Ibuprofen (Ibuprofen 600 Mg Tablet) 600 mg PO Q8H PRN PRN Reason: Pain, Moderate(Pain Scale 4-6) Last Admin: 11/28/24 20:53 Dose: 600 mg Lidocaine (Lidocaine 4 % Patch Adh..Patch) 1 patch TRANSDERMA DAILY [facility]; Protocol Magnesium Hydroxide (Milk Of Magnesia 30 Ml Oral.Susp) 30 ml PO DAILY PRN PRN Reason: Constipation Metformin HCl (Metformin Hcl Er 500 Mg Tab.Er.24h) 500 mg PO DAILY [facility] Last Admin: 11/28/24 08:29 Dose: 500 mg Mirtazapine (Mirtazapine 15 Mg Tablet) 15 mg PO BEDTIME [facility] Last Admin: 11/28/24 20:55 Dose: 15 mg Mirtazapine (Mirtazapine 15 Mg Tablet) 15 mg PO BEDTIME PRN PRN Reason: insomnia Last Admin: 11/29/24 00:41 Dose: 15 mg Nystatin (Nystatin Powder 15 Gm Bottle) 1 appl TOPICAL BID [facility]; Protocol Last Admin: 11/28/24 21:23 Dose: 1 appl Allergies Allergies Allergy/AdvReac Type Severity Reaction Status Date / Time No Known Allergies Allergy Verified 11/26/24 12:53 Assessment & Plan Assessment & Plan (1) TRICIA (obstructive sleep apnea): Status: Acute Code(s): G47.33 - Obstructive sleep apnea (adult) (pediatric) (2) Opioid dependence: Status: Acute Code(s): F11.20 - Opioid dependence, uncomplicated (3) PTSD (post-traumatic stress disorder): Status: Acute Code(s): F43.10 - Post-traumatic stress disorder, unspecified (4) MDD (major depressive disorder), recurrent episode, moderate: Status: Acute Code(s): F33.1 - Major depressive disorder, recurrent, moderate (5) Hallucinations, visual: Status: Acute Code(s): R44.1 - Visual hallucinations Plan D/C zyprexa as having substantial anti-ACh and antihistamine activity, also redundant to abilify, in theory. D/C hydroxyzine due to anti-ACh and antihistamine activity. can't tolerate trazodone so trial of remeron for insomnia started, 15 mg QHS qith 15 mg PRN. c/o myoclonic jerks, disequilibrium, AVH, cog difficulties - MRI brain with neuroquant ordered. MoCA 24/30 (unable to draw cube, called lion a tiger, only 1 correct on serial 7s, and 3/5 delayed recall). 2/8 - lfts slight elevation ( ? fatty liver) , on abilify and remeron- Patient educated on: medication risk/benefits Informed Consent: further education needed Reason for continued inpatient stay Substantial Risk for: inability to function and med/psych decompensation Time Spent With Patient Time: Total time managing care of this patient today ____ minutes.
[2024-11-29 09:03] VITALS: BP 104/80; PULSE 94; RESP 14; TEMP 36.6; O2SAT 94
[2024-11-29 09:03] LABS: Cholesterol 137 mg/dL (<200); HDL Cholesterol 40 mg/dL (>40); LDL Cholesterol Calculated 66 mg/dL (<100); Triglycerides 159 mg/dL (<150)
[2024-11-29] MEDS: Docusate Sodium 100 MG CAPSULE PO ×2 (09:18→20:50)
[2024-11-29] MEDS: ARIPiprazole 5 MG TABLET PO (09:19)
[2024-11-29] MEDS: Aspirin Enteric Coated 81 MG TABLET.DR PO (09:19)
[2024-11-29] MEDS: carvediloL 12.5 MG TABLET PO ×2 (09:19→20:50)
[2024-11-29] MEDS: Ibuprofen 600 MG TABLET PO ×2 (09:20→20:51)
[2024-11-29] MEDS: amLODIPine Besylate 10 MG TABLET PO (09:20)
[2024-11-29] MEDS: metFORMIN HCl ER 500 MG TAB.ER.24H PO (09:21)
[2024-11-29] MEDS: Buprenorphine/Naloxone 2/0.5mg FILM 1 FILM SUBLINGUAL ×3 (09:22→20:50)
[2024-11-29] MEDS: Lidocaine 4 % Patch ADH..PATCH 1 PATCH TRANSDERMA (09:23)
[2024-11-29 20:00] VITALS: BP 141/86; PULSE 86; RESP 16; TEMP 36.3; O2SAT 96
[2024-11-29 20:44] LABS: Glucose, Whole Blood 224 mg/dL (60-115)
[2024-11-29] MEDS: Nystatin Powder 15 GM BOTTLE 1 APPL TOPICAL (21:19)
[2024-11-30] MEDS: Magnesium Hydrox/Alum Hydrox 30 ML ORAL.SUSP PO (01:01)
[2024-11-30] MEDS: Acetaminophen 325 MG TABLET 650 MG PO ×2 (05:59→13:14)
[2024-11-30 07:42] VITALS: BP 128/58; PULSE 83; RESP 16; TEMP 36.4; O2SAT 89
[2024-11-30 07:55] LABS: Glucose, Whole Blood 163 mg/dL (60-115)
[2024-11-30] MEDS: amLODIPine Besylate 10 MG TABLET PO (08:15)
[2024-11-30] MEDS: Ibuprofen 600 MG TABLET PO ×2 (08:16→19:11)
[2024-11-30] MEDS: ARIPiprazole 5 MG TABLET PO (08:17)
[2024-11-30] MEDS: carvediloL 12.5 MG TABLET PO ×2 (08:17→20:49)
[2024-11-30] MEDS: Docusate Sodium 100 MG CAPSULE PO ×2 (08:17→20:49)
[2024-11-30] MEDS: Aspirin Enteric Coated 81 MG TABLET.DR PO (08:18)
[2024-11-30] MEDS: metFORMIN HCl ER 500 MG TAB.ER.24H PO (08:18)
[2024-11-30] MEDS: Buprenorphine/Naloxone 2/0.5mg FILM 1 FILM SUBLINGUAL ×3 (08:45→20:50)
--- NOTE | 2024-11-30 09:25 | HO.PSYCHPN ---
Subjective Subjective Date of Service: 11/30/24 Reason For Visit: crisis Subjective Notes: Conditional Voluntary Healthcare Proxy: No Guardianship: No Medical Problems Affecting Mental Status: No (no further ah/vh ) Interim History: 69 yo reports having slept last night and no further visual hallucinations or auditory- pt very relieved- feeling positive about current medication and hoping to go home soon- Later in pm 9pm asked for another med to sleep - as though slept 6 hrs it was in 2 hr bits- I don't think chauhan to add another medication given recent ah/vh in relation to anxiety meds/antihistamines. Medication Compliance: Yes Side effects from medications: No Attending Groups: Yes Review of Systems Acute medical concerns: No Medical Review of Systems: unchanged Mental Status Exam Mental Status Exam Patient Appearance: Unkempt Patient Orientation: Person, Place and Time Level of Consciousness: Awake Patient Behavior: Appropriate, Talkative and Good Eye Contact Mood Description: Calm Affect Description: Appropriate Patient Cognition Impaired: No Ability to Follow Directions: Fair Speech Pattern: Clear Hallucinations: None Thought Process: Intact Thought Content: positive for Goal Oriented Depressive Symptoms: Difficulty Sleeping Judgement: Fair Diagnostics Vital Signs (24Hr): Vital Signs - 24 hr 11/29/24 20:00 11/30/24 07:42 Temperature 97.4 F 97.6 F Pulse Rate 86 83 Respiratory Rate 16 16 Blood Pressure 141/86 H 128/58 L Pulse Oximetry 96 89 L Oxygen Delivery Method Room Air Room Air BMI result Body Mass Index 41.5 Labs 11/26/24 14:13 11/27/24 15:03 Labs: Laboratory Results - last 48 hr 11/28/24 11/29/24 11/29/24 11:42 08:09 08:34 POC Glucose 201 H 169 H Triglycerides 159 H Cholesterol 137 LDL Cholesterol, Calc 66 HDL Cholesterol 40 L 11/29/24 11/30/24 20:38 07:51 POC Glucose 224 H 163 H Triglycerides Cholesterol LDL Cholesterol, Calc HDL Cholesterol Medications Medications Current Medications Acetaminophen (Acetaminophen 325 Mg Tablet) 650 mg PO Q6H PRN PRN Reason: Headache/Pain Mild Scale (1-3) Last Admin: 11/30/24 05:59 Dose: 650 mg Al Hydroxide/Mg Hydroxide (Magnesium Hydrox/Alum Hydrox 30 Ml Oral.Susp) 30 ml PO Q6H PRN PRN Reason: Heartburn/Nausea Last Admin: 11/30/24 01:01 Dose: 30 ml Albuterol Sulfate (Albuterol Sulfate 90 Mcg 8 Gm Inhaler) 2 puff INHALE RQ4H PRN PRN Reason: Wheezing Last Admin: 11/28/24 06:49 Dose: 2 puff Amlodipine Besylate (Amlodipine Besylate 10 Mg Tablet) 10 mg PO DAILY [facility]; Protocol Last Admin: 11/30/24 08:15 Dose: 10 mg Aripiprazole (Aripiprazole 5 Mg Tablet) 5 mg PO DAILY [facility] Last Admin: 11/30/24 08:17 Dose: 5 mg Aspirin (Aspirin Enteric Coated 81 Mg Tablet.Dr) 81 mg PO DAILY [facility] Last Admin: 11/30/24 08:18 Dose: 81 mg Buprenorphine/Naloxone (Buprenorphine/Naloxone 2/0.5mg Film) 1 film SUBLINGUAL TID [facility] Last Admin: 11/30/24 08:45 Dose: 1 film Carvedilol (Carvedilol 12.5 Mg Tablet) 12.5 mg PO BID [facility]; Protocol Last Admin: 11/30/24 08:17 Dose: 12.5 mg Docusate Sodium (Docusate Sodium 100 Mg Capsule) 100 mg PO BID [facility] Last Admin: 11/30/24 08:17 Dose: 100 mg Ibuprofen (Ibuprofen 600 Mg Tablet) 600 mg PO Q8H PRN PRN Reason: Pain, Moderate(Pain Scale 4-6) Last Admin: 11/30/24 08:16 Dose: 600 mg Lidocaine (Lidocaine 4 % Patch Adh..Patch) 1 patch TRANSDERMA DAILY [facility]; Protocol Last Admin: 11/29/24 09:23 Dose: 1 patch Magnesium Hydroxide (Milk Of Magnesia 30 Ml Oral.Susp) 30 ml PO DAILY PRN PRN Reason: Constipation Metformin HCl (Metformin Hcl Er 500 Mg Tab.Er.24h) 500 mg PO DAILY [facility] Last Admin: 11/30/24 08:18 Dose: 500 mg Mirtazapine (Mirtazapine 15 Mg Tablet) 15 mg PO BEDTIME [facility] Last Admin: 11/29/24 20:51 Dose: 15 mg Nystatin (Nystatin Powder 15 Gm Bottle) 1 appl TOPICAL BID [facility]; Protocol Last Admin: 11/30/24 08:31 Dose: Not Given Allergies Allergies Allergy/AdvReac Type Severity Reaction Status Date / Time No Known Allergies Allergy Verified 11/26/24 12:53 Assessment & Plan Assessment & Plan (1) TRICIA (obstructive sleep apnea): Status: Acute Code(s): G47.33 - Obstructive sleep apnea (adult) (pediatric) (2) Opioid dependence: Status: Acute Code(s): F11.20 - Opioid dependence, uncomplicated (3) PTSD (post-traumatic stress disorder): Status: Acute Code(s): F43.10 - Post-traumatic stress disorder, unspecified (4) MDD (major depressive disorder), recurrent episode, moderate: Status: Acute Code(s): F33.1 - Major depressive disorder, recurrent, moderate (5) Hallucinations, visual: Status: Acute Code(s): R44.1 - Visual hallucinations Assessment and Plan: 11/30 reports none today Plan D/C zyprexa as having substantial anti-ACh and antihistamine activity, also redundant to abilify, in theory. D/C hydroxyzine due to anti-ACh and antihistamine activity. can't tolerate trazodone so trial of remeron for insomnia started, 15 mg QHS qith 15 mg PRN. c/o myoclonic jerks, disequilibrium, AVH, cog difficulties - MRI brain with neuroquant ordered. MoCA (unable to draw cube, called lion a tiger, only 1 correct on serial 7s, and 3/5 delayed recall). 11/29 - lfts slight elevation ( ? fatty liver) , on abilify and remeron- 11/30 no change to current plan- given better off other meds don't see adding in a sleep medication Patient educated on: medication risk/benefits Informed Consent: understands Reason for continued inpatient stay Substantial Risk for: rapid decompensation and med/psych decompensation Time Spent With Patient Time: Total time managing care of this patient today ____ minutes.
[2024-11-30] MEDS: Lidocaine 4 % Patch ADH..PATCH 1 PATCH TRANSDERMA (09:26)
[2024-11-30 19:59] VITALS: BP 166/77; PULSE 86; TEMP 36.4; O2SAT 94
[2024-11-30 20:46] LABS: Glucose, Whole Blood 232 mg/dL (60-115)
[2024-11-30] MEDS: Mirtazapine 15 MG TABLET PO (20:49)
[2024-11-30] MEDS: Nystatin Powder 15 GM BOTTLE 1 APPL TOPICAL (22:26)
[2024-12-01] MEDS: Acetaminophen 325 MG TABLET 650 MG PO ×2 (03:40→23:32)
[2024-12-01 07:43] VITALS: BP 141/69; PULSE 86; RESP 14; TEMP 36.7; O2SAT 94
[2024-12-01 07:55] LABS: Glucose, Whole Blood 140 mg/dL (60-115)
[2024-12-01] MEDS: amLODIPine Besylate 10 MG TABLET PO (08:30)
[2024-12-01] MEDS: carvediloL 12.5 MG TABLET PO ×2 (08:30→20:50)
[2024-12-01] MEDS: Lidocaine 4 % Patch ADH..PATCH 1 PATCH TRANSDERMA (08:30)
[2024-12-01] MEDS: ARIPiprazole 5 MG TABLET PO ×2 (08:30→20:50)
[2024-12-01] MEDS: Aspirin Enteric Coated 81 MG TABLET.DR PO (08:30)
[2024-12-01] MEDS: Docusate Sodium 100 MG CAPSULE PO ×2 (08:30→20:50)
[2024-12-01] MEDS: metFORMIN HCl ER 500 MG TAB.ER.24H PO (08:30)
[2024-12-01] MEDS: Buprenorphine/Naloxone 2/0.5mg FILM 1 FILM SUBLINGUAL ×3 (08:31→20:50)
[2024-12-01] MEDS: Nystatin Powder 15 GM BOTTLE 1 APPL TOPICAL ×2 (08:31→22:38)
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
[2024-12-01] MEDS: Ibuprofen 600 MG TABLET PO (12:45)
[2024-12-01 20:10] VITALS: BP 168/68; PULSE 93; RESP 18; TEMP 36.8; O2SAT 95
[2024-12-01 20:44] LABS: Glucose, Whole Blood 215 mg/dL (60-115)
[2024-12-01] MEDS: Mirtazapine 15 MG TABLET PO (20:50)
[2024-12-02] MEDS: Mirtazapine 7.5 MG TABLET PO (00:41)
[2024-12-02] MEDS: Acetaminophen 325 MG TABLET 650 MG PO (07:24)
[2024-12-02 07:25] VITALS: BP 184/94; PULSE 96; RESP 14; TEMP 36.2; O2SAT 100
[2024-12-02 07:44] LABS: Glucose, Whole Blood 182 mg/dL (60-115)
[2024-12-02] MEDS: Ibuprofen 600 MG TABLET PO (08:48)
[2024-12-02 08:49] VITALS: BP 150/72
[2024-12-02] MEDS: amLODIPine Besylate 10 MG TABLET PO (08:49)
[2024-12-02 08:50] VITALS: BP 150/72; PULSE 75
[2024-12-02] MEDS: Docusate Sodium 100 MG CAPSULE PO (08:50)
[2024-12-02] MEDS: Aspirin Enteric Coated 81 MG TABLET.DR PO (08:50)
[2024-12-02] MEDS: carvediloL 12.5 MG TABLET PO (08:50)
[2024-12-02] MEDS: Buprenorphine/Naloxone 2/0.5mg FILM 1 FILM SUBLINGUAL (08:51)
[2024-12-02] MEDS: metFORMIN HCl ER 500 MG TAB.ER.24H PO (08:51)
[2024-12-02] MEDS: Lidocaine 4 % Patch ADH..PATCH 1 PATCH TRANSDERMA (08:52)
== END 2024-12-02 11:59 | disposition home or self-care (01) | DRG 885 ==
LOC: HO.ED 11-27 06:16 → HO.PADLT16 11-27 13:10
PROVIDERS: Psychiatry & Neurology Psychiatry; Admitting Provider Registered Nurse; Emergency Provider Emergency Medicine; PCP Internal Medicine; Visit Provider Psychiatry & Neurology Psychiatry
DX: F33.1 Major depressive disorder, recurrent, moderate (principal); F11.20 Opioid dependence, uncomplicated; F13.20 Sedative, hypnotic or anxiolytic dependence, uncomplicated; G47.33 Obstructive sleep apnea (adult) (pediatric); F43.10 Post-traumatic stress disorder, unspecified; R41.0 Disorientation, unspecified; T44.3X5A Adverse effect of other parasympatholytics [anticholinergics and antimuscarinics] and spasmolytics, initial encounter; Z20.822 Contact with and (suspected) exposure to COVID-19; Z71.51 Drug abuse counseling and surveillance of drug abuser; Z79.82 Long term (current) use of aspirin; Z79.84 Long term (current) use of oral hypoglycemic drugs; Z79.899 Other long term (current) drug therapy
CPT/HCPCS: 0241U; 36415; 70551; 76377; 80053; 80061; 80307; 81001; 82947; 85025; 92526; 92610; 93005; 99285; S9485

== ENCOUNTER → 2024-11-26 13:01 | Outpatient (BNV) | payer MEDICARE, SELFPAY | PROVIDERS: Emergency Provider Emergency Medicine; PCP Internal Medicine; Visit Provider Internal Medicine Cardiovascular Disease | DX: R94.31 Abnormal electrocardiogram [ECG] [EKG] (principal) | CPT/HCPCS: 93010 ==

== ENCOUNTER 2024-11-27 12:46 | Outpatient (BNV) | payer MEDICARE, SELFPAY | END 2024-11-28 14:58 | PROVIDERS: Admitting Provider Registered Nurse; Emergency Provider Emergency Medicine; PCP Internal Medicine; Visit Provider Radiology Diagnostic Radiology | DX: R42 Dizziness and giddiness (principal); G25.3 Myoclonus; R41.81 Age-related cognitive decline | CPT/HCPCS: 70551 ==

== ENCOUNTER → 2024-11-27 12:46 | Outpatient (BNV) | payer MEDICARE, SELFPAY | PROVIDERS: Admitting Provider Registered Nurse; Emergency Provider Emergency Medicine; PCP Internal Medicine; Visit Provider Psychiatry & Neurology Psychiatry | DX: F11.20 Opioid dependence, uncomplicated (principal); G47.33 Obstructive sleep apnea (adult) (pediatric); F43.10 Post-traumatic stress disorder, unspecified; F33.1 Major depressive disorder, recurrent, moderate; R44.1 Visual hallucinations | CPT/HCPCS: 90792 ==

== ENCOUNTER 2024-12-03 12:46 | Outpatient (AMB) | payer MEDICARE, SELFPAY ==
[2024-12-03 13:02] VITALS: BP 114/66; PULSE 80; O2SAT 97; BMI 42.3
--- NOTE | 2024-12-03 13:02 | MHC.OFFVIS ---
Vital Signs 12/03/24 13:02 Height 5 ft 1 in Weight 224 lb BMI 42.3 BP 114/66 Blood Pressure Location Rt brachial Position Sitting Pulse 80 Pulse Source Doppler Pulse Oximetry (%) 97 Oxygen Delivery Method Room Air Intake Visit Reasons: nocturnal hypoxemia Allergies No Known Allergies Allergy (Verified 12/03/24 13:05) HPI HPI nocturnal hypoxemia: Details: 69-year-old lady, nonsmoker, with underlying history of asthma agonist with Arnuity and albuterol MDI and recent admission to [facility] for hyponatremia where patient was noted to have nocturnal hypoxemia. Patient denies her prior sleep studies. She also denies having pulmonary function tests. She does not have any other pulmonary related concerns at this time. She denies prior personal or family history of lung disease. After the last office visit patient has not completed her sleep study or overnight oximetry. She did have her pulmonary function test. Today she has complain of worsening orthopnea, extremity edema, and paroxysmal nocturnal dyspnea. [facility] Medical History (Updated 12/03/24 @ 13:56 by Clyde Roldan MD) Acute hyponatremia PTSD (post-traumatic stress disorder) Psychogenic polydipsia Social History Household Members: None Household Members Other:: 2 dogs Housing: House Do you presently have visiting nurse or other home services: No Comment: ambulates with steady gait Patient Tobacco Use Status: Never used Tobacco e-Cigarette/Vaping Use: Never Used Second Hand Smoke Exposure: No Substance Use Type: Prescription Drugs service: No Sexual orientation: Straight/Heterosexual Review of Systems Const Denies daytime sleepiness, Denies excessive sweating, Denies fatigue, Denies fever(s), Denies lethargy, Denies malaise, Denies night sweats, Denies snoring and Denies weight loss Eyes Denies blurry vision and Denies itchy eyes ENT Denies nasal congestion, Denies post nasal drip, Denies sinus pain, Denies sinus pressure and Denies other ( Thrush) Card Denies chest pain, Reports pedal edema, Denies dyspnea, Reports dyspnea on exertion, Reports orthopnea and Denies paroxysmal nocturnal dyspnea Resp Denies cough, Denies hemoptysis, Denies excessive phlegm production, Denies dyspnea, Reports dyspnea on exertion, Denies snoring and Denies wheezing GI Denies abdominal pain and Denies heartburn Musc Denies myalgias, Denies arthralgias and Denies joint swelling Skin/Breast Denies rash Neuro Denies memory loss and Denies seizure-like activity Psych Denies abnormal sleep pattern, Denies anxiety and Denies memory loss Endo Denies excessive sweating, Denies fatigue and Denies heat intolerance Prateek/Lymph Denies easy bruising Aller/Immun Denies itchy eyes, Denies seasonal rhinorrhea and Denies wheezing Physical Exam Vital Signs: Last Vital Signs Pulse 80 12/03/24 13:02 BP 114/66 12/03/24 13:02 Pulse Ox 97 12/03/24 13:02 Oxygen Delivery Method Room Air 12/03/24 13:02 BMI result Body Mass Index 42.3 Const General: no acute distress and alert Nutritional Appearance: obese Orientation/consciousness: Other orientation findings ( oriented) HEENT Head: Yes atraumatic Eyes General: appearance normal, both eyes and all related structures Sclerae: sclerae normal EOM: EOMs intact bilaterally Neck Neck: Yes supple Lymphatic: no lymphadenopathy noted Resp Effort & Inspection: normal respiratory effort and no use of accessory muscles Auscultation: clear to auscultation bilaterally Cardio Rate: regular rate Rhythm: regular rhythm Heart sounds: no gallops, no murmurs and no rubs Skin General skin exam: other ( warm) Extrem General: No clubbing, No cyanosis and Yes edema (2+ bilateral) Assessment & Plan Assessment & Plan (1) Asthma: Code(s): J45.909 - Unspecified asthma, uncomplicated Category: Medical Plan: Results of pulmonary function test reviewed, underlying borderline reactive airway disease with reasonable control on current regimen of albuterol MDI as needed. Continue current regimen. (2) TRICIA (obstructive sleep apnea): Code(s): G47.33 - Obstructive sleep apnea (adult) (pediatric) Category: Medical Plan: Sleep study is pending. (3) Nocturnal hypoxemia: Code(s): G47.34 - Idiopathic sleep related nonobstructive alveolar hypoventilation Category: Medical Plan: Overnight oximetry is pending. (4) Dyspnea on exertion: Code(s): R06.09 - Other forms of dyspnea Category: Medical Plan: Patient with worsening orthopnea, lower extremity edema, and dyspnea on exertion. Will increase her Lasix to 60 mg daily and check symptoms in 1 week. Medications: New furosemide 60 mg (1.5 x 40 mg) PO QAM 10 days 15 tabs 0RF Coding Level of Care Code Est Pt Level 4 (48088) Diagnoses Asthma J45.909 TRICIA (obstructive sleep apnea) G47.33 Nocturnal hypoxemia G47.34 Dyspnea on exertion R06.09
--- OUTSIDE RECORDS SUMMARY | 2024-12-03 14:07 | XMS_ITS | Clinical Summary ---
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 ADV [id number] MEDICARE - [place]GS [place] - PDGM [id number] Problems Condition Name Condition Details Condition Category [...] powder for inhalation 2023-10 00:00: 00 Yes [id number] 1 inhalat ion EVERY AM 1 inhalation EVERY AM (route: inhalation ) Med Classific ation: Respirato ry Therapy Agents rosuvastati n 10 mg tablet 2023-10 0-15 00:00: 00 Yes [id number] 1 tablet BEDTIME 1 tablet BEDTIME (route: oral) Med Classific ation: Cardiovas cular Therapy Agents escitalopra m 5 mg tablet 30 00:00: 00 Yes [id number] 1 tablet EVERY AM 1 tablet EVERY AM (route: oral) Med Classific ation: Central Nervous System Agents albuterol sulfate HFA 90 mcg/actuati on aerosol inhaler 2023-10 00:00: 00 Yes [id number] FOR WHEEZING 2 puff EVERY 4 HOURS 2 puff EVERY 4 HOURS (route: inhalation ) Med Classific ation: Respirato ry Therapy Agents carvedilol 12.5 mg tablet 2023-10 00:00: 00 Yes [id number] HOLD FOR SBP <90 1 tablet 2 TIMES DAILY 1 tablet 2 TIMES DAILY (route: oral) Med Classific ation: Cardiovas cular Therapy Agents cefuroxime axetil 250 mg tablet 2023-10 00:00: 00 Yes [id number] 1 tablet 2 TIMES DAILY 1 tablet 2 TIMES DAILY (route: oral) Med Classific ation: Anti-Infe ctive Agents clonazepam 1 mg tablet 2023-10 00:00: 00 Yes [id number] 1 tablet 2 TIMES DAILY 1 tablet 2 TIMES DAILY (route: oral) Med Classific ation: Central Nervous System Agents Clotrimazol e AF 1 % topical cream 2023-10 00:00: 00 Yes [id number] 1 inch 2 TIMES DAILY 1 inch 2 TIMES DAILY (route: topical) Med Classific ation: Dermatolo gical hydroxyzine HCl 25 mg tablet 2023-10 00:00: 00 10-27 23:59 :00 No [id number] ANXIETY 1 tablet EVERY 6 HOURS 1 tablet EVERY 6 HOURS (route: oral) Med Classific ation: Central Nervous System Agents Lidocaine Pain Relief 4 % topical patch 2023-10 00:00: 00 Yes [id number] APPLY TO BACK 1 adhesiv e patch, medicat ed EVERY AM 1 adhesive patch, medicated EVERY AM (route: topical) Med Classific ation: Dermatolo gical metformin 500 mg tablet 2023-10 00:00: 00 Yes [id number] 1 tablet EVERY AM 1 tablet EVERY AM (route: oral) Med Classific ation: Endocrine naloxone 4 mg/actuatio n nasal spray 2023-10 00:00: 00 Yes [id number] OPIOD OVERDOSE Per instruc tions NEEDED Per instructio ns NEEDED (route: nasal) Med Classific ation: Antidotes and other Reversal Agents nystatin 100,000 unit/gram topical cream 2023-10 00:00: 00 Yes [id number] TO ABDOMINAL FOLD 1 inch 2 TIMES DAILY 1 inch 2 TIMES DAILY (route: topical) Med Classific ation: Dermatolo gical quetiapine 100 mg tablet 2023-10 00:00: 00 09-23 23:59 :00 No [id number] 1 tablet 3 TIMES DAILY 1 tablet 3 TIMES DAILY (route: oral) Med Classific ation: Central Nervous System Agents quetiapine 50 mg tablet 2023-10 00:00: 00 09-23 23:59 :00 No [id number] MODERATE ANXIETY 1 tablet EVERY 6 HOURS 1 tablet EVERY 6 HOURS (route: oral) Med Classific ation: Central Nervous System Agents sodium chloride 1,000 mg soluble tablet 2023-10 00:00: 00 Yes [id number] 1 tablet 2 TIMES DAILY 1 tablet 2 TIMES DAILY (route: miscellane ous) Med Classific ation: Electroly te Balance-N utritiona l Products trazodone 50 mg tablet 2023-10 00:00: 00 09-08 23:59 :00 No [id number] 1 tablet BEDTIME 1 tablet BEDTIME (route: oral) Med Classific ation: Central Nervous System Agents venlafaxine 37.5 mg tablet 2023-10 00:00: 00 10-27 23:59 :00 No [id number] 1 tablet EVERY AM 1 tablet EVERY AM (route: oral) Med Classific ation: Central Nervous System Agents buprenorphi ne 4 mg-naloxone 1 mg sublingual film 2023-10 00:00: 00 Yes [id number] 1 film 2 TIMES DAILY 1 film 2 TIMES DAILY (route: sublingual ) Med Classific ation: Chemical Dependenc y, Agents to Treat furosemide 20 mg tablet 2023-10 00:00: 00 Yes [id number] 1 tablet EVERY AM 1 tablet EVERY AM (route: oral) Med Classific ation: Cardiovas cular Therapy Agents OXYGEN 2023-10 00:00: 00 Yes [id number] 2 Liter BEDTIME 2 Liter BEDTIME (route: Oxygen) Med Classific ation: Medical Oxygen Adult Low Dose Aspirin 81 mg tablet,marisol yed release 2023-10 00:00: 00 Yes [id number] 1 tablet EVERY AM 1 tablet EVERY AM (route: oral) Med Classific ation: Hematolog ical Agents clonidine HCl 0.1 mg tablet 2023-10 00:00: 00 10-29 23:59 :00 No [id number] HOLD FOR SBP <90 .5 tablet 3 TIMES DAILY .5 tablet 3 TIMES DAILY (route: oral) Med Classific ation: Cardiovas cular Therapy Agents Colace 100 mg capsule 2023-10 00:00: 00 Yes [id number] 1 capsule DAILY 1 capsule DAILY (route: oral) Med Classific ation: Gastroint estinal Therapy Agents clonidine HCl 0.1 mg tablet 10-27 00:00: 00 Yes [id number] 1 tablet 3 TIMES DAILY 1 tablet 3 TIMES DAILY (route: oral) Med Classific ation: Cardiovas cular Therapy Agents hydroxyzine HCl 50 mg tablet 10-27 00:00: 00 Yes [id number] 1 tablet 4 TIMES DAILY 1 tablet 4 TIMES DAILY (route: oral) Med Classific ation: Central Nervous System Agents Vital Signs Vital Name Observation Time Observation Value Commen ts Temperature 2024-11-26 09:27:00.000 97.8 [degF] Temperature 2024-11-17 11:18:00.000 97.8 [degF] Pulse 2024-11-26 09:27:00.000 78 /min Pulse 2024-11-17 11:18:00.000 76 /min Respirations 2024-11-26 09:27:00.000 16 /min Respirations 2024-11-17 11:18:00.000 16 /min Systolic Blood Pressure 2024-11-26 09:27:00.000 121 mm [Hg] Systolic Blood Pressure 2024-11-17 11:18:00.000 137 mm [Hg] Diastolic Blood Pressure 2024-11-26 09:27:00.000 79 mm [Hg] Diastolic Blood Pressure 2024-11-17 11:18:00.000 84 mm [Hg] Plan of Treatment Planned Activity [...] AWARENESS FOR SAFETY AND WILL NOTIFY CLINICAL HEAD HOUSEKEEPER AND PHYSICIAN/PROVIDER WITH ANY CHANGE IN CONDITION. [code = SKILLED NURSE WILL MAINTAIN SITUATIONAL AWARENESS FOR SAFETY AND WILL NOTIFY CLINICAL HEAD HOUSEKEEPER AND PHYSICIAN/PROVIDER WITH ANY CHANGE IN CONDITION.] [...] BY THE END OF THE CERTIFICATION PERIOD. Encounters Start Date/Time End Date/Time Encounter Type Admission Type Attending Clinicians Care Facility Care Department Encounter ID Discharge Date Discharge Status Discharge Condition Discharge Reason Percent Goals Met 2024-09-06 00:00:00 2025-01-03 00:00:00 Outpatient RECERTIFIC ATION VASHTI MORRISSEY [facility] [id number] 46.67
--- OUTSIDE RECORDS SUMMARY | 2024-12-03 14:07 | XMS_ITS | Clinical Summary ---
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 Active oxyCODONE-aceta minophen (PERCOCET) 7.5-325 mg per tablet Take 1 [...] Type Department Care Team Description 09/26/2024 Telephone [facility] [address] [place] [address] Pauly Diaz MD Med Refill (Amlodipine) from [...] drink = 0.6 oz pur e alcohol) Comments Unknown Sex and Gender Information Value Date Recorded Sex Assigned at Not on file Legal Sex Female 6:10 PM EST Gender Identity Not on file Sexual Orientation Not on file Obstetrics History Last Filed [...] Description 01/09/2025 10:20 AM EDT Office Visit [facility]iology [facility] [address] [place] [address] Pauly Diaz MD [address] [place] [address] [address] [place] [address] Health Maintenance Due Date Last Done Comments Breast Cancer Screening 1955 DTaP,Tdap,and Td Vaccines (1 - Tdap) 1976 Zoster Vaccines (1 of 2) 2007 RSV Immunization Patients 60 + Years Old (1 - Risk 60-74 years 1-dose series) 2017 Pneumococcal Vaccine: 50+ Ye ars (1 of 1 - PCV) [...] on patient's age to complete this topic Insurance [employer] MEDICARE Care Teams Construction Job Cost Estimator Relationship Specialty Start Date End Date Asad Alvarado MD [address] [facility] [address] [place], [place] PCP - General Internal Medicine 06/16/22
--- OUTSIDE RECORDS SUMMARY | 2024-12-03 14:07 | XMS_ITS | Clinical Summary ---
Author Organization Unknown Care Team Providers Care Industrial Millwright Name Role Phone EVELYNE GRULLON, SUBHASH Unavailable Unavailable YUNI CA, VASHTI Unavailable Unavailable Payers Payer Name Policy Type Policy Number Effective Date Expira tion Date [facility] ADV [id number] MEDICARE - [place] PDGM [id number] Problems Condition Name Condition Details Condition Category [...] powder for inhalation 2023-10 00:00: 00 Yes [id number] 1 inhalat ion EVERY AM 1 inhalation EVERY AM (route: inhalation ) Med Classific ation: Respirato ry Therapy Agents rosuvastati n 10 mg tablet 2023-10 0-15 00:00: 00 Yes [id number] 1 tablet BEDTIME 1 tablet BEDTIME (route: oral) Med Classific ation: Cardiovas cular Therapy Agents escitalopra m 5 mg tablet 30 00:00: 00 Yes [id number] 1 tablet EVERY AM 1 tablet EVERY AM (route: oral) Med Classific ation: Central Nervous System Agents albuterol sulfate HFA 90 mcg/actuati on aerosol inhaler 2023-10 00:00: 00 Yes [id number] FOR WHEEZING 2 puff EVERY 4 HOURS 2 puff EVERY 4 HOURS (route: inhalation ) Med Classific ation: Respirato ry Therapy Agents carvedilol 12.5 mg tablet 2023-10 00:00: 00 Yes [id number] HOLD FOR SBP <90 1 tablet 2 TIMES DAILY 1 tablet 2 TIMES DAILY (route: oral) Med Classific ation: Cardiovas cular Therapy Agents cefuroxime axetil 250 mg tablet 2023-10 00:00: 00 Yes [id number] 1 tablet 2 TIMES DAILY 1 tablet 2 TIMES DAILY (route: oral) Med Classific ation: Anti-Infe ctive Agents clonazepam 1 mg tablet 2023-10 00:00: 00 Yes [id number] 1 tablet 2 TIMES DAILY 1 tablet 2 TIMES DAILY (route: oral) Med Classific ation: Central Nervous System Agents Clotrimazol e AF 1 % topical cream 2023-10 00:00: 00 Yes [id number] 1 inch 2 TIMES DAILY 1 inch 2 TIMES DAILY (route: topical) Med Classific ation: Dermatolo gical hydroxyzine HCl 25 mg tablet 2023-10 00:00: 00 10-27 23:59 :00 No [id number] ANXIETY 1 tablet EVERY 6 HOURS 1 tablet EVERY 6 HOURS (route: oral) Med Classific ation: Central Nervous System Agents Lidocaine Pain Relief 4 % topical patch 2023-10 00:00: 00 Yes [id number] APPLY TO BACK 1 adhesiv e patch, medicat ed EVERY AM 1 adhesive patch, medicated EVERY AM (route: topical) Med Classific ation: Dermatolo gical metformin 500 mg tablet 2023-10 00:00: 00 Yes [id number] 1 tablet EVERY AM 1 tablet EVERY AM (route: oral) Med Classific ation: Endocrine naloxone 4 mg/actuatio n nasal spray 2023-10 00:00: 00 Yes [id number] OPIOD OVERDOSE Per instruc tions NEEDED Per instructio ns NEEDED (route: nasal) Med Classific ation: Antidotes and other Reversal Agents nystatin 100,000 unit/gram topical cream 2023-10 00:00: 00 Yes [id number] TO ABDOMINAL FOLD 1 inch 2 TIMES DAILY 1 inch 2 TIMES DAILY (route: topical) Med Classific ation: Dermatolo gical quetiapine 100 mg tablet 2023-10 00:00: 00 09-23 23:59 :00 No [id number] 1 tablet 3 TIMES DAILY 1 tablet 3 TIMES DAILY (route: oral) Med Classific ation: Central Nervous System Agents quetiapine 50 mg tablet 2023-10 00:00: 00 09-23 23:59 :00 No [id number] MODERATE ANXIETY 1 tablet EVERY 6 HOURS 1 tablet EVERY 6 HOURS (route: oral) Med Classific ation: Central Nervous System Agents sodium chloride 1,000 mg soluble tablet 2023-10 00:00: 00 Yes [id number] 1 tablet 2 TIMES DAILY 1 tablet 2 TIMES DAILY (route: miscellane ous) Med Classific ation: Electroly te Balance-N utritiona l Products trazodone 50 mg tablet 2023-10 00:00: 00 09-08 23:59 :00 No [id number] 1 tablet BEDTIME 1 tablet BEDTIME (route: oral) Med Classific ation: Central Nervous System Agents venlafaxine 37.5 mg tablet 2023-10 00:00: 00 10-27 23:59 :00 No [id number] 1 tablet EVERY AM 1 tablet EVERY AM (route: oral) Med Classific ation: Central Nervous System Agents buprenorphi ne 4 mg-naloxone 1 mg sublingual film 2023-10 00:00: 00 Yes [id number] 1 film 2 TIMES DAILY 1 film 2 TIMES DAILY (route: sublingual ) Med Classific ation: Chemical Dependenc y, Agents to Treat furosemide 20 mg tablet 2023-10 00:00: 00 Yes [id number] 1 tablet EVERY AM 1 tablet EVERY AM (route: oral) Med Classific ation: Cardiovas cular Therapy Agents OXYGEN 2023-10 00:00: 00 Yes [id number] 2 Liter BEDTIME 2 Liter BEDTIME (route: Oxygen) Med Classific ation: Medical Oxygen Adult Low Dose Aspirin 81 mg tablet,marisol yed release 2023-10 00:00: 00 Yes [id number] 1 tablet EVERY AM 1 tablet EVERY AM (route: oral) Med Classific ation: Hematolog ical Agents clonidine HCl 0.1 mg tablet 2023-10 00:00: 00 10-29 23:59 :00 No [id number] HOLD FOR SBP <90 .5 tablet 3 TIMES DAILY .5 tablet 3 TIMES DAILY (route: oral) Med Classific ation: Cardiovas cular Therapy Agents Colace 100 mg capsule 2023-10 00:00: 00 Yes [id number] 1 capsule DAILY 1 capsule DAILY (route: oral) Med Classific ation: Gastroint estinal Therapy Agents clonidine HCl 0.1 mg tablet 10-27 00:00: 00 Yes [id number] 1 tablet 3 TIMES DAILY 1 tablet 3 TIMES DAILY (route: oral) Med Classific ation: Cardiovas cular Therapy Agents hydroxyzine HCl 50 mg tablet 10-27 00:00: 00 Yes [id number] 1 tablet 4 TIMES DAILY 1 tablet [...] AWARENESS FOR SAFETY AND WILL NOTIFY CLINICAL GAS STATION SERVICE ATTENDANT AND PHYSICIAN/PROVIDER WITH ANY CHANGE IN CONDITION. [code = SKILLED NURSE WILL MAINTAIN SITUATIONAL AWARENESS FOR SAFETY AND WILL NOTIFY CLINICAL GAS STATION SERVICE ATTENDANT AND PHYSICIAN/PROVIDER WITH ANY CHANGE IN CONDITION.] [...] CARE WILL BE ESTABLISHED THAT MEETS PATIENT'S CUSTODIAL NEEDS AND INCLUDES PATIENT GOAL FOR HOME [...] 2025-01-03 00:00:00 Outpatient RECERTIFIC ATION VASHTI MORRISSEY [facility] [id number] 46.67
== END 2024-12-03 13:20 | disposition home or self-care (01) ==
PROVIDERS: PCP Internal Medicine; Visit Provider Internal Medicine Pulmonary Disease
DX: J45.909 Unspecified asthma, uncomplicated (principal); G47.33 Obstructive sleep apnea (adult) (pediatric); G47.34 Idiopathic sleep related nonobstructive alveolar hypoventilation; R06.09 Other forms of dyspnea
CPT/HCPCS: 99214

== ENCOUNTER → 2024-12-03 12:46 | Outpatient (BNVA) | payer MEDICARE, SELFPAY | PROVIDERS: PCP Internal Medicine; Visit Provider Internal Medicine Pulmonary Disease | DX: J45.909 Unspecified asthma, uncomplicated (principal); G47.33 Obstructive sleep apnea (adult) (pediatric); G47.34 Idiopathic sleep related nonobstructive alveolar hypoventilation; R06.09 Other forms of dyspnea | CPT/HCPCS: 99212 ==

== ENCOUNTER 2024-12-12 11:39 | Outpatient (AMB) | payer MEDICARE, SELFPAY ==
[2024-12-12 11:41] VITALS: BP 128/77; PULSE 88; O2SAT 96; BMI 42.9
--- NOTE | 2024-12-12 11:41 | A.OFFVIS_ITS ---
Vital Signs 12/12/24 11:41 Height 5 ft 1 in Weight 227 lb BMI 42.9 BP 128/77 Blood Pressure Location Rt brachial Position Sitting Pulse 88 Pulse Source Doppler Pulse Oximetry (%) 96 Oxygen Delivery Method Room Air Intake Visit Reasons: Nocturnal Hypoxemia Allergies No Known Allergies Allergy (Verified 12/12/24 11:46) HPI HPI Nocturnal Hypoxemia: Details: 69-year-old lady, nonsmoker, with underlying history of asthma agonist with Arnuity and albuterol MDI and recent admission to [facility] for hyponatremia where patient was noted to have nocturnal hypoxemia. Patient denies having prior sleep studies. She also denies having pulmonary function tests. She does not have any other pulmonary related concerns at this time. She denies prior personal or family history of lung disease. After the last office visit patient has completed her sleep study and is waiting to receive her CPAP machine. Today she is also complaining of bronchitic exacerbation symptomatic with productive cough. [facility] Medical History (Updated 12/10/24 @ 00:02 by Ashley Starr) Acute hyponatremia PTSD (post-traumatic stress disorder) Psychogenic polydipsia Social History Household Members: None Household Members Other:: 2 dogs Housing: House Do you presently have visiting nurse or other home services: No Comment: ambulates with steady gait Patient Tobacco Use Status: Never used Tobacco e-Cigarette/Vaping Use: Never Used Second Hand Smoke Exposure: No Substance Use Type: Prescription Drugs service: No Sexual orientation: Straight/Heterosexual Review of Systems Const Denies daytime sleepiness, Denies excessive sweating, Denies fatigue, Denies fever(s), Denies lethargy, Denies malaise, Denies night sweats, Denies snoring and Denies weight loss Eyes Denies blurry vision and Denies itchy eyes ENT Denies nasal congestion, Denies post nasal drip, Denies sinus pain, Denies sinus pressure and Denies other ( Thrush) Card Denies chest pain, Denies pedal edema, Denies dyspnea, Denies orthopnea and Denies paroxysmal nocturnal dyspnea Resp Denies cough, Denies hemoptysis, Denies excessive phlegm production, Denies dyspnea, Denies snoring and Denies wheezing GI Denies abdominal pain and Denies heartburn Musc Denies myalgias, Denies arthralgias and Denies joint swelling Skin/Breast Denies rash Neuro Denies memory loss and Denies seizure-like activity Psych Denies abnormal sleep pattern, Denies anxiety and Denies memory loss Endo Denies excessive sweating, Denies fatigue and Denies heat intolerance Prateek/Lymph Denies easy bruising Aller/Immun Denies itchy eyes, Denies seasonal rhinorrhea and Denies wheezing Physical Exam Vital Signs: Last Vital Signs Pulse 88 12/12/24 11:41 BP 128/77 12/12/24 11:41 Pulse Ox 96 12/12/24 11:41 Oxygen Delivery Method Room Air 12/12/24 11:41 BMI result Body Mass Index 42.9 Const General: no acute distress and alert Nutritional Appearance: not obese Orientation/consciousness: Other orientation findings ( oriented) HEENT Head: Yes atraumatic Eyes General: appearance normal, both eyes and all related structures Sclerae: sclerae normal EOM: EOMs intact bilaterally Neck Neck: Yes supple Lymphatic: no lymphadenopathy noted Resp Effort & Inspection: normal respiratory effort and no use of accessory muscles Auscultation: clear to auscultation bilaterally Cardio Rate: regular rate Rhythm: regular rhythm Heart sounds: no gallops, no murmurs and no rubs Skin General skin exam: other ( warm) Extrem General: No clubbing, No cyanosis and No edema Assessment & Plan Assessment & Plan (1) TRICIA (obstructive sleep apnea): Code(s): G47.33 - Obstructive sleep apnea (adult) (pediatric) Category: Medical Plan: Patient is waiting to receive her CPAP machine. (2) Nocturnal hypoxemia: Code(s): G47.34 - Idiopathic sleep related nonobstructive alveolar hypoventilation Category: Medical Plan: Nocturnal oximetry study is pending. (3) Asthma: Code(s): J45.909 - Unspecified asthma, uncomplicated Category: Medical Plan: Controlled on as needed albuterol MDI. Continue current regimen. Will treat bronchitic exacerbation with a course of Levaquin. (4) Dyspnea on exertion: Code(s): R06.09 - Other forms of dyspnea Category: Medical Plan: Orthopnea with patient not fully compliant with her diuretic regimen. Patient has been advised to be more compliant with her diuretic regimen of furosemide 60 mg daily. Medications: New levofloxacin 750 mg PO DAILY 7 tabs 0RF Changed From furosemide 60 mg (1.5 x 40 mg) PO QAM 10 days 15 tabs 0RF To furosemide 60 mg (1.5 x 40 mg) PO QAM 30 days 45 tabs 6RF Coding Level of Care Code Est Pt Level 4 (96087) Complex EM visit Add On G2211 Diagnoses TRICIA (obstructive sleep apnea) G47.33 Nocturnal hypoxemia G47.34 Asthma J45.909 Dyspnea on exertion R06.09
--- OUTSIDE RECORDS SUMMARY | 2024-12-12 12:42 | XMS_ITS | Clinical Summary ---
Author Organization Unknown Care Team Providers Care Termite Exterminator Helper Name Role Phone EVELYNE GRULLON, SUBHASH Unavailable Unavailable YUNI CA, VASHTI Unavailable Unavailable Payers Payer Name Policy Type Policy Number Effective Date Expira tion Date [facility] ADV [id number] MEDICARE - [place] - PDGM [id number] Problems Condition Name Condition Details Condition Category [...] powder for inhalation 2023-10 00:00: 00 Yes [id number] 1 inhalat ion EVERY AM 1 inhalation EVERY AM (route: inhalation ) Med Classific ation: Respirato ry Therapy Agents rosuvastati n 10 mg tablet 2023-10 0-15 00:00: 00 Yes [id number] 1 tablet BEDTIME 1 tablet BEDTIME (route: oral) Med Classific ation: Cardiovas cular Therapy Agents escitalopra m 5 mg tablet 30 00:00: 00 Yes [id number] 1 tablet EVERY AM 1 tablet EVERY AM (route: oral) Med Classific ation: Central Nervous System Agents albuterol sulfate HFA 90 mcg/actuati on aerosol inhaler 2023-10 00:00: 00 Yes [id number] FOR WHEEZING 2 puff EVERY 4 HOURS 2 puff EVERY 4 HOURS (route: inhalation ) Med Classific ation: Respirato ry Therapy Agents carvedilol 12.5 mg tablet 2023-10 00:00: 00 Yes [id number] HOLD FOR SBP <90 1 tablet 2 TIMES DAILY 1 tablet 2 TIMES DAILY (route: oral) Med Classific ation: Cardiovas cular Therapy Agents cefuroxime axetil 250 mg tablet 2023-10 00:00: 00 12-03 23:59 :00 No [id number] 1 tablet 2 TIMES DAILY 1 tablet 2 TIMES DAILY (route: oral) Med Classific ation: Anti-Infe ctive Agents clonazepam 1 mg tablet 2023-10 00:00: 00 12-03 23:59 :00 No [id number] 1 tablet 2 TIMES DAILY 1 tablet 2 TIMES DAILY (route: oral) Med Classific ation: Central Nervous System Agents Clotrimazol e AF 1 % topical cream 2023-10 00:00: 00 Yes [id number] 1 inch 2 TIMES DAILY 1 inch 2 TIMES DAILY (route: topical) Med Classific ation: Dermatolo gical hydroxyzine HCl 25 mg tablet 2023-10 00:00: 00 10-27 23:59 :00 No [id number] ANXIETY 1 tablet EVERY 6 HOURS 1 tablet EVERY 6 HOURS (route: oral) Med Classific ation: Central Nervous System Agents Lidocaine Pain Relief 4 % topical patch 2023-10 00:00: 00 Yes [id number] APPLY TO BACK 1 adhesiv e patch, medicat ed EVERY AM 1 adhesive patch, medicated EVERY AM (route: topical) Med Classific ation: Dermatolo gical metformin 500 mg tablet 2023-10 00:00: 00 Yes [id number] 1 tablet EVERY AM 1 tablet EVERY AM (route: oral) Med Classific ation: Endocrine naloxone 4 mg/actuatio n nasal spray 2023-10 00:00: 00 Yes [id number] OPIOD OVERDOSE Per instruc tions NEEDED Per instructio ns NEEDED (route: nasal) Med Classific ation: Antidotes and other Reversal Agents nystatin 100,000 unit/gram topical cream 2023-10 00:00: 00 Yes [id number] TO ABDOMINAL FOLD 1 inch 2 TIMES DAILY 1 inch 2 TIMES DAILY (route: topical) Med Classific ation: Dermatolo gical quetiapine 100 mg tablet 2023-10 00:00: 00 09-23 23:59 :00 No [id number] 1 tablet 3 TIMES DAILY 1 tablet 3 TIMES DAILY (route: oral) Med Classific ation: Central Nervous System Agents quetiapine 50 mg tablet 2023-10 00:00: 00 09-23 23:59 :00 No [id number] MODERATE ANXIETY 1 tablet EVERY 6 HOURS 1 tablet EVERY 6 HOURS (route: oral) Med Classific ation: Central Nervous System Agents sodium chloride 1,000 mg soluble tablet 2023-10 00:00: 00 Yes [id number] 1 tablet 2 TIMES DAILY 1 tablet 2 TIMES DAILY (route: miscellane ous) Med Classific ation: Electroly te Balance-N utritiona l Products trazodone 50 mg tablet 2023-10 00:00: 00 09-08 23:59 :00 No [id number] 1 tablet BEDTIME 1 tablet BEDTIME (route: oral) Med Classific ation: Central Nervous System Agents venlafaxine 37.5 mg tablet 2023-10 00:00: 00 10-27 23:59 :00 No [id number] 1 tablet EVERY AM 1 tablet EVERY AM (route: oral) Med Classific ation: Central Nervous System Agents buprenorphi ne 4 mg-naloxone 1 mg sublingual film 2023-10 00:00: 00 12-03 23:59 :00 No [id number] 1 film 2 TIMES DAILY 1 film 2 TIMES DAILY (route: sublingual ) Med Classific ation: Chemical Dependenc y, Agents to Treat furosemide 20 mg tablet 2023-10 00:00: 00 Yes [id number] 1 tablet EVERY AM 1 tablet EVERY AM (route: oral) Med Classific ation: Cardiovas cular Therapy Agents OXYGEN 2023-10 00:00: 00 Yes [id number] 2 Liter BEDTIME 2 Liter BEDTIME (route: Oxygen) Med Classific ation: Medical Oxygen Adult Low Dose Aspirin 81 mg tablet,marisol yed release 2023-10 00:00: 00 Yes [id number] 1 tablet EVERY AM 1 tablet EVERY AM (route: oral) Med Classific ation: Hematolog ical Agents clonidine HCl 0.1 mg tablet 2023-10-18 00:00: 00 10-29 23:59 :00 No [id number] HOLD FOR SBP <90 .5 tablet 3 TIMES DAILY .5 tablet 3 TIMES DAILY (route: oral) Med Classific ation: Cardiovas cular Therapy Agents Colace 100 mg capsule 2023-10- 00:00: 00 Yes [id number] 1 capsule DAILY 1 capsule DAILY (route: oral) Med Classific ation: Gastroint estinal Therapy Agents clonidine HCl 0.1 mg tablet 1-06 00:00: 00 12-03 23:59 :00 No [id number] 1 tablet 3 TIMES DAILY 1 tablet 3 TIMES DAILY (route: oral) Med Classific ation: Cardiovas cular Therapy Agents hydroxyzine HCl 50 mg tablet -06 00:00: 00 12-03 23:59 :00 No [id number] 1 tablet 4 TIMES DAILY 1 tablet 4 TIMES DAILY (route: oral) Med Classific ation: Central Nervous System Agents aripiprazol e 5 mg tablet -12 00:00: 00 Yes [id number] 1 tablet BEDTIME 1 tablet BEDTIME (route: oral) Med Classific ation: Central Nervous System Agents mirtazapine 15 mg tablet -12 00:00: 00 Yes [id number] 1 tablet BEDTIME 1 tablet BEDTIME (route: oral) Med Classific ation: Central Nervous System Agents mirtazapine 7.5 mg tablet -12 00:00: 00 Yes [id number] 1 tablet BEDTIME 1 tablet BEDTIME (route: oral) Med Classific ation: Central Nervous System Agents Vital Signs Vital Name Observation Time Observation Value Commen ts Temperature 2024-12-03 10:35:00.000 97.4 [degF] Temperature 2024-11-26 09:27:00.000 97.8 [degF] Temperature 2024-11-17 11:18:00.000 97.8 [degF] BMI (%) 2024-12-03 10:35:00.000 41 kg/m2 Height 2024-12-03 10:35:00.000 61 [in_us] Pulse 2024-12-03 10:35:00.000 79 /min Pulse 2024-11-26 09:27:00.000 78 /min Pulse 2024-11-17 11:18:00.000 76 /min Respirations 2024-12-03 10:35:00.000 16 /min Respirations 2024-11-26 09:27:00.000 16 /min Respirations 2024-11-17 11:18:00.000 16 /min Weight (lbs) 2024-12-03 10:35:00.000 220 [lb_av] Systolic Blood Pressure 2024-12-03 10:35:00.000 131 mm [Hg] Systolic Blood Pressure 2024-11-26 09:27:00.000 121 mm [Hg] Systolic Blood Pressure 2024-11-17 11:18:00.000 137 mm [Hg] Diastolic Blood Pressure 2024-12-03 10:35:00.000 81 mm [Hg] Diastolic Blood Pressure 2024-11-26 09:27:00.000 [...] AWARENESS FOR SAFETY AND WILL NOTIFY CLINICAL COMMERCIAL DEVELOPMENT MANAGER AND PHYSICIAN/PROVIDER WITH ANY CHANGE IN CONDITION. [code = SKILLED NURSE WILL MAINTAIN SITUATIONAL AWARENESS FOR SAFETY AND WILL NOTIFY CLINICAL COMMERCIAL DEVELOPMENT MANAGER AND PHYSICIAN/PROVIDER WITH ANY CHANGE IN CONDITION.] [...] CARE WILL BE ESTABLISHED THAT MEETS PATIENT'S HALFWAY NEEDS AND INCLUDES PATIENT GOAL FOR HOME [...] End Date/Time Encounter Type Admission Type Attending [facility] Care Department Encounter ID Discharge Date Discharge Status Discharge Condition Discharge Reason Percent Goals Met 2024-09-06 00:00:00 2025-01-03 00:00:00 Outpatient RECERTIFIC ATVASHTI SANDERS [facility] [id number] 56.67
--- OUTSIDE RECORDS SUMMARY | 2024-12-12 12:42 | XMS_ITS | Clinical Summary ---
Author Organization Unknown Care Team Providers Care Tool Crib Manager Name Role Phone EVELYNE GRULLON, SUBHASH Unavailable Unavailable YUNI CA, VASHTI Unavailable Unavailable Payers Payer Name Policy Type Policy Number Effective Date Expira tion Date [facility] ADV [id number] MEDICARE - [place] PDGM [id number] Problems Condition Name Condition Details Condition Category [...] powder for inhalation 2023-10 00:00: 00 Yes [id number] 1 inhalat ion EVERY AM 1 inhalation EVERY AM (route: inhalation ) Med Classific ation: Respirato ry Therapy Agents rosuvastati n 10 mg tablet 2023-10 0-15 00:00: 00 Yes [id number] 1 tablet BEDTIME 1 tablet BEDTIME (route: oral) Med Classific ation: Cardiovas cular Therapy Agents escitalopra m 5 mg tablet 30 00:00: 00 Yes [id number] 1 tablet EVERY AM 1 tablet EVERY AM (route: oral) Med Classific ation: Central Nervous System Agents albuterol sulfate HFA 90 mcg/actuati on aerosol inhaler 2023-10 00:00: 00 Yes [id number] FOR WHEEZING 2 puff EVERY 4 HOURS 2 puff EVERY 4 HOURS (route: inhalation ) Med Classific ation: Respirato ry Therapy Agents carvedilol 12.5 mg tablet 2023-10 00:00: 00 Yes [id number] HOLD FOR SBP <90 1 tablet 2 TIMES DAILY 1 tablet 2 TIMES DAILY (route: oral) Med Classific ation: Cardiovas cular Therapy Agents cefuroxime axetil 250 mg tablet 2023-10 00:00: 00 12-03 23:59 :00 No [id number] 1 tablet 2 TIMES DAILY 1 tablet 2 TIMES DAILY (route: oral) Med Classific ation: Anti-Infe ctive Agents clonazepam 1 mg tablet 2023-10 00:00: 00 12-03 23:59 :00 No [id number] 1 tablet 2 TIMES DAILY 1 tablet 2 TIMES DAILY (route: oral) Med Classific ation: Central Nervous System Agents Clotrimazol e AF 1 % topical cream 2023-10 00:00: 00 Yes [id number] 1 inch 2 TIMES DAILY 1 inch 2 TIMES DAILY (route: topical) Med Classific ation: Dermatolo gical hydroxyzine HCl 25 mg tablet 2023-10 00:00: 00 10-27 23:59 :00 No [id number] ANXIETY 1 tablet EVERY 6 HOURS 1 tablet EVERY 6 HOURS (route: oral) Med Classific ation: Central Nervous System Agents Lidocaine Pain Relief 4 % topical patch 2023-10 00:00: 00 Yes [id number] APPLY TO BACK 1 adhesiv e patch, medicat ed EVERY AM 1 adhesive patch, medicated EVERY AM (route: topical) Med Classific ation: Dermatolo gical metformin 500 mg tablet 2023-10 00:00: 00 Yes [id number] 1 tablet EVERY AM 1 tablet EVERY AM (route: oral) Med Classific ation: Endocrine naloxone 4 mg/actuatio n nasal spray 2023-10 00:00: 00 Yes [id number] OPIOD OVERDOSE Per instruc tions NEEDED Per instructio ns NEEDED (route: nasal) Med Classific ation: Antidotes and other Reversal Agents nystatin 100,000 unit/gram topical cream 2023-10 00:00: 00 Yes [id number] TO ABDOMINAL FOLD 1 inch 2 TIMES DAILY 1 inch 2 TIMES DAILY (route: topical) Med Classific ation: Dermatolo gical quetiapine 100 mg tablet 2023-10 00:00: 00 09-23 23:59 :00 No [id number] 1 tablet 3 TIMES DAILY 1 tablet 3 TIMES DAILY (route: oral) Med Classific ation: Central Nervous System Agents quetiapine 50 mg tablet 2023-10 00:00: 00 09-23 23:59 :00 No [id number] MODERATE ANXIETY 1 tablet EVERY 6 HOURS 1 tablet EVERY 6 HOURS (route: oral) Med Classific ation: Central Nervous System Agents sodium chloride 1,000 mg soluble tablet 2023-10 00:00: 00 Yes [id number] 1 tablet 2 TIMES DAILY 1 tablet 2 TIMES DAILY (route: miscellane ous) Med Classific ation: Electroly te Balance-N utritiona l Products trazodone 50 mg tablet 2023-10 00:00: 00 09-08 23:59 :00 No [id number] 1 tablet BEDTIME 1 tablet BEDTIME (route: oral) Med Classific ation: Central Nervous System Agents venlafaxine 37.5 mg tablet 2023-10 00:00: 00 10-27 23:59 :00 No [id number] 1 tablet EVERY AM 1 tablet EVERY AM (route: oral) Med Classific ation: Central Nervous System Agents buprenorphi ne 4 mg-naloxone 1 mg sublingual film 2023-10 00:00: 00 12-03 23:59 :00 No [id number] 1 film 2 TIMES DAILY 1 film 2 TIMES DAILY (route: sublingual ) Med Classific ation: Chemical Dependenc y, Agents to Treat furosemide 20 mg tablet 2023-10 00:00: 00 Yes [id number] 1 tablet EVERY AM 1 tablet EVERY AM (route: oral) Med Classific ation: Cardiovas cular Therapy Agents OXYGEN 2023-10 00:00: 00 Yes [id number] 2 Liter BEDTIME 2 Liter BEDTIME (route: Oxygen) Med Classific ation: Medical Oxygen Adult Low Dose Aspirin 81 mg tablet,marisol yed release 2023-10 00:00: 00 Yes [id number] 1 tablet EVERY AM 1 tablet EVERY AM (route: oral) Med Classific ation: Hematolog ical Agents clonidine HCl 0.1 mg tablet 2023-10-18 00:00: 00 10-29 23:59 :00 No [id number] HOLD FOR SBP <90 .5 tablet 3 TIMES DAILY .5 tablet 3 TIMES DAILY (route: oral) Med Classific ation: Cardiovas cular Therapy Agents Colace 100 mg capsule 2023-10- 00:00: 00 Yes [id number] 1 capsule DAILY 1 capsule DAILY (route: oral) Med Classific ation: Gastroint estinal Therapy Agents clonidine HCl 0.1 mg tablet 1-06 00:00: 00 12-03 23:59 :00 No [id number] 1 tablet 3 TIMES DAILY 1 tablet 3 TIMES DAILY (route: oral) Med Classific ation: Cardiovas cular Therapy Agents hydroxyzine HCl 50 mg tablet -06 00:00: 00 12-03 23:59 :00 No [id number] 1 tablet 4 TIMES DAILY 1 tablet 4 TIMES DAILY (route: oral) Med Classific ation: Central Nervous System Agents aripiprazol e 5 mg tablet -12 00:00: 00 Yes [id number] 1 tablet BEDTIME 1 tablet BEDTIME (route: oral) Med Classific ation: Central Nervous System Agents mirtazapine 15 mg tablet -12 00:00: 00 Yes [id number] 1 tablet BEDTIME 1 tablet BEDTIME (route: oral) Med Classific ation: Central Nervous System Agents mirtazapine 7.5 mg tablet -12 00:00: 00 Yes [id number] 1 tablet BEDTIME 1 tablet BEDTIME (route: [...] AWARENESS FOR SAFETY AND WILL NOTIFY CLINICAL SEAMLESS TUBE ROLLER AND PHYSICIAN/PROVIDER WITH ANY CHANGE IN CONDITION. [code = SKILLED NURSE WILL MAINTAIN SITUATIONAL AWARENESS FOR SAFETY AND WILL NOTIFY CLINICAL SEAMLESS TUBE ROLLER AND PHYSICIAN/PROVIDER WITH ANY CHANGE IN CONDITION.] [...] End Date/Time Encounter Type Admission Type Attending [facility] Care Department Encounter ID Discharge Date Discharge Status Discharge Condition Discharge Reason Percent Goals Met 2024-09-06 00:00:00 2025-01-03 00:00:00 Outpatient RECERTIFIC ATVASHTI SANDERS [facility] [id number] 56.67
--- OUTSIDE RECORDS SUMMARY | 2024-12-12 12:42 | XMS_ITS | Clinical Summary ---
Author Organization [facility] Address [address] [place] [address] Phone Care Team Providers Care Acid Adjuster Name Role Phone Asad Alvarado MD Primary Care Provider [phone] Allergies Active Allergy Reactions Criticality Noted Date Comments Lisinopril 09/06/2022 coughing Medications amLODIPine (NORVASC) 10 mg tablet Take 1 tablet (10 mg total) by mouth 1 (one) time each day. 90 tablet 1 4 Active albuterol HFA (PROAIR HFA ; PROVENTIL HFA ; VENTOLIN HFA) 90 mcg/actuation inhaler Inhale 2 Puffs into the lungs every 4 hours as needed. Active aspirin 81 mg chewable tablet Take 1 Tablet by mouth every other day. Active carvediloL (COREG) 12.5 mg tablet TAKE 1 TABLET BY MOUTH TWICE DAILY WITH MEALS 4 Active coenzyme Q-10 200 mg capsule Take [...] tablet Take 1 Tablet by mouth daily. 3 Active ergocalciferol (VITAMIN D-2) 1,250 mcg (50,000 unit) capsule Take by mouth every 7 days. Active cefuroxime (CEFTIN) 500 mg tablet Take 1 tablet (500 mg total) by mouth 2 (two) times a day for 7 days. 14 each 5 12/10/19 25 Discontinu ed(Contact Move - Error) Active Problems Problem Noted Date Diagnosed Date [...] Encounters Date Type Department Care Team Description 12/10/2024 Telephone [facility] Internal Medicine [address] [place] [id number] Tommy Ruff MA 09/26/2024 Telephone [facility] [address] [place] [address] Pauly Diaz MD Med Refill (Amlodipine) from [...] Description 01/09/2025 10:20 AM EDT Office Visit [facility] [address] [place] [address] Pauly Diaz MD [address] [place] [address] [address] [place] [address] Health Maintenance Due Date Last Done Comments Breast Cancer Screening 1957 DTaP,Tdap,and Td Vaccines (1 - Tdap) 1976 Pneumococcal Vaccine: 50+ Ye ars (1 of 1 - PCV) 2007 Zoster Vaccines (1 of 2) 2007 RSV Immunization Patients 60 + Years Old (1 - Risk 60-74 years 1-dose series) 2017 Cholesterol Screening (Lipid Panel) 09/23/2022 Colorectal Cancer Screening: Colonoscopy 09/23/2022 Depression Screening 09/23/2022 Falls Risk Assessment 09/23/2022 Hepatitis C Screening 09/23/2022 Medicare Annual Wellness Visit 09/23/2022 Osteoporosis Screening (Bone Density Screening) 09/23/2022 Social Influencers of Health Screening 09/23/2022 Hypertension/CHF/CAD Annual BMP Blood Test 10/07/2022 COVID-19 Vaccine (2023-2 5 season) 2024 Influenza Vaccine (#1) 2024 [...] patient's age to complete this topic Meningococcal B Vacine Aged Out No lo nger eligible based on patient's age to complete this topic RSV Immunization Patients Un jasiel 20 months Aged Out No longer eligible b ased on patient's age to complete this topic Varicella Vaccines Aged Out No longer eligible based on patient's age to complete this topic Insurance [employer] MEDICARE Care Teams Acid Adjuster Relationship Specialty Start Date End Date Asad Alvarado MD [address] PCP - General Internal Medicine 06/16/22
--- OUTSIDE RECORDS SUMMARY | 2024-12-12 12:42 | XMS_ITS | Continuity of Care Document ---
Author Organization [facility] Address [address] [facility] [place] [address] Phone [phone] Social History Type Date Description Comments Sex Unknown Medical Devices Description No Information Available Encounters Description No Information Available Assessments Description No Information Available Plan of Treatment No Information Available Functional Status Description No Information Available Mental Status Description No Information Available Referrals Description No Information Available
--- OUTSIDE RECORDS SUMMARY | 2024-12-12 12:42 | XMS_ITS | Encounter Summary ---
Author Organization [facility] Address [address] [place] [address] Care Team Providers Care Senior Java Web Developer Name Role Phone Asad Alvarado MD Primary Care Provider [phone] Encounter Details Date Type Department Care Team (Late Contact Info) Description 12/10/2024 Telephone [facility] Internal Medicine [address] [facility] [address] [place] [address] [place], [place] Social History Tobacco Use Types Packs/Day Years Used Date Smoking Tobacco: Former Smokeless Tobacco: Never Alcohol Use Standard Drinks/Week Comments Never 0 (1 standard drink = 0.6 oz pur e alcohol) Comments Unknown Sex and Gender Information Value Date Recorded Sex Assigned at Not on file Legal Sex Female 6:10 PM EST Gender Identity Not on file Sexual Orientation Not on file documented as of this encounter Plan of Treatment Upcoming Encounters Date Type Department Care Team (Late Contact Info) Description 01/09/2025 10:20 AM EDT Office Visit [facility] Cardiology [facility] [address] [facility] [address] [place] [id number] Pauly Diaz MD [address] [place] [address] documented as of this encounter Visit Diagnoses Not on filedocumented in this encounter Care Teams Senior Java Web Developer Relationship Specialty Start Date End Date Asad Alvarado MD [address] [facility] [address] [place], [place] PCP - General Internal Medicine 06/16/22 documented as of this encounter
== END 2024-12-12 12:00 | disposition home or self-care (01) ==
PROVIDERS: PCP Nurse Practitioner; Visit Provider Internal Medicine Pulmonary Disease
DX: G47.33 Obstructive sleep apnea (adult) (pediatric) (principal); G47.34 Idiopathic sleep related nonobstructive alveolar hypoventilation; J45.909 Unspecified asthma, uncomplicated; R06.09 Other forms of dyspnea
CPT/HCPCS: 99214; G2211

== ENCOUNTER → 2024-12-12 11:39 | Outpatient (BNVA) | payer MEDICARE, SELFPAY | PROVIDERS: PCP Internal Medicine; Visit Provider Internal Medicine Pulmonary Disease | DX: G47.33 Obstructive sleep apnea (adult) (pediatric) (principal); G47.34 Idiopathic sleep related nonobstructive alveolar hypoventilation; J45.909 Unspecified asthma, uncomplicated; R06.09 Other forms of dyspnea | CPT/HCPCS: 99212 ==

== ENCOUNTER 2024-12-15 12:49 | Outpatient (AMB) | payer MEDICARE, SELFPAY ==
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
--- OUTSIDE RECORDS SUMMARY | 2024-12-15 14:29 | XMS_ITS | Continuity of Care Document ---
Author Organization [facility] Address [address] [facility] [address] [place] [address] Phone [phone] Social History Type Date Description Comments Sex Unknown Medical Devices Description No Information Available Encounters Description No Information Available Assessments Description No Information Available Plan of Treatment No Information Available Functional Status Description No Information Available Mental Status Description No Information Available Referrals Description No Information Available
--- OUTSIDE RECORDS SUMMARY | 2024-12-15 14:29 | XMS_ITS | Clinical Summary ---
Author Organization Unknown Care Team Providers Care Shearing Machine Feeder Name Role Phone EVELYNE GRULLON, SUBHASH Unavailable Unavailable YUNI CA, VASHTI Unavailable Unavailable Payers Payer Name Policy Type Policy Number Effective Date Expira tion Date [facility] ADV [id number] MEDICARE - [place] PDGM [id number] Problems Condition Name Condition Details Condition Category [...] powder for inhalation 2023-10 00:00: 00 Yes [id number] 1 inhalat ion EVERY AM 1 inhalation EVERY AM (route: inhalation ) Med Classific ation: Respirato ry Therapy Agents rosuvastati n 10 mg tablet 2023-10 0-15 00:00: 00 Yes [id number] 1 tablet BEDTIME 1 tablet BEDTIME (route: oral) Med Classific ation: Cardiovas cular Therapy Agents escitalopra m 5 mg tablet 30 00:00: 00 Yes [id number] 1 tablet EVERY AM 1 tablet EVERY AM (route: oral) Med Classific ation: Central Nervous System Agents albuterol sulfate HFA 90 mcg/actuati on aerosol inhaler 2023-10 00:00: 00 Yes [id number] FOR WHEEZING 2 puff EVERY 4 HOURS 2 puff EVERY 4 HOURS (route: inhalation ) Med Classific ation: Respirato ry Therapy Agents carvedilol 12.5 mg tablet 2023-10 00:00: 00 Yes [id number] HOLD FOR SBP <90 1 tablet 2 TIMES DAILY 1 tablet 2 TIMES DAILY (route: oral) Med Classific ation: Cardiovas cular Therapy Agents cefuroxime axetil 250 mg tablet 2023-10 00:00: 00 12-03 23:59 :00 No [id number] 1 tablet 2 TIMES DAILY 1 tablet 2 TIMES DAILY (route: oral) Med Classific ation: Anti-Infe ctive Agents clonazepam 1 mg tablet 2023-10 00:00: 00 12-03 23:59 :00 No [id number] 1 tablet 2 TIMES DAILY 1 tablet 2 TIMES DAILY (route: oral) Med Classific ation: Central Nervous System Agents Clotrimazol e AF 1 % topical cream 2023-10 00:00: 00 Yes [id number] 1 inch 2 TIMES DAILY 1 inch 2 TIMES DAILY (route: topical) Med Classific ation: Dermatolo gical hydroxyzine HCl 25 mg tablet 2023-10 00:00: 00 10-27 23:59 :00 No [id number] ANXIETY 1 tablet EVERY 6 HOURS 1 tablet EVERY 6 HOURS (route: oral) Med Classific ation: Central Nervous System Agents Lidocaine Pain Relief 4 % topical patch 2023-10 00:00: 00 Yes [id number] APPLY TO BACK 1 adhesiv e patch, medicat ed EVERY AM 1 adhesive patch, medicated EVERY AM (route: topical) Med Classific ation: Dermatolo gical metformin 500 mg tablet 2023-10 00:00: 00 Yes [id number] 1 tablet EVERY AM 1 tablet EVERY AM (route: oral) Med Classific ation: Endocrine naloxone 4 mg/actuatio n nasal spray 2023-10 00:00: 00 Yes [id number] OPIOD OVERDOSE Per instruc tions NEEDED Per instructio ns NEEDED (route: nasal) Med Classific ation: Antidotes and other Reversal Agents nystatin 100,000 unit/gram topical cream 2023-10 00:00: 00 Yes [id number] TO ABDOMINAL FOLD 1 inch 2 TIMES DAILY 1 inch 2 TIMES DAILY (route: topical) Med Classific ation: Dermatolo gical quetiapine 100 mg tablet 2023-10 00:00: 00 09-23 23:59 :00 No [id number] 1 tablet 3 TIMES DAILY 1 tablet 3 TIMES DAILY (route: oral) Med Classific ation: Central Nervous System Agents quetiapine 50 mg tablet 2023-10 00:00: 00 09-23 23:59 :00 No [id number] MODERATE ANXIETY 1 tablet EVERY 6 HOURS 1 tablet EVERY 6 HOURS (route: oral) Med Classific ation: Central Nervous System Agents sodium chloride 1,000 mg soluble tablet 2023-10 00:00: 00 Yes [id number] 1 tablet 2 TIMES DAILY 1 tablet 2 TIMES DAILY (route: miscellane ous) Med Classific ation: Electroly te Balance-N utritiona l Products trazodone 50 mg tablet 2023-10 00:00: 00 09-08 23:59 :00 No [id number] 1 tablet BEDTIME 1 tablet BEDTIME (route: oral) Med Classific ation: Central Nervous System Agents venlafaxine 37.5 mg tablet 2023-10 00:00: 00 10-27 23:59 :00 No [id number] 1 tablet EVERY AM 1 tablet EVERY AM (route: oral) Med Classific ation: Central Nervous System Agents buprenorphi ne 4 mg-naloxone 1 mg sublingual film 2023-10 00:00: 00 12-03 23:59 :00 No [id number] 1 film 2 TIMES DAILY 1 film 2 TIMES DAILY (route: sublingual ) Med Classific ation: Chemical Dependenc y, Agents to Treat furosemide 20 mg tablet 2023-10 00:00: 00 Yes [id number] 1 tablet EVERY AM 1 tablet EVERY AM (route: oral) Med Classific ation: Cardiovas cular Therapy Agents OXYGEN 2023-10 00:00: 00 Yes [id number] 2 Liter BEDTIME 2 Liter BEDTIME (route: Oxygen) Med Classific ation: Medical Oxygen Adult Low Dose Aspirin 81 mg tablet,marisol yed release 2023-10 00:00: 00 Yes [id number] 1 tablet EVERY AM 1 tablet EVERY AM (route: oral) Med Classific ation: Hematolog ical Agents clonidine HCl 0.1 mg tablet 2023-10 1-18 00:00: 00 10-29 23:59 :00 No [id number] HOLD FOR SBP <90 .5 tablet 3 TIMES DAILY .5 tablet 3 TIMES DAILY (route: oral) Med Classific ation: Cardiovas cular Therapy Agents Colace 100 mg capsule 2023-10 1- 00:00: 00 Yes [id number] 1 capsule DAILY 1 capsule DAILY (route: oral) Med Classific ation: Gastroint estinal Therapy Agents clonidine HCl 0.1 mg tablet 1-06 00:00: 00 12-03 23:59 :00 No [id number] 1 tablet 3 TIMES DAILY 1 tablet 3 TIMES DAILY (route: oral) Med Classific ation: Cardiovas cular Therapy Agents hydroxyzine HCl 50 mg tablet 1-06 00:00: 00 12-03 23:59 :00 No [id number] 1 tablet 4 TIMES DAILY 1 tablet 4 TIMES DAILY (route: oral) Med Classific ation: Central Nervous System Agents aripiprazol e 5 mg tablet -12 00:00: 00 Yes [id number] 1 tablet BEDTIME 1 tablet BEDTIME (route: oral) Med Classific ation: Central Nervous System Agents mirtazapine 15 mg tablet -12 00:00: 00 Yes [id number] 1 tablet BEDTIME 1 tablet BEDTIME (route: oral) Med Classific ation: Central Nervous System Agents mirtazapine 7.5 mg tablet -12 00:00: 00 Yes [id number] 1 tablet BEDTIME 1 tablet BEDTIME (route: oral) Med Classific ation: Central Nervous System Agents Vital Signs Vital Name Observation Time Observation Value Commen ts Temperature 2024-12-12 09:49:00.000 97.8 [degF] Temperature 2024-12-03 10:35:00.000 97.4 [degF] Temperature 2024-11-26 09:27:00.000 97.8 [degF] Temperature 2024-11-17 11:18:00.000 97.8 [degF] BMI (%) 2024-12-03 10:35:00.000 41 kg/m2 Height 2024-12-03 10:35:00.000 61 [in_us] Pulse 2024-12-12 09:49:00.000 92 /min Pulse 2024-12-03 10:35:00.000 79 /min Pulse 2024-11-26 09:27:00.000 78 /min Pulse 2024-11-17 11:18:00.000 76 /min Respirations 2024-12-12 09:49:00.000 16 /min Respirations 2024-12-03 10:35:00.000 16 /min Respirations 2024-11-26 09:27:00.000 16 /min Respirations 2024-11-17 11:18:00.000 16 /min Weight (lbs) 2024-12-03 10:35:00.000 220 [lb_av] Systolic Blood Pressure 2024-12-12 09:49:00.000 190 mm [Hg] Systolic Blood Pressure 2024-12-03 10:35:00.000 131 mm [Hg] Systolic Blood Pressure 2024-11-26 09:27:00.000 121 mm [Hg] Systolic Blood Pressure 2024-11-17 11:18:00.000 137 mm [Hg] Diastolic Blood Pressure 2024-12-12 09:49:00.000 106 m m[Hg] Diastolic Blood Pressure 2024-12-03 10:35:00.000 81 mm [...] AWARENESS FOR SAFETY AND WILL NOTIFY CLINICAL TEACHING MUSIC LESSONS AND PHYSICIAN/PROVIDER WITH ANY CHANGE IN CONDITION. [code = SKILLED NURSE WILL MAINTAIN SITUATIONAL AWARENESS FOR SAFETY AND WILL NOTIFY CLINICAL TEACHING MUSIC LESSONS AND PHYSICIAN/PROVIDER WITH ANY CHANGE IN CONDITION.] [...] CARE WILL BE ESTABLISHED THAT MEETS PATIENT'S NURSING HOME NEEDS AND INCLUDES PATIENT GOAL FOR HOME [...] VASHTI MORRISSEY RN]:</paragraph><paragraph>IRIS IS ALERT ORIENTED X3, MILD C/O CRACK IN NECK 5 OUT OF 10. PT MEDCATED. PT HAS AN APPOINTMENT WITH [facility] ON 12/[facility]/24. WILL CONTINUE TO MONITOR.</paragraph> Encounters Start Date/Time End Date/Time Encounter Type Admission Type Attending [facility] Care Facility Care Department Encounter ID Discharge Date Discharge Status Discharge Condition Discharge Reason Percent Goals Met 2024-09-06 00:00:00 2025-01-03 00:00:00 Outpatient RECERTIFIC ATVASHTI SANDERS [facility] [id number] 55.88
--- OUTSIDE RECORDS SUMMARY | 2024-12-15 14:29 | XMS_ITS | Clinical Summary ---
Author Organization [facility] Address [address] [place] [address] Phone Care Team Providers Care Log Loader Helper Name Role Phone Asad Alvarado MD Primary Care Provider [phone] Allergies Active Allergy Reactions Criticality Noted Date [...] Type Department Care Team Description 12/10/2024 Telephone [facility] Internal Medicine [address] [place] [phone] Tommy Ruff MA 09/26/2024 Telephone [facility] [address] [place] [address] Pauly Diaz MD Med Refill [...] Description 01/09/2025 10:20 AM EDT Office Visit [facility] [address] [place] [address] Pauly Diaz MD [address] [place] [address] [address] [place] [address] Health Maintenance Due Date Last Done Comments [...] complete this topic RSV Immunization Patients Un jsaiel 20 months Aged Out No longer eligible b ased on patient's age to complete this topic Varicella Vaccines Aged Out No longer eligible based on patient's age to complete this topic Insurance [employer] MEDICARE Care Teams Log Loader Helper Relationship Specialty Start Date End Date Asad Alvarado MD [address] PCP - General Internal Medicine 06/16/22
--- OUTSIDE RECORDS SUMMARY | 2024-12-15 14:29 | XMS_ITS | Encounter Summary ---
Author Organization [facility] Address [address] [place] [address] Care Team Providers Care Batch Mixing Truck Driver Name Role Phone Asad Alvarado MD Primary Care Provider [phone] Encounter Details Date Type Department Care Team (Late Contact Info) Description 12/10/2024 Telephone [facility] Internal Medicine [address] [facility] [address] [place] [address] Speedy [place], [place] Social History Tobacco Use Types Packs/Day [...] Description 01/09/2025 10:20 AM EDT Office Visit [facility] [address] [facility] [address] [place] [id number] Pauly Diaz MD [address] [place] [address] documented as of this encounter Visit Diagnoses Not on filedocumented in this encounter Care Teams Batch Mixing Truck Driver Relationship Specialty Start Date End Date Asad Alvarado MD [address] [facility] [address] [place], [place] PCP - General Internal Medicine 06/16/22 documented as of this encounter
--- OUTSIDE RECORDS SUMMARY | 2024-12-15 14:29 | XMS_ITS | Clinical Summary ---
Author Organization Unknown Care Team Providers Care Embedded Engineer Name Role Phone EVELYNE GRULLON, SUBHASH Unavailable Unavailable YUNI CA, VASHTI Unavailable Unavailable Payers Payer Name Policy Type Policy Number Effective Date Expira tion Date [facility] ADV [id number] [place]ARE [place] PDGM [id number] Problems Condition Name Condition Details Condition Category [...] powder for inhalation 2023-10 00:00: 00 Yes [id number] 1 inhalat ion EVERY AM 1 inhalation EVERY AM (route: inhalation ) Med Classific ation: Respirato ry Therapy Agents rosuvastati n 10 mg tablet 2023-10 0-15 00:00: 00 Yes [id number] 1 tablet BEDTIME 1 tablet BEDTIME (route: oral) Med Classific ation: Cardiovas cular Therapy Agents escitalopra m 5 mg tablet 30 00:00: 00 Yes [id number] 1 tablet EVERY AM 1 tablet EVERY AM (route: oral) Med Classific ation: Central Nervous System Agents albuterol sulfate HFA 90 mcg/actuati on aerosol inhaler 2023-10 00:00: 00 Yes [id number] FOR WHEEZING 2 puff EVERY 4 HOURS 2 puff EVERY 4 HOURS (route: inhalation ) Med Classific ation: Respirato ry Therapy Agents carvedilol 12.5 mg tablet 2023-10 00:00: 00 Yes [id number] HOLD FOR SBP <90 1 tablet 2 TIMES DAILY 1 tablet 2 TIMES DAILY (route: oral) Med Classific ation: Cardiovas cular Therapy Agents cefuroxime axetil 250 mg tablet 2023-10 00:00: 00 12-03 23:59 :00 No [id number] 1 tablet 2 TIMES DAILY 1 tablet 2 TIMES DAILY (route: oral) Med Classific ation: Anti-Infe ctive Agents clonazepam 1 mg tablet 2023-10 00:00: 00 12-03 23:59 :00 No [id number] 1 tablet 2 TIMES DAILY 1 tablet 2 TIMES DAILY (route: oral) Med Classific ation: Central Nervous System Agents Clotrimazol e AF 1 % topical cream 2023-10 00:00: 00 Yes [id number] 1 inch 2 TIMES DAILY 1 inch 2 TIMES DAILY (route: topical) Med Classific ation: Dermatolo gical hydroxyzine HCl 25 mg tablet 2023-10 00:00: 00 10-27 23:59 :00 No [id number] ANXIETY 1 tablet EVERY 6 HOURS 1 tablet EVERY 6 HOURS (route: oral) Med Classific ation: Central Nervous System Agents Lidocaine Pain Relief 4 % topical patch 2023-10 00:00: 00 Yes [id number] APPLY TO BACK 1 adhesiv e patch, medicat ed EVERY AM 1 adhesive patch, medicated EVERY AM (route: topical) Med Classific ation: Dermatolo gical metformin 500 mg tablet 2023-10 00:00: 00 Yes [id number] 1 tablet EVERY AM 1 tablet EVERY AM (route: oral) Med Classific ation: Endocrine naloxone 4 mg/actuatio n nasal spray 2023-10 00:00: 00 Yes [id number] OPIOD OVERDOSE Per instruc tions NEEDED Per instructio ns NEEDED (route: nasal) Med Classific ation: Antidotes and other Reversal Agents nystatin 100,000 unit/gram topical cream 2023-10 00:00: 00 Yes [id number] TO ABDOMINAL FOLD 1 inch 2 TIMES DAILY 1 inch 2 TIMES DAILY (route: topical) Med Classific ation: Dermatolo gical quetiapine 100 mg tablet 2023-10 00:00: 00 09-23 23:59 :00 No [id number] 1 tablet 3 TIMES DAILY 1 tablet 3 TIMES DAILY (route: oral) Med Classific ation: Central Nervous System Agents quetiapine 50 mg tablet 2023-10 00:00: 00 09-23 23:59 :00 No [id number] MODERATE ANXIETY 1 tablet EVERY 6 HOURS 1 tablet EVERY 6 HOURS (route: oral) Med Classific ation: Central Nervous System Agents sodium chloride 1,000 mg soluble tablet 2023-10 00:00: 00 Yes [id number] 1 tablet 2 TIMES DAILY 1 tablet 2 TIMES DAILY (route: miscellane ous) Med Classific ation: Electroly te Balance-N utritiona l Products trazodone 50 mg tablet 2023-10 00:00: 00 09-08 23:59 :00 No [id number] 1 tablet BEDTIME 1 tablet BEDTIME (route: oral) Med Classific ation: Central Nervous System Agents venlafaxine 37.5 mg tablet 2023-10 00:00: 00 10-27 23:59 :00 No [id number] 1 tablet EVERY AM 1 tablet EVERY AM (route: oral) Med Classific ation: Central Nervous System Agents buprenorphi ne 4 mg-naloxone 1 mg sublingual film 2023-10 00:00: 00 12-03 23:59 :00 No [id number] 1 film 2 TIMES DAILY 1 film 2 TIMES DAILY (route: sublingual ) Med Classific ation: Chemical Dependenc y, Agents to Treat furosemide 20 mg tablet 2023-10 00:00: 00 Yes [id number] 1 tablet EVERY AM 1 tablet EVERY AM (route: oral) Med Classific ation: Cardiovas cular Therapy Agents OXYGEN 2023-10 00:00: 00 Yes [id number] 2 Liter BEDTIME 2 Liter BEDTIME (route: Oxygen) Med Classific ation: Medical Oxygen Adult Low Dose Aspirin 81 mg tablet,marisol yed release 2023-10 00:00: 00 Yes [id number] 1 tablet EVERY AM 1 tablet EVERY AM (route: oral) Med Classific ation: Hematolog ical Agents clonidine HCl 0.1 mg tablet 2023-10 1-18 00:00: 00 10-29 23:59 :00 No [id number] HOLD FOR SBP <90 .5 tablet 3 TIMES DAILY .5 tablet 3 TIMES DAILY (route: oral) Med Classific ation: Cardiovas cular Therapy Agents Colace 100 mg capsule 2023-10 1- 00:00: 00 Yes [id number] 1 capsule DAILY 1 capsule DAILY (route: oral) Med Classific ation: Gastroint estinal Therapy Agents clonidine HCl 0.1 mg tablet 1-06 00:00: 00 12-03 23:59 :00 No [id number] 1 tablet 3 TIMES DAILY 1 tablet 3 TIMES DAILY (route: oral) Med Classific ation: Cardiovas cular Therapy Agents hydroxyzine HCl 50 mg tablet 1-06 00:00: 00 12-03 23:59 :00 No [id number] 1 tablet 4 TIMES DAILY 1 tablet 4 TIMES DAILY (route: oral) Med Classific ation: Central Nervous System Agents aripiprazol e 5 mg tablet -12 00:00: 00 Yes [id number] 1 tablet BEDTIME 1 tablet BEDTIME (route: oral) Med Classific ation: Central Nervous System Agents mirtazapine 15 mg tablet -12 00:00: 00 Yes [id number] 1 tablet BEDTIME 1 tablet BEDTIME (route: oral) Med Classific ation: Central Nervous System Agents mirtazapine 7.5 mg tablet -12 00:00: 00 Yes [id number] 1 tablet BEDTIME 1 tablet BEDTIME (route: [...] AWARENESS FOR SAFETY AND WILL NOTIFY CLINICAL IMCU SPECIALIST AND PHYSICIAN/PROVIDER WITH ANY CHANGE IN CONDITION. [code = SKILLED NURSE WILL MAINTAIN SITUATIONAL AWARENESS FOR SAFETY AND WILL NOTIFY CLINICAL IMCU SPECIALIST AND PHYSICIAN/PROVIDER WITH ANY CHANGE IN CONDITION.] [...] CARE WILL BE ESTABLISHED THAT MEETS PATIENT'S FDC NEEDS AND INCLUDES PATIENT GOAL FOR HOME [...] MEDCATED. PT HAS AN APPOINTMENT WITH [facility] ON 12/15/24. WILL CONTINUE TO MONITOR.</paragraph> Encounters Start Date/Time End Date/Time Encounter Type Admission Type Attending [facility] Care Facility Care Department Encounter ID Discharge Date Discharge Status Discharge Condition Discharge Reason Percent Goals Met 2024-09-06 00:00:00 2025-01-03 00:00:00 Outpatient RECERTIFIC ATVASHTI SANDERS [facility] [id number] 55.88
== END 2024-12-15 13:03 | disposition home or self-care (01) ==
PROVIDERS: PCP Internal Medicine; Visit Provider Nurse Practitioner Psychiatric/Mental Health
DX: F11.20 Opioid dependence, uncomplicated (principal)
CPT/HCPCS: 99213

== ENCOUNTER 2025-01-21 13:00 | Outpatient (REF) | payer MEDICARE, SELFPAY ==
[2025-01-21 14:28] LABS: MANUAL DIFF FLAG NO
[2025-01-21 15:11] LABS: Alanine Aminotransferase 38 U/L (0-31); Albumin Level 4.1 g/dL (3.5-5.0); Alkaline Phosphatase 96 U/L (39-117); Anion Gap 8 (12-20); Aspartate Amino Transferase 59 U/L (5-31); Bilirubin Direct 0.1 mg/dL (0.0-0.5); Bilirubin Total 0.3 mg/dL (0.0-1.0); Blood Urea Nitrogen 20 mg/dL (9-16); Calcium 9.1 mg/dL (8.4-10.2); Carbon Dioxide 28 mmol/L (22-29); Chloride 107 mmol/L (96-108); Estimated Glomerular Filt Rate > 60; Glucose Random 132 mg/dL (60-115); Potassium 4.3 mmol/L (3.3-5.1); Sodium 139 mmol/L (135-145)
--- OUTSIDE RECORDS SUMMARY | 2025-01-21 16:50 | XMS_ITS | Clinical Summary ---
Author Organization [facility] Address [address] [place] [address] Phone Care Team Providers Care Email Deployment Specialist Name Role Phone Asad Alvarado MD Primary Care Provider [phone] Allergies Active Allergy Reactions Criticality Noted Date [...] Type Department Care Team Description 01/21/2025 Telephone [facility] Cardiology [facility] [address] [facility] [address] [place] [address] Pauly Diaz MD Med Refill 01/15/2025 1:30 PM EDT Office Visit [facility] [address] [place] [address] Pauly Diaz MD Hypertension, unspecified type (Primary Dx); Tobacco abuse disorder 12/10/2024 Telephone [facility] [employer] Internal Medicine [address] [facility] [address] [place] [phone] Tommy [...] Description 10/01/2025 3:00 PM EST Office Visit [facility] [address] [place] [address] Pauly Diaz MD [facility] [address] [place] [address] Health Maintenance Due Date Last Done Comments [...] GEMUSE QTc 421 ms GEMUSE P Wave [place] 22 degrees GEMUSE R [place] 77 degrees GEMUSE T [place] -5 degrees GEMUSE ECG Interpretation Sinus rhythm [...] Result GEMUSE from Last 3 Months Insurance [facility] MEDICARE Care Teams Email Deployment Specialist Relationship Specialty Start Date End Date Asad Alvarado MD [facility] Olivia Resendiz [address] PCP - General Internal Medicine 06/16/22
--- OUTSIDE RECORDS SUMMARY | 2025-01-21 16:50 | XMS_ITS | Encounter Summary ---
Author Organization [facility] Address [address] [place] [address] Care Team Providers Care Public Housing Manager Name Role Phone Asad Alvarado MD Primary Care Provider [phone] Reason for Visit * Reason Onset Date Comments Med Refill 01/21/2025 Encounter Details Date Type Department Care Team (Late st Contact Info) Description 01/21/2025 Telephone [facility] Cardiology [facility] [address] [place] [phone] Pauly Diaz MD [address] [place] [address] [address] [place] [address] Med Refill Social History Tobacco Use Types [...] be filled as an outside source (pharmacy) [facility] * Rashaun Lui - 01/21/2025 9:18 AM EDT Tri called back and was told by [facility] that nothing was received by us for the nicotine patches. I gave a call to the pharmacy at [phone] and Laila confirmed with me nothing was received. Laila gave me the fax number to send the prescription to, which is [phone]. If we can resend the patches to that fax number and give a call to Tri when we send the prescription, Tri would greatly appreciate it. * Susan Lundberg MA - 01/21/2025 8:28 AM EDT All set * Michael Merino - 01/21/2025 8:13 AM EDT Patient called today because the nicotine patches 14mg 2 patches/day were not received at [facility]. Can we resubmit this to [facility] [address] in [place]? documented in this encounter Plan of Treatment Upcoming Encounters Date Type Department Care Team (Late st Contact Info) Description 10/01/2025 3:00 PM EST Office Visit [facility] [address] [place] [address] [place] [address] Pauly Diaz MD [address] [place] [address] [address] [place] [address] documented as of this encounter Visit Diagnoses Diagnosis Tobacco abuse disorder- Primary documented in this encounter Orders Medications Ordered That Jordan ht Not Have Been Administered Count Last Ordered Date First Ordered Date nicotine (NICODERM CQ) 14 mg /24 hr patch 1 patch 1 01/21/2025 documented in this encounter Care Teams Public Housing Manager Relationship Specialty Start Date End Date Asad Alvarado MD [address] Olivia Resendiz [facility] [address] [place], [place] PCP - General Internal Medicine 06/16/22 documented as of this encounter
--- OUTSIDE RECORDS SUMMARY | 2025-01-21 16:50 | XMS_ITS | Continuity of Care Document ---
Author Organization [facility] Address [address] [facility] [address] [place] [address] Phone [phone] Social History Type Date Description Comments Sex Unknown Medical Devices Description No Information Available Encounters Description No Information Available Assessments Description No Information Available Plan of Treatment No Information Available Functional Status Description No Information Available Mental Status Description No Information Available Referrals Description No Information Available
[2025-01-21 19:51] LABS: Basophils Percent Auto 0.1 % (0-2); Eosinophils Absolute Auto 0.1 X10*3/uL (0.0-0.4); Eosinophils Percent Auto 1.3 % (0-4); Hematocrit 33.7 % (37.0-47.0); Hemoglobin 11.4 g/dl (12.0-16.0); Imm Gran Abs Auto 0.03 X10*3/uL (0.00-0.03); Imm Gran Pct Auto 0.3 % (0.0-0.4); Lymphocytes Absolute Auto 2.3 X10*3/uL (1.2-4.9); Lymphocytes Percent Auto 24.9 % (20-40); Mean Corpuscular HGB Conc 33.8 g/dl (31.0-35.0); Mean Corpuscular Hemoglobin 32.9 pg (27.0-33.0); Mean Corpuscular Volume 97.1 fL (80.0-98.0); Mean Platelet Volume 12.5 fL (9.4-12.3); Monocytes Absolute Auto 0.5 X10*3/uL (0.1-1.2); Monocytes Percent Auto 5.8 % (2-11); Neutrophils Absolute Auto 6.3 x10*3/uL (2.0-8.3); Neutrophils Percent Auto 67.6 % (45-73); Platelet Count 138 X10*3/uL (160-400); Red Blood Count 3.47 X10*6/uL (4.20-5.50); Red Cell Distribution Width 16.8 % (11.0-16.0); White Blood Count 9.3 X10*3/uL (4.8-10.8)
[2025-01-22 06:04] LABS: Hepatitis B Surface Ab Qnt 59 mIU/mL (> OR = 10)
[2025-01-22 08:12] LABS: Syphilis Screen Nonreactive (Nonreactive)
[2025-01-22 08:45] LABS: HBc Num1 0.08 S/CO (0.00-0.79); HBsAGNum1 0.26 S/CO (0.00-0.99); HIV AB/AG Nonreactive (Nonreactive); HIV Num 1 0.06 S/CO (0.00-0.99); Hepatitis B Core Antibody Nonreactive (Nonreactive); Hepatitis B Surface Antigen Negative (Negative); ~HepC Num1 0.16 S/CO (0.00-0.79); ~Hepatitis C Antibody Nonreactive (Nonreactive)
[2025-01-24 00:24] LABS: TS Negative Control Passed; TS Panel A 0; TS Panel B 0; TS Positive Control Passed; TSpotTB Negative (Negative)
[2025-01-28 04:45] LABS: Hepatitis A Antibody IgG Nonreactive (Nonreactive)
== END 2025-01-21 13:01 | disposition home or self-care (01) ==
LOC: HO.LAB 13:00
PROVIDERS: PCP Nurse Practitioner; Visit Provider Internal Medicine
DX: F11.20 Opioid dependence, uncomplicated (principal); J45.909 Unspecified asthma, uncomplicated; G47.33 Obstructive sleep apnea (adult) (pediatric); R06.01 Orthopnea
CPT/HCPCS: 36415; 80048; 80076; 85025; 86317; 86481; 86704; 86708; 86780; 86803; 87340; 87389; 99212

== ENCOUNTER 2025-01-21 13:00 | Outpatient (AMB) | payer MEDICARE, SELFPAY ==
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
[2025-01-21 13:15] VITALS: PULSE 75; O2SAT 98; BMI 45.3
--- OUTSIDE RECORDS SUMMARY | 2025-01-21 15:37 | XMS_ITS | Encounter Summary ---
Author Organization [facility] Address [address] [place] [address] Care Team Providers Care Lean Consultant Name Role Phone Asad Alvarado MD Primary Care Provider [phone] Reason for Visit * Reason Onset Date Comments Med Refill 01/21/2025 Encounter Details Date Type Department Care Team (Late st Contact Info) Description 01/21/2025 Telephone [facility] Cardiology [facility] [address] [place] [id number] Pauly Diaz MD [address] [place] [address] [address] [place] [address] Med Refill Social History Tobacco Use Types Packs/Day Years [...] of this encounter Ordered Prescriptions Prescription Sig Dispense Quantity Refills Last Filled Start Date End Date nicotine (Nicoderm CQ) 14 mg/[address] 1 patch on the skin 1 (one) time each day at the same time. 30 patch 1 01/21/2025 documented in this encounter Progress Notes * Susan Lundberg MA - 01/21/2025 10:40 AM EDT I called [facility] and advised I called Johanne and they are working on filling her medication--she isgrateful * Susan Lundberg MA - 01/21/2025 10:05 AM EDTAddended by: SUSAN LUNDBERG on: 01/21/2025 10:05 AM Modules accepted: Orders * Susan Lundberg MA - 01/21/2025 10:04 AM EDT It was discovered the issue was the rx chosen was under the clinic administration, this was corrected to be filled as an outside source (pharmacy) [facility] * Rashaun Lui - 01/21/2025 9:18 AM EDT Tri called back and was told by [facility] that nothing was received by us for the nicotine patches. I gave a call to the pharmacy at [phone] and Laila confirmed with me nothing was received. Laila gave me the fax number to send the prescription to, which is [phone]. If we can resend the patches to that fax number and give a call to Tri when we send the prescription, Tri would greatly appreciate it. * Susan Lundberg MA - 01/21/2025 8:28 AM EDT All set * Michael Merino - 01/21/2025 8:13 AM EDT Patient called today because the nicotine patches 14mg 2 patches/day were not received at [facility]. Can we resubmit this to [facility] on [address] in [place]? documented in this encounter Plan of Treatment Upcoming Encounters Date Type Department Care Team (Late st Contact Info) Description 10/01/2025 3:00 PM EST Office Visit [facility] [address] [place] [address] [place] [address] Pauly iDaz MD [address] [place] [address] [address] [place] [address] documented as of this encounter Visit Diagnoses Diagnosis Tobacco abuse disorder- Primary documented in this encounter Orders Medications Ordered That Jordan ht Not Have Been Administered Count Last Ordered Date First Ordered Date nicotine (NICODERM CQ) 14 mg /24 hr patch 1 patch 1 01/21/2025 documented in this encounter Care Teams Lean Consultant Relationship Specialty Start Date End Date Asad Alvarado MD [address] [facility] [address] [place], [place] PCP - General Internal Medicine 06/16/22 documented as of this encounter
--- OUTSIDE RECORDS SUMMARY | 2025-01-21 15:37 | XMS_ITS | Continuity of Care Document ---
Author Organization [facility] Address [address] [place] [address] Phone [phone] Social History Type Date Description Comments Sex Unknown Medical Devices Description No Information Available Encounters Description No Information Available Assessments Description No Information Available Plan of Treatment No Information Available Functional Status Description No Information Available Mental Status Description No Information Available Referrals Description No Information Available
--- OUTSIDE RECORDS SUMMARY | 2025-01-21 15:38 | XMS_ITS | Clinical Summary ---
Author Organization Unknown Care Team Providers Care Welder/Fitter Name Role Phone EVELYNE GRULLON, SUBHASH Unavailable Unavailable YUNI RN, VASHTI Unavailable Unavailable Payers Payer Name Policy Type Policy Number Effective Date Expira tion Date [facility] ADV [id number] [employer] MEDICARE ADVANTAGE FFS [id number] MEDIC[place] - [place] - PDGM [id number] Problems Condition Name Condition Details Condition Category [...] powder for inhalation 2023-10 00:00: 00 Yes [id number] 1 inhalat ion EVERY AM 1 inhalation EVERY AM (route: inhalation ) Med Classific ation: Respirato ry Therapy Agents rosuvastati n 10 mg tablet 2023-10 0-15 00:00: 00 Yes [id number] 1 tablet BEDTIME 1 tablet BEDTIME (route: oral) Med Classific ation: Cardiovas cular Therapy Agents escitalopra m 5 mg tablet -30 00:00: 00 Yes [id number] 1 tablet EVERY AM 1 tablet EVERY AM (route: oral) Med Classific ation: Central Nervous System Agents albuterol sulfate HFA 90 mcg/actuati on aerosol inhaler 2023-10 00:00: 00 Yes [id number] FOR WHEEZING 2 puff EVERY 4 HOURS 2 puff EVERY 4 HOURS (route: inhalation ) Med Classific ation: Respirato ry Therapy Agents carvedilol 12.5 mg tablet 2023-10 00:00: 00 Yes [id number] HOLD FOR SBP <90 1 tablet 2 TIMES DAILY 1 tablet 2 TIMES DAILY (route: oral) Med Classific ation: Cardiovas cular Therapy Agents cefuroxime axetil 250 mg tablet 2023-10 00:00: 00 12-03 23:59 :00 No [id number] 1 tablet 2 TIMES DAILY 1 tablet 2 TIMES DAILY (route: oral) Med Classific ation: Anti-Infe ctive Agents clonazepam 1 mg tablet 2023-10 00:00: 00 12-03 23:59 :00 No [id number] 1 tablet 2 TIMES DAILY 1 tablet 2 TIMES DAILY (route: oral) Med Classific ation: Central Nervous System Agents Clotrimazol e AF 1 % topical cream 2023-10 00:00: 00 Yes [id number] 1 inch 2 TIMES DAILY 1 inch 2 TIMES DAILY (route: topical) Med Classific ation: Dermatolo gical hydroxyzine HCl 25 mg tablet 2023-10 00:00: 00 10-27 23:59 :00 No [id number] ANXIETY 1 tablet EVERY 6 HOURS 1 tablet EVERY 6 HOURS (route: oral) Med Classific ation: Central Nervous System Agents Lidocaine Pain Relief 4 % topical patch 2023-10 00:00: 00 Yes [id number] APPLY TO BACK 1 adhesiv e patch, medicat ed EVERY AM 1 adhesive patch, medicated EVERY AM (route: topical) Med Classific ation: Dermatolo gical metformin 500 mg tablet 2023-10 00:00: 00 Yes [id number] 1 tablet EVERY AM 1 tablet EVERY AM (route: oral) Med Classific ation: Endocrine naloxone 4 mg/actuatio n nasal spray 2023-10 00:00: 00 Yes [id number] OPIOD OVERDOSE Per instruc tions NEEDED Per instructio ns NEEDED (route: nasal) Med Classific ation: Antidotes and other Reversal Agents nystatin 100,000 unit/gram topical cream 2023-10 00:00: 00 Yes [id number] TO ABDOMINAL FOLD 1 inch 2 TIMES DAILY 1 inch 2 TIMES DAILY (route: topical) Med Classific ation: Dermatolo gical quetiapine 100 mg tablet 2023-10 00:00: 00 09-23 23:59 :00 No [id number] 1 tablet 3 TIMES DAILY 1 tablet 3 TIMES DAILY (route: oral) Med Classific ation: Central Nervous System Agents quetiapine 50 mg tablet 2023-10 00:00: 00 09-23 23:59 :00 No [id number] MODERATE ANXIETY 1 tablet EVERY 6 HOURS 1 tablet EVERY 6 HOURS (route: oral) Med Classific ation: Central Nervous System Agents sodium chloride 1,000 mg soluble tablet 2023-10 00:00: 00 Yes [id number] 1 tablet 2 TIMES DAILY 1 tablet 2 TIMES DAILY (route: miscellane ous) Med Classific ation: Electroly te Balance-N utritiona l Products trazodone 50 mg tablet 2023-10 00:00: 00 09-08 23:59 :00 No [id number] 1 tablet BEDTIME 1 tablet BEDTIME (route: oral) Med Classific ation: Central Nervous System Agents venlafaxine 37.5 mg tablet 2023-10 00:00: 00 10-27 23:59 :00 No [id number] 1 tablet EVERY AM 1 tablet EVERY AM (route: oral) Med Classific ation: Central Nervous System Agents buprenorphi ne 4 mg-naloxone 1 mg sublingual film 2023-10 00:00: 00 12-03 23:59 :00 No [id number] 1 film 2 TIMES DAILY 1 film 2 TIMES DAILY (route: sublingual ) Med Classific ation: Chemical Dependenc y, Agents to Treat furosemide 20 mg tablet 2023-10 00:00: 00 Yes [id number] 1 tablet EVERY AM 1 tablet EVERY AM (route: oral) Med Classific ation: Cardiovas cular Therapy Agents OXYGEN 2023-10 00:00: 00 Yes [id number] 2 Liter BEDTIME 2 Liter BEDTIME (route: Oxygen) Med Classific ation: Medical Oxygen Adult Low Dose Aspirin 81 mg tablet,marisol yed release 2023-10 00:00: 00 Yes [id number] 1 tablet EVERY AM 1 tablet EVERY AM (route: oral) Med Classific ation: Hematolog ical Agents clonidine HCl 0.1 mg tablet 2023-10 1-18 00:00: 00 10-29 23:59 :00 No [id number] HOLD FOR SBP <90 .5 tablet 3 TIMES DAILY .5 tablet 3 TIMES DAILY (route: oral) Med Classific ation: Cardiovas cular Therapy Agents Colace 100 mg capsule 2023-10 1- 00:00: 00 Yes [id number] 1 capsule DAILY 1 capsule DAILY (route: oral) Med Classific ation: Gastroint estinal Therapy Agents clonidine HCl 0.1 mg tablet 1-06 00:00: 00 12-03 23:59 :00 No [id number] 1 tablet 3 TIMES DAILY 1 tablet 3 TIMES DAILY (route: oral) Med Classific ation: Cardiovas cular Therapy Agents hydroxyzine HCl 50 mg tablet 1-06 00:00: 00 12-03 23:59 :00 No [id number] 1 tablet 4 TIMES DAILY 1 tablet 4 TIMES DAILY (route: oral) Med Classific ation: Central Nervous System Agents aripiprazol e 5 mg tablet 2-12 00:00: 00 Yes [id number] 1 tablet BEDTIME 1 tablet BEDTIME (route: oral) Med Classific ation: Central Nervous System Agents mirtazapine 15 mg tablet 2-12 00:00: 00 Yes [id number] 1 tablet BEDTIME 1 tablet BEDTIME (route: oral) Med Classific ation: Central Nervous System Agents mirtazapine 7.5 mg tablet 2-12 00:00: 00 Yes [id number] 1 tablet BEDTIME 1 tablet BEDTIME (route: oral) Med Classific ation: Central Nervous System Agents Vital Signs Vital Name Observation Time Observation Value Commen ts Temperature 2025-01-19 08:49:00.000 97.4 [degF] Pulse 2025-01-19 08:49:00.000 76 /min O2 Saturation (%) 2025-01-19 08:49:00.000 98 % Systolic Blood Pressure 2025-01-19 08:49:00.000 140 mm [Hg] Diastolic Blood Pressure 2025-01-19 08:49:00.000 84 mm [Hg] Plan of Treatment Planned [...] HEALTH.] Future Scheduled Test SKILLED NU RSE WILL MAINTAIN SITUATIONAL AWARENESS FOR SAFETY AND WILL NOTIFY CLINICAL SUPERVISOR WALL MIRROR DEPARTMENT AND PHYSICIAN/PROVIDER WITH ANY CHANGE IN CONDITION. [code = SKILLED NURSE WILL MAINTAIN SITUATIONAL AWARENESS FOR SAFETY AND WILL NOTIFY CLINICAL SUPERVISOR WALL MIRROR DEPARTMENT AND PHYSICIAN/PROVIDER WITH ANY CHANGE IN CONDITION.] [...] OF PATIENTS MENTAL/BEHAVIORAL STATUS, ASSESS VITAL SIGNS WEEKLY , ALLOW 2 PRNS FOR MEDICATION MANAGEMENT. [code = SKILLED NURSE TO O/A OF PATIENTS MENTAL/BEHAVIORAL STATUS, ASSESS VITAL SIGNS WEEKLY , ALLOW 2 PRNS FOR MEDICATION MANAGEMENT.] Future [...] WITH EXACERBATION FOR EARLY INTERVENTION OF COMPLICATIONS WEEKLY] Future Scheduled Test SKILLED NU RSE TO [...] INTERVENTION.] Future Scheduled Test SKILLED NU RSE TO [...] OXYGEN VIA NASAL CANNULA @ 2 LITERS SPECIFIC PRN AT BEDTIME. SKILLED NURSE FOR O/A AND SKILLED TEACHING OF SAFE OXYGEN USE IN THE HOME. [code = OXYGEN VIA NASAL CANNULA @ 2 LITERS SPECIFIC PRN AT BEDTIME. SKILLED NURSE FOR O/A AND SKILLED TEACHING OF SAFE OXYGEN USE IN THE HOME.] Future Scheduled Test SKILLED NU RSE TO PROVIDE TEACHING/REINFORCEMENT RELATED TO URINARY INCONTINENCE. [code = SKILLED NURSE TO PROVIDE TEACHING/REINFORCEMENT RELATED TO URINARY INCONTINENCE.] Goal 2025-01-02 Patient Goal - P ATIENT VERBALIZED GOAL OF GETTING STRONGER AND GET OFF OF THESE MEDICATIONS Goal Patient Goal - P ATIENT VERBALIZED GOAL OF GETTING STRONGER AND GET OFF OF THESE MEDICATIONS Goal 2024-10-31 Patient Goal - P ATIENT VERBALIZED GOAL OF GETTING STRONGER AND GET OFF OF THESE MEDICATIONS Goal Provider Goal - A PLAN OF CARE WILL BE ESTABLISHED THAT MEETS PATIENT'S PRISON NEEDS AND INCLUDES PATIENT GOAL FOR HOME HEALTH. Goal Provider Goal - PATIENT WILL REMAIN [...] THROUGHOUT CERTIFICATION PERIOD. Goal Provider Goal - CHANGE [...] THROUGHOUT THE EPISODE. Goal Provider Goal - PATIENT / CAREGIVER WILL VERBALIZE UNDERSTANDING OF EFFECTS OF URINARY INCONTINENCE BY THE END OF THE CERTIFICATION PERIOD. Progress Notes Progress Notes <paragraph>[Visit Date: 2024 by LESTER YARBROUGH LPN]:</paragraph><paragraph>PATIENT VERY ANXIOUS DURING VISIT, RAMBLING AT TIMES. REPORTS SHE IS LOSING HER HAIR WHICH HAS BEEN ONGOING FOR SOMETIME NOW. REPORTS MD IS AWARE. DENIES ANY FEELING OF INCREASED ANXIETY. CONTINUES TO TAKE MEDICATIONS FROM PREFILLED CONTAINERS. SN PREPOURED MEDICATIONS UNTIL NEXT NURSE VISIT, MEDICATIONS REVIEWED WITH PATIENT. SN REVIEWED SIGNS OF MENTAL STATUS CHANGES WELL HOME SAFETY.</paragraph> <paragraph>[Visit Date: 2024 by ROBERT MELGOZA LPN]:</paragraph><paragraph>ALERT AND ORIENTED X3 NO ISSUES WITH THE PATIENT</paragraph> Encounters Start Date/Time End Date/Time Encounter Type Admission Type Attending [facility] Care Facility Care Department Encounter ID Discharge Date Discharge Status Discharge Condition Discharge Reason Percent Goals Met 2024-09-06 00:00:00 2025-03-04 00:00:00 Outpatient [facility] VASHTI BERRY [facility] [id number] 7.41
--- OUTSIDE RECORDS SUMMARY | 2025-01-21 15:38 | XMS_ITS | Clinical Summary ---
Author Organization [facility] Address [address] [place] [address] Phone Care Team Providers Care Store Director Name Role Phone Asad Alvarado MD Primary Care Provider [phone] Allergies Active Allergy Reactions Criticality Noted Date Comments Lisinopril 09/06/2022 coughing Medications albuterol HFA (PROAIR HFA ; PROVENTIL HFA ; VENTOLIN HFA) 90 mcg/actuation inhaler Inhale 2 Puffs into the lungs every 4 hours as needed. Active aspirin 81 mg chewable tablet Take 1 Tablet by mouth every other day. Active coenzyme Q-10 200 mg capsule Take by mouth. Active fluticasone HFA (FLOVENT HFA) 110 mcg/actuation inhaler Inhale 1 Puff into the lungs 2 times daily. Active furosemide (LASIX) 20 mg tablet Take 2 Tablets by mouth every other day. Active metformin HCl (METFORMIN ORAL) Take by mouth. Activ e rosuvastatin (CRESTOR) 10 mg tablet Take 1 Tablet by mouth daily. 11/15/19 23 Active ergocalciferol (VITAMIN D-2) 1,250 mcg (50,000 unit) capsule Take by mouth every 7 days. Active carvediloL (COREG) 12.5 mg tablet Take 1 tablet (12.5 mg total) by mouth 2 (two) times a day with meals. 180 tablet 1 12/18/19 25 Active amLODIPine (NORVASC) 10 mg tablet TAKE 1 TABLET(10 MG) BY MOUTH 1 TIME EACH DAY 90 tablet 01/02/20 25 Active docusate sodium (COLACE) 100 mg capsule Take 1 capsule (100 mg total) by mouth 2 (two) times a day. Active ramelteon (ROZEREM) 8 mg tablet Take 1 tablet (8 mg total) by mouth at bedtime. Active buprenorphine- naloxone (SUBOXONE) 2-0.[address] the tongue. After the medication is completely dissolved, take a large sip of water, swish it around teeth and gums, and swallow. Wait at least 1 hour before brushing teeth to avoid damage to your teeth. Active fluticasone furoate (ARNUITY ELLIPTA) 100 mcg/actuation blister with device inhaler Inhale 1 puff by mouth 1 (one) time each day. Active nicotine (Nicoderm CQ) 14 mg/[address] 1 patch on the skin 1 (one) time each day at the same time. 30 patch 1 01/22/20 25 Active amLODIPine (NORVASC) 10 mg tablet Take 1 tablet (10 mg total) by mouth 1 (one) time each day. 90 tablet 1 09/26/20 24 025 Discontinued empagliflozin (Jardiance) 25 mg tablet Take 25 mg by mouth daily. 025 Discontinued LORazepam (ATIVAN) 1 mg tablet Take 1 Tablet by mouth 3 times daily. 025 Discontinued oxyCODONE-acet aminophen (PERCOCET) 7.5-325 mg per tablet Take 1 Tablet by mouth every 12 hours as needed. 025 Discontinued Hospital, Clinic, or Other Facility Administered Medication Ordered Dose Route Frequency Start Date End Date Status nicotine (NICODERM CQ) 14 mg/24 hr patch 2 patchIndications:Tobacco abuse disorder 2 patch TD Daily 01/15/2025 02/14/2025 Active nicotine (NICODERM CQ) 14 mg/24 hr patch 1 patchIndications:Tobacco abuse disorder 1 patch TD Daily 01/21/2025 02/20/2025 Active Active Problems Problem Noted Date Diagnosed [...] Encounters Date Type Department Care Team Description 01/21/2025 Telephone [facility] Card[facility] [address] [facility] [address] [place] [address] Pauly Diaz MD Med Refill 01/15/2025 1:30 PM EDT Office Visit [facility] [address] [place] [address] Pauly Diaz MD Hypertension, unspecified type (Primary Dx); Tobacco abuse disorder 12/10/2024 Telephone [facility] [address] [facility] [address] [place] [phone] Tommy Ruff MA from Last 3 Months Surgical History Surgery [...] Date Smoking Tobacco: Former Smokeless Tobacco: Never Tobacco Cessation:Counseling Given: Not Answered Alcohol Use Standard Drinks/Week Comments Never 0 (1 standard drink = 0.6 oz pur e alcohol) Comments Unknown Sex and Gender Information Value Date Recorded Sex Assigned at Not on file Legal Sex Female 6:10 PM EST Gender Identity Not on file Sexual Orientation Not on file Obstetrics History Last Filed Vital Signs Vital Sign Reading Time Taken Comments Blood Pressure 108/70 01/15/2025 1:26 PM EDT Pulse 70 01/15/2025 1:26 PM EDT Temperature - - Respiratory Rate - - Oxygen Saturation 93% 01/15/2025 1:26 PM EDT Inhaled Oxygen Concentration - - Weight 105 kg (231 lb) 01/15/2025 1:26 PM EDT Height 154.9 cm (5' 1 ) 01/15/2025 1:26 PM EDT Body Mass Index 43.65 01/15/2025 1:26 PM EDT Plan of Treatment Upcoming Encounters Date Type Department Care Team (Late st Contact Info) Description 10/01/2025 3:00 PM EST Office Visit [facility] [address] [place] [address] Pauly Diaz MD [facility] [address] [place] [address] Health Maintenance Due Date Last Done Comments Breast Cancer Screening 1955 DTaP,Tdap,and Td Vaccines (1 - Tdap) 1976 Pneumococcal Vaccine: 50+ Years (1 of 1 - PCV) 2007 RSV Immunization Adult Patients (1 - Risk 60-74 years 1-dose series) 2017 Cholesterol Screening (Lipid Panel) 09/23/2022 Colorectal Cancer Screening: Colonoscopy 09/23/2022 Depression Screening 09/23/2022 Falls Risk Assessment 09/23/2022 Hepatitis C Screening 09/23/2022 Medicare Annual Wellness Visit 09/23/2022 Osteoporosis Screening (Bone Density Screening) 09/23/2022 Social Influencers of Health Screening 09/23/2022 Hypertension/CHF/CAD Annual BMP Blood Test 10/07/2022 Zoster Vaccines Completed 02/15/2024, 12/17/2023 COVID-19 Vaccine Completed 06/30/2024, , 10/20/2020 Influenza Vaccine Completed 06/30/2024, , 07/29/2018, Additional history exists HIB Vaccines Aged Out No longer eligi [...] to complete this topic RSV Immunization Patients Under 20 months Aged Out No longer eligible based on patient's age to complete this topic Varicella Vaccines Aged Out No longer eligible based on patient's age to complete this topic Procedures Procedure Name Priority Date/Time Associated Diagnosis Comments ECG 12-LEAD Routine 01/15/2025 1:40 PM EDT Hypertension, unspecified type from Last 3 Months Results * ECG 12 lead (01/15/2025 1:40 PM EDT) Ventricular Rate ECG 70 BPM GEMUSE Atrial Rate 70 BPM GEMUSE P-R Interval 156 ms GEMUSE QRS Duration 80 ms GEMUSE Q-T Interval 390 ms GEMUSE QTc 421 ms GEMUSE P Wave [place] 22 degrees GEMUSE R [place] 77 degrees GEMUSE T [place] -5 degrees GEMUSE ECG Interpretation Sinus rhythm with Premature atrial complexes Cannot rule out Inferior infarct , age undetermined Abnormal ECG When compared with ECG of 08-AUG-2024 11:12, Premature atrial complexes are now Present Minimal criteria for Inferior infarct are now Present T wave inversion now evident in Inferior leads Confirmed by PAULY DIAZ ([id number]) on 01/15/2025 1:53:03 PM GEMUSE 01/15/2025 1:40 PM EDT 01/15/2025 1:53 PM EDT us Pauly Diaz MD ECG ORDERABLES Final Result GEMUSE from Last 3 Months Insurance [facility] [place] [address] Care Teams Store Director Relationship Specialty Start Date End Date Asad Alvarado MD [facility] Olivia Resendiz [address] PCP - General Internal Medicine 06/16/22
--- OUTSIDE RECORDS SUMMARY | 2025-01-21 15:38 | XMS_ITS | Clinical Summary ---
Author Organization Unknown Care Team Providers Care Communication Equipment Mechanic Name Role Phone EVELYNE GRULLON, SUBHASH Unavailable Unavailable YUNI RN, VASHTI Unavailable Unavailable Payers Payer Name Policy Type Policy Number Effective Date Expira tion Date [facility] ADV [id number] ZZZ [employer] MEDICARE ADVANTAGE FFS [id number] MEDIC[place] - [place] - PDGM [id number] Problems Condition Name Condition Details Condition Category [...] powder for inhalation 2023-10 00:00: 00 Yes [id number] 1 inhalat ion EVERY AM 1 inhalation EVERY AM (route: inhalation ) Med Classific ation: Respirato ry Therapy Agents rosuvastati n 10 mg tablet 2023-10 0-15 00:00: 00 Yes [id number] 1 tablet BEDTIME 1 tablet BEDTIME (route: oral) Med Classific ation: Cardiovas cular Therapy Agents escitalopra m 5 mg tablet -30 00:00: 00 Yes [id number] 1 tablet EVERY AM 1 tablet EVERY AM (route: oral) Med Classific ation: Central Nervous System Agents albuterol sulfate HFA 90 mcg/actuati on aerosol inhaler 2023-10 00:00: 00 Yes [id number] FOR WHEEZING 2 puff EVERY 4 HOURS 2 puff EVERY 4 HOURS (route: inhalation ) Med Classific ation: Respirato ry Therapy Agents carvedilol 12.5 mg tablet 2023-10 00:00: 00 Yes [id number] HOLD FOR SBP <90 1 tablet 2 TIMES DAILY 1 tablet 2 TIMES DAILY (route: oral) Med Classific ation: Cardiovas cular Therapy Agents cefuroxime axetil 250 mg tablet 2023-10 00:00: 00 12-03 23:59 :00 No [id number] 1 tablet 2 TIMES DAILY 1 tablet 2 TIMES DAILY (route: oral) Med Classific ation: Anti-Infe ctive Agents clonazepam 1 mg tablet 2023-10 00:00: 00 12-03 23:59 :00 No [id number] 1 tablet 2 TIMES DAILY 1 tablet 2 TIMES DAILY (route: oral) Med Classific ation: Central Nervous System Agents Clotrimazol e AF 1 % topical cream 2023-10 00:00: 00 Yes [id number] 1 inch 2 TIMES DAILY 1 inch 2 TIMES DAILY (route: topical) Med Classific ation: Dermatolo gical hydroxyzine HCl 25 mg tablet 2023-10 00:00: 00 10-27 23:59 :00 No [id number] ANXIETY 1 tablet EVERY 6 HOURS 1 tablet EVERY 6 HOURS (route: oral) Med Classific ation: Central Nervous System Agents Lidocaine Pain Relief 4 % topical patch 2023-10 00:00: 00 Yes [id number] APPLY TO BACK 1 adhesiv e patch, medicat ed EVERY AM 1 adhesive patch, medicated EVERY AM (route: topical) Med Classific ation: Dermatolo gical metformin 500 mg tablet 2023-10 00:00: 00 Yes [id number] 1 tablet EVERY AM 1 tablet EVERY AM (route: oral) Med Classific ation: Endocrine naloxone 4 mg/actuatio n nasal spray 2023-10 00:00: 00 Yes [id number] OPIOD OVERDOSE Per instruc tions NEEDED Per instructio ns NEEDED (route: nasal) Med Classific ation: Antidotes and other Reversal Agents nystatin 100,000 unit/gram topical cream 2023-10 00:00: 00 Yes [id number] TO ABDOMINAL FOLD 1 inch 2 TIMES DAILY 1 inch 2 TIMES DAILY (route: topical) Med Classific ation: Dermatolo gical quetiapine 100 mg tablet 2023-10 00:00: 00 09-23 23:59 :00 No [id number] 1 tablet 3 TIMES DAILY 1 tablet 3 TIMES DAILY (route: oral) Med Classific ation: Central Nervous System Agents quetiapine 50 mg tablet 2023-10 00:00: 00 09-23 23:59 :00 No [id number] MODERATE ANXIETY 1 tablet EVERY 6 HOURS 1 tablet EVERY 6 HOURS (route: oral) Med Classific ation: Central Nervous System Agents sodium chloride 1,000 mg soluble tablet 2023-10 00:00: 00 Yes [id number] 1 tablet 2 TIMES DAILY 1 tablet 2 TIMES DAILY (route: miscellane ous) Med Classific ation: Electroly te Balance-N utritiona l Products trazodone 50 mg tablet 2023-10 00:00: 00 09-08 23:59 :00 No [id number] 1 tablet BEDTIME 1 tablet BEDTIME (route: oral) Med Classific ation: Central Nervous System Agents venlafaxine 37.5 mg tablet 2023-10 00:00: 00 10-27 23:59 :00 No [id number] 1 tablet EVERY AM 1 tablet EVERY AM (route: oral) Med Classific ation: Central Nervous System Agents buprenorphi ne 4 mg-naloxone 1 mg sublingual film 2023-10 00:00: 00 12-03 23:59 :00 No [id number] 1 film 2 TIMES DAILY 1 film 2 TIMES DAILY (route: sublingual ) Med Classific ation: Chemical Dependenc y, Agents to Treat furosemide 20 mg tablet 2023-10 00:00: 00 Yes [id number] 1 tablet EVERY AM 1 tablet EVERY AM (route: oral) Med Classific ation: Cardiovas cular Therapy Agents OXYGEN 2023-10 00:00: 00 Yes [id number] 2 Liter BEDTIME 2 Liter BEDTIME (route: Oxygen) Med Classific ation: Medical Oxygen Adult Low Dose Aspirin 81 mg tablet,marisol yed release 2023-10 00:00: 00 Yes [id number] 1 tablet EVERY AM 1 tablet EVERY AM (route: oral) Med Classific ation: Hematolog ical Agents clonidine HCl 0.1 mg tablet 2023-10 1-18 00:00: 00 10-29 23:59 :00 No [id number] HOLD FOR SBP <90 .5 tablet 3 TIMES DAILY .5 tablet 3 TIMES DAILY (route: oral) Med Classific ation: Cardiovas cular Therapy Agents Colace 100 mg capsule 2023-10 1- 00:00: 00 Yes [id number] 1 capsule DAILY 1 capsule DAILY (route: oral) Med Classific ation: Gastroint estinal Therapy Agents clonidine HCl 0.1 mg tablet 1-06 00:00: 00 12-03 23:59 :00 No [id number] 1 tablet 3 TIMES DAILY 1 tablet 3 TIMES DAILY (route: oral) Med Classific ation: Cardiovas cular Therapy Agents hydroxyzine HCl 50 mg tablet 1-06 00:00: 00 12-03 23:59 :00 No [id number] 1 tablet 4 TIMES DAILY 1 tablet 4 TIMES DAILY (route: oral) Med Classific ation: Central Nervous System Agents aripiprazol e 5 mg tablet 2-12 00:00: 00 Yes [id number] 1 tablet BEDTIME 1 tablet BEDTIME (route: oral) Med Classific ation: Central Nervous System Agents mirtazapine 15 mg tablet 2-12 00:00: 00 Yes [id number] 1 tablet BEDTIME 1 tablet BEDTIME (route: oral) Med Classific ation: Central Nervous System Agents mirtazapine 7.5 mg tablet 2-12 00:00: 00 Yes [id number] 1 tablet BEDTIME 1 tablet BEDTIME (route: [...] AWARENESS FOR SAFETY AND WILL NOTIFY CLINICAL WELDER EXPERIMENTAL AND PHYSICIAN/PROVIDER WITH ANY CHANGE IN CONDITION. [code = SKILLED NURSE WILL MAINTAIN SITUATIONAL AWARENESS FOR SAFETY AND WILL NOTIFY CLINICAL WELDER EXPERIMENTAL AND PHYSICIAN/PROVIDER WITH ANY CHANGE IN CONDITION.] [...] CARE WILL BE ESTABLISHED THAT MEETS PATIENT'S LONGTERM NEEDS AND INCLUDES PATIENT GOAL FOR HOME [...] Notes Progress Notes <paragraph>[Visit Date: 2024 by ELSTER YARBROUGH LPN]:</paragraph><paragraph>PATIENT VERY ANXIOUS DURING VISIT, RAMBLING [...] End Date/Time Encounter Type Admission Type Attending [facility] Care Facility Care Department Encounter ID Discharge Date Discharge Status Discharge Condition Discharge Reason Percent Goals Met 2024-09-06 00:00:00 2025-03-04 00:00:00 [facility] VASHT[facility] BERR[facility] [id number] 7.41
== END 2025-01-21 13:36 | disposition home or self-care (01) ==
LOC: HO.HID 13:00
PROVIDERS: PCP Internal Medicine; Visit Provider Internal Medicine
DX: F11.20 Opioid dependence, uncomplicated (principal)
CPT/HCPCS: 99213

== ENCOUNTER 2025-01-21 13:41 | Outpatient (AMB) | payer MEDICARE, SELFPAY ==
--- NOTE | 2025-01-21 13:42 | A.OFFVIS_ITS ---
Vital Signs 01/21/25 13:46 Height 5 ft 1 in Weight 236 lb BMI 44.6 BP 111/62 Blood Pressure Location Rt brachial Position Sitting Pulse 73 Pulse Source Doppler Pulse Oximetry (%) 95 Oxygen Delivery Method Room Air Intake Visit Reasons: Nocturnal Hypoxemia Allergies No Known Allergies Allergy (Verified 01/21/25 13:52) HPI HPI Nocturnal Hypoxemia: Details: 69-year-old lady, nonsmoker, followed for TRICIA, orthopnea, and asthma. Patient has been suboptimally compliant with her underlying indication regimen and CPAP therapy. Today she complains of inability to tolerate fullface mask and also worsening mildly productive cough. She also has worsening lower extremity edema. [facility] Medical History Acute hyponatremia PTSD (post-traumatic stress disorder) Psychogenic polydipsia Social History Household Members: None Household Members Other:: 2 dogs Housing: House Do you presently have visiting nurse or other home services: No Comment: ambulates with steady gait Patient Tobacco Use Status: Never used Tobacco e-Cigarette/Vaping Use: Never Used Second Hand Smoke Exposure: No Substance Use Type: Prescription Drugs service: No Sexual orientation: Straight/Heterosexual Review of Systems Const Denies daytime sleepiness, Denies excessive sweating, Denies fatigue, Denies fever(s), Denies lethargy, Denies malaise, Denies night sweats, Denies snoring and Denies weight loss Eyes Denies blurry vision and Denies itchy eyes ENT Denies nasal congestion, Denies post nasal drip, Denies sinus pain, Denies sinus pressure and Denies other ( Thrush) Card Denies chest pain, Reports pedal edema, Denies dyspnea, Denies orthopnea and Denies paroxysmal nocturnal dyspnea Resp Reports cough, Denies hemoptysis, Reports excessive phlegm production, Denies dyspnea, Denies snoring and Denies wheezing GI Denies abdominal pain and Denies heartburn Musc Denies myalgias, Denies arthralgias and Denies joint swelling Skin/Breast Denies rash Neuro Denies memory loss and Denies seizure-like activity Psych Denies abnormal sleep pattern, Denies anxiety and Denies memory loss Endo Denies excessive sweating, Denies fatigue and Denies heat intolerance Prateek/Lymph Denies easy bruising Aller/Immun Denies itchy eyes, Denies seasonal rhinorrhea and Denies wheezing Physical Exam Vital Signs: Last Vital Signs Pulse 73 01/21/25 13:46 BP 111/62 01/21/25 13:46 Pulse Ox 95 01/21/25 13:46 Oxygen Delivery Method Room Air 01/21/25 13:46 BMI result Body Mass Index 44.6 Const General: no acute distress and alert Nutritional Appearance: obese Orientation/consciousness: Other orientation findings ( oriented) HEENT Head: Yes atraumatic Eyes General: appearance normal, both eyes and all related structures Sclerae: sclerae normal EOM: EOMs intact bilaterally Neck Neck: Yes supple Lymphatic: no lymphadenopathy noted Resp Effort & Inspection: normal respiratory effort and no use of accessory muscles Auscultation: clear to auscultation bilaterally Cardio Rate: regular rate Rhythm: regular rhythm Heart sounds: no gallops, no murmurs and no rubs Skin General skin exam: other ( warm) Extrem General: No clubbing, No cyanosis and Yes edema (2+ bilateral) Assessment & Plan Assessment & Plan (1) Asthma: Code(s): J45.909 - Unspecified asthma, uncomplicated Category: Medical Plan: Suboptimal control, will replace Arnuity with the Breo. Continue albuterol MDI. Also, with bronchitic exacerbation, will treat with a course of azithromycin. (2) TRICIA (obstructive sleep apnea): Code(s): G47.33 - Obstructive sleep apnea (adult) (pediatric) Category: Medical Plan: Suboptimal control as patient is not able to utilize full facemask, under the nose mask supply order placed. (3) Orthopnea: Code(s): R06.01 - Orthopnea Category: Medical Plan: Suboptimal control as patient has not been compliant with her diuretic regimen. Patient has been advised to be more compliant with her diuretic regimen. Medications: New fluticasone furoate-vilanterol 200-25 mcg/dose (Breo Ellipta) 1 inh inhalation DAILY 1 ea 6RF azithromycin For 250 mg dose pack: take 500 mg today (day 1), then 250 mg for 4 days (days 2-5) PO 6 tabs 0RF Coding Level of Care Code Est Pt Level 4 (69829) Complex EM visit Add On G2211 Diagnoses Asthma J45.909 RTICIA (obstructive sleep apnea) G47.33 Orthopnea R06.01
[2025-01-21 13:46] VITALS: BP 111/62; PULSE 73; O2SAT 95; BMI 44.6
--- OUTSIDE RECORDS SUMMARY | 2025-01-21 16:24 | XMS_ITS | Encounter Summary ---
Author Organization [facility] Address [address] [place] [address] Care Team Providers Care Assistant Commissioner Name Role Phone Asad Alvarado MD Primary Care Provider [phone] Reason for Visit * Reason Onset Date Comments Med Refill 01/21/2025 Encounter Details Date Type Department Care Team (Late st Contact Info) Description 01/21/2025 Telephone [facility] Cardiology [facility] [address] [place] [phone] Pauly Diaz MD [address] [place] [address] [address] [place] [address] Med Refill Social History Tobacco Use Types [...] be filled as an outside source (pharmacy) [facility] rx * Rashaun Lui - 01/21/2025 9:18 AM EDT Tri called back and was told by [facility] that nothing was received by us for the nicotine patches. I gave a call to the pharmacy at [phone] and Laila confirmed with me nothing was received. Laila gave me the fax number to send the prescription to, which is [phone]. If we can resend the patches to that fax number and give a call to Tri when we send the prescription, Tri would greatly appreciate it. * Susan Lundberg MA - 01/21/2025 8:28 AM EDT All set * Michael Merino - 01/21/2025 8:13 AM EDT Patient called today because the nicotine patches 14mg 2 patches/day were not received at [facility]. Can we resubmit this to [facility] on [address] in [place]? documented in this encounter Plan of Treatment Upcoming Encounters Date Type Department Care Team (Late st Contact Info) Description 10/01/2025 3:00 PM EST Office Visit [facility] [address] [place] [address] [place] [address] Pauly Diaz MD [address] [place] [address] [address] [place] [address] documented as of this encounter Visit Diagnoses Diagnosis Tobacco abuse disorder- Primary documented in this encounter Orders Medications Ordered That Jordan ht Not Have Been Administered Count Last Ordered Date First Ordered Date nicotine (NICODERM CQ) 14 mg /24 hr patch 1 patch 1 01/21/2025 documented in this encounter Care Teams Assistant Commissioner Relationship Specialty Start Date End Date Asad Alvarado MD [address] [facility] [address] [place], [place] PCP - General Internal Medicine 06/16/22 documented as of this encounter
--- OUTSIDE RECORDS SUMMARY | 2025-01-21 16:24 | XMS_ITS | Clinical Summary ---
Author Organization Unknown Care Team Providers Care Aoc Operations Intelligence Officer Name Role Phone EVELYNE GRULLON, SUBHASH Unavailable Unavailable YUNI RN, VASHTI Unavailable Unavailable Payers Payer Name Policy Type Policy Number Effective Date Expira tion Date [facility] ADV [id number] ZZZ [employer] MEDICARE ADVANTAGE FFS [id number] [place] PDGM [id number] Problems Condition Name Condition Details Condition Category [...] powder for inhalation 2023-10 00:00: 00 Yes [id number] 1 inhalat ion EVERY AM 1 inhalation EVERY AM (route: inhalation ) Med Classific ation: Respirato ry Therapy Agents rosuvastati n 10 mg tablet 2023-10 0-15 00:00: 00 Yes [id number] 1 tablet BEDTIME 1 tablet BEDTIME (route: oral) Med Classific ation: Cardiovas cular Therapy Agents escitalopra m 5 mg tablet -30 00:00: 00 Yes [id number] 1 tablet EVERY AM 1 tablet EVERY AM (route: oral) Med Classific ation: Central Nervous System Agents albuterol sulfate HFA 90 mcg/actuati on aerosol inhaler 2023-10 00:00: 00 Yes [id number] FOR WHEEZING 2 puff EVERY 4 HOURS 2 puff EVERY 4 HOURS (route: inhalation ) Med Classific ation: Respirato ry Therapy Agents carvedilol 12.5 mg tablet 2023-10 00:00: 00 Yes [id number] HOLD FOR SBP <90 1 tablet 2 TIMES DAILY 1 tablet 2 TIMES DAILY (route: oral) Med Classific ation: Cardiovas cular Therapy Agents cefuroxime axetil 250 mg tablet 2023-10 00:00: 00 12-03 23:59 :00 No [id number] 1 tablet 2 TIMES DAILY 1 tablet 2 TIMES DAILY (route: oral) Med Classific ation: Anti-Infe ctive Agents clonazepam 1 mg tablet 2023-10 00:00: 00 12-03 23:59 :00 No [id number] 1 tablet 2 TIMES DAILY 1 tablet 2 TIMES DAILY (route: oral) Med Classific ation: Central Nervous System Agents Clotrimazol e AF 1 % topical cream 2023-10 00:00: 00 Yes [id number] 1 inch 2 TIMES DAILY 1 inch 2 TIMES DAILY (route: topical) Med Classific ation: Dermatolo gical hydroxyzine HCl 25 mg tablet 2023-10 00:00: 00 10-27 23:59 :00 No [id number] ANXIETY 1 tablet EVERY 6 HOURS 1 tablet EVERY 6 HOURS (route: oral) Med Classific ation: Central Nervous System Agents Lidocaine Pain Relief 4 % topical patch 2023-10 00:00: 00 Yes [id number] APPLY TO BACK 1 adhesiv e patch, medicat ed EVERY AM 1 adhesive patch, medicated EVERY AM (route: topical) Med Classific ation: Dermatolo gical metformin 500 mg tablet 2023-10 00:00: 00 Yes [id number] 1 tablet EVERY AM 1 tablet EVERY AM (route: oral) Med Classific ation: Endocrine naloxone 4 mg/actuatio n nasal spray 2023-10 00:00: 00 Yes [id number] OPIOD OVERDOSE Per instruc tions NEEDED Per instructio ns NEEDED (route: nasal) Med Classific ation: Antidotes and other Reversal Agents nystatin 100,000 unit/gram topical cream 2023-10 00:00: 00 Yes [id number] TO ABDOMINAL FOLD 1 inch 2 TIMES DAILY 1 inch 2 TIMES DAILY (route: topical) Med Classific ation: Dermatolo gical quetiapine 100 mg tablet 2023-10 00:00: 00 09-23 23:59 :00 No [id number] 1 tablet 3 TIMES DAILY 1 tablet 3 TIMES DAILY (route: oral) Med Classific ation: Central Nervous System Agents quetiapine 50 mg tablet 2023-10 00:00: 00 09-23 23:59 :00 No [id number] MODERATE ANXIETY 1 tablet EVERY 6 HOURS 1 tablet EVERY 6 HOURS (route: oral) Med Classific ation: Central Nervous System Agents sodium chloride 1,000 mg soluble tablet 2023-10 00:00: 00 Yes [id number] 1 tablet 2 TIMES DAILY 1 tablet 2 TIMES DAILY (route: miscellane ous) Med Classific ation: Electroly te Balance-N utritiona l Products trazodone 50 mg tablet 2023-10 00:00: 00 09-08 23:59 :00 No [id number] 1 tablet BEDTIME 1 tablet BEDTIME (route: oral) Med Classific ation: Central Nervous System Agents venlafaxine 37.5 mg tablet 2023-10 00:00: 00 10-27 23:59 :00 No [id number] 1 tablet EVERY AM 1 tablet EVERY AM (route: oral) Med Classific ation: Central Nervous System Agents buprenorphi ne 4 mg-naloxone 1 mg sublingual film 2023-10 00:00: 00 12-03 23:59 :00 No [id number] 1 film 2 TIMES DAILY 1 film 2 TIMES DAILY (route: sublingual ) Med Classific ation: Chemical Dependenc y, Agents to Treat furosemide 20 mg tablet 2023-10 00:00: 00 Yes [id number] 1 tablet EVERY AM 1 tablet EVERY AM (route: oral) Med Classific ation: Cardiovas cular Therapy Agents OXYGEN 2023-10 00:00: 00 Yes [id number] 2 Liter BEDTIME 2 Liter BEDTIME (route: Oxygen) Med Classific ation: Medical Oxygen Adult Low Dose Aspirin 81 mg tablet,marisol yed release 2023-10 00:00: 00 Yes [id number] 1 tablet EVERY AM 1 tablet EVERY AM (route: oral) Med Classific ation: Hematolog ical Agents clonidine HCl 0.1 mg tablet 2023-10 1-18 00:00: 00 10-29 23:59 :00 No [id number] HOLD FOR SBP <90 .5 tablet 3 TIMES DAILY .5 tablet 3 TIMES DAILY (route: oral) Med Classific ation: Cardiovas cular Therapy Agents Colace 100 mg capsule 2023-10 1- 00:00: 00 Yes [id number] 1 capsule DAILY 1 capsule DAILY (route: oral) Med Classific ation: Gastroint estinal Therapy Agents clonidine HCl 0.1 mg tablet 1-06 00:00: 00 12-03 23:59 :00 No [id number] 1 tablet 3 TIMES DAILY 1 tablet 3 TIMES DAILY (route: oral) Med Classific ation: Cardiovas cular Therapy Agents hydroxyzine HCl 50 mg tablet 1-06 00:00: 00 12-03 23:59 :00 No [id number] 1 tablet 4 TIMES DAILY 1 tablet 4 TIMES DAILY (route: oral) Med Classific ation: Central Nervous System Agents aripiprazol e 5 mg tablet 2-12 00:00: 00 Yes [id number] 1 tablet BEDTIME 1 tablet BEDTIME (route: oral) Med Classific ation: Central Nervous System Agents mirtazapine 15 mg tablet 2-12 00:00: 00 Yes [id number] 1 tablet BEDTIME 1 tablet BEDTIME (route: oral) Med Classific ation: Central Nervous System Agents mirtazapine 7.5 mg tablet 2-12 00:00: 00 Yes [id number] 1 tablet BEDTIME 1 tablet BEDTIME (route: [...] AWARENESS FOR SAFETY AND WILL NOTIFY CLINICAL CHEMISTRY DEPARTMENT CHAIR AND PHYSICIAN/PROVIDER WITH ANY CHANGE IN CONDITION. [code = SKILLED NURSE WILL MAINTAIN SITUATIONAL AWARENESS FOR SAFETY AND WILL NOTIFY CLINICAL CHEMISTRY DEPARTMENT CHAIR AND PHYSICIAN/PROVIDER WITH ANY CHANGE IN CONDITION.] [...] CARE WILL BE ESTABLISHED THAT MEETS PATIENT'S FCI NEEDS AND INCLUDES PATIENT GOAL FOR HOME [...] End Date/Time Encounter Type Admission Type Attending [facility] Care Facility Care Department Encounter ID Discharge Date Discharge Status Discharge Condition Discharge Reason Percent Goals Met 2024-09-06 00:00:00 2025-03-04 00:00:00 [facility] [id number] 7.41
--- OUTSIDE RECORDS SUMMARY | 2025-01-21 16:24 | XMS_ITS | Continuity of Care Document ---
Author Organization [facility] Address [address] [place] [address] Phone [phone] Social History Type Date Description Comments Sex Unknown Medical Devices Description No Information Available Encounters Description No Information Available Assessments Description No Information Available Plan of Treatment No Information Available Functional Status Description No Information Available Mental Status Description No Information Available Referrals Description No Information Available
--- OUTSIDE RECORDS SUMMARY | 2025-01-21 16:25 | XMS_ITS | Clinical Summary ---
Author Organization [facility] Address [address] [place] [address] Phone Care Team Providers Care Clinical Evaluator Name Role Phone Asad Alvarado MD Primary Care Provider [phone] Allergies Active Allergy Reactions Criticality Noted Date [...] Type Department Care Team Description 01/21/2025 Telephone [facility] Cardiology [facility] [address] [facility] [address] [place] [address] Pauly Diaz MD Med Refill 01/15/2025 1:30 PM EDT Office Visit [facility] [address] [place] [address] Pauly Diaz MD Hypertension, unspecified type (Primary Dx); Tobacco abuse disorder 12/10/2024 Telephone [facility] [employer] Internal Medicine [address] [facility] [address] [place] [address] Tommy Ruff [...] Description 10/01/2025 3:00 PM EST Office Visit [facility] [address] [place] [address] Pauly Diaz MD [facility] [address] [place] [address] Health Maintenance Due Date Last Done Comments [...] GEMUSE QTc 421 ms GEMUSE P Wave [place] 22 degrees GEMUSE R [place] 77 degrees GEMUSE T [place] -5 degrees GEMUSE ECG Interpretation Sinus rhythm [...] Result GEMUSE from Last [address] [facility] MEDICARE Care Teams Clinical Evaluator Relationship Specialty Start Date End Date Asad Alvarado MD [facility][note 3] Olivia Resendiz [address] PCP - General Internal Medicine 06/16/22
--- OUTSIDE RECORDS SUMMARY | 2025-01-21 16:25 | XMS_ITS | Clinical Summary ---
Author Organization Unknown Care Team Providers Care Migration Agent Name Role Phone EVELYNE GRULLON, SUBHASH Unavailable Unavailable YUNI RN, VASHTI Unavailable Unavailable Payers Payer Name Policy Type Policy Number Effective Date Expira tion Date [facility] ADV [id number] [employer] MEDICARE ADVANTAGE FFS [id number] MEDICARE - [place] - PDGM [id number] Problems Condition Name Condition Details Condition Category [...] powder for inhalation 2023-10 00:00: 00 Yes [id number] 1 inhalat ion EVERY AM 1 inhalation EVERY AM (route: inhalation ) Med Classific ation: Respirato ry Therapy Agents rosuvastati n 10 mg tablet 2023-10 0-15 00:00: 00 Yes [id number] 1 tablet BEDTIME 1 tablet BEDTIME (route: oral) Med Classific ation: Cardiovas cular Therapy Agents escitalopra m 5 mg tablet -30 00:00: 00 Yes [id number] 1 tablet EVERY AM 1 tablet EVERY AM (route: oral) Med Classific ation: Central Nervous System Agents albuterol sulfate HFA 90 mcg/actuati on aerosol inhaler 2023-10 00:00: 00 Yes [id number] FOR WHEEZING 2 puff EVERY 4 HOURS 2 puff EVERY 4 HOURS (route: inhalation ) Med Classific ation: Respirato ry Therapy Agents carvedilol 12.5 mg tablet 2023-10 00:00: 00 Yes [id number] HOLD FOR SBP <90 1 tablet 2 TIMES DAILY 1 tablet 2 TIMES DAILY (route: oral) Med Classific ation: Cardiovas cular Therapy Agents cefuroxime axetil 250 mg tablet 2023-10 00:00: 00 12-03 23:59 :00 No [id number] 1 tablet 2 TIMES DAILY 1 tablet 2 TIMES DAILY (route: oral) Med Classific ation: Anti-Infe ctive Agents clonazepam 1 mg tablet 2023-10 00:00: 00 12-03 23:59 :00 No [id number] 1 tablet 2 TIMES DAILY 1 tablet 2 TIMES DAILY (route: oral) Med Classific ation: Central Nervous System Agents Clotrimazol e AF 1 % topical cream 2023-10 00:00: 00 Yes [id number] 1 inch 2 TIMES DAILY 1 inch 2 TIMES DAILY (route: topical) Med Classific ation: Dermatolo gical hydroxyzine HCl 25 mg tablet 2023-10 00:00: 00 10-27 23:59 :00 No [id number] ANXIETY 1 tablet EVERY 6 HOURS 1 tablet EVERY 6 HOURS (route: oral) Med Classific ation: Central Nervous System Agents Lidocaine Pain Relief 4 % topical patch 2023-10 00:00: 00 Yes [id number] APPLY TO BACK 1 adhesiv e patch, medicat ed EVERY AM 1 adhesive patch, medicated EVERY AM (route: topical) Med Classific ation: Dermatolo gical metformin 500 mg tablet 2023-10 00:00: 00 Yes [id number] 1 tablet EVERY AM 1 tablet EVERY AM (route: oral) Med Classific ation: Endocrine naloxone 4 mg/actuatio n nasal spray 2023-10 00:00: 00 Yes [id number] OPIOD OVERDOSE Per instruc tions NEEDED Per instructio ns NEEDED (route: nasal) Med Classific ation: Antidotes and other Reversal Agents nystatin 100,000 unit/gram topical cream 2023-10 00:00: 00 Yes [id number] TO ABDOMINAL FOLD 1 inch 2 TIMES DAILY 1 inch 2 TIMES DAILY (route: topical) Med Classific ation: Dermatolo gical quetiapine 100 mg tablet 2023-10 00:00: 00 09-23 23:59 :00 No [id number] 1 tablet 3 TIMES DAILY 1 tablet 3 TIMES DAILY (route: oral) Med Classific ation: Central Nervous System Agents quetiapine 50 mg tablet 2023-10 00:00: 00 09-23 23:59 :00 No [id number] MODERATE ANXIETY 1 tablet EVERY 6 HOURS 1 tablet EVERY 6 HOURS (route: oral) Med Classific ation: Central Nervous System Agents sodium chloride 1,000 mg soluble tablet 2023-10 00:00: 00 Yes [id number] 1 tablet 2 TIMES DAILY 1 tablet 2 TIMES DAILY (route: miscellane ous) Med Classific ation: Electroly te Balance-N utritiona l Products trazodone 50 mg tablet 2023-10 00:00: 00 09-08 23:59 :00 No [id number] 1 tablet BEDTIME 1 tablet BEDTIME (route: oral) Med Classific ation: Central Nervous System Agents venlafaxine 37.5 mg tablet 2023-10 00:00: 00 10-27 23:59 :00 No [id number] 1 tablet EVERY AM 1 tablet EVERY AM (route: oral) Med Classific ation: Central Nervous System Agents buprenorphi ne 4 mg-naloxone 1 mg sublingual film 2023-10 00:00: 00 12-03 23:59 :00 No [id number] 1 film 2 TIMES DAILY 1 film 2 TIMES DAILY (route: sublingual ) Med Classific ation: Chemical Dependenc y, Agents to Treat furosemide 20 mg tablet 2023-10 00:00: 00 Yes [id number] 1 tablet EVERY AM 1 tablet EVERY AM (route: oral) Med Classific ation: Cardiovas cular Therapy Agents OXYGEN 2023-10 00:00: 00 Yes [id number] 2 Liter BEDTIME 2 Liter BEDTIME (route: Oxygen) Med Classific ation: Medical Oxygen Adult Low Dose Aspirin 81 mg tablet,marisol yed release 2023-10 00:00: 00 Yes [id number] 1 tablet EVERY AM 1 tablet EVERY AM (route: oral) Med Classific ation: Hematolog ical Agents clonidine HCl 0.1 mg tablet 2023-10 1-18 00:00: 00 10-29 23:59 :00 No [id number] HOLD FOR SBP <90 .5 tablet 3 TIMES DAILY .5 tablet 3 TIMES DAILY (route: oral) Med Classific ation: Cardiovas cular Therapy Agents Colace 100 mg capsule 2023-10 1- 00:00: 00 Yes [id number] 1 capsule DAILY 1 capsule DAILY (route: oral) Med Classific ation: Gastroint estinal Therapy Agents clonidine HCl 0.1 mg tablet 1-06 00:00: 00 12-03 23:59 :00 No [id number] 1 tablet 3 TIMES DAILY 1 tablet 3 TIMES DAILY (route: oral) Med Classific ation: Cardiovas cular Therapy Agents hydroxyzine HCl 50 mg tablet 1-06 00:00: 00 12-03 23:59 :00 No [id number] 1 tablet 4 TIMES DAILY 1 tablet 4 TIMES DAILY (route: oral) Med Classific ation: Central Nervous System Agents aripiprazol e 5 mg tablet 2-12 00:00: 00 Yes [id number] 1 tablet BEDTIME 1 tablet BEDTIME (route: oral) Med Classific ation: Central Nervous System Agents mirtazapine 15 mg tablet 2-12 00:00: 00 Yes [id number] 1 tablet BEDTIME 1 tablet BEDTIME (route: oral) Med Classific ation: Central Nervous System Agents mirtazapine 7.5 mg tablet 2-12 00:00: 00 Yes [id number] 1 tablet BEDTIME 1 tablet BEDTIME (route: [...] AWARENESS FOR SAFETY AND WILL NOTIFY CLINICAL ANCILLARY SPECIALIST AND PHYSICIAN/PROVIDER WITH ANY CHANGE IN CONDITION. [code = SKILLED NURSE WILL MAINTAIN SITUATIONAL AWARENESS FOR SAFETY AND WILL NOTIFY CLINICAL ANCILLARY SPECIALIST AND PHYSICIAN/PROVIDER WITH ANY CHANGE IN [...] Date/Time Encounter Type Admission Type Attending [facility] Care Facility Care Department Encounter ID Discharge Date Discharge Status Discharge Condition Discharge Reason Percent Goals Met 2024-09-06 00:00:00 2025-03-04 00:00:00 [facility] [id number] 7.41
== END 2025-01-21 13:57 | disposition home or self-care (01) ==
LOC: HO.HPS 13:41
PROVIDERS: PCP Internal Medicine; Visit Provider Internal Medicine Pulmonary Disease
DX: J45.909 Unspecified asthma, uncomplicated (principal); G47.33 Obstructive sleep apnea (adult) (pediatric); R06.01 Orthopnea
CPT/HCPCS: 99214; G2211

== ENCOUNTER 2025-03-23 13:27 | Outpatient (AMB) | payer MEDICARE, SELFPAY ==
--- NOTE | 2025-03-23 13:32 | A.OFFVIS_ITS ---
Intake Visit Reasons: Mat visit Allergies No Known Allergies Allergy (Verified 01/21/25 13:52) HPI HPI Mat visit: Details: She is a televisit. She has no complaints Her dose is appropriate. [facility] Medical History Acute hyponatremia PTSD (post-traumatic stress disorder) Psychogenic polydipsia Social History Household Members: None Household Members Other:: 2 dogs Housing: House Do you presently have visiting nurse or other home services: No Comment: ambulates with steady gait Patient Tobacco Use Status: Never used Tobacco e-Cigarette/Vaping Use: Never Used Second Hand Smoke Exposure: No Substance Use Type: Prescription Drugs service: No Sexual orientation: Straight/Heterosexual Review of Systems Const All systems reviewed & are unremarkable except as noted in HPI and below Telehealth Telehealth Telehealth Platform: Telephone Location of provider rendering services: practice address Patient Identification confirmed using: Name, : Yes Telehealth method: voice only Patient verbally consented to treatment: Yes Patient verbally consented to billing insurance company: Yes Patient informed of any privacy concerns related to visit: Yes Minutes spent on Phone/Video with Pt.: 20 Assessment & Plan Assessment & Plan (1) Opioid dependence: Comment: She is doing well with current dose Code(s): F11.20 - Opioid dependence, uncomplicated Category: Medical Plan See as scheduled in three months. Medications: New buprenorphine-naloxone 4-1 mg (Suboxone) place 1 strip/tab under (each) side of tongue 1 film sublingual BID 60 ea 2RF 30 days Coding Level of Care Code Est Pt Level 3 (27036) Diagnoses Opioid dependence F11.20
--- OUTSIDE RECORDS SUMMARY | 2025-03-23 14:33 | XMS_ITS | Continuity of Care Document ---
Author Organization [facility] Address [address] [facility] [address] [place] [address] Phone [phone] Social History Type Date Description Comments Sex Unknown Medical Devices Description No Information Available Encounters Description No Information Available Assessments Description No Information Available Plan of Treatment No Information Available Functional Status Description No Information Available Mental Status Description No Information Available Referrals Description No Information Available
== END 2025-03-23 13:30 | disposition home or self-care (01) ==
LOC: HO.HCC 13:27
PROVIDERS: PCP Nurse Practitioner; Visit Provider Internal Medicine
DX: F11.20 Opioid dependence, uncomplicated (principal)
CPT/HCPCS: 99213

== ENCOUNTER → 2025-03-23 13:27 | Outpatient (BNVA) | payer MEDICARE, SELFPAY | PROVIDERS: PCP Nurse Practitioner; Visit Provider Internal Medicine | DX: F11.20 Opioid dependence, uncomplicated (principal); Z51.81 Encounter for therapeutic drug level monitoring | CPT/HCPCS: 99212 ==

== ENCOUNTER 2025-03-25 11:38 | Outpatient (AMB) | payer MEDICARE, SELFPAY ==
[2025-03-25 11:44] VITALS: BP 108/62; PULSE 85; O2SAT 93; BMI 43.8
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
--- OUTSIDE RECORDS SUMMARY | 2025-03-25 12:29 | XMS_ITS | Clinical Summary ---
Author Organization [facility] Address [address] [place] [address] Phone Care Team Providers Care Strike Plate Attacher Name Role Phone Asad Alvarado MD Primary Care Provider [phone] Allergies Active Allergy Reactions Criticality Noted Date [...] a day with meals. 180 tablet 1 5 Active amLODIPine (NORVASC) 10 mg tablet TAKE 1 TABLET(10 MG) BY MOUTH 1 TIME EACH DAY 90 tablet 5 Active docusate sodium (COLACE) 100 mg capsule Take 1 capsule (100 mg total) by mouth 2 (two) times a day. Active ramelteon (ROZEREM) 8 mg tablet Take 1 tablet (8 mg total) by mouth at bedtime. Active buprenorphine-n aloxone (SUBOXONE) 2-0.[address] under the [...] day. Active nicotine (Nicoderm CQ) 14 mg/24 hrIndications:T obacco abuse disorder Place 1 patch on the skin 1 (one) time each day at the same time for 14 days. 14 patch 5 Active Active Problems Problem Noted Date Diagnosed [...] Encounters Date Type Department Care Team Description 01/27/2025 Telephone [facility] Cardiology Located Within [facility] [address] [place] [address] Pauly Diaz MD nicotine (Nicoderm CQ) 14 mg/24 hr (nicotine (Nicoderm CQ) 14 mg/24 hr) 01/15/2025 1:30 PM EDT Office Visit [facility] Cardiology Located Within [facility] [address] [place] [address] Pauly Diaz MD Hypertension, unspecified type (Primary Dx); Tobacco abuse disorder from Last 3 Months Surgical History Surgery [...] Description 10/01/2025 3:00 PM EST Office Visit [facility] Cardiology Located [facility] [address] [place] [address] Pauly Diaz MD [address] [place] [address] [address] [place] [address] Health Maintenance Due Date Last Done Comments [...] BMP Blood Test 10/07/2022 COVID-19 Vaccine ( season) 2024 06/30/2024, 11/17/2020, 10/20/2020 Zoster Vaccines Completed 02/15/2024, 12/17/2023 Influenza Vaccine Completed 06/30/2024, , 07/29/2018, Additional [...] age to complete this topic Meningococcal B Vaccine Aged Out No l onger eligible based on patient's age to complete [...] GEMUSE QTc 421 ms GEMUSE P Wave [place] 22 degrees GEMUSE R [place] 77 degrees GEMUSE T [place] -5 degrees GEMUSE ECG Interpretation Sinus rhythm [...] 1:40 PM EDT 01/15/2025 1:53 PM EDT Paluy Diaz MD ECG ORDERABLES Final Result GEMUSE from Last 3 Months Insurance [employer] MED[employer]ARE Care Teams Strike Plate Attacher Relationship Specialty Start Date End Date Asad Alvarado MD [address] [place] [address] PCP - General Internal Medicine 06/16/22
== END 2025-03-25 12:03 | disposition home or self-care (01) ==
LOC: HO.HKAS 11:38
PROVIDERS: PCP Nurse Practitioner; Visit Provider Internal Medicine Hypertension Specialist
DX: E87.1 Hypo-osmolality and hyponatremia (principal); R60.9 Edema, unspecified
CPT/HCPCS: 99214

== ENCOUNTER → 2025-03-25 11:38 | Outpatient (BNVA) | payer MEDICARE, SELFPAY | PROVIDERS: PCP Nurse Practitioner; Visit Provider Internal Medicine Hypertension Specialist | DX: I10 Essential (primary) hypertension (principal); E11.9 Type 2 diabetes mellitus without complications; E87.1 Hypo-osmolality and hyponatremia; R60.9 Edema, unspecified | CPT/HCPCS: 99212 ==

== ENCOUNTER 2025-04-15 12:36 | Outpatient (REF) | payer MEDICARE, SELFPAY ==
--- OUTSIDE RECORDS SUMMARY | 2025-04-15 14:38 | XMS_ITS | Continuity of Care Document ---
Author Organization [facility] Address [address] [place] [address] Phone [phone] Social History Type Date Description Comments Sex Female Sex Unknown Medical Devices Description No Information Available Encounters Description No Information Available Assessments Description No Information Available Plan of Treatment No Information Available Functional Status Description No Information Available Mental Status Description No Information Available Referrals Description No Information Available
[2025-04-15 18:14] LABS: Appearance Urine Clear; Color Urine Yellow; Glucose Urine UA Negative (Negative); Leukocyte Esterase Urine Negative (Negative); Nitrite Urine Negative (Negative); PH 6.5 (5.0-9.0); Urine Blood Negative (Negative); Urine Ketones Negative (Negative); Urine Protein Negative (Neg-Trace)
[2025-04-15 18:35] LABS: Anion Gap 13 (12-20); Blood Urea Nitrogen 13 mg/dL (9-16); Calcium 9.5 mg/dL (8.4-10.2); Carbon Dioxide 30 mmol/L (22-29); Chloride 101 mmol/L (96-108); Estimated Glomerular Filt Rate > 60; Glucose Random 142 mg/dL (60-115); Potassium 4.6 mmol/L (3.3-5.1); Sodium 139 mmol/L (135-145)
[2025-04-15 18:38] LABS: Creatinine Urine 50.27 mg/dL; Total Protein Urine Random < 7 mg/dL (<12)
[2025-04-15 18:56] LABS: TSH reflex Free T4 1.06 uIU/mL (0.32-4.0)
== END 2025-04-15 12:37 | disposition home or self-care (01) ==
LOC: HO.HKASLDS 12:36
PROVIDERS: Visit Provider Internal Medicine Hypertension Specialist
DX: R60.9 Edema, unspecified (principal)
CPT/HCPCS: 36415; 80048; 81003; 82570; 84156; 84443

== ENCOUNTER 2025-04-22 11:35 | Outpatient (AMB) | payer MEDICARE, SELFPAY ==
[2025-04-22 11:37] VITALS: BP 140/72; PULSE 83; O2SAT 91; BMI 41.8
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
[2025-04-22 11:44] VITALS: BP 120/64
--- OUTSIDE RECORDS SUMMARY | 2025-04-22 12:23 | XMS_ITS | Clinical Summary ---
Author Organization [facility] Address [address] [place] [address] Phone Care Team Providers Care Manager Hi Name Role Phone Asad Alvarado MD Primary Care Provider [phone] Allergies Active Allergy Reactions Criticality Noted Date [...] Type Department Care Team Description 01/27/2025 Telephone [facility] [address] [place] [address] Pauly Diaz MD nicotine (Nicoderm CQ) 14 mg/24 hr (nicotine (Nicoderm CQ) 14 mg/24 hr) from Last 3 Months Surgical History Surgery [...] Description 10/01/2025 3:00 PM EST Office Visit [facility] [address] [place] [address] Pauly Diaz MD [address] [place] [address] [address] [place] [address] Health Maintenance Due Date Last Done Comments [...] complete this topic Insurance [employer] [place] [id number] Care Teams Manager Hi Relationship Specialty Start Date End Date Asad Alvarado MD [address] [place] [address] PCP - General Internal Medicine 06/16/22
--- OUTSIDE RECORDS SUMMARY | 2025-04-22 12:23 | XMS_ITS | Continuity of Care Document ---
Author Organization [facility] Address [address] [place] [address] Phone [phone] Social History Type Date Description Comments Sex Female Sex Unknown Medical Devices Description No Information Available Encounters Description No Information Available Assessments Description No Information Available Plan of Treatment No Information Available Functional Status Description No Information Available Mental Status Description No Information Available Referrals Description No Information Available
== END 2025-04-22 11:49 | disposition home or self-care (01) ==
LOC: HO.HKAS 11:36
PROVIDERS: PCP Nurse Practitioner; Visit Provider Internal Medicine Hypertension Specialist
DX: E87.1 Hypo-osmolality and hyponatremia (principal); R60.9 Edema, unspecified
CPT/HCPCS: 99214

== ENCOUNTER → 2025-04-22 11:35 | Outpatient (BNVA) | payer MEDICARE, SELFPAY | PROVIDERS: PCP Nurse Practitioner; Visit Provider Internal Medicine Hypertension Specialist | DX: E87.1 Hypo-osmolality and hyponatremia (principal); R60.9 Edema, unspecified; Z79.82 Long term (current) use of aspirin; Z79.891 Long term (current) use of opiate analgesic; Z79.84 Long term (current) use of oral hypoglycemic drugs; Z79.899 Other long term (current) drug therapy | CPT/HCPCS: 99212 ==

== ENCOUNTER 2025-05-04 12:43 | Outpatient (AMB) | payer MEDICARE, SELFPAY ==
[2025-05-04 13:01] VITALS: BP 134/78; PULSE 85; O2SAT 94; BMI 41.8
--- NOTE | 2025-05-04 13:01 | MHC.OFFVIS ---
Vital Signs 05/04/25 13:01 Height 5 ft 1 in Weight 221 lb BMI 41.8 BP 134/78 Blood Pressure Location Rt brachial Position Sitting Pulse 85 Pulse Source Pulse Oximeter Pulse Oximetry (%) 94 Oxygen Delivery Method Room Air Intake Visit Reasons: Nocturnal Hypoxemia Allergies No Known Allergies Allergy (Verified 05/04/25 13:06) HPI HPI Nocturnal Hypoxemia: Details: 69-year-old lady, nonsmoker, followed for TRICIA, orthopnea, and asthma. After the last office visit she has been switched to Breo with improved wheezing. She also is more compliant with her diuretic regimen with improvement lower extremity edema. She was not able to tolerate CPAP therapy. She continues to use nocturnal oxygen. [facility] Medical History Acute hyponatremia PTSD (post-traumatic stress disorder) Psychogenic polydipsia Social History Household Members: None Household Members Other:: 2 dogs Housing: House Do you presently have visiting nurse or other home services: No Comment: ambulates with steady gait Patient Tobacco Use Status: Never used Tobacco e-Cigarette/Vaping Use: Never Used Second Hand Smoke Exposure: No Substance Use Type: Prescription Drugs service: No Sexual orientation: Straight/Heterosexual Review of Systems Const Denies daytime sleepiness, Denies excessive sweating, Denies fatigue, Denies fever(s), Denies lethargy, Denies malaise, Denies night sweats, Denies snoring and Denies weight loss Eyes Denies blurry vision and Denies itchy eyes ENT Denies nasal congestion, Denies post nasal drip, Denies sinus pain, Denies sinus pressure and Denies other ( Thrush) Card Denies chest pain, Reports pedal edema, Denies dyspnea, Reports orthopnea and Denies paroxysmal nocturnal dyspnea Resp Denies cough, Denies hemoptysis, Denies excessive phlegm production, Denies dyspnea, Denies snoring and Denies wheezing GI Denies abdominal pain and Denies heartburn Musc Denies myalgias, Denies arthralgias and Denies joint swelling Skin/Breast Denies rash Neuro Denies memory loss and Denies seizure-like activity Psych Denies abnormal sleep pattern, Denies anxiety and Denies memory loss Endo Denies excessive sweating, Denies fatigue and Denies heat intolerance Prateek/Lymph Denies easy bruising Aller/Immun Denies itchy eyes, Denies seasonal rhinorrhea and Denies wheezing Physical Exam Vital Signs: Last Vital Signs Pulse 85 05/04/25 13:01 BP 134/78 05/04/25 13:01 Pulse Ox 94 05/04/25 13:01 Oxygen Delivery Method Room Air 05/04/25 13:01 BMI result Body Mass Index 41.8 Const General: no acute distress and alert Nutritional Appearance: obese Orientation/consciousness: Other orientation findings ( oriented) HEENT Head: Yes atraumatic Eyes General: appearance normal, both eyes and all related structures Sclerae: sclerae normal EOM: EOMs intact bilaterally Neck Neck: Yes supple Lymphatic: no lymphadenopathy noted Resp Effort & Inspection: normal respiratory effort and no use of accessory muscles Auscultation: clear to auscultation bilaterally Cardio Rate: regular rate Rhythm: regular rhythm Heart sounds: no gallops, no murmurs and no rubs Skin General skin exam: other ( warm) Extrem General: No clubbing, No cyanosis and Yes edema (1+ bilateral) Assessment & Plan Assessment & Plan (1) TRICIA (obstructive sleep apnea): Code(s): G47.33 - Obstructive sleep apnea (adult) (pediatric) Category: Medical Plan: Unable to tolerate CPAP therapy, discussed jaw advancement device. (2) Nocturnal hypoxemia: Code(s): G47.34 - Idiopathic sleep related nonobstructive alveolar hypoventilation Category: Medical Plan: Continue supplemental nocturnal oxygen. (3) Asthma: Code(s): J45.909 - Unspecified asthma, uncomplicated Category: Medical Plan: Improved control on Breo and albuterol MDI. Continue current regimen. (4) Orthopnea: Code(s): R06.01 - Orthopnea Category: Medical Plan: Improved control on furosemide 40 mg daily. Continue current regimen. Medications: Refilled albuterol sulfate 90 mcg/actuation (Ventolin HFA) 2 puffs inhalation RQ4H PRN 1 inhaler 6RF Wheezing 30 days Coding Level of Care Code Est Pt Level 4 (23449) Complex EM visit Add On G2211 Diagnoses TRICIA (obstructive sleep apnea) G47.33 Nocturnal hypoxemia G47.34 Asthma J45.909 Orthopnea R06.01
--- OUTSIDE RECORDS SUMMARY | 2025-05-04 13:35 | XMS_ITS | Continuity of Care Document ---
Author Organization [facility] Address [address] [place] [address] Phone [phone] Social History Type Date Description Comments Sex Female Sex Unknown Medical Devices Description No Information Available Encounters Description No Information Available Assessments Description No Information Available Plan of Treatment No Information Available Functional Status Description No Information Available Mental Status Description No Information Available Referrals Description No Information Available
--- OUTSIDE RECORDS SUMMARY | 2025-05-04 13:35 | XMS_ITS | Clinical Summary ---
Author Organization [facility] Address [address] [place] [address] Phone Care Team Providers Care Lab Systems Analyst Name Role Phone Asad Alvarado MD Primary Care Provider [phone] Allergies Active Allergy Reactions Criticality Noted Date [...] complete echocardiogram to reassess patient's aortic stenosis Surgical History Surgery Date Site/Laterality Comments COLONOSCOPY [...] Description 10/01/2025 3:00 PM EST Office Visit [facility] [address] [place] [address] Pauly Diaz MD [address] [place] [address] [address] [place] [address] Health Maintenance Due Date Last Done Comments [...] Vaccine ( season) 2024 06/30/2024, 11/17/2020, 10/20/2020 Influenza Vaccine (#1) 2025 , 08/13/2020, 07/29/2018, Additional history exists Zoster Vaccines Completed 02/15/2024, 12/17/2023 HIB Vaccines Aged Out No longer eligi [...] topic Insurance [employer] MED[employer] Care Teams Lab Systems Analyst Relationship Specialty Start Date End Date Asad Alvarado MD [address] [place] [address] PCP - General Internal Medicine 06/16/22
== END 2025-05-04 13:21 | disposition home or self-care (01) ==
LOC: HO.HPS 12:43
PROVIDERS: PCP Internal Medicine; Visit Provider Internal Medicine Pulmonary Disease
DX: G47.33 Obstructive sleep apnea (adult) (pediatric) (principal); G47.34 Idiopathic sleep related nonobstructive alveolar hypoventilation; J45.909 Unspecified asthma, uncomplicated; R06.01 Orthopnea
CPT/HCPCS: 99214; G2211

== ENCOUNTER → 2025-05-04 12:43 | Outpatient (BNVA) | payer MEDICARE, SELFPAY | PROVIDERS: PCP Internal Medicine; Visit Provider Internal Medicine Pulmonary Disease | DX: G47.33 Obstructive sleep apnea (adult) (pediatric) (principal); G47.34 Idiopathic sleep related nonobstructive alveolar hypoventilation; J45.909 Unspecified asthma, uncomplicated; R06.01 Orthopnea; Z79.899 Other long term (current) drug therapy | CPT/HCPCS: 99212 ==

== ENCOUNTER 2025-06-19 15:51 | Outpatient (AMB) | payer MEDICARE, SELFPAY ==
--- OUTSIDE RECORDS SUMMARY | 2025-06-19 15:53 | XMS_ITS | Encounter Summary ---
Author Organization [facility] Address [address] [place] [address] Care Team Providers Care Child And Family Therapist Name Role Phone Asad Alvarado MD Primary Care Provider [phone] Reason for Visit * Reason Onset Date Comments Med Refill 06/16/2025 Encounter Details Date Type Department Care Team (Late st Contact Info) Description 06/16/2025 Telephone [facility] [address] [place] [address] [place] [address] Pauly Diaz MD [address] [place] [address] [address] [place] [phone] Social History Tobacco Use Types Packs/Day Years [...] Refills Last Filled Start Date End Date carvediloL (COREG) 12.5 mg tablet Take 1 tablet (12.5 mg total) by mouth 2 (two) times a day with meals. 180 tablet 1 06/16/2025 documented in this encounter Progress Notes * Susan Britt MA - 06/16/2025 3:22 PM EDT Upcoming appt 08/15--faxed a refill for carvedilol * Pito Mock - 06/16/2025 3:00 PM EDT [facility] states patient needs a refill for Carvedilol 12.5 mg 2 tabs daily. Please send to [facility] [place] for a 90 day supply. documented in this encounter Plan of Treatment Upcoming Encounters Date Type Department Care Team (Late st Contact Info) Description 10/01/2025 3:00 PM EST Office Visit [facility] [address] [place] [address] [address] [place] [address] Pauly Diaz MD [address] [place] [address] [address] [place] [address] documented as of this encounter Visit Diagnoses Not on filedocumented in this encounter Discontinued Medications Medication Sig Discontinue Reason Start Date End Da te carvediloL (COREG) 12.5 mg tablet Take 1 tablet (12.5 mg total) by mouth 2 (two) times a day with meals. Reorder 12/18/2024 06/16/2025 documented as of this encounter Care Teams Child And Family Therapist Relationship Specialty Start Date End Date Asad Alvarado MD [address] [place] [address] PCP - General Internal Medicine 06/16/22 documented as of this encounter
--- OUTSIDE RECORDS SUMMARY | 2025-06-19 15:53 | XMS_ITS | Encounter Summary ---
Author Organization [facility] Address [address] [place] [address] Care Team Providers Care Steam Room Attendant Name Role Phone Asad Alvarado MD Primary Care Provider [phone] Reason for Visit * Reason Onset Date Comments MRI 06/08/2025 Encounter Details Date Type Department Care Team (Late st Contact Info) Description 06/08/2025 Telephone [facility] [address] [place] [phone] Pauly Diaz MD [address] [place] [address] [address] [place] [phone] Social History Tobacco Use Types Packs/Day Years [...] on file documented as of this encounter Progress Notes * Vannessa Sanabria MA - 06/15/2025 9:30 AM EDT Returned patients call to inform her that Dr. Diaz said it was ok to have the MRI done. Patient informed me that she did have it done but was thankful for the call anways. * Hyun Paula MA - 06/08/2025 9:51 AM EDT Sorry, we do not know about TAVR's * Pito Mathew - 06/08/2025 9:32 AM EDT Patient is having a MRI NOELLE at [facility]. Patient has a TAVR implant and she was told to ask if it is safe to have this done. documented in this encounter Plan of Treatment Upcoming Encounters Date Type Department Care Team (Late st Contact Info) Description 10/01/2025 3:00 PM EST Office Visit [facility] - [address] [place] [address] Pauly Diaz MD [address] [place] [address] [address] [place] [address] documented as of this encounter Visit Diagnoses Not on filedocumented in this encounter Care Teams Steam Room Attendant Relationship Specialty Start Date End Date Asad Alvarado MD [address] [place] [address] PCP - General Internal Medicine 06/16/22 documented as of this encounter
--- OUTSIDE RECORDS SUMMARY | 2025-06-19 15:53 | XMS_ITS | Continuity of Care Document ---
Author Organization [facility] Address [address] [place] [address] Phone [phone] Social History Type Date Description Comments Sex Female Sex Unknown Medical Devices Description No Information Available Encounters Description No Information Available Assessments Description No Information Available Plan of Treatment No Information Available Functional Status Description No Information Available Mental Status Description No Information Available Referrals Description No Information Available
--- OUTSIDE RECORDS SUMMARY | 2025-06-19 15:53 | XMS_ITS | Clinical Summary ---
Author Organization [facility] Address [address] [place] [address] Phone Care Team Providers Care Water Service Supervisor Name Role Phone Asad Alvarado MD Primary Care Provider [phone] Allergies Active Allergy Reactions Criticality Noted Date Comments Lisinopril 09/06/2022 coughing Medications albuterol HFA (PROAIR HFA ; PROVENTIL HFA ; VENTOLIN HFA) 90 mcg/actuation inhaler Inhale 2 Puffs into the lungs every 4 hours as needed. Active aspirin 81 mg chewable tablet Take 1 Tablet by mouth every other day. Active coenzyme Q-10 200 mg capsule Take by mouth. Activ e fluticasone HFA (FLOVENT HFA) 110 mcg/actuation inhaler Inhale 1 Puff into the lungs 2 times daily. Active furosemide (LASIX) 20 mg tablet Take 2 Tablets by mouth every other day. Active metformin HCl (METFORMIN ORAL) Take by mouth. Activ e rosuvastatin (CRESTOR) 10 mg tablet Take 1 Tablet by mouth daily. 11/15/19 23 Active ergocalcifero l (VITAMIN D-2) 1,250 mcg (50,000 unit) capsule Take by mouth every 7 days. Active docusate sodium (COLACE) 100 mg capsule Take 1 capsule (100 mg total) by mouth 2 (two) times a day. Active ramelteon (ROZEREM) 8 mg tablet Take 1 tablet (8 mg total) by mouth at bedtime. Active buprenorphine -naloxone (SUBOXONE) 2-0.[address] under the [...] day. Active nicotine (Nicoderm CQ) 14 mg/24 hrIndications :Tobacco abuse disorder Place 1 patch on the skin 1 (one) time each day at the same time for 14 days. 14 patch 01/27/20 25 Active amLODIPine (NORVASC) 5 mg tablet Take 1 tablet (5 mg total) by mouth 1 (one) time each day. [facility] wet machine cutter Dr Devyn Brunson 90 each 06/09/20 25 026 Active carvediloL (COREG) 12.5 mg tablet Take 1 tablet (12.5 mg total) by mouth 2 (two) times a day with meals. 180 tablet 1 06/16/20 25 Active carvediloL (COREG) 12.5 mg tablet Take 1 tablet (12.5 mg total) by mouth 2 (two) times a day with meals. 180 tablet 1 12/18/19 25 025 Discontinued(R eorder) amLODIPine (NORVASC) 10 mg tablet TAKE 1 TABLET(10 MG) BY MOUTH 1 TIME EACH DAY 90 tablet 01/02/20 25 025 Discontinued Active Problems Problem Noted Date Diagnosed Date [...] Encounters Date Type Department Care Team Description 06/16/2025 Telephone [facility] [address] [address] [place] [address] Pauly Diaz MD 06/10/2025 8:22 AM EDT - 06/10/2025 11:59 PM EDT Hospital Encounter [facility] [place] [facility] CT Scan [address] [place] [address] Cyst of kidney, acquired Discharge Disposition: Home or Self Care 06/10/2025 7:28 AM EDT - 06/10/2025 11:59 PM EDT Hospital Encounter [facility] [place] [facility] MRI [address] [place] [address] Discharge Disposition: Home or Self Care 06/08/2025 Telephone [facility] Dr [facility] [address] [place] [address] Pauly Diaz MD 06/01/2025 Telephone [facility] [address] [place] [address] Pauly Diaz MD from Last 3 Months Surgical History Surgery [...] Description 10/01/2025 3:00 PM EST Office Visit Quentin Giov[facility] [address] [place] [address] Pauly Diaz MD [address] [place] [address] [place] [phone] Health Maintenance Due Date Last Done Comments Breast Cancer Screening 1957 Diabetes: Annual GFR (Glomerular Filtration Rate) 1957 Diabetes: Annual Foot Exam 1967 Diabetes: Annual Retina Eye Exam 1967 DTaP,Tdap,and Td Vaccines (1 - Tdap) 1976 Pneumococcal Vaccine: 50+ Years (1 of 1 - PCV) 2007 RSV Immunization Adult Patients (1 - Risk 60-74 years 1-dose series) 2017 Cholesterol Screening (Lipid Panel) 09/23/2022 Colorectal Cancer Screening: Colonoscopy 09/23/2022 Falls Risk Assessment 09/23/2022 Hepatitis C Screening 09/23/2022 Medicare Annual Wellness Visit 09/23/2022 Osteoporosis Screening (Bone Density Screening) 09/23/2022 Social Influencers of Health Screening 09/23/2022 Hypertension/CHF/CAD Annual BMP Blood Test 10/07/2022 Depression Screening 10/22/2024 COVID-19 Vaccine ( season) 2024 06/30/2024, 11/17/2020, 10/20/2020 Diabetes: Annual Urine Albumin-Creatinine Ratio (uACR) 06/06/2025 Diabetes: Blood Sugar Control Test (HGBA1C) 06/06/2025 Influenza Vaccine (#1) 2025 , 08/13/2020, 07/29/2018, [...] Procedure Name Priority Date/Time Associated Diagnosis Comments CT ABDOMEN PELVIS WO AND W CONTRAST Routine 06/10/2025 8:51 AM EDT Cyst of kidney, acquired MR CERVICAL SPINE WO CONTRAST Routine 06/10/2025 8:18 AM EDT Cervical pain from Last 3 Months Results * CT Abdomen Pelvis wo and w Contrast (06/10/2025 8:51 AM EDT) Anatomical Region Laterality Modality Body Computed Tomogra phy 06/15/2025 1:38 PM EDT Impressions 06/15/2025 1:53 PM EDT Renal cysts as above. No suspicious lesion. -------- FINAL REPORT -------- Dictated By: Hawa Casanova Dictated Date: 06/15/2025 13:38 ET Assigned Physician: Hawa Casanova Reviewed and Electronically Signed By: Hawa Casanova Signed Date: 06/15/2025 13:53 ET Workstation ID: [id number] Transcribed By: Self Edit Transcribed Date: 06/15/2025 13:48 ET Narrative 06/15/2025 1:53 PM EDT PROCEDURE: CT abdomen and pelvis with and without contrast INDICATION: Cyst TECHNIQUE: CT of the abdomen and pelvis before and after the intravenous administration of 100cc Omnipaque 300. Multiplanar reformats. The examination was performed utilizing dose reduction techniques. COMPARISON: No priors available. FINDINGS: LOWER THORAX: Lung bases are clear. Coronary artery calcifications and TAVR HEPATOBILIARY: No focal liver lesions. No cholelithiasis or biliary duct dilatation. SPLEEN: No splenomegaly. PANCREAS: No focal mass or ductal dilatation. ADRENALS: No nodules. KIDNEYS/URETERS: No hydronephrosis, stones, or solid mass. Simple exophytic left renal cyst measuring 2.9 cm. On multiphasic imaging the 1 cm right renal cyst in the posterior interpolar right kidney measures similar Hounsfield units on noncontrast and multiphasic imaging compatible with a hyperdense cyst. Few parapelvic cysts are also noted. PELVIC ORGANS/BLADDER: Sternotomy. PERITONEUM / RETROPERITONEUM: No ascites or free air. No retroperitoneal lymphadenopathy. VESSELS: Scattered atherosclerotic calcifications throughout the aorta and its major branches. No aneurysm. GI TRACT: There is significant sigmoid diverticulosis without acute diverticulitis evident. There is no suspicious thickening/mass. No obstruction. Normal appendix. BONES AND SOFT TISSUES: Scattered degenerative changes seen throughout the bones. Scoliosis. Soft tissues are unremarkable. Procedure Note Hawa Casanova MD - 06/15/2025 PROCEDURE: CT abdomen and pelvis with and without contrast INDICATION: Cyst TECHNIQUE: CT of the abdomen and pelvis before and after the intravenousadministration of 100cc Omnipaque 300. Multiplanar reformats. Theexamination was performed utilizing dose reduction techniques. COMPARISON: No priors available. FINDINGS: LOWER THORAX: Lung bases are clear. Coronary artery calcifications andTAVR HEPATOBILIARY: No focal liver lesions. No cholelithiasis or biliary ductdilatation. SPLEEN: No splenomegaly. PANCREAS: No focal mass or ductal dilatation. ADRENALS: No nodules. KIDNEYS/URETERS: No hydronephrosis, stones, or solid mass. Simpleexophytic left renal cyst measuring 2.9 cm. On multiphasic imaging the 1cm right renal cyst in the posterior interpolar right kidney measuressimilar Hounsfield units on noncontrast and multiphasic imaging compatiblewith a hyperdense cyst. Few parapelvic cysts are also noted. PELVIC ORGANS/BLADDER: Sternotomy. PERITONEUM / RETROPERITONEUM: No ascites or free air. No retroperitoneallymphadenopathy. VESSELS: Scattered atherosclerotic calcifications throughout the aorta andits major branches. No aneurysm. GI TRACT: There is significant sigmoid diverticulosis without acutediverticulitis evident. There is no suspicious thickening/mass. Noobstruction. Normal appendix. BONES AND SOFT TISSUES: Scattered degenerative changes seen throughout thebones. Scoliosis. Soft tissues are unremarkable. IMPRESSION: Renal cysts as above. No suspicious lesion. -------- FINAL REPORT -------- Dictated By: Hawa Casanova Dictated Date: 06/15/2025 13:38 ET Assigned Physician: Hawa Casanova Reviewed and Electronically Signed By: Hawa Casanova Signed Date: 06/15/2025 13:53 ET Workstation ID: [id number] Transcribed By: Self Edit Transcribed Date: 06/15/2025 13:48 ET Jasonriri Samantha Trinh MD IMG CT PROCEDURES Fi nal Result * MR Cervical Spine wo Contrast (06/10/2025 8:18 AM EDT) Anatomical Region Laterality Modality C-spine, Spine Magnetic Resonan ce 06/11/2025 6:34 PM EDT Impressions 06/11/2025 6:47 PM EDT Degenerative changes throughout the cervical spine without high-grade or foraminal or spinal canal stenosis. Advanced upper cervical facet arthritis with degenerative edema/inflammation around the left C2-3 and C3-4 facet joints. -------- FINAL REPORT -------- Dictated By: OSCAR HICKMAN Dictated Date: 06/11/2025 18:34 ET Assigned Physician: OSCAR HICKMAN Reviewed and Electronically Signed By: OSCAR HICKMAN Signed Date: 06/11/2025 18:47 ET Workstation ID: [id number] Transcribed By: Self Edit Transcribed Date: 06/11/2025 18:34 ET Narrative 06/11/2025 6:47 PM EDT PROCEDURE: Cervical spine MRI INDICATION: Pain TECHNIQUE: Multiplanar, multisequence MRI of the Cervical spine Without contrast. COMPARISON: No priors available. FINDINGS: Reversal of the normal cervical lordosis centered at C5. Mild anterolisthesis at C3-4 and C4-5 related to degenerative facet arthropathy. No fracture or suspicious marrow replacing lesion. Multilevel degenerative loss of normal disc height and signal with associated degenerative discogenic endplate change. Type I degenerative Modic changes seen at C5-6 and C6-7 Degenerative cervical facet arthritis most pronounced on the right at C4-5 as well as on the left at C2-3 and C3-4. Degenerative edema/inflammation around the left C2-3 and C3-4 facet joints. Cervical cord is normal in signal and morphology. No epidural collection or mass is seen within the spinal canal. Foramen magnum is normal. Paraspinal muscles are normal. Findings by level: C2-C3: No foraminal or spinal canal stenosis C3-C4: No foraminal or spinal canal stenosis C4-C5: Posterior disc osteophyte complex with right uncovertebral spur results in mild right foraminal and mild spinal canal stenosis. No left foraminal stenosis. C5-C6: Posterior disc osteophyte complex and bilateral uncovertebral spurring resulting in moderate right and mild left foraminal stenosis. Mild spinal canal stenosis. C6-C7: Posterior disc osteophyte complex with bilateral uncovertebral spurring and facet arthropathy resulting in moderate foraminal stenosis bilaterally. No spinal canal stenosis. C7-T1: No foraminal or spinal canal stenosis Procedure Note Oscar Hickman MD - 06/11/2025 PROCEDURE: Cervical spine MRI INDICATION: Pain TECHNIQUE: Multiplanar, multisequence MRI of the Cervical spine Withoutcontrast. COMPARISON: No priors available. FINDINGS: Reversal of the normal cervical lordosis centered at C5. Mildanterolisthesis at C3-4 and C4-5 related to degenerative facetarthropathy. No fracture or suspicious marrow replacing lesion. Multilevel degenerative loss of normal disc height and signal withassociated degenerative discogenic endplate change. Type I degenerativeModic changes seen at C5-6 and C6-7 Degenerative cervical facet arthritis most pronounced on the right at C4-5as well as on the left at C2-3 and C3-4. Degenerative edema/inflammationaround the left C2- 3 and C3-4 facet joints. Cervical cord is normal in signal and morphology. No epidural collectionor mass is seen within the spinal canal. Foramen magnum is normal. Paraspinal muscles are normal. Findings by level: C2-C3: No foraminal or spinal canal stenosis C3-C4: No foraminal or spinal canal stenosis C4-C5: Posterior disc osteophyte complex with right uncovertebral spurresults in mild right foraminal and mild spinal canal stenosis. No leftforaminal stenosis. C5-C6: Posterior disc osteophyte complex and bilateral uncovertebralspurring resulting in moderate right and mild left foraminal stenosis.Mild spinal canal stenosis. C6-C7: Posterior disc osteophyte complex with bilateral uncovertebralspurring and facet arthropathy resulting in moderate foraminal stenosisbilaterally. No spinal canal stenosis. C7-T1: No foraminal or spinal canal stenosis IMPRESSION: Degenerative changes throughout the cervical spine without high-grade orforaminal or spinal canal stenosis. Advanced upper cervical facet arthritis with degenerativeedema/inflammation around the left C2-3 and C3-4 facet joints. -------- FINAL REPORT -------- Dictated By: OSCAR HICKMAN Dictated Date: 06/11/2025 18:34 ET Assigned Physician: OSCAR HICKMAN Reviewed and Electronically Signed By: OSCAR HICKMAN Signed Date: 06/11/2025 18:47 ET Workstation ID: [id number] Transcribed By: Self Edit Transcribed Date: 06/11/2025 18:34 ET Sergey Hugo SHEET METAL INSULATOR IMG MRI PROCEDURES Final Result from Last 3 Months Insurance [employer] MED[employer]ARE Care Teams Water Service Supervisor Relationship Specialty Start Date End Date Asad Alvarado MD [address] [place] [address] PCP - General Internal Medicine 06/16/22
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
== END 2025-06-19 15:58 | disposition home or self-care (01) ==
LOC: HO.HCC 15:51
PROVIDERS: PCP Internal Medicine; Visit Provider Internal Medicine
DX: F11.20 Opioid dependence, uncomplicated (principal)
CPT/HCPCS: 99213

== ENCOUNTER → 2025-06-19 15:51 | Outpatient (BNVA) | payer MEDICARE, SELFPAY | PROVIDERS: PCP Internal Medicine; Visit Provider Internal Medicine | DX: F11.20 Opioid dependence, uncomplicated (principal) | CPT/HCPCS: 99212 ==

== ENCOUNTER 2025-08-17 13:21 | Outpatient (AMB) | payer MEDICARE, SELFPAY ==
[2025-08-17 13:26] VITALS: BP 130/72; PULSE 72; O2SAT 96; BMI 39.6
--- NOTE | 2025-08-17 13:26 | MHC.OFFVIS ---
Vital Signs 08/17/25 13:26 Height 5 ft 1 in Weight 209 lb 7.026 oz BMI 39.6 BP 130/72 Blood Pressure Location Rt brachial Position Sitting Pulse 72 Pulse Source Pulse Oximeter Pulse Oximetry (%) 96 Oxygen Delivery Method Room Air Intake Visit Reasons: Nocturnal Hypoxemia Allergies No Known Allergies Allergy (Verified 08/17/25 13:33) HPI HPI Nocturnal Hypoxemia: Details: 69-year-old lady, nonsmoker, followed for TRICIA, orthopnea, and asthma. She continues on Advair and albuterol MDI with good control of her asthma symptoms. S her lower extremity edema is well controlled on Lasix 40 mg daily. She was not able to tolerate CPAP therapy. She continues to use nocturnal oxygen. Today she does complain of several week history of cough productive of thick whitish sputum. [facility] Medical History Acute hyponatremia PTSD (post-traumatic stress disorder) Psychogenic polydipsia Social History Household Members: None Household Members Other:: 2 dogs Housing: House Do you presently have visiting nurse or other home services: No Comment: ambulates with steady gait Patient Tobacco Use Status: Never used Tobacco e-Cigarette/Vaping Use: Never Used Second Hand Smoke Exposure: No Substance Use Type: Prescription Drugs service: No Sexual orientation: Straight/Heterosexual Review of Systems Const Denies daytime sleepiness, Denies excessive sweating, Denies fatigue, Denies fever(s), Denies lethargy, Denies malaise, Denies night sweats, Denies snoring and Denies weight loss Eyes Denies blurry vision and Denies itchy eyes ENT Denies nasal congestion, Denies post nasal drip, Denies sinus pain, Denies sinus pressure and Denies other ( Thrush) Card Denies chest pain, Denies pedal edema, Denies dyspnea, Denies orthopnea and Denies paroxysmal nocturnal dyspnea Resp Reports cough, Denies hemoptysis, Reports excessive phlegm production, Denies dyspnea, Denies snoring and Denies wheezing GI Denies abdominal pain and Denies heartburn Musc Denies myalgias, Denies arthralgias and Denies joint swelling Skin/Breast Denies rash Neuro Denies memory loss and Denies seizure-like activity Psych Denies abnormal sleep pattern, Denies anxiety and Denies memory loss Endo Denies excessive sweating, Denies fatigue and Denies heat intolerance Prateek/Lymph Denies easy bruising Aller/Immun Denies itchy eyes, Denies seasonal rhinorrhea and Denies wheezing Physical Exam Vital Signs: Last Vital Signs Pulse 72 08/17/25 13:26 BP 130/72 08/17/25 13:26 Pulse Ox 96 08/17/25 13:26 Oxygen Delivery Method Room Air 08/17/25 13:26 BMI result Body Mass Index 39.6 Const General: no acute distress and alert Nutritional Appearance: obese Orientation/consciousness: Other orientation findings ( oriented) HEENT Head: Yes atraumatic Eyes General: appearance normal, both eyes and all related structures Sclerae: sclerae normal EOM: EOMs intact bilaterally Neck Neck: Yes supple Lymphatic: no lymphadenopathy noted Resp Effort & Inspection: normal respiratory effort and no use of accessory muscles Auscultation: clear to auscultation bilaterally Cardio Rate: regular rate Rhythm: regular rhythm Heart sounds: no gallops, no murmurs and no rubs Skin General skin exam: other ( warm) Extrem General: No clubbing, No cyanosis and Yes edema (Trace bilateral) Assessment & Plan Assessment & Plan (1) Asthma: Code(s): J45.909 - Unspecified asthma, uncomplicated Category: Medical Plan: Well controlled on current regimen of Advair and albuterol MDI. Continue current regimen. (2) Nocturnal hypoxemia: Code(s): G47.34 - Idiopathic sleep related nonobstructive alveolar hypoventilation Category: Medical Plan: Well controlled on supplemental nocturnal oxygen. Continue current oxygen therapy. (3) Edema: Code(s): R60.9 - Edema, unspecified Category: Medical Plan: Controlled on current diuretic regimen of Lasix 40 mg daily. Continue current regimen. Coding Level of Care Code Est Pt Level 4 (37770) Complex EM visit Add On G2211 Diagnoses Asthma J45.909 Nocturnal hypoxemia G47.34 Edema R60.9
== END 2025-08-17 13:47 | disposition home or self-care (01) ==
LOC: HO.HPS 13:22
PROVIDERS: PCP Internal Medicine; Visit Provider Internal Medicine Pulmonary Disease
DX: J45.909 Unspecified asthma, uncomplicated (principal); G47.34 Idiopathic sleep related nonobstructive alveolar hypoventilation; R60.9 Edema, unspecified
CPT/HCPCS: 99214; G2211

== ENCOUNTER → 2025-08-17 13:21 | Outpatient (BNVA) | payer MEDICARE, SELFPAY | PROVIDERS: PCP Internal Medicine; Visit Provider Internal Medicine Pulmonary Disease | DX: J45.909 Unspecified asthma, uncomplicated (principal); R05.9 Cough, unspecified; G47.34 Idiopathic sleep related nonobstructive alveolar hypoventilation; R60.9 Edema, unspecified | CPT/HCPCS: 99212 ==

== ENCOUNTER 2025-08-21 13:01 | Outpatient (REF) | payer MEDICARE, SELFPAY ==
--- OUTSIDE RECORDS SUMMARY | 2025-08-21 14:08 | XMS_ITS | Continuity of Care Document ---
Author Organization [facility] Address [address] [place] [address] Phone [phone] Social History Type Date Description Comments Sex Female Sex Unknown Medical Devices Description No Information Available Encounters Description No Information Available Assessments Description No Information Available Plan of Treatment No Information Available Functional Status Description No Information Available Mental Status Description No Information Available Referrals Description No Information Available
[2025-08-21 18:21] LABS: Anion Gap 10 (12-20); Blood Urea Nitrogen 15 mg/dL (9-16); Calcium 9.1 mg/dL (8.4-10.2); Carbon Dioxide 33 mmol/L (22-29); Chloride 100 mmol/L (96-108); Estimated Glomerular Filt Rate > 60; Potassium 4.4 mmol/L (3.3-5.1); Sodium 139 mmol/L (135-145)
== END 2025-08-21 13:02 | disposition home or self-care (01) ==
LOC: HO.HKASLDS 13:01
PROVIDERS: PCP Nurse Practitioner; Visit Provider Internal Medicine Hypertension Specialist
DX: R60.9 Edema, unspecified (principal)
CPT/HCPCS: 36415; 80048

== ENCOUNTER 2025-08-26 10:48 | Outpatient (AMB) | payer MEDICARE, SELFPAY ==
[2025-08-26 11:09] VITALS: BP 120/60; PULSE 74; O2SAT 91; BMI 41.0
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
--- OUTSIDE RECORDS SUMMARY | 2025-08-26 12:42 | XMS_ITS | Continuity of Care Document ---
Author Organization [facility] Address [address] [place] [address] Phone [phone] Social History Type Date Description Comments Sex Female Sex Unknown Medical Devices Description No Information Available Encounters Description No Information Available Assessments Description No Information Available Plan of Treatment No Information Available Functional Status Description No Information Available Mental Status Description No Information Available Referrals Description No Information Available
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
== END 2025-08-26 11:22 | disposition home or self-care (01) ==
LOC: HO.HKAS 10:49
PROVIDERS: PCP Nurse Practitioner; Visit Provider Internal Medicine Hypertension Specialist
DX: E87.1 Hypo-osmolality and hyponatremia (principal); R60.9 Edema, unspecified
CPT/HCPCS: 99214

== ENCOUNTER → 2025-08-26 10:48 | Outpatient (BNVA) | payer MEDICARE, SELFPAY | PROVIDERS: PCP Nurse Practitioner; Visit Provider Internal Medicine Hypertension Specialist | DX: E87.1 Hypo-osmolality and hyponatremia (principal); R60.9 Edema, unspecified | CPT/HCPCS: 99212 ==

== ENCOUNTER 2025-09-14 14:11 | Outpatient (AMB) | payer MEDICARE, SELFPAY ==
--- OUTSIDE RECORDS SUMMARY | 2025-09-14 19:08 | XMS_ITS | Clinical Summary ---
Author Organization [facility] Address [address] [place] [address] Phone Care Team Providers Care Computer Art Instructor Name Role Phone Asad Alvarado MD Primary Care Provider [phone] Allergies Active Allergy Reactions Criticality Noted Date [...] day. Active nicotine (Nicoderm CQ) 14 mg/24 hrIndications: Tobacco abuse disorder Place 1 patch on the skin 1 (one) time each day at the same time for 14 days. 14 patch 5 Active carvediloL (COREG) 12.5 mg tablet Take 1 tablet (12.5 mg total) by mouth 2 (two) times a day with meals. 180 tablet 1 5 Active amLODIPine (NORVASC) 5 mg tablet Take 1 tablet (5 mg total) by mouth 1 (one) time each day. 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 Decreased id off track betting manager Dr Devyn Brunson 90 each 5 025 Discontin ued(Reord er) Active Problems Problem Noted Date Diagnosed Date [...] EDT - 08/08/2025 10:10 AM EDT Emergency [facility] Emergency [address] [place] [address] Fall, initial encounter (Primary Dx); Head injury, initial encounter; Strain of neck muscle, initial encounter; Laceration of head without foreign body, unspecified part of head, initial encounter Discharge Disposition: Home or Self Care 06/16/2025 Telephone [facility] [address] [place] [phone] Pauly Diaz MD from Last 3 Months [...] Description 10/01/2025 3:00 PM EST Office Visit [facility] [address] [place] [address] [address] [place] [phone] Pauly Diaz MD [address] [place] [address] [address] [place] [phone] Health Maintenance Due Date Last Done Comments [...] Control Test (HGBA1C) 06/06/2025 COVID-19 Vaccine ( - season) 2025 06/30/2024, 11/17/2020, 10/20/2020 DTaP,Tdap,and Td [...] WO CONTRAST STAT 08/08/2025 7:26 AM EDT from Last 3 Months Results * Laceration Repair (08/08/2025 9:49 AM EDT) Narrative Truong Travis MD - 08/08/2025 9:49 AM EDT Truong Travis MD 08/08/2025 12:10 PM Laceration Repair Date/Time: 08/08/2025 9:49 AM Performed by: REID Chavez Authorized by: REID Chavez Consent: Consent obtained: Verbal Risks discussed: Pain [place] protocol: Patient identity confirmed: Verbally with patient [...] Signed Date: 08/08/2025 08:09 ET Workstation ID: [id number] Transcribed By: Self Edit Transcribed Date: 08/08/2025 [...] joints. No significant spinal stenosis. Procedure Note Abisai Reyes MD - 08/08/2025 PROCEDURE: Noncontrast CT [...] Signed Date: 08/08/2025 08:09 ET Workstation ID: [id number] Transcribed By: Self Edit Transcribed Date: 08/08/2025 08:05 ET Silva Webb MD IMG CT PROCEDURES Final Result * CT Head [...] Signed Date: 08/08/2025 08:12 ET Workstation ID: [id number] Transcribed By: Self Edit Transcribed Date: 08/08/2025 [...] Signed Date: 08/08/2025 08:12 ET Workstation ID: [id number] Transcribed By: Self Edit Transcribed Date: 08/08/2025 08:10 ET Silva Webb MD IMG CT PROCEDURES Final Result from Last 3 Months Insurance [employer] [place] [address] Care Teams Computer Art Instructor Relationship Specialty Start Date End Date Asad Alvarado MD [address] [place] [address] PCP - General Internal Medicine 06/16/22
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
== END 2025-09-14 14:14 | disposition home or self-care (01) ==
LOC: HO.HCC 14:11
PROVIDERS: PCP Internal Medicine; Visit Provider Internal Medicine
DX: F11.20 Opioid dependence, uncomplicated (principal)
CPT/HCPCS: 99213

== ENCOUNTER → 2025-09-14 14:11 | Outpatient (BNVA) | payer MEDICARE, SELFPAY | PROVIDERS: PCP Internal Medicine; Visit Provider Internal Medicine | DX: F11.20 Opioid dependence, uncomplicated (principal) | CPT/HCPCS: 99212 ==